=== PATIENT | male | born 1945 | race Caucasian/White ===

== ENCOUNTER 2023-09-01 09:14 | Inpatient (IN) ==
--- NOTE | 2023-09-01 09:37 | Emergency Department Note ---
Impression & Plan Atrial fibrillation with rapid ventricular response, COPD (chronic obstructive pulmonary disease), MEJIA (dyspnea on exertion) ED Provider Note NAME: COURT BARNES AGE: 78 SEX: M : 1945 ARRIVES VIA: Walk-In INFORMANT: Patient, ED PROVIDER(S): Richard Garcia MD CHIEF COMPLAINT: Shortness of breath MEDICAL DECISION MAKING: Patient presented due to concern for worsening shortness of breath. IV was established and blood work was obtained. Blood work shows a an elevated white count of 24,000. Hemoglobin of 10 with normal platelet count. The patient's kidney function with creatinine 1.4. Procalcitonin was added given the patient's white count the patient was ordered empiric antibiotics including Zosyn and a MRSA swab. Patient's bio fire is negative. BNP is elevated 813. Patient was hydrated cautiously and the patient's rate did improve along with some Lopressor. After discussing with the patient patient believes that he did have a shot to potentially increase his white blood cell count last week. Patient did have a chest x-ray completed prior to arrival which showed potential signs of viral pneumonia. Critical Care: I have personally spent 35 minutes of critical care time in direct management of this patient. This includes bedside care, interpretation of diagnostic studies, and testing, discussion with consultants, patient, and family members, and other require inpatient management activities. This 35 minutes is in excess of all separately billable procedures. Discussion w/ other healthcare providers: None Prior /Outside records reviewed: Reviewed a pulmonology visit from August 20, [address] Briscoe. No history of COPD diffuse large B-cell lymphoma pulmonary hypertension and bronchitis. Patient quit smoking in 20 [id number] history. Currently on high-dose Advair along with Spiriva and as needed albuterol patient is anticoagulated on apixaban. Patient did have a left cephalic access port placed by Dr. Palomino on August 20. Patient also with a known history of A-fib on apixaban. Patient is on metoprolol. Differential diagnosis: Reactive airway disease, pneumonia, pneumothorax, COPD, CHF, ACS, pulmonary embolism, musculoskeletal, GERD as well as other pathologies were considered.. The patient states that his shortness of breath has been worse with exertion but currently at rest laying back in the bed he feels comfortable. He does wear 3 L of chronic oxygen at all times. Diagnostics, as interpreted by me: ECG: A-fib with RVR rate 150, normal QRS, right bundle branch block pattern. Repeat EKG interpreted by myself A-fib with RVR rate of 124 bundle-branch block pattern. No significant change from comparison. Rate has improved. Cardiac monitoring: An order was placed for continuous cardiac monitoring. The monitor shows a rate of 121 with tachycardic and irregular irregular rhythm. Patient was placed on pulse oximetry Medical decision rules: None Imaging studies: I informally interpreted the patient's Chest x-ray does not show any evidence of pneumothorax with formal report to follow. HPI: Patient presents due to concern for A-fib and shortness of breath. The patient states that he does have chronic shortness of breath but seem to notice it worse this morning. The patient did notice some palpitations last evening. Patient denies any cough or fever. Patient states that he has been increasing his water or juice intake ever since he began chemotherapy is only had 1 beer in the last week. The patient states that he was like to drink water with his steak that he had. Patient denies any chest pains. 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 Patient states that last night is when he first noticed the fluttering and palpitations patient [place] any fevers or abdominal pain no nausea vomiting or diarrhea. PAST MEDICAL HISTORY: See Below PAST SURGICAL HISTORY: See Below SOCIAL HISTORY: See Below HOME MEDICATIONS: See Below ALLERGIES: See Below VITALS: See Below PHYSICAL EXAMINATION: GENERAL: NAD, non-toxic. EYE EXAM: Normal conjunctiva. PERRL, no anisocoria and EOM's grossly intact w/o pain. OROPHARYNX: Moist mucus membranes, grossly normal dentition. NECK: Trachea midline, no stridor. LUNGS: Clear to auscultation. Normal chest wall mechanics. HEART: Tachycardic and irregularly irregular, no MRG. ABDOMEN: Abdomen soft, non-tender, no masses, no rebound or guarding. BACK: No CVA TTP. SKIN: No rashes and no bruising. UPPER EXTREMITIES: Upper extremities are grossly normal. LOWER EXTREMITIES: Grossly normal, no edema. NEURO EXAM: A&O x3, cranial nerves II-XII grossly intact, normal speech, moves all 4 extremities. 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 Traore Anemia GERD (gastroesophageal reflux disease) Medical History Paroxysmal atrial fibrillation CKD (chronic kidney disease) stage 3, GFR 30-59 ml/min Claudication dx after AAA repair>causing back pain Arthritis GERD (gastroesophageal reflux disease) History of follicular lymphoma chemo/radiation tx 2017? Diffuse large B cell lymphoma current dx Hx of renal failure hospitalized 2021 ([place] in [place]) developed sepsis>had dialysis for 1 week while admitted>resolved issue Hx of sepsis Hypertension Hyperlipidemia History of atrial fibrillation 2021 On home oxygen therapy 3l cont. Chronic obstructive pulmonary disease Edema of both lower extremities Hx of chronic bronchitis Mitral valve regurgitation follow with Dr. Traore History of skin cancer nose area Restless leg syndrome Chronic back pain Stenosis of right carotid artery TIA (transient ischemic attack) x 2 (2021), on Eliquis, follows with [facility] Surgical History Port-A-Cath in place (08/21/23) p Insertion of Left Cephalic Access Port with Fluoroscopy(Left) - Chirag Palomino MD, FACS MRI port placed in the left cephalic vein throughout the procedure fluoroscopy was used to position the catheter and I personally reviewed all the images Hx of vasectomy History of tooth extraction History of cataract surgery right/left History of bronchoscopy History of Mohs micrographic surgery for skin cancer Hx of biopsy multiple lymph nodes/neck Hx of knee surgery multiple, both knees Hx of discectomy c5 History of endovascular stent graft for abdominal aortic aneurysm (AAA) 2019 Family History Father ALS (amyotrophic lateral sclerosis) Other No family history of adverse response to anesthesia Social History Smoking Status: Former smoker Tobacco Type: Cigarettes packs per day: ; Cigarettes Per Day: 2020; Second Hand Exposure: Yes (in the past); Do You Dip or Chew Tobacco: No; Hx Alcohol Use: No Hx Substance Use: No Preferred Language: Finnish Communication Ability: Effective Visual Impairment: Partially Limited Hearing Ability: Normal Master Technician Required: No Beliefs That Will Affect Care: None marital status: Current Living Situation: Alone current occupational status: 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 @ [employer] Feels Safe at Home: Yes Diet: regular during the past year weight has: remained stable Assistive Devices: Cane, Oxygen - Continuous and Walker Allergies Allergies Allergy/AdvReac Type Severity Reaction Status Date / Time rituximab Allergy Severe Swelling Verified 09/01/23 12:45 of Lip/Tongue/Throat Home Meds Home Medications Medication Instructions Recorded Confirmed acyclovir 200 mg capsule 400 mg PO BID 07/09/22 09/01/23 apixaban 5 mg tablet (Eliquis) 5 mg PO BID 07/09/22 09/01/23 atorvastatin 80 mg tablet 80 mg PO QPM 07/09/22 09/01/23 cholecalciferol (vitamin D3) 50 50 mcg PO QAM 07/09/22 09/01/23 mcg (2,000 unit) capsule folic acid 1 mg tablet 1 mg PO QAM 07/09/22 09/01/23 mecobalamin (vitamin B12) 1,000 1,000 mcg PO QAM 07/09/22 09/01/23 mcg chewable tablet metoprolol succinate 50 mg 50 mg PO QAM 07/09/22 09/01/23 tablet,extended release 24 hr acetaminophen 325 mg capsule 325 mg PO QID PRN Pain 08/29/22 09/01/23 (Tylenol) aspirin 81 mg capsule 81 mg PO QAM 08/29/22 09/01/23 omeprazole 20 mg tablet,delayed 20 mg PO QAM 08/29/22 09/01/23 release ketoconazole 2 % topical cream 1 applic topical BID PRN Skin 07/17/23 09/01/23 Irritation pramipexole 0.25 mg tablet 0.25 mg PO HS 08/12/23 09/01/23 sulfamethoxazole 800 1 tab PO 3XWK 08/12/23 09/01/23 mg-trimethoprim 160 mg tablet Previous Rx's Medication Instructions Recorded Flutter Valve #1 ea 03/20/23 dextromethorphan-guaifenesin 10 10 ml PO Q6H PRN cough #237 mL 03/20/23 mg-100 mg/5 mL oral liquid albuterol sulfate 90 mcg/actuation 2 puff inhalation QID PRN 08/20/23 aerosol inhaler shortness of breath or wheezing #8.5 grams fluticasone 500 mcg-salmeterol 50 1 inh inhalation BID #60 ea 08/20/23 mcg/dose blistr powdr for inhalation (Advair Diskus) tiotropium bromide 2.5 2 inh inhalation QAM #4 grams 08/20/23 mcg/actuation mist for inhalation (Spiriva Respimat) amoxicillin 875 mg-potassium 1 tab PO BID 6 days #12 tabs 09/02/23 clavulanate 125 mg tablet azithromycin 250 mg tablet 250 mg PO DAILY 4 days #4 tabs 09/02/23 Results & Data (ED) Vital Signs Vital Signs - 24 hr 09/01/23 09:16 09/01/23 09:58 09/01/23 10:03 Temperature 36.8 C Temperature Source Temporal Artery Scan Pulse Rate 103 H 125 H Pulse Rhythm Regular Pulse Strength Normal Respiratory Rate 18 Respiratory Effort / Characteristics Non-Labored Spontaneous Respiratory Depth Normal Respiratory Pattern Regular Blood Pressure 86/50 L 121/89 Blood Pressure Mean 62 Blood Pressure Position Sitting Pulse Oximetry 93 98 Oxygen Delivery Method Nasal Cannula Nasal Cannula Oxygen Flow Rate 3 3 Sepsis Recent Fever Within 48 Hours No Sepsis New/Unexplained Change in Mental Status No Sepsis Action Taken by Nursing No Action Required Home Medications Current Medication List: was personally reviewed by me Laboratory Data Attestation: I reviewed the patient's lab results. 09/02/23 05:25 09/02/23 05:25 Lab Results 09/01/23 09/01/23 09/01/23 Range/Units 09:30 09:50 09:58 WBC 24.76 H (4.8-10.8) K/ul RBC 2.79 L (4.70-6.10) M/uL Hgb 10.1 L (14.0-18.0) g/dl Hct 30.2 L (42.0-52.0) % MCV 108.2 H (80.0-100.0) fL MCH 36.2 H (25.0-34.0) pg MCHC 33.4 (32.0-36.0) g/dL RDW Std Deviation 55.5 H (36.4-46.3) fL RDW Coeff of Leeanne 13.9 (11.5-14.5) % Plt Count 133 (130-400) K/uL MPV 11.0 (9.4-12.4) fL Immature Gran % (Auto) 4.3 % Neut % (Auto) 87.0 % Lymph % (Auto) 0.9 % Knox % (Auto) 7.1 % Eos % (Auto) 0.6 % Baso % (Auto) 0.1 % Neut # (Auto) 21.52 H (1.40-6.50) K/uL Lymph # (Auto) 0.23 L (1.20-3.40) K/uL Knox # (Auto) 1.76 H (0.11-0.59) K/uL Eos # (Auto) 0.16 (0.00-0.50) K/uL Baso # (Auto) 0.02 (0.00-0.20) K/uL Immature Gran # (Auto) 1.07 H (0.01-0.20) K/uL Hyposegmented Neuts 2+ Sodium 140 (136-145) mmol/L Potassium 4.2 (3.5-5.1) mmol/L Chloride 107 (98-107) mmol/L Carbon Dioxide 28 (21-32) mmol/L Anion Gap 5 (3-11) BUN 28 H (6-23) mg/dl Creatinine 1.44 H (0.6-1.4) mg/dl Est Cr Clr Drug Dosing Not Reportable Est GFR ( Amer) 54.3 ml/min Est GFR (Non-Af Amer) 46.8 ml/min BUN/Creatinine Ratio 19.4 (10-20) Glucose 112 H (70-99(Fasting)) mg/dl Calcium 8.9 (8.6-10.3) mg/dl Magnesium 2.0 (1.7-2.4) mg/dl Total Bilirubin 0.6 (0.2-1.0) mg/dl AST 25 (13-39) U/L ALT 30 (7-52) U/L Alkaline Phosphatase 90 (34-104) U/L B-Natriuretic Peptide (0-100) pg/ml Total Protein 6.0 (6.0-8.3) gm/dl Albumin 3.5 (3.4-5.0) gm/dl Globulin 2.5 (2.5-4.0) gm/dl Albumin/Globulin Ratio 1.4 (0.9-2) Procalcitonin 0.14 (0-0.5) ng/ml Nasal Screen MRSA (PCR) (Negative) Adenovirus (PCR) Not Detected (NotDetected) B. pertussis DNA (PCR) Not Detected (NotDetected) B.parapertussis DNA PCR Not Detected (NotDetected) C. pneumoniae DNA (PCR) Not Detected (NotDetected) Coronavirus OC43 (PCR) Not Detected (NotDetected) Coronavirus HKU1 (PCR) Not Detected (NotDetected) Coronavirus 229E (PCR) Not Detected (NotDetected) SARS-CoV-2 (PCR) Not Detected (NotDetected) Coronavirus NL63 (PCR) Not Detected (NotDetected) Human Metapneumovir PCR Not Detected (NotDetected) Influenza Type A (PCR) Not Detected (NotDetected) Influenza Type B (PCR) Not Detected (NotDetected) M. pneumoniae (PCR) Not Detected (NotDetected) Parainfluenza 1 (PCR) Not Detected (NotDetected) Parainfluenza 2 (PCR) Not Detected (NotDetected) Parainfluenza 3 (PCR) Not Detected (NotDetected) Parainfluenza 4 (PCR) Not Detected (NotDetected) RSV (PCR) Not Detected (NotDetected) Entero/Rhino (PCR) Not Detected (NotDetected) 09/01/23 09/01/23 Range/Units 10:00 11:15 WBC (4.8-10.8) K/ul RBC (4.70-6.10) M/uL Hgb (14.0-18.0) g/dl Hct (42.0-52.0) % MCV (80.0-100.0) fL MCH (25.0-34.0) pg MCHC (32.0-36.0) g/dL RDW Std Deviation (36.4-46.3) fL RDW Coeff of Leeanne (11.5-14.5) % Plt Count (130-400) K/uL MPV (9.4-12.4) fL Immature Gran % (Auto) % Neut % (Auto) % Lymph % (Auto) % Knox % (Auto) % Eos % (Auto) % Baso % (Auto) % Neut # (Auto) (1.40-6.50) K/uL Lymph # (Auto) (1.20-3.40) K/uL Knox # (Auto) (0.11-0.59) K/uL Eos # (Auto) (0.00-0.50) K/uL Baso # (Auto) (0.00-0.20) K/uL Immature Gran # (Auto) (0.01-0.20) K/uL Hyposegmented Neuts Sodium (136-145) mmol/L Potassium (3.5-5.1) mmol/L Chloride (98-107) mmol/L Carbon Dioxide (21-32) mmol/L Anion Gap (3-11) BUN (6-23) mg/dl Creatinine (0.6-1.4) mg/dl Est Cr Clr Drug Dosing Est GFR ( Amer) ml/min Est GFR (Non-Af Amer) ml/min BUN/Creatinine Ratio (10-20) Glucose (70-99(Fasting)) mg/dl Calcium (8.6-10.3) mg/dl Magnesium (1.7-2.4) mg/dl Total Bilirubin (0.2-1.0) mg/dl AST (13-39) U/L ALT (7-52) U/L Alkaline Phosphatase (34-104) U/L B-Natriuretic Peptide 813 H (0-100) pg/ml Total Protein (6.0-8.3) gm/dl Albumin (3.4-5.0) gm/dl Globulin (2.5-4.0) gm/dl Albumin/Globulin Ratio (0.9-2) Procalcitonin (0-0.5) ng/ml Nasal Screen MRSA (PCR) Negative (Negative) Adenovirus (PCR) (NotDetected) B. pertussis DNA (PCR) (NotDetected) B.parapertussis DNA PCR (NotDetected) C. pneumoniae DNA (PCR) (NotDetected) Coronavirus OC43 (PCR) (NotDetected) Coronavirus HKU1 (PCR) (NotDetected) Coronavirus 229E (PCR) (NotDetected) SARS-CoV-2 (PCR) (NotDetected) Coronavirus NL63 (PCR) (NotDetected) Human Metapneumovir PCR (NotDetected) Influenza Type A (PCR) (NotDetected) Influenza Type B (PCR) (NotDetected) M. pneumoniae (PCR) (NotDetected) Parainfluenza 1 (PCR) (NotDetected) Parainfluenza 2 (PCR) (NotDetected) Parainfluenza 3 (PCR) (NotDetected) Parainfluenza 4 (PCR) (NotDetected) RSV (PCR) (NotDetected) Entero/Rhino (PCR) (NotDetected) Administered Medications Discontinued Medications Acyclovir (Acyclovir 400 Mg Tab) 400 mg PO BID [facility] Stop: 10/02/23 10:44 Last Admin: 09/02/23 11:18 Dose: 400 mg Documented By: OVIDIO Amoxicillin/Clavulanate Potassium (Amoxicillin/Clavulanate 875 Mg Tab) 1 tab PO NOW ONE; Protocol Stop: 09/02/23 11:00 Last Admin: 09/02/23 11:24 Dose: 1 tab Documented By: OVIDIO Apixaban (Apixaban 5 Mg Tablet) 5 mg PO BID [facility] Stop: 10/01/23 20:59 Last Admin: 09/02/23 08:19 Dose: 5 mg Documented By: Admin: 09/01/23 19:59 Dose: 5 mg Documented By: KAREN Aspirin (Aspirin 81 Mg Chew) 324 mg PO NOW STA Stop: 09/01/23 13:39 Last Admin: 09/01/23 13:48 Dose: 324 mg Documented By: ARIELA Azithromycin (Azithromycin 250 Mg Tab) 500 mg PO NOW STA Stop: 09/02/23 11:11 Last Admin: 09/02/23 11:24 Dose: 500 mg Documented By: OVIDIO Diltiazem HCl (Diltiazem Hcl 5 Mg/Ml 5 Ml Vial) 10 mg IV NOW STA Stop: 09/01/23 13:37 Last Admin: 09/01/23 13:48 Dose: 10 mg Documented By: ARIELA Co-signed By: URIAH Sodium Chloride (Nss) 250 mls @ 999 mls/hr IV .Q16M ONE Stop: 09/01/23 11:07 Last Infusion: 09/01/23 11:22 Dose: Infused Documented By: Admin: 09/01/23 11:04 Dose: 999 mls/hr Documented By: ARIELA Piperacillin Sod/Tazobactam Sod (Zosyn) 4.5 gm in 100 mls @ 200 mls/hr IV NOW ONE Stop: 09/01/23 11:34 Last Infusion: 09/01/23 13:44 Dose: Infused Documented By: Admin: 09/01/23 12:49 Dose: 200 mls/hr Documented By: ARIELA Sodium Chloride (Nss) 250 mls @ 999 mls/hr IV .Q16M ONE Stop: 09/01/23 11:38 Last Infusion: 09/01/23 15:13 Dose: Infused Documented By: Admin: 09/01/23 13:41 Dose: 999 mls/hr Documented By: ARIELA Sodium Chloride (Nss) 500 mls @ 500 mls/hr IV .Q1H [facility] Stop: 09/01/23 13:14 Last Infusion: 09/01/23 13:44 Dose: Infused Documented By: Admin: 09/01/23 12:32 Dose: 500 mls/hr Documented By: ARIELA Diltiazem HCl 125 mg/ Dextrose 125 mls @ 5 mls/hr IV .Q24H [facility]; Protocol Stop: 10/01/23 13:44 Last Admin: 09/01/23 18:02 Dose: Not Given Documented By: OVIDIO Metoprolol Succinate (Metoprolol Succ 50mg Ext Rel Tab) 50 mg PO QAM [facility] Stop: 10/02/23 10:44 Last Admin: 09/02/23 11:24 Dose: 50 mg Documented By: OVIDIO Metoprolol Tartrate (Metoprolol Tartrate 1 Mg/Ml Vial) 5 mg IV Q5M PRN PRN Reason: Tachycardia Stop: 10/01/23 09:50 Last Admin: 09/01/23 09:58 Dose: 5 mg Documented By: HS Metoprolol Tartrate (Metoprolol Tartrate 1 Mg/Ml Vial) 5 mg IV NOW STA Stop: 09/01/23 12:15 Last Admin: 09/01/23 12:50 Dose: 5 mg Documented By: DS Pantoprazole Sodium (Pantoprazole 40 Mg Tab) [facility]; Protocol Stop: 10/02/23 10:44 Last Admin: 09/02/23 11:18 Dose: 40 mg Documented By: CM Discharge Plan Visit Data Chief Complaint: Cardiac Assessment Stated Complaint: AFIB ED Provider: Richard Garcia Discharge Problem: Atrial fibrillation with rapid ventricular response, COPD (chronic obstructive pulmonary disease), MEJIA (dyspnea on exertion) Patient Disposition: Admitted As Inpatient Discharge Instructions Interventions: ED Discharge Assessment Last Done: 09/01/23 16:05 Discharge Problem: COPD (chronic obstructive pulmonary disease) Qualifiers: COPD type: unspecified COPD Qualified Code(s): J44.9 - Chronic obstructive pulmonary disease, unspecified
[2023-09-01] MEDS: METOPROLOL TARTRATE 1 MG/ML VIAL IV PRN (09:58)
[2023-09-01 10:08] LABS: Hematocrit (blood only) 30.2 % (42.0-52.0); Hemoglobin 10.1 g/dl (14.0-18.0); Mean Corpuscular Hemoglobin 36.2 pg (25.0-34.0); Mean Corpuscular Hgb Conc 33.4 g/dL (32.0-36.0); Mean Corpuscular Volume 108.2 fL (80.0-100.0); Platelet Count 133 K/uL (130-400); RDW Coefficient of Variation 13.9 % (11.5-14.5); RDW Standard Deviation 55.5 fL (36.4-46.3); Red Blood Count 2.79 M/uL (4.70-6.10)
[2023-09-01 10:22] LABS: Alanine Aminotransferase 30 U/L (7-52); Albumin Globulin Ratio 1.4 (0.9-2); Albumin Level 3.5 gm/dl (3.4-5.0); Alkaline Phosphatase 90 U/L (34-104); Anion Gap 5 (3-11); Aspartate Aminotransferase 25 U/L (13-39); BUN Creatinine Ratio 19.4 (10-20); Bilirubin,Total 0.6 mg/dl (0.2-1.0); Blood Urea Nitrogen 28 mg/dl (6-23); Calcium 8.9 mg/dl (8.6-10.3); Carbon Dioxide 28 mmol/L (21-32); Chloride 107 mmol/L (98-107); Est GFR (African American) 54.3 ml/min; Est GFR (Non-African American) 46.8 ml/min; Globulin 2.5 gm/dl (2.5-4.0); Glucose 112 mg/dl (70-99(Fasting)); Potassium 4.2 mmol/L (3.5-5.1); Sodium 140 mmol/L (136-145)
[2023-09-01 10:35] LABS: White Blood Count 24.76 K/ul (4.8-10.8)
[2023-09-01 10:56] LABS: Basophils # (auto) 0.02 K/uL (0.00-0.20); Basophils % (auto) 0.1 %; Eosinophils # (auto) 0.16 K/uL (0.00-0.50); Eosinophils % (auto) 0.6 %; Immature Granulocytes # (auto) 1.07 K/uL (0.01-0.20); Immature Granulocytes % (auto) 4.3 %; Lymphocytes # (auto) 0.23 K/uL (1.20-3.40); Lymphocytes % (auto) 0.9 %; Monocytes # (auto) 1.76 K/uL (0.11-0.59); Monocytes % (auto) 7.1 %; Neutrophils # (auto) 21.52 K/uL (1.40-6.50)
[2023-09-01] MEDS: SODIUM CHLORIDE 0.9% 250 ML IV ONE ×2 (11:04→13:41)
--- NOTE | 2023-09-01 11:38 | History & Physical Report ---
Date of Service September 01, 2023 Assessment & Plan (1) History of atrial fibrillation: Plan: Assessment: 1. Atrial fibrillation with rapid ventricular response. In the ER he had a total of 500 cc of normal saline. 5 mg of IV Lopressor. Had minimal response from the 130s to the 120s. Will give an additional 500 cc normal saline fluid bolus. If his heart rate does not respond we will give an additional 5 mg of IV Lopressor. If he does not respond to this we will entertain a Cardizem drip. 2. Rule out myocardial infarction stat troponins have been ordered. Acute ID is low my clinical suspicion placed. Echocardiograms been ordered. 3. History of COPD question acute exacerbation chest x-rays consistent with inflammatory versus infectious pneumonia possibly viral. Bio fire panel results. Patient had empiric Zosyn in the ER x 1. Procalcitonin levels pending. If positive will entertain ongoing antibiotic therapy. 4. History of pulmonary hypertension. 5. History of chronic/Paroxysmal atrial fibrillation on chronic Eliquis therapy. 6. B-cell lymphoma on chronic chemotherapy. Patient had chemo and injections at the end of last week. There is notes are not available for our review. We suspect the patient either had steroids and/or Neulasta/Neupogen. Blood cultures ordered. Sputum cultures ordered. Patient had empiric Zosyn. 7. Dyslipidemia. 8. GERD. 9. CKD stage III relatively stable creatinine 1.44 today. Monitor carefully. Plan: As scribed above. Please refer to orders for further planning. Will follow-up on this response of heart rate from the above treatment. Will follow- up on the BioFire panel and procalcitonin level are negative/normal. Therefore I would not give the patient any further antimicrobials at this point. History of Present Illness Chief Complaint: Shortness of breath, palpitations. Primary Care Provider: Kash Thomas MD This is a 78-year-old male who has a history of paroxysmal atrial fibrillation, COPD, pulmonary hypertension, B-cell lymphoma under active chemotherapy treatment. At the end of last week he had chemotherapy treatment with injections uncertain if he had Neulasta or steroids with that. Patient over the last several days had increasing shortness of breath and palpitations no suman chest pain. Came to the ER for further evaluation and treatment, after being seen at his oncologist office this morning found to have an elevated heart rate. In the ER patient was found to be in A-fib with RVR. He was given a total of 500 cc of saline fluid and given 5 mg of IV Lopressor. His heart rate improved mildly from the 130s to the 120s. Chest x-ray shows possible viral pneumonia. Bio fire panel was ordered and pending at the time of this dictation. We will order stat troponins and a lactic acid. Patient received IV Zosyn as well empirically because of the white count. Procalcitonin levels pending. Will admit the patient. Will give him some an additional 500 cc fluid challenge. If he does not respond to IV fluids, we will give an additional dose of IV Lopressor and if he does not respond to this we will consider Cardizem drip. Last ejection fraction was 55% in March 2023, due to the fact he is on active chemotherapy will check another echocardiogram. Allergies Allergy/AdvReac Type Severity Reaction Status Date / Time rituximab Allergy Severe Swelling Verified 08/21/23 07:11 of Lip/Tongue/Throat Home Medications Medication Instructions Recorded Confirmed Type acyclovir 200 mg capsule 400 mg PO BID 07/09/22 08/21/23 History apixaban 5 mg tablet (Eliquis) 5 mg PO BID 07/09/22 08/21/23 History atorvastatin 80 mg tablet 80 mg PO QPM 07/09/22 08/21/23 History cholecalciferol (vitamin D3) 50 50 mcg PO QAM 07/09/22 08/21/23 History mcg (2,000 unit) capsule folic acid 1 mg tablet 1 mg PO QAM 07/09/22 08/21/23 History mecobalamin (vitamin B12) 1,000 1,000 mcg PO QAM 07/09/22 08/21/23 History mcg chewable tablet metoprolol succinate 50 mg 50 mg PO QAM 07/09/22 08/21/23 History tablet,extended release 24 hr acetaminophen 325 mg capsule 325 mg PO QID PRN Pain 08/29/22 08/21/23 History (Tylenol) aspirin 81 mg capsule 81 mg PO QAM 08/29/22 08/21/23 History omeprazole 20 mg tablet,delayed 20 mg PO QAM 08/29/22 08/21/23 History release Flutter Valve #1 ea 03/20/23 08/13/23 Rx dextromethorphan-guaifenesin 10 10 ml PO Q6H PRN cough #237 mL 03/20/23 08/21/23 Rx mg-100 mg/5 mL oral liquid ketoconazole 2 % topical cream 1 applic topical BID PRN Skin 07/17/23 08/21/23 History Irritation pramipexole 0.25 mg tablet 0.25 mg PO HS 08/12/23 08/21/23 History sulfamethoxazole 800 1 tab PO 3XWK 08/12/23 08/21/23 History mg-trimethoprim 160 mg tablet albuterol sulfate 90 mcg/actuation 2 puff inhalation QID PRN 08/20/23 08/21/23 Rx aerosol inhaler shortness of breath or wheezing #8.5 grams fluticasone 500 mcg-salmeterol 50 1 inh inhalation BID #60 ea 08/20/23 08/21/23 Rx mcg/dose blistr powdr for inhalation (Advair Diskus) tiotropium bromide 2.5 2 inh inhalation QAM #4 grams 08/20/23 08/21/23 Rx mcg/actuation mist for inhalation (Spiriva Respimat) Past Med/Surg History Problem List Pulmonary hypertension Mitral regurgitation Dizziness entered into chart and last edited 05/14/23 Abnormal EKG Chronic respiratory failure with hypoxia Ex-smoker Chronic bronchitis 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 Traore Anemia GERD (gastroesophageal reflux disease) Medical History CKD (chronic kidney disease) stage 3, GFR 30-59 ml/min Claudication dx after AAA repair>causing back pain Arthritis GERD (gastroesophageal reflux disease) History of follicular lymphoma chemo/radiation tx 2017? Diffuse large B cell lymphoma current dx Hx of renal failure hospitalized 2021 ([place]) developed sepsis>had dialysis for 1 week while admitted>resolved issue Hx of sepsis Hypertension Hyperlipidemia History of atrial fibrillation 2021 On home oxygen therapy 3l cont. Chronic obstructive pulmonary disease Edema of both lower extremities Hx of chronic bronchitis Mitral valve regurgitation follow with Dr. Traore History of skin cancer nose area Restless leg syndrome Chronic back pain Stenosis of right carotid artery TIA (transient ischemic attack) x 2 (2021), on Eliquis, follows with [facility] Surgical History Port-A-Cath in place (08/21/23) p Insertion of Left Cephalic Access Port with Fluoroscopy(Left) - Chirag Palomino MD, FACS MRI port placed in the left cephalic vein throughout the procedure fluoroscopy was used to position the catheter and I personally reviewed all the images Hx of vasectomy History of tooth extraction History of cataract surgery right/left History of bronchoscopy History of Mohs micrographic surgery for skin cancer Hx of biopsy multiple lymph nodes/neck Hx of knee surgery multiple, both knees Hx of discectomy c5 History of endovascular stent graft for abdominal aortic aneurysm (AAA) 2019 Family History Father ALS (amyotrophic lateral sclerosis) Other No family history of adverse response to anesthesia Social History Smoking Status: Former smoker Tobacco Type: Cigarettes packs per day: ; Cigarettes Per Day: 2020; Second Hand Exposure: Yes (in the past); Do You Dip or Chew Tobacco: No; Hx Alcohol Use: Yes Alcohol type: beer Alcohol Intake Frequency Comment: 2-3 beers daily Hx Substance Use: Yes Last Used Substance Other:: occasional gummy (advised) "has not been able to get them" Preferred Language: Tanzanian Communication Ability: Effective Visual Impairment: Partially Limited Hearing Ability: Normal Government Auditor Required: No Beliefs That Will Affect Care: None marital status: Current Living Situation: Alone current occupational status: retired 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 Physical Exam Physical Exam: In General: In general pleasant 78-year-old male who is alert, x 3 at the time of my exam. He interacts appropriately pleasantly. He is in no acute distress. He is on his normal 3 L of oxygen which he wears continuously. HEENT: Normocephalic atraumatic pupils are equal round and reactive to light bilaterally. No scleral icterus no conjunctival injection external auditory canals are patent septum is in the midline nose is without discharge oral mucosa is pink and dry without lesion. NECK: Supple no rigidity no lymphadenopathy no thyromegaly no carotid bruits no JVD no masses. HEART: Irregular rate and rhythm. I do not appreciate any rub.. No murmur. LUNGS: Clear to auscultation, but diminished bilaterally. But no suman adventitious sounds. [id number] noted in the left upper chest wall. ABDOMEN: Soft nontender, no rebound, no peritoneal signs, positive bowel sounds, no appreciable organomegaly. EXTREMITIES: Intact, no peripheral cyanosis, clubbing or edema. Strength is 5 out of 5 in extremities x4, no pathological reflexes. NEUROLOGICAL: Cranial nerves II through XII are grossly intact with no focal deficit elicited upon examination. No tremor. Results & Data Results & Data Vital Signs (Past 12 Hours) Vital Signs Temp Pulse Resp BP Pulse Ox O2 Del Method O2 Flow Rate 09/01/23 11:08 123 H 09/01/23 10:57 130 H 16 98 3 09/01/23 10:36 120 H 17 98/65 L 94 09/01/23 10:18 128 H 13 100 09/01/23 10:03 98 Nasal Cannula 3 09/01/23 10:00 112 H 12 99 09/01/23 09:58 125 H 121/89 09/01/23 09:42 129 H 16 99 09/01/23 09:30 128 H 15 09/01/23 09:27 147 H 17 99 09/01/23 09:16 36.8 C 103 H 18 86/50 L 93 Nasal Cannula 3 Code Status & VTE Plan Code Status Full code. I personally discussed with patient today. PG Care Time/CCT Total # of Minutes Spent Total Time Spent with Patient: Total time spent is greater than 50% in coordination of care (as documented) at patient's floor/unit and/or counseling patient: Coding Level of Care Code 77690 INT INP/OBS CARE 3/75MIN Diagnoses History of atrial fibrillation Z86.79
[2023-09-01 12:13] LABS: Adenovirus PCR Not Detected (NotDetected); Bordetella parapertussis PCR Not Detected (NotDetected); Bordetella pertussis PCR Not Detected (NotDetected); Chlamydia pneumoniae PCR Not Detected (NotDetected); Coronavirus 229E PCR Not Detected (NotDetected); Coronavirus CoV-2 (COVID19)PCR Not Detected (NotDetected); Coronavirus HKU1 PCR Not Detected (NotDetected); Coronavirus NL63 PCR Not Detected (NotDetected); Coronavirus OC43PCR Not Detected (NotDetected); Human Metapneumovirus PCR Not Detected (NotDetected); Influenza A PCR Not Detected (NotDetected); Influenza B PCR Not Detected (NotDetected); Mycoplasma pneumoniae PCR Not Detected (NotDetected); Parainfluenza Virus 1 PCR Not Detected (NotDetected); Parainfluenza Virus 2 PCR Not Detected (NotDetected); Parainfluenza Virus 3 PCR Not Detected (NotDetected); Parainfluenza Virus 4 PCR Not Detected (NotDetected); Respiratory Syncytial VirusPCR Not Detected (NotDetected); Rhinovirus/Enterovirus PCR Not Detected (NotDetected)
[2023-09-01] MEDS ORDERED: Patient's HEIGHT &/or WEIGHT Needed SCH (12:30)
[2023-09-01] MEDS: SODIUM CHLORIDE 0.9% 500 ML IV SCH (12:32)
[2023-09-01] MEDS: PIPERACILLIN/TAZOBACTAM 4.5 GM/100 ML BAG IV ONE (12:49)
[2023-09-01] MEDS: METOPROLOL TARTRATE 1 MG/ML VIAL IV STA (12:50)
[2023-09-01] MEDS ORDERED: STAT IV Infusion **Titration per Protocol STA (13:36)
[2023-09-01] MEDS: ASPIRIN 81 MG CHEW PO STA (13:48)
[2023-09-01] MEDS: dilTIAZem HCl 5 MG/ML 5 ML VIAL IV STA (13:48)
--- NOTE | 2023-09-01 17:15 | Electrocardiogram Report ---
Test Reason : Blood Pressure : / mmHG Vent. Rate : 124 BPM Atrial Rate : 000 BPM P-R Int : 000 ms QRS Dur : 116 ms QT Int : 318 ms P-R-T Axes : 000 020 025 degrees QTc Int : 456 ms Atrial fibrillation with rapid ventricular response with premature ventricular or aberrantly conducte d complexes Right bundle branch block Abnormal ECG When compared with ECG of 01-SEP-2023 09:08, (unconfirmed) No significant change was found Confirmed by Aristeo Stearns ([id number]) on 09/01/2023 5:15:34 PM Referred By: REFERRED SELF Confirmed By:Aristeo Stearns
--- NOTE | 2023-09-01 17:21 | Electrocardiogram Report ---
Test Reason : Blood Pressure : / mmHG Vent. Rate : 069 BPM Atrial Rate : 054 BPM P-R Int : 176 ms QRS Dur : 082 ms QT Int : 386 ms P-R-T Axes : 036 010 017 degrees QTc Int : 413 ms Sinus bradycardia with frequent Premature ventricular complexes Otherwise normal ECG When compared with ECG of 01-SEP-2023 09:23, (unconfirmed) Sinus rhythm has replaced Atrial fibrillation Vent. rate has decreased BY 55 BPM Right bundle branch block is no longer Present Confirmed by Aristeo Stearns ([id number]) on 09/01/2023 5:21:51 PM Referred By: REFERRED SELF Confirmed By:Aristeo Stearns
[2023-09-01] MEDS: dilTIAZem HCL 125 MG in DEXTROSE 5% 100 ML IV SCH (18:02)
[2023-09-01] MEDS: APIXABAN 5 MG TABLET PO SCH (19:59)
[2023-09-01 20:18] LABS: Appearance Urine Clear (Clear); Bilirubin Urine Negative (Negative); Blood Urine Negative (Negative); Color Urine Yellow; Glucose Urine UA Negative (Negative); Ketones Urine Negative (Negative); Leukocyte Esterase Urine Negative (Negative); Nitrite Urine Negative (Negative); Protein Urine Negative (Negative); Specific Gravity Urine 1.014 (1.000-1.030); Urobilinogen Urine Negative (Negative); pH Urine 5.5 (4.5-7.5)
[2023-09-02] MEDS ORDERED: HEPARIN 100 UNIT/ML 5ML FLUSH FLUSH PRN (05:47)
[2023-09-02 06:01] LABS: Hematocrit (blood only) 25.3 % (42.0-52.0); Hemoglobin 8.6 g/dl (14.0-18.0); Mean Corpuscular Hemoglobin 36.6 pg (25.0-34.0); Mean Corpuscular Volume 107.7 fL (80.0-100.0); Mean Platelet Volume 10.9 fL (9.4-12.4); Platelet Count 117 K/uL (130-400); RDW Coefficient of Variation 13.8 % (11.5-14.5); RDW Standard Deviation 54.4 fL (36.4-46.3); Red Blood Count 2.35 M/uL (4.70-6.10); White Blood Count 16.38 K/ul (4.8-10.8)
[2023-09-02 06:17] LABS: Albumin Globulin Ratio 1.5 (0.9-2); Albumin Level 3.1 gm/dl (3.4-5.0); BUN Creatinine Ratio 19.3 (10-20); Bilirubin,Total 0.6 mg/dl (0.2-1.0); Calcium 8.1 mg/dl (8.6-10.3); Chol HDL Ratio 2.1 (0-5); Creatinine Clr Calc Pharmacy 53.6 ml/min; Est GFR (African American) 58.7 ml/min; Est GFR (Non-African American) 50.6 ml/min; Globulin 2.1 gm/dl (2.5-4.0); Magnesium 1.7 mg/dl (1.7-2.4); Potassium 4.1 mmol/L (3.5-5.1); Total Protein 5.2 gm/dl (6.0-8.3)
[2023-09-02 06:32] LABS: Thyroid Stimulating Hormone 1.455 uIu/ml (0.300-4.500)
[2023-09-02 06:56] LABS: Basophils # (auto) 0.08 K/uL (0.00-0.20); Basophils % (auto) 0.5 %; Dohle Bodies 1+; Eosinophils # (auto) 0.14 K/uL (0.00-0.50); Eosinophils % (auto) 0.9 %; Immature Granulocytes % (auto) 1.8 %; Lymphocytes % (auto) 1.2 %; Monocytes # (auto) 1.18 K/uL (0.11-0.59); Monocytes % (auto) 7.2 %; Neutrophils # (auto) 14.48 K/uL (1.40-6.50); Neutrophils % (auto) 88.4 %; Polychromasia 1+; Toxic Granulation 1+
[2023-09-02] MEDS: PANTOprazole 40 MG TAB PO SCH (11:18)
[2023-09-02] MEDS: ACYCLOVIR 400 MG TAB PO SCH (11:18)
[2023-09-02] MEDS: AZITHROMYCIN 250 MG TAB PO STA (11:24)
[2023-09-02] MEDS: AMOXICILLIN/CLAVULANATE 875 MG TAB PO ONE (11:24)
[2023-09-02] MEDS: METOPROLOL SUCC 50MG EXT REL TAB PO SCH (11:24)
--- NOTE | 2023-09-02 11:24 | Discharge Summary ---
Discharge Summary Date of Service September 02, 2023 Principal Dx & Hospital Course #1 = Principal Diagnosis (1) Atrial fibrillation with rapid ventricular response: Converted after IV hydration and very shortly after diltiazem 10mg IV bolus given on admission Suspect secondary to chemotherapy - discussed with Dr Traore and will follow up in clinic to discuss anti-arrhythmics Already on Eliquis for anticoagulation (2) Acute bronchitis: Elevated to treat with Augmentin + azithromycin given high risk, RLL crackles on lung auscultation and bronchitis on CXR This is not suspected to be driving his WBC elevation however - suspect this is due to Neulasta (as discussed with Dr Bangura) (3) History of atrial fibrillation: (4) Paroxysmal atrial fibrillation: Notes For Next Care Provider Follow up with Dr Traore to discuss anti-arrhythmics No specific PCP follow up required Medication Changes From Visit Augmentin and Azithromycin added for acute bronchitis Admission HPI Per Admitting Provider This is a 78-year-old male who has a history of paroxysmal atrial fibrillation, COPD, pulmonary hypertension, B-cell lymphoma under active chemotherapy treatment. At the end of last week he had chemotherapy treatment with injections uncertain if he had Neulasta or steroids with that. Patient over the last several days had increasing shortness of breath and palpitations no suman chest pain. Came to the ER for further evaluation and treatment, after being seen at his oncologist office this morning found to have an elevated heart rate. In the ER patient was found to be in A-fib with RVR. He was given a total of 500 cc of saline fluid and given 5 mg of IV Lopressor. His heart rate improved mildly from the 130s to the 120s. Chest x-ray shows possible viral pneumonia. Bio fire panel was ordered and pending at the time of this dictation. We will order stat troponins and a lactic acid. Patient received IV Zosyn as well empirically because of the white count. Procalcitonin levels pending. Will admit the patient. Will give him some an additional 500 cc fluid challenge. If he does not respond to IV fluids, we will give an additional dose of IV Lopressor and if he does not respond to this we will consider Cardizem drip. Last ejection fraction was 55% in March 2023, due to the fact he is on active chemotherapy will check another echocardiogram. Discharge Exam Constitutional well developed; + not well nourished and no acute distress ENMT Mouth: + poor dentition Respiratory normal respiratory effort; no respiratory distress Auscultation: + crackles (RLL); breath sounds present, no diminished lung sounds, no rales, no rhonchi and no wheezes Cardiovascular RRR, no murmur, no edema Gastrointestinal (Abdomen) normal bowel sounds, soft, nontender, no hepatosplenomegaly Updated Medication List Medication Instructions Recorded Confirmed Type acyclovir 200 mg capsule 400 mg PO BID 07/09/22 09/01/23 History apixaban 5 mg tablet (Eliquis) 5 mg PO BID 07/09/22 09/01/23 History atorvastatin 80 mg tablet 80 mg PO QPM 07/09/22 09/01/23 History cholecalciferol (vitamin D3) 50 50 mcg PO QAM 07/09/22 09/01/23 History mcg (2,000 unit) capsule folic acid 1 mg tablet 1 mg PO QAM 07/09/22 09/01/23 History mecobalamin (vitamin B12) 1,000 1,000 mcg PO QAM 07/09/22 09/01/23 History mcg chewable tablet metoprolol succinate 50 mg 50 mg PO QAM 07/09/22 09/01/23 History tablet,extended release 24 hr acetaminophen 325 mg capsule 325 mg PO QID PRN Pain 08/29/22 09/01/23 History (Tylenol) aspirin 81 mg capsule 81 mg PO QAM 08/29/22 09/01/23 History omeprazole 20 mg tablet,delayed 20 mg PO QAM 08/29/22 09/01/23 History release Flutter Valve #1 ea 03/20/23 08/13/23 Rx dextromethorphan-guaifenesin 10 10 ml PO Q6H PRN cough #237 mL 03/20/23 09/01/23 Rx mg-100 mg/5 mL oral liquid ketoconazole 2 % topical cream 1 applic topical BID PRN Skin 07/17/23 09/01/23 History Irritation pramipexole 0.25 mg tablet 0.25 mg PO HS 08/12/23 09/01/23 History sulfamethoxazole 800 1 tab PO 3XWK 08/12/23 09/01/23 History mg-trimethoprim 160 mg tablet albuterol sulfate 90 mcg/actuation 2 puff inhalation QID PRN 08/20/23 09/01/23 Rx aerosol inhaler shortness of breath or wheezing #8.5 grams fluticasone 500 mcg-salmeterol 50 1 inh inhalation BID #60 ea 08/20/23 09/01/23 Rx mcg/dose blistr powdr for inhalation (Advair Diskus) tiotropium bromide 2.5 2 inh inhalation QAM #4 grams 08/20/23 09/01/23 Rx mcg/actuation mist for inhalation (Spiriva Respimat) amoxicillin 875 mg-potassium 1 tab PO BID 6 days #12 tabs 09/02/23 Rx clavulanate 125 mg tablet azithromycin 250 mg tablet 250 mg PO DAILY 4 days #4 tabs 09/02/23 Rx Hospital Stay Data Consultations 09/01/23 11:24 ED Decision to Admit Stat Pending Results Patient Have Any Pending Studies at Discharge: Yes (blood cultures) Discharge Instructions Given to Patient (Per Discharging Provider) You were admitted overnight at [facility] from August 31 - 2023 due to atrial fibrillation with rapid ventricular rate following chemotherapy. You converted to normal sinus rhythm with intravenous hydration and diltiazem 10mg IV. Suspect you went into atrial fibrillation because of the chemotherapy and no change in your medications are recommended at this time. On discussion with your yacht master recommend just following up in clinic to discuss anti-arrhythmic therapy if not previously tried. Suspect your elevated white blood count is mostly from Neulasta but given rojelio rn for bronchitis on CXR and with right lower lobe lung auscultation crackles we will give you a course of antibiotics to cover for a lung infection. Blood cultures are pending at time of discharge and your will be called if these are subsequently positive. Coding Diagnoses Atrial fibrillation with rapid ventricular response I48.91 Acute bronchitis J20.9 History of atrial fibrillation Z86.79 Paroxysmal atrial fibrillation I48.0
[2023-09-02] MEDS ORDERED: PRAMIPEXOLE DIHYDROCHLO 0.25 MG TAB PO SCH (21:00)
[2023-09-02] MEDS ORDERED: ATORVASTATIN 40 MG TAB PO SCH (21:00)
[2023-09-03] MEDS ORDERED: CHOLECALCIFEROL 25 MCG (1000 UNITS) TAB PO SCH (09:00)
[2023-09-03] MEDS ORDERED: FLUTICASONE/VILANTEROL 100/25MCG 14 PUFFS/INHALER INH SCH (09:00)
[2023-09-03] MEDS ORDERED: ASPIRIN 81 MG ECTAB PO SCH (09:00)
[2023-09-03] MEDS ORDERED: SULFAMETHOXAZOLE/TRIMETHOPRIM DS 800/160MG TAB PO SCH (09:00)
[2023-09-03] MEDS ORDERED: UMECLIDINIUM BROMIDE 62.5MCG/BLISTER 7 PUFFS/INHALER INH SCH (09:00)
== END 2023-09-02 13:36 | disposition home or self-care (01) | DRG 309 ==
LOC: ED 09:14 → 2S 12:13 → SUATTDRO 12:13 → 2S 16:05

== ENCOUNTER 2023-10-01 15:09 | Inpatient (IN) ==
--- NOTE | 2023-10-01 15:15 | Emergency Department Note ---
Impression & Plan Weakness, Diffuse large B cell lymphoma, Anemia, Hypomagnesemia, Hypocalcemia, Acute constipation, Dyspnea ED Provider Note NAME: COURT BARNES AGE: 78 SEX: M : 1945 ARRIVES VIA: Walk-In INFORMANT: Patient, ED PROVIDER(S): Richard Garcia MD CHIEF COMPLAINT: Weakness, possible pleural effusion, history of B-cell lymphoma outpatient referral MEDICAL DECISION MAKING: Patient presents due to concern for increasing weakness fatigue shortness of breath as well as constipation issues. IV was established and blood work was obtained. Patient was ordered 500 cc fluid bolus. Blood work shows normal white count. Chronic and stable anemia with a hemoglobin of 8.7. Patient's platelet count is low at 114. The patient has had thrombocytopenia in the past. The patient does receive chemotherapy treatments. Sodium of 133. This is lower than normal. Also with associated hypocalcemia and hypomagnesemia. The patient was ordered 2 g of magnesium for replete meant as well as 1 g of IV calcium. Bio fire negative. Chest and abdominal x-rays do not show evidence of obvious impaction or significant pleural effusion. Given the referral and issues I did speak with the on-call hospital service Dr. Turner. Patient was admitted to the medicine service. Discussion w/ other healthcare providers: Dr. Turner inpatient medicine service Dr. Bangura oncology Prior /Outside records reviewed: None Differential diagnosis: Infection, dehydration, metabolic abnormality, hypo/hyperglycemia, electrolyte imbalance, anemia, UTI, pneumonia, thyroid dysfunction among others were considered. Diagnostics, as interpreted by me: ECG: Normal sinus rhythm, rate of 85, wide QRS with right bundle branch block, normal axis. No ST elevations. Cardiac monitoring: An order was placed for continuous cardiac monitoring. The monitor shows a rate of 86 with sinus rhythm. Patient was placed on pulse oximetry Medical decision rules: None Imaging studies: I informally interpreted the patient's chest x-ray does not show evidence of significant pleural effusion with formal report to follow. HPI: Patient presents as a referral from Dr. Bangura as the patient does have an unfortunate relapse of large B-cell lymphoma undergoing current chemotherapy treatment last cycle about [address] Clark was concerned that he had a left-sided pleural effusion has had increasing weakness. The patient has had progressively worsening weakness and feels as though he has had some associated nausea and developing some abdominal discomfort secondary to lack of bowel movement. The patient did take oxycodone 2 nights ago to help with sleep. The patient otherwise does not take recurrent narcotics or antihistamines. Patient states that he has felt obstipated and has not passing a lot of stool last since Friday. Patient denies any chest pains but has felt more fatigable and short of breath. He was thought to have associated pleural effusion based on examination prior to being referred here for evaluation and admission. The patient has had poor appetite. Patient denies any falls or trauma. PAST MEDICAL HISTORY: See Below PAST SURGICAL HISTORY: See Below SOCIAL HISTORY: See Below HOME MEDICATIONS: See Below ALLERGIES: See Below VITALS: See Below PHYSICAL EXAMINATION: GENERAL: NAD, non-toxic. Wearing a mask. EYE EXAM: Normal conjunctiva. PERRL, no anisocoria and EOM's grossly intact w/o pain. OROPHARYNX: Dry mucus membranes, grossly normal dentition. NECK: Trachea midline, no stridor. Chest: Port noted to the left chest. LUNGS: Decreased breath sound left base. Normal chest wall mechanics. HEART: NSR, no MRG. ABDOMEN: Abdomen soft, non-tender, no masses, no rebound or guarding. BACK: No CVA TTP. SKIN: No rashes and no bruising. UPPER EXTREMITIES: Upper extremities are grossly normal. LOWER EXTREMITIES: Grossly normal, no edema. NEURO EXAM: A&O x3, cranial nerves II-XII grossly intact, normal speech, moves all 4 extremities. 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 Chronic obstructive pulmonary disease Edema of both lower extremities Hx of chronic bronchitis Mitral valve regurgitation follow with Dr. Traore History of skin cancer nose area Restless leg syndrome Chronic back pain Stenosis of right carotid artery TIA (transient ischemic attack) x 2 (2021), on Eliquis, follows with [facility] Surgical History Port-A-Cath in place (08/21/23) p Insertion of Left Cephalic Access Port with Fluoroscopy(Left) - Chirag Palomino MD, FACS MRI port placed in the left cephalic vein throughout the procedure fluoroscopy was used to position the catheter and I personally reviewed all the images Hx of vasectomy History of tooth extraction History of cataract surgery right/left History of bronchoscopy History of Mohs micrographic surgery for skin cancer Hx of biopsy multiple lymph nodes/neck Hx of knee surgery multiple, both knees Hx of discectomy c5 History of endovascular stent graft for abdominal aortic aneurysm (AAA) 2019 Family History Father ALS (amyotrophic lateral sclerosis) Other No family history of adverse response to anesthesia Social History Smoking Status: Former smoker Tobacco Type: Cigarettes packs per day: ; Cigarettes Per Day: 2020; Second Hand Exposure: Yes (in the past); Do You Dip or Chew Tobacco: No; Hx Alcohol Use: No Hx Substance Use: No Preferred Language: Haitian Communication Ability: Effective Visual Impairment: Partially Limited Hearing Ability: Normal Carroting 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 Operator Required: No Beliefs That Will Affect Care: None marital status: Current Living Situation: Alone current occupational status: retired 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 @ [employer] Feels Safe at Home: Yes Diet: regular during the past year weight has: remained stable Assistive Devices: Cane, Oxygen - Continuous and Walker Allergies Allergies Allergy/AdvReac Type Severity Reaction Status Date / Time rituximab Allergy Severe Swelling Verified 10/01/23 17:40 of Lip/Tongue/Throat Home Meds Home Medications Medication Instructions Recorded Confirmed acyclovir 200 mg capsule 400 mg PO BID 07/09/22 10/01/23 apixaban 5 mg tablet (Eliquis) 5 mg PO BID 07/09/22 10/01/23 atorvastatin 80 mg tablet 80 mg PO QPM 07/09/22 10/01/23 cholecalciferol (vitamin D3) 50 50 mcg PO QAM 07/09/22 10/01/23 mcg (2,000 unit) capsule folic acid 1 mg tablet 1 mg PO QAM 07/09/22 10/01/23 mecobalamin (vitamin B12) 1,000 1,000 mcg PO QAM 07/09/22 10/01/23 mcg chewable tablet metoprolol succinate 50 mg 50 mg PO QAM 07/09/22 10/01/23 tablet,extended release 24 hr aspirin 81 mg capsule 81 mg PO QAM 08/29/22 10/01/23 omeprazole 20 mg tablet,delayed 20 mg PO QAM 08/29/22 10/01/23 release ketoconazole 2 % topical cream 1 applic topical BID PRN Skin 07/17/23 10/01/23 Irritation pramipexole 0.25 mg tablet 0.25 mg PO HS 08/12/23 10/01/23 sulfamethoxazole 800 1 tab PO 3XWK 08/12/23 10/01/23 mg-trimethoprim 160 mg tablet acetaminophen 500 mg tablet 1,000 mg PO QID PRN Pain 09/10/23 10/01/23 (Tylenol Extra Strength) Previous Rx's Medication Instructions Recorded Flutter Valve #1 ea 03/20/23 dextromethorphan-guaifenesin 10 10 ml PO Q6H PRN cough #237 mL 03/20/23 mg-100 mg/5 mL oral liquid albuterol sulfate 90 mcg/actuation 2 puff inhalation QID PRN 08/20/23 aerosol inhaler shortness of breath or wheezing #8.5 grams fluticasone 500 mcg-salmeterol 50 1 inh inhalation BID #60 ea 08/20/23 mcg/dose blistr powdr for inhalation (Advair Diskus) tiotropium bromide 2.5 2 inh inhalation QAM #4 grams 08/20/23 mcg/actuation mist for inhalation (Spiriva Respimat) Results & Data (ED) Vital Signs Vital Signs - 24 hr 10/01/23 15:16 10/01/23 15:43 10/01/23 17:27 Temperature 36.4 C L Temperature Source Temporal Artery Scan Pulse Rate 96 H 86 Pulse Rate [Finger] 89 Respiratory Rate 20 20 Respiratory Effort / Characteristics Spontaneous Respiratory Depth Normal Respiratory Pattern Regular Blood Pressure 116/76 Blood Pressure [Right Arm] 141/91 H Blood Pressure Mean 89 Blood Pressure Mean [Right Arm] 107 Blood Pressure Position Sitting Pulse Oximetry 99 98 Oxygen Delivery Method Room Air Nasal Cannula Oxygen Flow Rate 3 Sepsis Recent Fever Within 48 Hours No Sepsis New/Unexplained Change in Mental Status No Sepsis Action Taken by Nursing No Action Required Home Medications Current Medication List: was personally reviewed by me Laboratory Data Attestation: I reviewed the patient's lab results. 10/01/23 16:10 10/01/23 16:10 Lab Results 10/01/23 10/01/23 Range/Units 16:10 16:11 WBC 7.29 (4.8-10.8) K/ul RBC 2.50 L (4.70-6.10) M/uL Hgb 8.7 L (14.0-18.0) g/dl Hct 26.0 L (42.0-52.0) % MCV 104.0 H (80.0-100.0) fL MCH 34.8 H (25.0-34.0) pg MCHC 33.5 (32.0-36.0) g/dL RDW Std Deviation 58.0 H (36.4-46.3) fL RDW Coeff of Leeanne 15.4 H (11.5-14.5) % Plt Count 114 L (130-400) K/uL MPV 11.3 (9.4-12.4) fL Immature Gran % (Auto) 1.2 % Neut % (Auto) 81.6 % Lymph % (Auto) 3.4 % Towner % (Auto) 13.3 % Eos % (Auto) 0.4 % Baso % (Auto) 0.1 % Neut # (Auto) 5.94 (1.40-6.50) K/uL Lymph # (Auto) 0.25 L (1.20-3.40) K/uL Towner # (Auto) 0.97 H (0.11-0.59) K/uL Eos # (Auto) 0.03 (0.00-0.50) K/uL Baso # (Auto) 0.01 (0.00-0.20) K/uL Immature Gran # (Auto) 0.09 (0.01-0.20) K/uL Sodium 133 L (136-145) mmol/L Potassium 3.9 (3.5-5.1) mmol/L Chloride 100 (98-107) mmol/L Carbon Dioxide 26 (21-32) mmol/L Anion Gap 7 (3-11) BUN 21 (6-23) mg/dl Creatinine 1.04 (0.6-1.4) mg/dl Est Cr Clr Drug Dosing Not Reportable Est GFR ( Amer) 80.5 ml/min Est GFR (Non-Af Amer) 69.4 ml/min BUN/Creatinine Ratio 20.2 H (10-20) Glucose 110 H (70-99(Fasting)) mg/dl Calcium 8.4 L (8.6-10.3) mg/dl Magnesium 1.4 L (1.7-2.4) mg/dl Total Bilirubin 0.6 (0.2-1.0) mg/dl AST 28 (13-39) U/L ALT 25 (7-52) U/L Alkaline Phosphatase 72 (34-104) U/L Total Protein 5.8 L (6.0-8.3) gm/dl Albumin 3.4 (3.4-5.0) gm/dl Globulin 2.4 L (2.5-4.0) gm/dl Albumin/Globulin Ratio 1.4 (0.9-2) TSH 1.554 (0.300-4.500) uIu/ml Adenovirus (PCR) Not Detected (NotDetected) B. pertussis DNA (PCR) Not Detected (NotDetected) B.parapertussis DNA PCR Not Detected (NotDetected) C. pneumoniae DNA (PCR) Not Detected (NotDetected) Coronavirus OC43 (PCR) Not Detected (NotDetected) Coronavirus HKU1 (PCR) Not Detected (NotDetected) Coronavirus 229E (PCR) Not Detected (NotDetected) SARS-CoV-2 (PCR) Not Detected (NotDetected) Coronavirus NL63 (PCR) Not Detected (NotDetected) Human Metapneumovir PCR Not Detected (NotDetected) Influenza Type A (PCR) Not Detected (NotDetected) Influenza Type B (PCR) Not Detected (NotDetected) M. pneumoniae (PCR) Not Detected (NotDetected) Parainfluenza 1 (PCR) Not Detected (NotDetected) Parainfluenza 2 (PCR) Not Detected (NotDetected) Parainfluenza 3 (PCR) Not Detected (NotDetected) Parainfluenza 4 (PCR) Not Detected (NotDetected) RSV (PCR) Not Detected (NotDetected) Entero/Rhino (PCR) Not Detected (NotDetected) Administered Medications Magnesium Sulfate/Dextrose (Magnesium Sulfate / D5w) 1 gm in 100 mls @ 100 mls/hr IV Q1H LAILA Stop: 10/01/23 19:25 Last Admin: 10/01/23 17:39 Dose: 100 mls/hr Documented By: URIAH Discontinued Medications Calcium Gluconate () 1,000 mg in 60 mls @ 240 mls/hr IV NOW STA Stop: 10/01/23 17:38 Last Admin: 10/01/23 17:39 Dose: 240 mls/hr Documented By: URIAH Imaging Data Radiologist's Impression: Chest/Abdomen X-ray 10/01/23 15:46 XR abdomen 2V w PA chest CLINICAL HISTORY: decreased BM, obstipated, ?pleural effusion L base TECHNIQUE: 2 views of the abdomen were obtained. A single view of the chest was obtained. Comparison: Comparison is made to chest radiograph 09/01/2023 FINDINGS: A port catheter is seen. Calcified aortic knob is seen. The lungs are clear. No evidence of pleural effusion or pneumothorax. Aortobiiliac stent is seen. The osseous structures are grossly unremarkable. The bowel gas pattern is nonobstructive. Small stool burden is seen. IMPRESSION: No pleural effusion is seen. No evidence of fecal impaction. ACT 112: Negative or not required by law. Electronically signed by: Lorenzo Lee M.D. 10/01/2023 5:45 PM Discharge Plan Visit Data Chief Complaint: Illness Stated Complaint: SEVERE PAIN, FLUID IN LUNGS, FAILURE TO THRIVE ED Provider: Richard Garcia Discharge Problem: Weakness, Diffuse large B cell lymphoma, Anemia, Hypomagnesemia, Hypocalcemia, Acute constipation, Dyspnea Forms Stand Alone Forms: [facility] Prescriptions Prescriptions: No Action omeprazole 20 mg tablet,delayed release (DR/EC) 20 mg PO QAM aspirin 81 mg capsule 81 mg PO QAM ketoconazole 2 % cream 1 applic topical BID PRN (Reason: Skin Irritation) acyclovir 200 mg capsule 400 mg PO BID Eliquis 5 mg tablet 5 mg PO BID Hold Instructions: Resume on 08/23/23. resume taking Friday atorvastatin 80 mg tablet 80 mg PO QPM cholecalciferol (vitamin D3) 50 mcg (2,000 unit) capsule 50 mcg PO QAM mecobalamin (vitamin B12) 1,000 mcg tablet,chewable 1,000 mcg PO QAM folic acid 1 mg tablet 1 mg PO QAM metoprolol succinate 50 mg tablet extended release 24 hr 50 mg PO QAM dextromethorphan-guaifenesin 10-100 mg/5 mL liquid 10 ml PO Q6H PRN (Reason: cough) Qty: 237 0RF (DME) Flutter Valve Device See Rx Instructions .MEDSUPPLY Qty: 1 0RF Rx Instructions: Use it every 6 hours when awake. albuterol sulfate 90 mcg/actuation HFA aerosol inhaler 2 puff inhalation QID PRN (Reason: shortness of breath or wheezing) Qty: 8.5 4RF fluticasone propion-salmeterol [Advair Diskus] 500-50 mcg/dose blister with device 1 inh inhalation BID Qty: 60 7RF Spiriva Respimat 2.5 mcg/actuation mist 2 inh inhalation QAM Qty: 4 7RF acetaminophen [Tylenol Extra Strength] 500 mg tablet 1,000 mg PO QID PRN (Reason: Pain) sulfamethoxazole-trimethoprim 800-160 mg Tablet 1 tab PO 3XWK Rx Instructions: Mon/Wed/Fri pramipexole 0.25 mg Tablet 0.25 mg PO HS Referrals Referrals: Kash Thomas MD [Primary Care Provider] - Discharge Problem: Diffuse large B cell lymphoma Qualifiers: Lymphoma site: unspecified region Qualified Code(s): C83.30 - Diffuse large B- cell lymphoma, unspecified site Anemia Qualifiers: Anemia type: unspecified type Qualified Code(s): D64.9 - Anemia, unspecified Dyspnea Qualifiers: Dyspnea type: unspecified Qualified Code(s): R06.00 - Dyspnea, unspecified
[2023-10-01 16:29] LABS: Basophils # (auto) 0.01 K/uL (0.00-0.20); Basophils % (auto) 0.1 %; Eosinophils # (auto) 0.03 K/uL (0.00-0.50); Eosinophils % (auto) 0.4 %; Hemoglobin 8.7 g/dl (14.0-18.0); Immature Granulocytes # (auto) 0.09 K/uL (0.01-0.20); Immature Granulocytes % (auto) 1.2 %; Lymphocytes # (auto) 0.25 K/uL (1.20-3.40); Lymphocytes % (auto) 3.4 %; Mean Corpuscular Hemoglobin 34.8 pg (25.0-34.0); Mean Corpuscular Hgb Conc 33.5 g/dL (32.0-36.0); Mean Platelet Volume 11.3 fL (9.4-12.4); Monocytes # (auto) 0.97 K/uL (0.11-0.59); Monocytes % (auto) 13.3 %; Neutrophils # (auto) 5.94 K/uL (1.40-6.50); Neutrophils % (auto) 81.6 %; Platelet Count 114 K/uL (130-400); RDW Coefficient of Variation 15.4 % (11.5-14.5); White Blood Count 7.29 K/ul (4.8-10.8)
[2023-10-01 17:04] LABS: Alanine Aminotransferase 25 U/L (7-52); Albumin Globulin Ratio 1.4 (0.9-2); Albumin Level 3.4 gm/dl (3.4-5.0); Alkaline Phosphatase 72 U/L (34-104); Anion Gap 7 (3-11); Aspartate Aminotransferase 28 U/L (13-39); BUN Creatinine Ratio 20.2 (10-20); Bilirubin,Total 0.6 mg/dl (0.2-1.0); Blood Urea Nitrogen 21 mg/dl (6-23); Calcium 8.4 mg/dl (8.6-10.3); Carbon Dioxide 26 mmol/L (21-32); Chloride 100 mmol/L (98-107); Est GFR (African American) 80.5 ml/min; Est GFR (Non-African American) 69.4 ml/min; Globulin 2.4 gm/dl (2.5-4.0); Glucose 110 mg/dl (70-99(Fasting)); Magnesium 1.4 mg/dl (1.7-2.4); Potassium 3.9 mmol/L (3.5-5.1); Sodium 133 mmol/L (136-145); Total Protein 5.8 gm/dl (6.0-8.3)
[2023-10-01 17:13] LABS: Adenovirus PCR Not Detected (NotDetected); Bordetella parapertussis PCR Not Detected (NotDetected); Bordetella pertussis PCR Not Detected (NotDetected); Chlamydia pneumoniae PCR Not Detected (NotDetected); Coronavirus 229E PCR Not Detected (NotDetected); Coronavirus CoV-2 (COVID19)PCR Not Detected (NotDetected); Coronavirus HKU1 PCR Not Detected (NotDetected); Coronavirus NL63 PCR Not Detected (NotDetected); Coronavirus OC43PCR Not Detected (NotDetected); Human Metapneumovirus PCR Not Detected (NotDetected); Influenza A PCR Not Detected (NotDetected); Influenza B PCR Not Detected (NotDetected); Mycoplasma pneumoniae PCR Not Detected (NotDetected); Parainfluenza Virus 1 PCR Not Detected (NotDetected); Parainfluenza Virus 2 PCR Not Detected (NotDetected); Parainfluenza Virus 3 PCR Not Detected (NotDetected); Parainfluenza Virus 4 PCR Not Detected (NotDetected); Respiratory Syncytial VirusPCR Not Detected (NotDetected); Rhinovirus/Enterovirus PCR Not Detected (NotDetected)
[2023-10-01 17:19] LABS: Thyroid Stimulating Hormone 1.554 uIu/ml (0.300-4.500)
[2023-10-01] MEDS: MAGNESIUM SULFATE / D5W 1 GM/100 ML BAG IV SCH (17:39)
[2023-10-01] MEDS: CALCIUM GLUCONATE 1,000 MG/60 ML BAG IV STA (17:39)
--- NOTE | 2023-10-01 17:41 | History & Physical Report ---
Date of Service October 01, 2023 Assessment & Plan (1) Body aches: Plan: Patient sent in with his oncologist on 09/30 over concern for pleural effusion No pleural effusion seen on CXR Severe, worsening body aches (mainly in the extremities) x 3 weeks Likely secondary to chemotherapy Scheduled acetaminophen 500 mg p.o. q4h Toradol 15 mg IV q6h as needed for breakthrough pain Will defer opioids at this time given constipation Creatinine kinase ordered to assess for rhabdomyolysis A.m. CBC, BMP, mag (2) Diffuse large B cell lymphoma: Plan: Patient is currently receiving chemotherapy at [facility] Last round of chemo was 2 weeks ago Likely contributing to severe pain/body aches Continue acyclovir and Bactrim as scheduled (3) Hypomagnesemia: Plan: Magnesium 1.4 on arrival Magnesium sulfate 1 g IV x 2 Recheck a.m. mag (4) Chronic respiratory failure with hypoxia: Plan: Supplemental oxygen at baseline (2L NC) Continuous pulse oximetry (5) Constipation: Plan: Last BM was on Monday 09/25 KUB without signs of constipation or fecal impaction MiraLAX daily (6) COPD (chronic obstructive pulmonary disease): Plan: Incentive spirometry, flutter valve (7) Paroxysmal atrial fibrillation: Plan: Rate controlled on arrival Continue Eliquis, metoprolol (8) Ex-smoker: Plan Disposition: Admit to [facility] telemetry Full code Regular diet VTE PPx: On Eliquis History of Present Illness Chief Complaint: Illness Primary Care Provider: Kash Thomas MD Hiram is a pleasant 78-year-old male with PMH of diffuse large B-cell lymphoma (on chemotherapy), GERD, cardiomyopathy, COPD, HTN, mitral vegetation, and atrial fibrillation. He presented on 09/30 at the behest of his oncologist for intense body aches, pleural effusion, constipation, and increased fatigue which may be secondary to chemotherapy. Patient's last chemotherapy session was 2 weeks ago. He reports that he has been developing a worsening pain/intense body aches throughout his entire body over the past 3 weeks. It initially started in his legs behind his calves, but now has extended to his shoulders and hands. The pain is so bad that he can barely walk at times. He characterizes it as an "intense aching", which he rates 10/10 at worst, and 9.5/10 at present. He has been taking Tylenol home, which initially helped, but is no longer helping. He has been taking Tylenol 1000 mg every 6 hours. Patient took all his regular morning medications today; no recent change in medications. He is on supplemental oxygen at baseline (2L NC). No CPAP at night. Additionally, patient notes he has not been passing gas or had a BM since Monday 09/25. He does note that he took 1 tablet of oxycodone a couple nights ago, but notes that the constipation started well before this. Patient is a former tobacco cigarette smoker but quit 2.5 years ago. He also endorses occasional alcohol use, but nothing within the past week since his pain got worse. Patient is hypertensive at 141/91 at time of admission; SpO2 98% on 3L NC. ED course: Magnesium sulfate 1 g IV Calcium gluconate 1000 mg IV ROS: Patient endorses cold intolerance, dizziness/lightheadedness with walking, VITAL (which patient attributes to constant pain), intense body aches mainly in extremities, dry cough, abdominal pain (which patient attributes to constipation), and intermittent numbness/tingling in the fingers. Patient denies fever, chills, night-sweats, falls, chest pain, SOB, pleuritic CP, nausea/vomiting/diarrhea, burning with urination, dysuria, or blood in the urine/stool. Allergies Allergy/AdvReac Type Severity Reaction Status Date / Time rituximab Allergy Severe Swelling Verified 10/01/23 17:40 of Lip/Tongue/Throat Home Medications Medication Instructions Recorded Confirmed Type acyclovir 200 mg capsule 400 mg PO BID 07/09/22 10/01/23 History apixaban 5 mg tablet (Eliquis) 5 mg PO BID 07/09/22 10/01/23 History atorvastatin 80 mg tablet 80 mg PO QPM 07/09/22 10/01/23 History cholecalciferol (vitamin D3) 50 50 mcg PO QAM 07/09/22 10/01/23 History mcg (2,000 unit) capsule folic acid 1 mg tablet 1 mg PO QAM 07/09/22 10/01/23 History mecobalamin (vitamin B12) 1,000 1,000 mcg PO QAM 07/09/22 10/01/23 History mcg chewable tablet metoprolol succinate 50 mg 50 mg PO QAM 07/09/22 10/01/23 History tablet,extended release 24 hr aspirin 81 mg capsule 81 mg PO QAM 08/29/22 10/01/23 History omeprazole 20 mg tablet,delayed 20 mg PO QAM 08/29/22 10/01/23 History release Flutter Valve #1 ea 03/20/23 09/10/23 Rx dextromethorphan-guaifenesin 10 10 ml PO Q6H PRN cough #237 mL 03/20/23 10/01/23 Rx mg-100 mg/5 mL oral liquid ketoconazole 2 % topical cream 1 applic topical BID PRN Skin 07/17/23 10/01/23 History Irritation pramipexole 0.25 mg tablet 0.25 mg PO HS 08/12/23 10/01/23 History sulfamethoxazole 800 1 tab PO 3XWK 08/12/23 10/01/23 History mg-trimethoprim 160 mg tablet albuterol sulfate 90 mcg/actuation 2 puff inhalation QID PRN 08/20/23 10/01/23 Rx aerosol inhaler shortness of breath or wheezing #8.5 grams fluticasone 500 mcg-salmeterol 50 1 inh inhalation BID #60 ea 08/20/23 10/01/23 Rx mcg/dose blistr powdr for inhalation (Advair Diskus) tiotropium bromide 2.5 2 inh inhalation QAM #4 grams 08/20/23 10/01/23 Rx mcg/actuation mist for inhalation (Spiriva Respimat) acetaminophen 500 mg tablet 1,000 mg PO QID PRN Pain 09/10/23 10/01/23 History (Tylenol Extra Strength) Past Med/Surg History Problem List (Updated 10/01/23 @ 18:15 by Les Lemus PA-C) Paroxysmal atrial fibrillation Constipation Body aches Dyspnea (Acute) Weakness (Acute) Acute constipation (Acute) Hypocalcemia (Acute) Hypomagnesemia (Acute) Anemia (Acute) MEIJA (dyspnea on exertion) (Acute) Acute bronchitis Atrial fibrillation with rapid ventricular response (Acute) Pulmonary hypertension Mitral regurgitation Dizziness entered into chart and last edited 05/14/23 Abnormal EKG Chronic respiratory failure with hypoxia Ex-smoker Chronic bronchitis 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 Chronic obstructive pulmonary disease Edema of both lower extremities Hx of chronic bronchitis Mitral valve regurgitation follow with Dr. Traore History of skin cancer nose area Restless leg syndrome Chronic back pain Stenosis of right carotid artery TIA (transient ischemic attack) x 2 (2021), on Eliquis, follows with [facility] Surgical History Port-A-Cath in place (08/21/23) p Insertion of Left Cephalic Access Port with Fluoroscopy(Left) - Chirag Palomino MD, FACS MRI port placed in the left cephalic vein throughout the procedure f luoroscopy was used to position the catheter and I personally reviewed all the images Hx of vasectomy History of tooth extraction History of cataract surgery right/left History of bronchoscopy History of Mohs micrographic surgery for skin cancer Hx of biopsy multiple lymph nodes/neck Hx of knee surgery multiple, both knees Hx of discectomy c5 History of endovascular stent graft for abdominal aortic aneurysm (AAA) 2019 Family History Father ALS (amyotrophic lateral sclerosis) Other No family history of adverse response to anesthesia Social History Smoking Status: Former smoker Tobacco Type: Cigarettes packs per day: ; Cigarettes Per Day: 2020; Second Hand Exposure: Yes (in the past); Do You Dip or Chew Tobacco: No; Hx Alcohol Use: No Hx Substance Use: No Preferred Language: Tongan Communication Ability: Effective Visual Impairment: Partially Limited Hearing Ability: Normal Adventure Challenge Instructor Required: No Beliefs That Will Affect Care: None marital status: Current Living Situation: Alone current occupational status: retired 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 @ [employer] Feels Safe at Home: Yes Diet: regular during the past year weight has: remained stable Assistive Devices: Cane, Oxygen - Continuous and Walker Review of Systems Review of Systems: See HPI above Physical Exam Physical Exam: General: no acute distress; pleasant affect; non-toxic appearing; well-nourished; cooperative; SpO2 100% on 2 LNC HEENT: normocephalic, atraumatic; no scleral icterus; PERRLA w/ EOMs intact; moist mucus membrane; vision and hearing grossly intact Neck: supple; no lymphadenopathy; trachea midline Skin: warm, dry without signs of tenting; no cyanosis; no rashes, lesions, or erythema noted; mild bruising on the hands CV: chest wall NTP; port site on left upper chest wall without signs of infection, erythema, or drainage; RRR; S1/S2 normal; no murmurs/rubs/gallops; pulses intact and symmetric at radial, DP, and PT Lungs: no acute respiratory distress; symmetrical chest wall expansion; clear breath sounds across all lung krishnan w/o adventitious sounds; no wheezing ABD: Soft, NTP; BS present; no rebound/guarding; no distention MSK: no tics or fasciculations; no edema noted in the LEs b/l, nonerythematous Neuro: A&Ox3; normal mood and affect; fluent speech; no focal deficits; sensation grossly intact in the LEs b/l Results & Data Results & Data Vital Signs (Past 12 Hours) Vital Signs Temp Pulse Pulse Resp BP BP Pulse Ox 10/01/23 17:27 89 20 141/91 H 98 10/01/23 15:43 86 10/01/23 15:16 36.4 C L 96 H 20 116/76 99 O2 Del Method O2 Flow Rate 10/01/23 17:27 Nasal Cannula 3 10/01/23 15:43 10/01/23 15:16 Room Air Laboratory Results Abnormal lab results 10/01/23 Range/Units 16:10 RBC 2.50 L (4.70-6.10) M/uL Hgb 8.7 L (14.0-18.0) g/dl Hct 26.0 L (42.0-52.0) % MCV 104.0 H (80.0-100.0) fL MCH 34.8 H (25.0-34.0) pg RDW Std Deviation 58.0 H (36.4-46.3) fL RDW Coeff of Leeanne 15.4 H (11.5-14.5) % Plt Count 114 L (130-400) K/uL Lymph # (Auto) 0.25 L (1.20-3.40) K/uL Starr # (Auto) 0.97 H (0.11-0.59) K/uL Sodium 133 L (136-145) mmol/L BUN/Creatinine Ratio 20.2 H (10-20) Glucose 110 H (70-99(Fasting)) mg/dl Calcium 8.4 L (8.6-10.3) mg/dl Magnesium 1.4 L (1.7-2.4) mg/dl Total Protein 5.8 L (6.0-8.3) gm/dl Globulin 2.4 L (2.5-4.0) gm/dl Diagnostic Findings Chest/Abdomen X-ray 10/01/23 15:46 XR abdomen 2V w PA chest CLINICAL HISTORY: decreased BM, obstipated, ?pleural effusion L base TECHNIQUE: 2 views of the abdomen were obtained. A single view of the chest was obtained. Comparison: Comparison is made to chest radiograph 09/01/2023 FINDINGS: A port catheter is seen. Calcified aortic knob is seen. The lungs are clear. No evidence of pleural effusion or pneumothorax. Aortobiiliac stent is seen. The osseous structures are grossly unremarkable. The bowel gas pattern is nonobstructive. Small stool burden is seen. IMPRESSION: No pleural effusion is seen. No evidence of fecal impaction. ACT 112: Negative or not required by law. Electronically signed by: Lorenzo Lee M.D. 10/01/2023 5:45 PM ECG Additional Comments: ECG revealed NSR 85 bpm; QTc 473; RBBB Code Status & VTE Plan Code Status Full code (discussed with patient at bedside, and while he does not have paperwork in place he would want his son to be medical proxy in the event of an emergency) VTE Prophylaxis Plan VTE Prophylaxis will be ordered: Yes Supervising Physician Co-Signing Physician Notes Patient seen and examined, chart reviewed, case discussed with Les Lemus PA-C and I agree with the assessment and plan as above except as otherwise noted Labs and images reviewed 78-year-old male with history of diffuse large B-cell lymphoma on his second cycle of third round of chemotherapy. Has had increasing global discomfort, body aches, muscle discomfort, global weakness without focal weakness, and general malaise. Was recommended for admission and was referred by oncology, unfortunately direct admission was not available due to code flow. Hemoglobin 8.7 from 9.5 without acute bleeding. MCV 104. Creatinine is at baseline, 1.04. Mildly hyponatremic at 133. Hypomagnesemic at 1.4. Bio fire is negative. Chest x-ray is without acute findings. Diffuse body aches and malaise due to chemotherapy. CK is not elevated. No evidence of MARKO or critical electrolyte derangement, although magnesium is low. Continue Tylenol, Toradol Multimodal pain control. On clinical reassessment patient does feel that his muscle cramps are improving with IV fluids and he feels a little bit better. Denies chest pain, chest pressure, fever, chills, cough. Lungs are clear, abdomen is nontender. Moves extremities equally. Denies hematochezia/melena. Continue IV FM, aggressive magnesium repletion to goal of 2.0. 1 dose of potassium repletion given to optimize to goal of 4.0. Trend hemoglobin, continue B12 and folic acid daily. Agree with above. PG Care Time/CCT Total # of Minutes Spent Total Time Spent with Patient: Total time spent is greater than 50% in coordination of care (as documented) at patient's floor/unit and/or counseling patient: Coding [place] [address] INT INP/OBS CARE 3/75MIN Patient Type Established Medical Decision Making High Complexity Diagnoses Body aches R52 Diffuse large B cell lymphoma C83.30 Lymphoma site: unspecified region Hypomagnesemia E83.42 Chronic respiratory failure with hypoxia J96.11 Constipation K59.00 COPD (chronic obstructive pulmonary disease) J44.9 COPD type: unspecified COPD Paroxysmal atrial fibrillation I48.0 Ex-smoker Z87.891 (2) Diffuse large B cell lymphoma Lymphoma site: unspecified region Qualified Code(s): C83.30 - Diffuse large B-cell lymphoma, unspecified site (6) COPD (chronic obstructive pulmonary disease) COPD type: unspecified COPD Qualified Code(s): J44.9 - Chronic obstructive pulmonary disease, unspecified
--- NOTE | 2023-10-01 17:46 | XRay Report ---
XR abdomen 2V w PA chest CLINICAL HISTORY: decreased BM, obstipated, ?pleural effusion L base TECHNIQUE: 2 views of the abdomen were obtained. A single view of the chest was obtained. Comparison: Comparison is made to chest radiograph 09/01/2023 FINDINGS: A port catheter is seen. Calcified aortic knob is seen. The lungs are clear. No evidence of pleural e ffusion or pneumothorax. Aortobiiliac stent is seen. The osseous structures are grossly unremarkable. The bowel gas pattern is nonobstructive. Small stool burden is seen. IMPRESSION: No pleural effusion is seen. No evidence of fecal impaction. ACT 112: Negative or not required by law. Electronically signed by: Lorenzo Lee M.D. 10/01/2023 5:45 PM
[2023-10-01] MEDS: POLYETHYLENE (MIRALAX) 17 GM PACK PO STA (18:36)
[2023-10-01] MEDS: SODIUM CHLORIDE 0.9% 500 ML IV ONE (18:37)
[2023-10-01 19:37] LABS: Creatine Kinase 21 U/L (30-223)
[2023-10-01] MEDS ORDERED: guaiFENesin 600 MG TABCR PO PRN (20:16)
[2023-10-01] MEDS ORDERED: ALBUTEROL HFA 8 GM INHALER INH PRN (20:16)
[2023-10-01] MEDS: ATORVASTATIN 40 MG TAB PO SCH (20:55)
[2023-10-01] MEDS: ACYCLOVIR 200 MG CAP PO SCH (20:55)
[2023-10-01] MEDS: ACETAMINOPHEN 500 MG TAB PO SCH (20:55)
[2023-10-01] MEDS: APIXABAN 5 MG TABLET PO SCH (20:55)
[2023-10-01] MEDS: PRAMIPEXOLE DIHYDROCHLO 0.25 MG TAB PO SCH (21:01)
[2023-10-01] MEDS: KETOROLAC TROMETHAMINE 15 MG/ML VIAL IV PRN (21:58)
[2023-10-01] MEDS: HYDROmorphone INJ 0.5 MG/0.5 ML SYR IV STA (23:47)
[2023-10-01] MEDS: POLYETHYLENE (MIRALAX) 17 GM PACK PO PRN (23:49)
[2023-10-02 03:27] LABS: Appearance Urine Clear (Clear); Bacteria Urine Automated None Seen (None Seen); Bilirubin Urine Negative (Negative); Blood Urine Negative (Negative); Cast Urine Automated 0-2 /lpf (0-2); Color Urine Yellow; Epithelial Cell Urine Auto 0-2 /hpf (0-2); Glucose Urine UA Negative (Negative); Ketones Urine Negative (Negative); Leukocyte Esterase Urine Trace (Negative); Nitrite Urine Negative (Negative); Protein Urine Negative (Negative); RBC Urine Automated 0-2 /hpf (0-2); Specific Gravity Urine 1.014 (1.000-1.030); Urobilinogen Urine Negative (Negative)
--- NOTE | 2023-10-02 07:24 | Oncology Consultation ---
Date of Consultation October 02, 2023 Assessment & Plan (1) Diffuse large B cell lymphoma: at this time I will hold the treatment for diffuse large B-cell lymphoma. I will plan to do a restaging scan to see whether he is responding well to treatment. This Should be done once the patient is discharged from the hospital and we will try to get a PET CT scan. Given that the patient's clinical condition is overall not great I will hold curative chemotherapy. (2) COPD (chronic obstructive pulmonary disease): the patient does have chronic obstructive pulmonary disease and is on home oxygen. Will leave management to his regular doctors and doctors in the hospital (3) Weakness: weakness and fatigue are multifactorial secondary to advanced cancer, chemotherapy, multiple medical comorbidities (4) Body aches: body aches are multifactorial, he is requiring pain medications. Will leave the pain medications to our colleagues from hospital internal medicine Plan thank you for this interesting oncological consult. Medical oncology will continue to follow the patient make appropriate recommendations. History of Present Illness Reason for Consultation: relapse/refractory diffuse large B-cell lymphoma diffuse joint pain Attending Physician: eLobardo Manzo MD History of Present Illness 2019: Diagnosed with follicular lymphoma, treated with Bendamustine 2019: Bendamustine 2020: Diffuse large B-cell lymphoma, treated with our SODA WORKER chemotherapy in [place] 11/04/2019 03/18/2021: R COPD, intermittent treatment due to side effects, we in [facility] 01/21/2022, lymph node biopsy, right submandibular gland. 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 Favoring follicular lymphoma 08/08/2022: PET CT scan There are dominantly stable to slightly improved findings of lymphoma within the right neck. Persistent but improved hypermetabolic thoracic lymphadenopathy. Interval resolution of previously described breast uptake. Persistent but improved abdominopelvic hypermetabolic lymphadenopathy. 08/26/2022: Medical oncology follow-up with Dr. Estrada. Recommendation was for radiation therapy. 07/09/[address] scan: IMPRESSION: 1. Overall, findings consistent with progressive lymphoma. Thoracic lymphadenopathy has progressed since PET/CT of August 08, 2022 and abdominal and pelvic lymphadenopathy with small, moderately FDG avid lymph nodes has developed. Right level 1 and 2 cervical lymphadenopathy on PET/CT of August 08, 2022 has resolved however bilateral supraclavicular FDG avid lymphadenopathy has progressed. 2. Right lung ground glass opacities. Atelectasis is favored although an infectious process could appear similar. 3. Emphysema. No suspicious pulmonary nodules. 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 Received 2 cycles of RCE OP instead of R-CHOP because of heart failure. Developed pneumonia after cycle 2 of R COPD, leading to severe sepsis, renal failure requiring hemodialysis. Treatment resumed in April 2021, completed 6 cycles of R SODA WORKER. Follow-up PET CT scan done in our monitor per in August 2021, revealed persistent disease. Since then the patient moved to [facility]. Evaluated by our colleagues in [place], PET/CT from 01/16/2022 revealed multiple enlarged FDG avid lymph nodes, 1B and level 5 lymph node. Intensely FDG avid right submandibular lois mass. Multiple FDG avid paratracheal and hilar lymph nodes. FDG avid lymph nodes in the close cardiophrenic angle. Biopsy of the right level 2 cervical lois mass revealed CD20 positive B-cell lymphoma. Since finishing radiation the patient has been on a surveillance protocol. He is being followed in radiation oncology and here. Since then the patient has not noticed any B symptoms. Reports no growing lumps anywhere. Ports no fever chills or night sweats. Ports no nausea vomiting. Appetite is good, the patient is not losing the patient is a very pleasant 78-year-old man who is well-known to me who has been recently diagnosed with relapsed refractory DLBCL. He he was added to my schedule yesterday in the clinic with concerns of failure to thrive, diffuse skeletal pain. He has COPD and is on oxygen. He does not have history of heart failure as well as well as A-fib with RVR. He was brought to the ER from the oncology clinic because of failure to thrive, diffuse joint aches Allergies Allergy/AdvReac Type Severity Reaction Status Date / Time rituximab Allergy Severe Swelling Verified 10/01/23 17:40 of Lip/Tongue/Throat Home Medications Medication Instructions Recorded Confirmed Type acyclovir 200 mg capsule 400 mg PO BID 07/09/22 10/01/23 History apixaban 5 mg tablet (Eliquis) 5 mg PO BID 07/09/22 10/01/23 History atorvastatin 80 mg tablet 80 mg PO QPM 07/09/22 10/01/23 History cholecalciferol (vitamin D3) 50 50 mcg PO QAM 07/09/22 10/01/23 History mcg (2,000 unit) capsule folic acid 1 mg tablet 1 mg PO QAM 07/09/22 10/01/23 History mecobalamin (vitamin B12) 1,000 1,000 mcg PO QAM 07/09/22 10/01/23 History mcg chewable tablet metoprolol succinate 50 mg 50 mg PO QAM 07/09/22 10/01/23 History tablet,extended release 24 hr aspirin 81 mg capsule 81 mg PO QAM 08/29/22 10/01/23 History omeprazole 20 mg tablet,delayed 20 mg PO QAM 08/29/22 10/01/23 History release Flutter Valve #1 ea 03/20/23 09/10/23 Rx dextromethorphan-guaifenesin 10 10 ml PO Q6H PRN cough #237 mL 03/20/23 10/01/23 Rx mg-100 mg/5 mL oral liquid ketoconazole 2 % topical cream 1 applic topical BID PRN Skin 07/17/23 10/01/23 History Irritation pramipexole 0.25 mg tablet 0.25 mg PO HS 08/12/23 10/01/23 History sulfamethoxazole 800 1 tab PO 3XWK 08/12/23 10/01/23 History mg-trimethoprim 160 mg tablet albuterol sulfate 90 mcg/actuation 2 puff inhalation QID PRN 08/20/23 10/01/23 Rx aerosol inhaler shortness of breath or wheezing #8.5 grams fluticasone 500 mcg-salmeterol 50 1 inh inhalation BID #60 ea 08/20/23 10/01/23 Rx mcg/dose blistr powdr for inhalation (Advair Diskus) tiotropium bromide 2.5 2 inh inhalation QAM #4 grams 08/20/23 10/01/23 Rx mcg/actuation mist for inhalation (Spiriva Respimat) acetaminophen 500 mg tablet 1,000 mg PO QID PRN Pain 09/10/23 10/01/23 History (Tylenol Extra Strength) Patient History Medical History Paroxysmal atrial fibrillation CKD (chronic kidney disease) stage 3, GFR 30-59 ml/min Claudication dx after AAA repair>causing back pain Arthritis GERD (gastroesophageal reflux disease) History of follicular lymphoma chemo/radiation tx 2017? Diffuse large B cell lymphoma current dx Hx of renal failure hospitalized [place] ([place]) developed sepsis>had dialysis for 1 week while admitted>resolved issue Hx of sepsis Hypertension Hyperlipidemia History of atrial fibrillation 2021 On home oxygen therapy 3l cont. Chronic obstructive pulmonary disease Edema of both lower extremities Hx of chronic bronchitis Mitral valve regurgitation follow with Dr. Traore History of skin cancer nose area Restless leg syndrome Chronic back pain Stenosis of right carotid artery TIA (transient ischemic attack) x 2 (2021), on Eliquis, follows with [facility] Surgical History Port-A-Cath in place (08/21/23) p Insertion of Left Cephalic Access Port with Fluoroscopy(Left) - Chirag Palomino MD, FACS MRI port placed in the left cephalic vein throughout the procedure fluoroscopy was used to position the catheter and I personally reviewed all the images Hx of vasectomy History of tooth extraction History of cataract surgery right/left History of bronchoscopy History of Mohs micrographic surgery for skin cancer Hx of biopsy multiple lymph nodes/neck Hx of knee surgery multiple, both knees Hx of discectomy c5 History of endovascular stent graft for abdominal aortic aneurysm (AAA) 2019 Family History Father ALS (amyotrophic lateral sclerosis) Other No family history of adverse response to anesthesia Social History Smoking Status: Former smoker Tobacco Type: Cigarettes packs per day: ; Cigarettes Per Day: 2020; Second Hand Exposure: Yes (in the past); Do You Dip or Chew Tobacco: No; Hx Alcohol Use: Yes Alcohol type: beer Alcohol Intake Frequency Comment: 2-3 beers daily Hx Substance Use: No Preferred Language: Serbian Communication Ability: Effective Visual Impairment: Partially Limited Hearing Ability: Normal Curriculum And Instruction Specialist Required: No Beliefs That Will Affect Care: None marital status: Current Living Situation: Alone current occupational status: retired current occupation: [employer] @ [employer] Feels Safe at Home: Yes Diet: regular during the past year weight has: remained stable Assistive Devices: Cane, Oxygen - Continuous and Walker Review of Systems Review of Systems: Complete review of system was done was positive for skeletal pain Constitutional: + body aches Eyes: as per Subjective / HPI Ear, Nose, Mouth, Throat: as per Subjective / HPI Respiratory: + cough and + dyspnea Cardiovascular: as per Subjective / HPI Gastrointestinal: as per Subjective / HPI Genitourinary: + as per Subjective / HPI Musculoskeletal: as per Subjective / HPI Integumentary: as per Subjective / HPI Neurologic: as per Subjective / HPI Psychiatric: as per Subjective / HPI Endocrine: as per Subjective / HPI Hematologic / Lymphatic: as per Subjective / HPI Allergy / Immunological: as per Subjective / HPI Physical Exam Constitutional: WD/WN, vitals as above Eyes: PERRL, conjunctivae normal, anicteric sclerae ENMT: external ear and nose normal, oropharynx normal Neck: trachea midline, no thyromegaly Respiratory: normal respiratory effort, lungs clear to auscultation Cardiovascular: RRR, no murmur, no edema Gastrointestinal (Abdomen): normal bowel sounds, soft, nontender, no hepatosplenomegaly Musculoskeletal: no cyanosis or clubbing, extremities motor strength 5/5 Skin: no rashes, warm and dry Neurologic: patellar DTR's 2+ bilat, sensation intact Psychiatric: A+Ox3, euthymic affect Lymphatic: no cervical or axillary lymphadenopathy Results & Data Vital Signs (Past 12 Hours) Vital Signs Temp Pulse Pulse Resp BP BP Pulse Ox 10/02/23 03:22 36.5 C 77 18 121/69 99 10/02/23 00:00 89 10/01/23 21:14 85 16 143/72 H 96 10/01/23 20:16 36.8 C 83 18 161/75 H 10/01/23 20:16 10/01/23 19:30 83 18 166/80 H 100 10/01/23 19:28 87 Pulse Ox O2 Del Method O2 Del Method O2 Flow Rate O2 Flow Rate 10/02/23 03:22 Nasal Cannula 3 10/02/23 00:00 10/01/23 21:14 Nasal Cannula 3 10/01/23 20:16 10/01/23 20:16 99 Nasal Cannula 3 10/01/23 19:30 Nasal Cannula 3 10/01/23 19:28 (1) Diffuse large B cell lymphoma Lymphoma site: unspecified region Qualified Code(s): C83.30 - Diffuse large B-cell lymphoma, unspecified site (2) COPD (chronic obstructive pulmonary disease) COPD type: unspecified COPD Qualified Code(s): J44.9 - Chronic obstructive pulmonary disease, unspecified
[2023-10-02 07:52] LABS: Basophils # (auto) 0.01 K/uL (0.00-0.20); Basophils % (auto) 0.2 %; Eosinophils # (auto) 0.08 K/uL (0.00-0.50); Eosinophils % (auto) 1.6 %; Hematocrit (blood only) 24.9 % (42.0-52.0); Hemoglobin 8.3 g/dl (14.0-18.0); Immature Granulocytes # (auto) 0.03 K/uL (0.01-0.20); Immature Granulocytes % (auto) 0.6 %; Lymphocytes # (auto) 0.28 K/uL (1.20-3.40); Lymphocytes % (auto) 5.7 %; Mean Corpuscular Hemoglobin 34.6 pg (25.0-34.0); Mean Corpuscular Hgb Conc 33.3 g/dL (32.0-36.0); Mean Corpuscular Volume 103.8 fL (80.0-100.0); Mean Platelet Volume 11.1 fL (9.4-12.4); Monocytes # (auto) 0.89 K/uL (0.11-0.59); Monocytes % (auto) 18.3 %; Neutrophils # (auto) 3.58 K/uL (1.40-6.50); Neutrophils % (auto) 73.6 %; Platelet Count 106 K/uL (130-400); RDW Coefficient of Variation 15.4 % (11.5-14.5); RDW Standard Deviation 57.2 fL (36.4-46.3); White Blood Count 4.87 K/ul (4.8-10.8)
[2023-10-02 08:06] LABS: Potassium 3.8 mmol/L (3.5-5.1)
[2023-10-02 08:07] LABS: BUN Creatinine Ratio 18.6 (10-20); Calcium 8.2 mg/dl (8.6-10.3); Creatinine Clr Calc Pharmacy 62.6 ml/min; Est GFR (African American) 82.4 ml/min; Est GFR (Non-African American) 71.1 ml/min; Magnesium 1.9 mg/dl (1.7-2.4)
[2023-10-02] MEDS: ASPIRIN 81 MG ECTAB PO SCH (08:20)
[2023-10-02] MEDS: FLUTICASONE/VILANTEROL 100/25MCG 14 PUFFS/INHALER INH SCH (08:21)
[2023-10-02] MEDS: UMECLIDINIUM BROMIDE 62.5MCG/BLISTER 7 PUFFS/INHALER INH SCH (08:21)
[2023-10-02] MEDS: PANTOprazole 40 MG TAB PO SCH (08:22)
[2023-10-02] MEDS: FOLIC ACID 1 MG TAB PO SCH (08:22)
[2023-10-02] MEDS: METOPROLOL SUCC 50MG EXT REL TAB PO SCH (08:22)
[2023-10-02] MEDS: MAGNESIUM SULFATE / D5W 1 GM/100 ML BAG IV ONE (08:59)
[2023-10-02] MEDS ORDERED: POLYETHYLENE (MIRALAX) 17 GM PACK PO SCH (09:00)
--- NOTE | 2023-10-02 09:14 | Electrocardiogram Report ---
Test Reason : Blood Pressure : / mmHG Vent. Rate : 085 BPM Atrial Rate : 085 BPM P-R Int : 152 ms QRS Dur : 120 ms QT Int : 398 ms P-R-T Axes : 024 -09 004 degrees QTc Int : 473 ms Normal sinus rhythm Right bundle branch block Abnormal ECG When compared with ECG of 01-SEP-2023 14:29, Premature ventricular complexes are no longer Present Right bundle branch block is now Present Confirmed by Aristeo Stearns ([id number]) on 10/02/2023 9:13:56 AM Referred By: Enzo Bangura Confirmed By:Aristeo Stearns
[2023-10-02] MEDS: HEPARIN 100 UNIT/ML 5ML FLUSH FLUSH PRN (11:07)
--- NOTE | 2023-10-02 12:39 | Hospitalist Progress Note ---
Date of Service October 02, 2023 Assessment & Plan (1) Body aches: Plan: Patient sent in with his oncologist on 09/30 over concern for pleural effusion No pleural effusion seen on CXR Severe, worsening body aches (mainly in the extremities) x 3 weeks Likely secondary to chemotherapy - respiratory biofire negative - CK WNL Scheduled acetaminophen 500 mg p.o. q4h Toradol 15 mg IV q6h as needed for breakthrough pain Will defer opioids at this time given constipation Mag replaced A.m. CBC, BMP (2) Diffuse large B cell lymphoma: Plan: Patient is currently receiving chemotherapy at the cancer [facility]. Last round of chemo was 2 weeks ago Likely contributing to severe pain/body aches Continue acyclovir and Bactrim as scheduled Oncology consulted - hold lymphoma treatment and plan to scan and restage outpatient (3) Constipation: Plan: Last BM was on Monday 09/25 KUB without signs of constipation or fecal impaction MiraLAX daily Added dulculax suppository prn enema (4) Hypomagnesemia: Plan: Magnesium 1.4 on arrival Magnesium sulfate 1 g IV x 2 mag repelete (5) Chronic respiratory failure with hypoxia: Plan: Also with COPD - no acute exacerbation Supplemental oxygen at baseline (3L [place]) Continue home inhaler s Continuous pulse oximetry Plan Chronic stable medical conditions: * Paroxysmal atrial fib - continue Eliquis, Metoprolol * HLD - continue statin * GERD - continue PPI Disposition: continued inpatient stay for pain control and BM VTE PPx: On Eliquis Admission and Anticipated Discharge Date Admission Date: October 01, 2023 Supervising Physician Co-Signing Physician Notes Attending Attestation - Chart reviewed, care plan d/w SIERRA Preston. I agree w/ the grace components of her documentation. In light of severe myalgias would hold statin (even despite the normal CPK). Check Fe studies. Check B12 and vit D levels. Consider tick-borne labs. Leobardo Manzo MD Subjective Patient seen resting in bed. Does report pain is improving but still there, tramadol takes the edge off. Reports aching pain everywhere. Able to get out of bed, but fatigues quickly No BM - agreeable to suppository always cold but no new fevers or chills SR PAC/PVCs 80s Review of Systems Review of Systems: All systems reviewed & are unremarkable except as noted in Subjective Physical Exam Physical Exam: General: NAD, VS as above, thin, frail appearing Resp: normal respiratory effort, lungs clear to auscultation CV: RRR, no murmur, Abd: normal bowel sounds, non tender, no hepatosplenomegaly Extremities: Moves all extremities, no edema Neuro: A&O x3, Skin: intact, no lesions noted Results & Data Results & Data Vital Signs (Past 12 Hours) Vital Signs Temp Pulse Pulse Resp BP Pulse Ox O2 Del Method 10/02/23 11:32 36.6 C 71 18 136/77 99 Nasal Cannula 10/02/23 11:07 36.7 C 77 18 142/80 H 99 Room Air 10/02/23 10:59 36.4 C L 54 L 18 137/66 96 Room Air 10/02/23 10:43 174 H 10/02/23 09:11 Nasal Cannula 10/02/23 07:43 36.6 C 75 18 151/74 H 98 Nasal Cannula 10/02/23 07:18 82 10/02/23 03:22 36.5 C 77 18 121/69 99 Nasal Cannula O2 Flow Rate 10/02/23 11:32 3 10/02/23 11:07 10/02/23 10:59 10/02/23 10:43 10/02/23 09:11 3 10/02/23 07:43 3 10/02/23 07:18 10/02/23 03:22 3 Laboratory Results CBC,chemistry and UA reviewed Diagnostic Findings CXR reviewed PG Care Time/CCT Total # of Minutes Spent Total Time Spent with Patient: Total time spent is greater than 50% in coordination of care (as documented) at patient's floor/unit and/or counseling patient: Coding Level of Care Code 00801 SUB INP/OBS CARE 3/50MIN Diagnoses Body aches R52 Diffuse large B cell lymphoma C83.30 Lymphoma site: unspecified region Constipation K59.00 Hypomagnesemia E83.42 Chronic respiratory failure with hypoxia J96.11 (2) Diffuse large B cell lymphoma Lymphoma site: unspecified region Qualified Code(s): C83.30 - Diffuse large B-cell lymphoma, unspecified site
[2023-10-02] MEDS: bisacodyL 10 MG SUPP PR PRN (13:58)
[2023-10-02] MEDS: SOD PHOSPHATE/SOD BIPHOSPHATE ENEMA 132 ML BTL PR PRN (17:01)
[2023-10-02] MEDS: PROMETHAZINE HCL 6.25 MG in SODIUM CHLORIDE 0.9% 50 ML IV STA (17:18)
[2023-10-02] MEDS: ONDANSETRON INJ 2 MG/ML 2 ML VIAL IV PRN (19:51)
[2023-10-03] MEDS: SULFAMETHOXAZOLE/TRIMETHOPRIM DS 800/160MG TAB PO SCH (15:03)
--- NOTE | 2023-10-03 15:31 | CT Scan Report ---
CT abd pelvis wo israel gannonmccann maritza CLINICAL HISTORY: Abdominal pain, concern for obstruction or ileus TECHNIQUE: Helical axial images of the abdomen and pelvis were obtained. Automated dose lowering tech niques and/or adjustment according to patient size were utilized for this exam. This exam was perfor med without intravenous contrast. COMPARISON: Comparison is made to PET/CT 07/09/2023 FINDINGS: Lower chest: Bibasilar atelectasis versus scarring is seen. Liver: Unremarkable. No focal lesions are seen. Gallbladder and biliary tree: No calcified gallstones. Normal caliber wall. No intra- or extrahepatic biliary ductal dilation. Pancreas: Fatty replacement of the pancreas is seen. Spleen: Unremarkable. Adrenals: Unremarkable. Kidneys and ureters: Perinephric stranding is seen. A left renal cyst is seen. Bladder: Diffuse homogeneous wall thickening is seen. Reproductive organs: Unremarkable. Bowel: Diverticulosis is seen without evidence of diverticulitis. A small hiatal hernia is seen. Lymph nodes Retroperitoneal: Unremarkable. Pelvic: Unremarkable. Mesenteric: Unremarkable. Peritoneum: Normal. Vessels: Infrarenal aortic aneurysm is spanned by an aortobiiliac stent. The aneurysm measures up to 48 x 48 mm. Abdominal wall: Unremarkable. Bones: Degenerative changes in the visualized spine. IMPRESSION: 1. No evidence of small bowel obstruction or ileus. No acute abnormalities are seen to explain abdom inal pain. 2. Hiatal hernia 3. Infrarenal aortic aneurysm, unchanged in size from prior PET/CT. ACT 112: Negative or not required by law. Electronically signed by: Lorenzo Lee M.D. 10/03/2023 11:14 AM
--- NOTE | 2023-10-03 16:27 | Hospitalist Progress Note ---
Date of Service October 03, 2023 Assessment & Plan (1) Body aches: Plan: Patient sent in with his oncologist on 09/30 over concern for pleural effusion No pleural effusion seen on CXR Severe, worsening body aches (mainly in the extremities) x 3 weeks Likely secondary to chemotherapy - respiratory biofire negative - CK WNL - but will hold statin Pain control: scheduled tylenol and prn Toradol 15 mg IV q6h as needed for breakthrough pain - Will defer opioids at this time given constipation Mag replaced Check CBC, bmp, B12, folate, iron studies with AM labs (2) Constipation: Plan: Last BM was on Monday 09/25 KUB without signs of constipation or fecal impaction 10/02 CTAP: no evidence of small bowel obstruction or ileus. no acute abnormalities are seen to explain abdominal pain, Hiatal hernia, intrarenal aortic aneurysm, unchanged in size from prior PET/CT Given enema and suppository yesterday, with very small BM overnight. Poor appetite - continue Miralax - add senna - prn enema and suppository (3) Diffuse large B cell lymphoma: Plan: Patient is currently receiving chemotherapy at [facility]. Last round of chemo was 2 weeks ago Likely contributing to severe pain/body aches Continue acyclovir and Bactrim as scheduled Oncology consulted - hold lymphoma treatment and plan to scan and restage outpatient (4) Hypomagnesemia: Plan: Magnesium 1.4 on arrival Magnesium sulfate 1 g IV x 2 mag repelete (5) Chronic respiratory failure with hypoxia: Plan: Also with COPD - no acute exacerbation Supplemental oxygen at baseline (3L [place]) Continue home inhaler s Continuous pulse oximetry Plan Chronic stable medical conditions: * Paroxysmal atrial fib - continue Eliquis, Metoprolol * HLD - continue statin * GERD - continue PPI Disposition: continued inpatient stay for pain control and BM VTE PPx: On Eliquis Admission and Anticipated Discharge Date Admission Date: October 01, 2023 Supervising Physician Co-Signing Physician Notes Attending Attestation - Chart reviewed, care plan d/w SIERRA Preston. I agree w/ the grace components of her documentation. Etiology of fatigue/diffuse myalgias remains uncertain. Leobardo Manzo MD Subjective Patient seen this morning - still reporting overall and pain and poor appetite. States that he would put a small bite in his mouth but then takes awhile to chew one small BM overnight but nothing substantial pain is still all over - achey. cannot pinpoint one location that is worse than others Review of Systems Review of Systems: All systems reviewed & are unremarkable except as noted in Subjective Physical Exam Physical Exam: General: NAD, VS as above, thin, frail appearing Resp: normal respiratory effort, lungs clear to auscultation CV: RRR, no murmur, Abd: normal bowel sounds, non tender, no hepatosplenomegaly Extremities: Moves all extremities, no edema Neuro: A&O x3, Skin: intact, no lesions noted Results & Data Results & Data Vital Signs (Past 12 Hours) Vital Signs O2 Del Method O2 Flow Rate 10/03/23 15:06 Nasal Cannula [address] A/p reviewed PG Care Time/CCT Total # of Minutes Spent Total Time Spent with Patient: Total time spent is greater than 50% in coordination of care (as documented) at patient's floor/unit and/or counseling patient: Coding Level of Care Code 79405 SUB INP/OBS CARE 2/35MIN Diagnoses Body aches R52 Constipation K59.00 Diffuse large B cell lymphoma C83.30 Lymphoma site: unspecified region Hypomagnesemia E83.42 Chronic respiratory failure with hypoxia J96.11 (3) Diffuse large B cell lymphoma Lymphoma site: unspecified region Qualified Code(s): C83.30 - Diffuse large B-cell lymphoma, unspecified site
[2023-10-03] MEDS: CALCIUM CARBONATE 500 MG CHEWABLE TAB PO PRN (17:00)
[2023-10-03] MEDS: SODIUM CHLORIDE 0.9% 500 ML IV SCH (17:43)
[2023-10-03] MEDS: SENNA 8.6 MG TAB PO SCH (18:11)
[2023-10-03] MEDS: MELATONIN 3 MG TAB PO PRN (21:07)
[2023-10-04 06:10] LABS: BUN Creatinine Ratio 14.7 (10-20); Calcium 8.6 mg/dl (8.6-10.3); Creatinine Clr Calc Pharmacy 62.6 ml/min; Est GFR (African American) 82.4 ml/min; Est GFR (Non-African American) 71.1 ml/min; Potassium 4.2 mmol/L (3.5-5.1)
[2023-10-04 06:14] LABS: Basophils # (auto) 0.01 K/uL (0.00-0.20); Basophils % (auto) 0.2 %; Eosinophils # (auto) 0.04 K/uL (0.00-0.50); Eosinophils % (auto) 0.9 %; Hematocrit (blood only) 25.1 % (42.0-52.0); Hemoglobin 8.3 g/dl (14.0-18.0); Immature Granulocytes # (auto) 0.03 K/uL (0.01-0.20); Immature Granulocytes % (auto) 0.6 %; Lymphocytes # (auto) 0.44 K/uL (1.20-3.40); Lymphocytes % (auto) 9.5 %; Mean Corpuscular Hemoglobin 34.7 pg (25.0-34.0); Mean Corpuscular Hgb Conc 33.1 g/dL (32.0-36.0); Mean Platelet Volume 11.1 fL (9.4-12.4); Monocytes # (auto) 0.96 K/uL (0.11-0.59); Monocytes % (auto) 20.8 %; Neutrophils # (auto) 3.14 K/uL (1.40-6.50); Platelet Count 124 K/uL (130-400); RDW Coefficient of Variation 15.2 % (11.5-14.5); RDW Standard Deviation 57.8 fL (36.4-46.3); Red Blood Count 2.39 M/uL (4.70-6.10); White Blood Count 4.62 K/ul (4.8-10.8)
[2023-10-04 06:29] LABS: Ferritin 294.2 ng/ml (8-388)
[2023-10-04] MEDS: MAGNESIUM HYDROXIDE SUSP 30 ML UDC PO ONE (13:22)
--- NOTE | 2023-10-04 19:17 | Hospitalist Progress Note ---
Date of Service October 04, 2023 Assessment & Plan (1) Body aches: Plan: Patient sent in with his oncologist on 09/30 over concern for pleural effusion No pleural effusion seen on CXR Severe, worsening body aches (mainly in the extremities) x 3 weeks Likely secondary to chemotherapy - respiratory biofire negative - CK WNL - but will hold statin Pain control: scheduled tylenol and prn Toradol 15 mg IV q6h as needed for breakthrough pain - Will defer opioids at this time given constipation Mag replaced, will recheck with a.m. labs Vitamin D and vitamin B12 WNL on 10/03 Iron, ferritin, transferrin % sat - WNL on 10/03 TIBC and unsaturated IBC low on 10/03 (2) Constipation: Plan: Last BM was on Monday 09/25 KUB without signs of constipation or fecal impaction 10/02 CTAP: no evidence of small bowel obstruction or ileus. no acute abnormalities are seen to explain abdominal pain, Hiatal hernia, intrarenal aortic aneurysm, unchanged in size from prior PET/CT Given enema and suppository 10/01, with very small BM overnight. Poor appetite - continue Miralax - add senna - prn enema and suppository Passing gas but still no bowel movement 10/03. Given senna, suppository, milk of magnesia, prune juice. > Given his lack of stool burden on imaging, limited oral intake, and complaints of gas - simethicone added. Reassess abdominal pain in a.m. as this may be due to gas rather than true constipation. (3) Diffuse large B cell lymphoma: Plan: [facility]. Last round of chemo was 2 weeks ago Likely contributing to severe pain/body aches Continue acyclovir and Bactrim as scheduled Oncology consulted - hold lymphoma treatment and plan to scan and restage outpatient (4) Hypomagnesemia: Plan: Magnesium 1.4 on arrival Magnesium sulfate 1 g IV x 2 mag repelete (5) Chronic respiratory failure with hypoxia: Plan: Also with COPD - no acute exacerbation Supplemental oxygen at baseline (3L [place]) Continue home inhaler s Continuous pulse oximetry Plan Ordered milk of magnesia and simethicone Chronic stable medical conditions: * Paroxysmal atrial fib - continue Eliquis, Metoprolol * HLD - continue statin * GERD - continue PPI Disposition: continued inpatient stay for pain control and BM VTE PPx: On Eliquis CODE STATUS: Full code Admission and Anticipated Discharge Date Admission Date: October 01, 2023 Subjective Patient seen and evaluated at bedside. He reports his abdominal pain is worse today, describing it as "sharp and achy." He describes it as a generalized pain and is unable to locate one area that is worse. He is passed some gas but no substantial bowel movement since 09/26/2023. He does note that his body aches have improved, though unsure if this is actually better or if he is distracted by his abdominal pain currently. He continues to report decreased appetite, but notes that his appetite has been better today than the past 3 days. No additional complaints or concerns at this time. Physical Exam Physical Exam: General: No acute distress, nondiaphoretic, well-developed, thin. Skin: The skin was without rashes, erythema, edema, or bruising. Cardiac: Regular rate and rhythm without murmurs gallops or rubs. Pulm: Clear to auscultation bilaterally without wheezes, rales or rhonchi. No respiratory distress. 98% on 3 L. Abdominal: Soft, mildly distended, nontender. Hypoactive bowel sounds. Neuro: A&O x3. No focal neurological deficits. Results & Data Results & Data Vital Signs (Past 12 Hours) Vital Signs Temp Pulse Pulse Resp BP Pulse Ox Pulse Ox 10/04/23 15:26 36.8 C 76 20 154/82 H 98 10/04/23 15:00 98 10/04/23 14:54 85 10/04/23 11:26 36.9 C 84 18 162/82 H 98 10/04/23 10:30 10/04/23 08:25 36.8 C 79 20 125/77 98 10/04/23 07:42 89 O2 Del Method O2 Del Method O2 Flow Rate O2 Flow Rate 10/04/23 15:26 Nasal Cannula 3 10/04/23 15:00 Nasal Cannula 3 10/04/23 14:54 10/04/23 11:26 Nasal Cannula 3 10/04/23 10:30 Nasal Cannula 3 10/04/23 08:25 Nasal Cannula 3 10/04/23 07:42 Laboratory Results Reviewed CBC Reviewed chemistries Reviewed urine culture PG Care Time/CCT Total # of Minutes Spent Total Time Spent with Patient: Total time spent is greater than 50% in coordination of care (as documented) at patient's floor/unit and/or counseling patient: Coding Level of Care Code 70640 SUB INP/OBS CARE 2/35MIN Diagnoses Body aches R52 Constipation K59.00 Diffuse large B cell lymphoma C83.30 Lymphoma site: unspecified region Hypomagnesemia E83.42 Chronic respiratory failure with hypoxia J96.11 (3) Diffuse large B cell lymphoma Lymphoma site: unspecified region Qualified Code(s): C83.30 - Diffuse large B-cell lymphoma, unspecified site
[2023-10-04] MEDS: SIMETHICONE 80 MG CHEW PO ONE (20:15)
[2023-10-05 07:17] LABS: Hematocrit (blood only) 25.6 % (42.0-52.0); Hemoglobin 8.6 g/dl (14.0-18.0); Mean Corpuscular Hgb Conc 33.6 g/dL (32.0-36.0); Mean Corpuscular Volume 104.1 fL (80.0-100.0); Mean Platelet Volume 11.3 fL (9.4-12.4); Platelet Count 147 K/uL (130-400); RDW Standard Deviation 57.1 fL (36.4-46.3); Red Blood Count 2.46 M/uL (4.70-6.10); White Blood Count 4.69 K/ul (4.8-10.8)
[2023-10-05 07:38] LABS: Calcium 8.9 mg/dl (8.6-10.3); Creatinine Clr Calc Pharmacy 69.1 ml/min; Est GFR (African American) 84.4 ml/min; Est GFR (Non-African American) 72.8 ml/min; Potassium 4.3 mmol/L (3.5-5.1)
--- NOTE | 2023-10-05 07:58 | Hospitalist Progress Note ---
Date of Service October 05, 2023 Assessment & Plan (1) Body aches: Plan: Patient sent in with his oncologist on 09/30 over concern for pleural effusion No pleural effusion seen on CXR Severe, worsening body aches (mainly in the extremities) x 3 weeks Likely secondary to chemotherapy - respiratory biofire negative - CK WNL - but will hold statin Pain control: scheduled tylenol and prn Toradol 15 mg IV q6h as needed for breakthrough pain > Will defer opioids at this time given constipation > Trial of gabapentin 100 mg BID 10/04 Vitamin D and vitamin B12 WNL on 10/03 Iron, ferritin, transferrin % sat - WNL on 10/03. TIBC and unsaturated IBC low on 10/03. > Adequate iron and iron stores. No need for iron supplementation at this time. (2) Constipation: Plan: Last BM was on Monday 09/25 KUB without signs of constipation or fecal impaction 10/02 CTAP: no evidence of small bowel obstruction or ileus. no acute abnormalities are seen to explain abdominal pain, Hiatal hernia, intrarenal ao rtic aneurysm, unchanged in size from prior PET/CT Given enema and suppository 10/01, with very small BM overnight. Poor appetite - continue Miralax - add senna - prn enema and suppository Passing gas but still no bowel movement 10/03. Given senna, suppository, milk of magnesia, prune juice. > Given his lack of stool burden on imaging, limited oral intake, and complaints of gas - simethicone added, with some relief. > Appears as though his abdominal pain is related to gas rather than true constipation. > Continue simethicone. (3) Diffuse large B cell lymphoma: Plan: [facility]. Last round of chemo was 2 weeks prior to admission Likely contributing to severe pain/body aches Continue acyclovir and Bactrim as scheduled Oncology consulted - hold lymphoma treatment and plan to scan and restage outpatient (4) Hypomagnesemia: Plan: Magnesium 1.4 on arrival Magnesium sulfate repleted 1 g IV x 2 Mag augmented appropriately - 2.0 on 10/04 (5) Chronic respiratory failure with hypoxia: Plan: Also with COPD - no acute exacerbation Supplemental oxygen at baseline (3L [place]) Continue home inhalers Continuous pulse oximetry Plan Continued simethicone Started gabapentin Chronic stable medical conditions: * Paroxysmal atrial fib - continue Eliquis, Metoprolol * HLD - continue statin * GERD - continue PPI Disposition: continued inpatient stay for pain control and BM VTE PPx: On Eliquis CODE STATUS: Full code Admission and Anticipated Discharge Date Admission Date: October 01, 2023 Subjective Patient seen and evaluated at bedside. He reports that his abdominal pain is better today. He reports passing a lot of gas last night after getting simethicone, which relieved some of the discomfort. He notes that the pain in his legs is worse today; describes it as a "chronic ache." He notes that last night he had a burning sensation in his feet. He states that he also has pain in his shoulders, wrists, and hands bilaterally - though his leg pain is the most bothersome. We discussed a trial of gabapentin, as chemo can cause neuropathy, and patient is agreeable. No additional complaints or concerns at this time. Physical Exam Physical Exam: General: No acute distress, nondiaphoretic, well-developed, thin. Skin: The skin was without rashes, erythema, edema, or bruising. Cardiac: Regular rate and rhythm without murmurs gallops or rubs. Pulm: Clear to auscultation bilaterally without wheezes, rales or rhonchi. No respiratory distress. 100% on 3 L. Abdominal: Soft, mildly distended, nontender. Hypoactive bowel sounds. Neuro: A&O x3. No focal neurological deficits. Results & Data Results & Data Vital Signs (Past 12 Hours) Vital Signs Temp Pulse Pulse Resp BP Pulse Ox O2 Del Method 10/05/23 07:39 36.7 C 74 16 164/84 H 100 Nasal Cannula 10/05/23 03:44 36.2 C L 84 20 164/77 H 99 Nasal Cannula 10/05/23 00:00 93 H 10/04/23 23:50 36.7 C 78 20 152/82 H 99 Nasal Cannula 10/04/23 20:00 Nasal Cannula 10/04/23 19:55 36.8 C 78 20 147/78 H 98 Nasal Cannula O2 Flow Rate 10/05/23 07:39 3 10/05/23 03:44 3 10/05/23 00:00 10/04/23 23:50 3 10/04/23 20:00 3 10/04/23 19:55 3 Laboratory Results Reviewed CBC Reviewed BMP PG Care Time/CCT Total # of Minutes Spent Total Time Spent with Patient: Total time spent is greater than 50% in coordination of care (as documented) at patient's floor/unit and/or counseling patient: Coding Level of Care Code 19257 SUB INP/OBS CARE 2/35MIN Diagnoses Body aches R52 Constipation K59.00 Diffuse large B cell lymphoma C83.30 Lymphoma site: unspecified region Hypomagnesemia E83.42 Chronic respiratory failure with hypoxia J96.11 (3) Diffuse large B cell lymphoma Lymphoma site: unspecified region Qualified Code(s): C83.30 - Diffuse large B-cell lymphoma, unspecified site
[2023-10-05] MEDS: SIMETHICONE 80 MG CHEW PO PRN (13:38)
[2023-10-05] MEDS: GABAPENTIN 100 MG CAP PO ONE (14:25)
[2023-10-06 07:29] LABS: BUN Creatinine Ratio 18.8 (10-20); Calcium 8.4 mg/dl (8.6-10.3); Est GFR (African American) 73.6 ml/min; Est GFR (Non-African American) 63.5 ml/min; Potassium 4.2 mmol/L (3.5-5.1)
[2023-10-06 07:32] LABS: Hematocrit (blood only) 24.7 % (42.0-52.0); Hemoglobin 8.2 g/dl (14.0-18.0); Mean Corpuscular Hgb Conc 33.2 g/dL (32.0-36.0); Mean Corpuscular Volume 105.6 fL (80.0-100.0); Mean Platelet Volume 11.3 fL (9.4-12.4); Platelet Count 144 K/uL (130-400); RDW Coefficient of Variation 15.5 % (11.5-14.5); RDW Standard Deviation 59.3 fL (36.4-46.3); Red Blood Count 2.34 M/uL (4.70-6.10); White Blood Count 3.71 K/ul (4.8-10.8)
--- NOTE | 2023-10-06 08:29 | Hospitalist Progress Note ---
Date of Service October 06, 2023 Assessment & Plan (1) Body aches: Plan: Patient sent in with his oncologist on 09/30 over concern for pleural effusion No pleural effusion seen on CXR Severe, worsening body aches (mainly in the extremities) x 3 weeks Likely secondary to chemotherapy - respiratory biofire negative - CK WNL - but will hold statin Pain control: scheduled tylenol and prn Toradol 15 mg IV q6h as needed for breakthrough pain > Will defer opioids at this time given constipation > Gabapentin 100 mg BID started 10/04. > Increased Gabapentin to 300 mg BID -- continue. Monitor response and titrate up if needed, however would not recommend any further increases for at least one week. Vitamin D and vitamin B12 WNL on 10/03 Iron, ferritin, transferrin % sat - WNL on 10/03. TIBC and unsaturated IBC low on 10/03. > Adequate iron and iron stores. No need for iron supplementation at this time. Poor appetite with decreased oral intake recently. Started Boost supplementation with meals. (2) Constipation: Plan: Last BM was on Monday 09/25 KUB without signs of constipation or fecal impaction 10/02 CTAP: no evidence of small bowel obstruction or ileus. no acute abnormalities are seen to explain abdominal pain, Hiatal hernia, intrarenal aortic aneurysm, unchanged in size from prior PET/CT Given enema and suppository 10/01, with very small BM overnight. Poor appetite - continue Miralax and Senna - prn enema and suppository Passing gas but still no bowel movement 10/03. Given senna, suppository, milk of magnesia, prune juice. > Given his lack of stool burden on imaging, limited oral intake, and complaints of gas - simethicone added, with some relief. > Appears as though his abdominal pain is related to gas rather than true constipation. > Continue simethicone. Two bowel movements 10/05 (3) Diffuse large B cell lymphoma: Plan: Patient is currently receiving chemotherapy at [facility]. Last round of chemo was 2 weeks prior to admission Likely contributing to severe pain/body aches Continue acyclovir and Bactrim as scheduled Oncology consulted - hold lymphoma treatment and plan to scan and restage outpatient Follow-up with oncology after discharge (4) Hypomagnesemia: Plan: Magnesium 1.4 on arrival Magnesium sulfate repleted 1 g IV x 2 Mag augmented appropriately - 2.0 on 10/04 (5) Chronic respiratory failure with hypoxia: Plan: Also with COPD - no acute exacerbation Supplemental oxygen at baseline (3L [place]) Continue home inhalers Continuous pulse oximetry Plan Started Boost with meals Increased gabapentin dose Chronic stable medical conditions: * Paroxysmal atrial fib - continue Eliquis, Metoprolol * HLD - continue statin * GERD - continue PPI Disposition: continued inpatient stay for pain control VTE PPx: On Eliquis CODE STATUS: Full code Admission and Anticipated Discharge Date Admission Date: October 01, 2023 Supervising Physician Co-Signing Physician Notes Attending Attestation - Chart reviewed, care plan d/w SIERRA Turner. I agree w/ the grace components of her documentation. No specific etiology of fatigue/diffuse myalgias found. No infectious causes found to date. Other than mildly low mag level no other nutritional or metabolic factors found. Appreciate heme/onc input. Myalgias 2nd to prior chemotherapy?? Leobardo Manzo MD Subjective Patient seen and evaluated at bedside. He had two bowel movements yesterday/today. He reports that his abdominal discomfort is much improved now. He reports that the gabapentin helped his body aches a bit, but not completely. We discussed increasing his dose and he is agreeable. He continues to report that his appetite is poor secondary to chemotherapy, so Boost chocolate was added with his meals. He has no additional complaints or concerns at this time. Physical Exam Physical Exam: General: No acute distress, nondiaphoretic, well-developed, thin. Skin: The skin was without rashes, erythema, edema, or bruising. Cardiac: Regular rate and rhythm without murmurs gallops or rubs. Pulm: Clear to auscultation bilaterally without wheezes, rales or rhonchi. No respiratory distress. 99% on 3 L. Abdominal: Soft, mildly distended, nontender. Bowel sounds present. Neuro: A&O x3. No focal neurological deficits. Results & Data Results & Data Vital Signs (Past 12 Hours) Vital Signs Temp Pulse Pulse Resp BP Pulse Ox O2 Del Method 10/06/23 07:49 36.6 C 84 16 160/82 H 98 Nasal Cannula 10/06/23 07:20 88 10/06/23 03:05 36.4 C L 84 18 134/73 100 Nasal Cannula 10/05/23 22:24 36.7 C 88 18 163/86 H 100 Nasal Cannula O2 Flow Rate 10/06/23 07:49 3 10/06/23 07:20 10/06/23 03:05 3 10/05/23 22:24 3 Laboratory Results Reviewed CBC Reviewed BMP PG Care Time/CCT Total # of Minutes Spent Total Time Spent with Patient: Total time spent is greater than 50% in coordination of care (as documented) at patient's floor/unit and/or counseling patient: Coding Level of Care Code 49975 SUB INP/OBS CARE 2/35MIN Diagnoses Body aches R52 Constipation K59.00 Diffuse large B cell lymphoma C83.30 Lymphoma site: unspecified region Hypomagnesemia E83.42 Chronic respiratory failure with hypoxia J96.11 (3) Diffuse large B cell lymphoma Lymphoma site: unspecified region Qualified Code(s): C83.30 - Diffuse large B-cell lymphoma, unspecified site
[2023-10-06] MEDS: GABAPENTIN 100 MG CAP PO SCH (10:10)
--- NOTE | 2023-10-06 18:48 | Hematology/Oncology Prog Note ---
Date of Service October 06, 2023 Assessment & Plan (1) Diffuse large B cell lymphoma: Plan: I had a very lengthy discussion with the patient today. I reviewed the latest CT scan, there is no significant lymphadenopathy which is seen in the prior PET/CT. At this time we will continue to hold outpatient lymphoma treatment while the patient is in the hospital. Control of pain and rest of the medical issues per our hospital internal medicine colleagues Plan Medical oncology will continue to follow the patient and make appropriate recommendations. No active oncological intervention is warranted at this point. Admission and Anticipated Discharge Date Admission Date: October 01, 2023 Subjective Patient reviewed in the hospital today. Still having a lot of pain in the joints. No shortness of breath, fever chills, night sweats, nausea or vomiting. No diarrhea. Review of Systems Review of Systems: A complete ROS was done, was positive for body aches Constitutional: as per Subjective / HPI Eyes: as per Subjective / HPI Ear, Nose, Mouth, Throat: as per Subjective / HPI Respiratory: as per Subjective / HPI Cardiovascular: as per Subjective / HPI Gastrointestinal: as per Subjective / HPI Genitourinary: + as per Subjective / HPI Musculoskeletal: as per Subjective / HPI Integumentary: as per Subjective / HPI Neurologic: as per Subjective / HPI Psychiatric: as per Subjective / HPI Endocrine: as per Subjective / HPI Hematologic / Lymphatic: as per Subjective / HPI Allergy / Immunological: as per Subjective / HPI Physical Exam Constitutional: WD/WN, vitals as above Eyes: PERRL, conjunctivae normal, anicteric sclerae ENMT: external ear and nose normal, oropharynx normal Neck: trachea midline, no thyromegaly Respiratory: normal respiratory effort, lungs clear to auscultation Cardiovascular: RRR, no murmur, no edema Gastrointestinal (Abdomen): normal bowel sounds, soft, nontender, no he patosplenomegaly Musculoskeletal: no cyanosis or clubbing, extremities motor strength 5/5 Skin: no rashes, warm and dry Neurologic: patellar DTR's 2+ bilat, sensation intact Psychiatric: A+Ox3, euthymic affect Genitourinary: no testicular masses, no penis abnormality Lymphatic: no cervical or axillary lymphadenopathy Results & Data Vital Signs (Past 12 Hours) Vital Signs Temp Pulse Pulse Resp BP Pulse Ox O2 Del Method 10/06/23 16:18 36.8 C 72 16 136/76 97 Nasal Cannula 10/06/23 13:04 94 H 10/06/23 11:22 36.6 C 79 16 133/70 99 Nasal Cannula 10/06/23 09:00 Nasal Cannula 10/06/23 07:49 36.6 C 84 16 160/82 H 98 Nasal Cannula 10/06/23 07:20 88 O2 Flow Rate 10/06/23 16:18 3 10/06/23 13:04 10/06/23 11:22 3 10/06/23 09:00 3 10/06/23 07:49 3 10/06/23 07:20 (1) Diffuse large B cell lymphoma Lymphoma site: unspecified region Qualified Code(s): C83.30 - Diffuse large B-cell lymphoma, unspecified site
[2023-10-06] MEDS: GABAPENTIN 300 MG CAP PO SCH (21:09)
[2023-10-07 01:40] LABS: Hematocrit (blood only) 23.1 % (42.0-52.0); Hemoglobin 7.7 g/dl (14.0-18.0); Mean Corpuscular Hgb Conc 33.3 g/dL (32.0-36.0); Mean Platelet Volume 10.7 fL (9.4-12.4); Platelet Count 154 K/uL (130-400); RDW Coefficient of Variation 15.5 % (11.5-14.5); White Blood Count 3.96 K/ul (4.8-10.8)
[2023-10-07 01:44] LABS: Albumin Globulin Ratio 1.4 (0.9-2); Albumin Level 3.1 gm/dl (3.4-5.0); BUN Creatinine Ratio 17.1 (10-20); Bilirubin,Total 0.4 mg/dl (0.2-1.0); Calcium 8.3 mg/dl (8.6-10.3); Creatinine Clr Calc Pharmacy 45.6 ml/min; Est GFR (African American) 56.2 ml/min; Est GFR (Non-African American) 48.5 ml/min; Globulin 2.2 gm/dl (2.5-4.0); Magnesium 1.9 mg/dl (1.7-2.4); Potassium 4.2 mmol/L (3.5-5.1); Total Protein 5.3 gm/dl (6.0-8.3)
--- NOTE | 2023-10-07 04:24 | Communication Note ---
Date of Service: October 07, 2023 Was notified that patient had a 13 beat run of Vtach, was asymptomatic and had no chest pain/shortness of breath. Vital signs stable. I ordered new labs in cluding CBC, metabolic panel, magnesium level. Hgb was slightly down from the day prior (7.7, down from 8.2), creatinine was 1.40 (noticeably up from 1.12 the day prior), sodium low at 133 and magnesium was 1.9. Will start a small volume of maintenance fluids overnight and continuing monitoring on telemetry. Resident Activity Tracking Resident Involvement: Resident Care Provided Care Provided: Adult [facility]
[2023-10-07] MEDS: SODIUM CHLORIDE 0.9% 500 ML IV SCH (04:41)
--- NOTE | 2023-10-07 07:45 | Hospitalist Progress Note ---
Date of Service October 07, 2023 Assessment & Plan (1) Body aches: Plan: Patient sent in with his oncologist on 09/30 over concern for pleural effusion No pleural effusion seen on CXR Severe, worsening body aches (mainly in the extremities) x 3 weeks Likely secondary to chemotherapy - respiratory biofire negative - CK WNL () - but will hold statin . TSH 1.5 Vitamin D and vitamin B12 WNL on 10/03 Iron, ferritin, transferrin % sat - WNL on 10/03. TIBC and unsaturated IBC low on 10/03. --> Adequate iron and iron stores. No need for iron supplementation at this time. Poor appetite with decreased oral intake recently. Started Boost supplementation with meals. Pain control: --scheduled tylenol and prn , toradol q6h available but DISCONTINUED -- Gabapentin 100 mg BID started 10/04 --> Increased to 300 mg BID PM 10/05- SIGNIFICANT IMPROVEMENT, continued 10/06 IMPROVING since increased GABAPENTIN 300mg BID PM 10/05, reports slept GREAT last night/improvement of pain. -Continue GABAPENTIN 300mg BID for now/avoid increasing to prevent side effects but would continue/rx at dc, consider further increase in 1 week if needed Statin remains on HOLD, likely dc at al given side effects +BM 10/05, hadn't moved bowels in ~10 days prior to that per patient. Continue senna daily, will add colace BID. Suppository available if needed IMPROVEMENT in PO intake, Continue boost supplements w/ meals Added oxycodone 5mg prn if needed given moving bowels if needing for breakthrough pain. No further toradol given drop in hgb however no bleeding reported. On PPI once daily but also aspirin/eliquis BID and can monitor for need to increase to BID if any issues 13 beat run vtach overnight, reportedly asymptomatic and no CP/SOB. Cr bump 1.4 w/ hg 8.2 -->7.7 (8.1 on AM labs), NSS @ 100cc/hr x 500cc ordered. Mag 1.9, will order 1gm IV ECHO in Mar 2023 w/ normal LV systolic function (EF 50-55%), mild MR. Elevated RVSP (hx COPD) Continue to monitor on telemetry/keep mag replete. Check limited echo to eval EF Monitor continued therapy evals (2) Constipation: Plan: Last BM was on Monday 09/25 KUB without signs of constipation or fecal impaction 10/02 CTAP: no evidence of small bowel obstruction or ileus. no acute abnormalities are seen to explain abdominal pain, Hiatal hernia, intrarenal aortic aneurysm, unchanged in size from prior PET/CT Enema + suppository on 10/01 with VERY small BM, continued poor PO appetite Simethicone added for complaints of gas, prn (hasn't needed since BM on 10/05- reports first real BM in over 10 days) IMPROVEMENT IN PO INTAKE SINCE MOVING HIS BOWELS Continue senna HS, added colace BID to prevent worsened constipation on pain control as above Continue to monitor (3) Diffuse large B cell lymphoma: Plan: Patient is currently receiving chemotherapy at the [facility]. Last round of chemo was 2 weeks prior to admission Likely contributing to severe pain/body aches Continue acyclovir and Bactrim as scheduled Oncology consulted - hold lymphoma treatment and plan to scan and restage outpatient Follow-up with oncology after discharge (4) Hypomagnesemia: Plan: Mg 1.4 on arrival, replacement given. Vtach 13 beat overnight 10/05 @ 23:49, mag 1.9 and 1gm IV ordered Monitor mag level in am/consider starting PO replacement if again low. Is on PPI therapy at baseline, ?contributing vs rather from poor pO intake which is reportedly improved Continue telemetry monitoring (5) Chronic respiratory failure with hypoxia: Plan: Also with COPD - no acute exacerbation Supplemental oxygen at baseline (3L NC) Continue home inhalers Continuous pulse oximetry (6) Paroxysmal atrial fibrillation: Plan: NSR on telemetry. Did have episode vtach overnight as above, asymptomatic without recurrance Mag replacement ordered and will continue to monitor k/mag w/ am labs Remains on eliquis BID, metoprolol Continued telemetry monitoring (7) GERD (gastroesophageal reflux disease): Plan: continue PPI once daily, no increased issues reported but monitor for any need to increase to BID on ASA/eliquis at baseline however no bleeding reported. Can check fecal occult for completeness CBC in AM (8) Hyperlipidemia: Plan: STATIN ON HOLD as possible contributing to myalgias. CK wnl on admission, remains on hold Plan DVT proph: eliquis BID continued continued inpatient stay on increased gabapentin. continue bowel regimen/pain control, repeat therapy evals hopeful dc next 24-48 hours pending response to pain control/repeat PT eval as patient wishing to go home but reporting unable to do daily tasks at this time but his hopeful plan is to go home Admission and Anticipated Discharge Date Admission Date: October 01, 2023 Subjective Evaluated this morning, resting in bed. Reports got best sleep he has had in weeks. Ongoing pain in his legs at times but improved/stable. Bowel movement x 2 reported yesterday in system, patient reports was really more like one bowel movement as both at same time. Is having improvement in PO intake, taking the boost, improvement w/ ambulation however not ready for dc yet and has concerns about such. 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 He is hoping to go home at dc and continue independence as long as able.. Will continue to monitor inpatient , gabapentin added prior, he is cautious to use opiates to avoid constipation as prior to that BM it had been about 10 days since last bowel movement. Questions/concerns addressed at this time. Physical Exam Physical Exam: General: 78yo male, frail appearing, sitting up in bed, NAD Head atraumatic, normocephalic, mmm, trachea midline Resp: even/unlabored, diminished in the bases but no w/c/r, on NC, SpO2 96% CV: RRR, no significant mrg, no pitting edema/calf tenderness GI: +BS throughout, slight distension (reported less) but soft/nontender MSK/Neuro: generalized weakness but nonfocal, answering questions appropriately, following commands Psych: AOx3, cooperative with exam Results & Data Results & Data Vital Signs (Past 12 Hours) Vital Signs Temp Pulse Pulse Resp BP Pulse Ox O2 Del Method 10/07/23 02:45 36.9 C 80 18 151/81 H 98 Nasal Cannula 10/06/23 23:49 37.3 C 90 16 159/82 H 99 Nasal Cannula 10/06/23 22:23 36.8 C 85 18 142/68 H 98 Nasal Cannula 10/06/23 21:51 90 10/06/23 19:45 Room Air O2 Flow Rate 10/07/23 02:45 3 10/06/23 23:49 3 10/06/23 22:23 3 10/06/23 21:51 10/06/23 19:45 Laboratory Results 10/07/23 10/07/23 Range/Units 07:32 01:05 WBC 3.73 L 3.96 L (4.8-10.8) K/ul RBC 2.33 L 2.20 L (4.70-6.10) M/uL Hgb 8.1 L 7.7 L (14.0-18.0) g/dl Hct 24.7 L 23.1 L (42.0-52.0) % MCV 106.0 H 105.0 H (80.0-100.0) fL MCH 34.8 H 35.0 H (25.0-34.0) pg MCHC 32.8 33.3 (32.0-36.0) g/dL RDW Std Deviation 59.8 H 59.0 H (36.4-46.3) fL RDW Coeff of Leeanne 15.6 H 15.5 H (11.5-14.5) % Plt Count 148 154 (130-400) K/uL MPV 10.4 10.7 (9.4-12.4) fL Sodium 135 L 133 L (136-145) mmol/L Potassium 4.4 4.2 (3.5-5.1) mmol/L Chloride 103 100 (98-107) mmol/L Carbon Dioxide 30 30 (21-32) mmol/L Anion Gap 2 L 3 (3-11) BUN 22 24 H (6-23) mg/dl Creatinine 1.22 1.40 (0.6-1.4) mg/dl Est Cr Clr Drug Dosing 52.3 45.6 ml/min Est GFR ( Amer) 66.3 56.2 ml/min Est GFR (Non-Af Amer) 57.2 48.5 ml/min BUN/Creatinine Ratio 18.0 17.1 (10-20) Glucose 105 H 104 H (70-99(Fasting)) mg/dl Calcium 8.3 L 8.3 L (8.6-10.3) mg/dl Magnesium 1.9 (1.7-2.4) mg/dl Total Bilirubin 0.4 (0.2-1.0) mg/dl AST 18 (13-39) U/L ALT 15 (7-52) U/L Alkaline Phosphatase 59 (34-104) U/L Total Protein 5.3 L (6.0-8.3) gm/dl Albumin 3.1 L (3.4-5.0) gm/dl Globulin 2.2 L (2.5-4.0) gm/dl Albumin/Globulin Ratio 1.4 (0.9-2) Diagnostic Findings Chest X-Ray 10/07/23 07:46 XR chest 1V portable HISTORY: 78 years-old Male increased O2 neq acute hypoxia COMPARISON: 10/01/2023 TECHNIQUE: AP view of the chest FINDINGS: Cardiomediastinal and hilar silhouettes are unchanged. Emphysema. Stable positioning of the left subclavian [id number]-b-[id number] catheter. Chronic interstitial coarsening. No pneumothorax or pleural effusion. No airspace consolidation typical for pneumonia. IMPRESSION: 1. No acute process. 2. Emphysema with chronic interstitial coarsening. ACT 112: Negative or not required by law. The above report was generated using voice recognition software. It may contain grammatical, syntax or spelling errors. Electronically signed by: Wilman Piedra M.D. 10/07/2023 8:43 AM PG Care Time/CCT Total # of Minutes Spent Total Time Spent with Patient: Total time spent is greater than 50% in coordination of care (as documented) at patient's floor/unit and/or counseling patient: Coding Level of Care Code 95179 SUB INP/OBS CARE 3/50MIN Diagnoses Body aches R52 Constipation K59.00 Diffuse large B cell lymphoma C83.30 Lymphoma site: unspecified region Hypomagnesemia E83.42 Chronic respiratory failure with hypoxia J96.11 Paroxysmal atrial fibrillation I48.0 GERD (gastroesophageal reflux disease) K21.9 Hyperlipidemia E78.5 (3) Diffuse large B cell lymphoma Lymphoma site: unspecified region Qualified Code(s): C83.30 - Diffuse large B-cell lymphoma, unspecified site
[2023-10-07 07:58] LABS: Hematocrit (blood only) 24.7 % (42.0-52.0); Hemoglobin 8.1 g/dl (14.0-18.0); Mean Corpuscular Hemoglobin 34.8 pg (25.0-34.0); Mean Corpuscular Hgb Conc 32.8 g/dL (32.0-36.0); Mean Platelet Volume 10.4 fL (9.4-12.4); Platelet Count 148 K/uL (130-400); RDW Coefficient of Variation 15.6 % (11.5-14.5); RDW Standard Deviation 59.8 fL (36.4-46.3); Red Blood Count 2.33 M/uL (4.70-6.10); White Blood Count 3.73 K/ul (4.8-10.8)
[2023-10-07] MEDS: MAGNESIUM SULFATE / D5W 1 GM/100 ML BAG IV ONE (08:05)
[2023-10-07 08:17] LABS: Calcium 8.3 mg/dl (8.6-10.3); Creatinine Clr Calc Pharmacy 52.3 ml/min; Est GFR (African American) 66.3 ml/min; Est GFR (Non-African American) 57.2 ml/min; Potassium 4.4 mmol/L (3.5-5.1)
--- NOTE | 2023-10-07 08:45 | XRay Report ---
XR chest 1V portable HISTORY: 78 years-old Male increased O2 neq acute hypoxia COMPARISON: 10/01/2023 TECHNIQUE: AP view of the chest FINDINGS: Cardiomediastinal and hilar silhouettes are unchanged. Emphysema. Stable positioning of the left subc lavian Pjyfun-z-Jixs catheter. Chronic interstitial coarsening. No pneumothorax or pleural effusion. No airspace consolidation typical for pneumonia. IMPRESSION: 1. No acute process. 2. Emphysema with chronic interstitial coarsening. ACT 112: Negative or not required by law. The above report was generated using voice recognition software. It may contain grammatical, syntax o r spelling errors. Electronically signed by: Wilman Piedra M.D. 10/07/2023 8:43 AM
[2023-10-07 18:13] LABS: Appearance Urine Clear (Clear); Bilirubin Urine Negative (Negative); Blood Urine Negative (Negative); Color Urine Yellow; Glucose Urine UA Negative (Negative); Ketones Urine Negative (Negative); Leukocyte Esterase Urine Negative (Negative); Nitrite Urine Negative (Negative); Protein Urine Negative (Negative); Specific Gravity Urine 1.022 (1.000-1.030); Urobilinogen Urine Negative (Negative); pH Urine 5.5 (4.5-7.5)
[2023-10-07] MEDS: KETOROLAC TROMETHAMINE 15 MG/ML VIAL IV ONE (19:47)
[2023-10-07] MEDS: DOCUSATE SODIUM 100 MG CAP PO SCH (20:53)
[2023-10-08] MEDS: oxyCODONE HCL IR 5 MG TAB (IMMEDIATE RELEASE) PO PRN (00:50)
[2023-10-08 07:10] LABS: Hematocrit (blood only) 23.1 % (42.0-52.0); Hemoglobin 7.6 g/dl (14.0-18.0); Mean Corpuscular Hemoglobin 34.5 pg (25.0-34.0); Mean Corpuscular Hgb Conc 32.9 g/dL (32.0-36.0); Mean Platelet Volume 10.9 fL (9.4-12.4); Platelet Count 153 K/uL (130-400); RDW Coefficient of Variation 15.3 % (11.5-14.5); RDW Standard Deviation 58.2 fL (36.4-46.3); White Blood Count 3.24 K/ul (4.8-10.8)
[2023-10-08 07:38] LABS: BUN Creatinine Ratio 20.8 (10-20); Calcium 8.1 mg/dl (8.6-10.3); Creatinine Clr Calc Pharmacy 66.3 ml/min; Est GFR (African American) 78.6 ml/min; Est GFR (Non-African American) 67.8 ml/min; Magnesium 2.1 mg/dl (1.7-2.4); Potassium 4.6 mmol/L (3.5-5.1)
--- NOTE | 2023-10-08 07:48 | Hospitalist Progress Note ---
Date of Service October 08, 2023 Assessment & Plan (1) Body aches: Plan: Patient sent in with his oncologist on 09/30 over concern for pleural effusion. CXR w/o pleural effusion. Patient reporting severe, worsening body aches in extremities x 3 weeks (last chemo 2 weeks prior to admission) Respiratory biofire negative CK wnl 21, statin on hold (consider continuing to hold at dc as well though given risks) Vit D wnl. B12 wnl. Iron studies w/ adequate stores/no replacement Boost supplements w/ meals given poor appetite (improving) Pain control (does appear with SIGNIFICANT neuropathic pain, suspect 2nd to chemo) --> started on gabapentin 100mg BID on 10/04, increased to 300mg BID 10/05 with SIGNIFICANT improvement however having pain in afternoon/had prior req Toradol but given anemia would like to avoid (however denied any bleeding) --> INCREASING GABAPENTIN to 300mg TID for today to have afternoon dose. Low dose oxycodone available prn. Miralax added scheduled daily and continues on senna, docusate BID Discussed with Dr Bangura this morning given hgb 7.6, agreed to give 1u PRBC, rec for irradiated. Obtained blood consent at direction of supervising provider (patient received PRBC at end of August) Type/screen, type/cross, transfuse 1u PRBC and repeat hgb following. Did increase PPI to BID for now to see if assists. Continued therapy evals, cleared to return home Hopeful able to dc home in next 24-48 hours if pain stable/improved w/ increased gabapentin dosing. Did order ECHO 10/06 for 13 beat run vtach overnight but not yet read. Has been NSR since/no further episodes (BNP slight elevation). Continues on telemetry (prior ECHO in Mar normal LV systolic function, EF 50- 55%, mild MR) (2) Constipation: Plan: Prior BM 09/25 CTAP noting no evidence for bowel obstruction/ileus. Hiatal hernia/infrarenal aortic aneursym, unchanged from prior PET/CT Enema w/ supoository on 10/01 w/ small BM, LARGE BM 10/05 Continues to pass lots of gas, added miralax SCHEDULED. Continue senna, colace BID. Monitor (3) Diffuse large B cell lymphoma: Plan: Follows w/ [facility]CP, last round of chemo 2 weeks prior to admission. --> Suspect chemo contributing to pain/aches Continues home proph acyclovir/bactrim Oncology consulted --> HOLDING LYMPHOMA TX and plan to restage outpatient Gabapentin for neuropathic pain as above (4) Hypomagnesemia: Plan: Mg 1.4 on arrival, replacement given. Vtach 13 beat overnight 10/05 @ 23:49, mag 1.9 and 1gm IV ordered Mag remaining stable 2.1/no further episodes but continues on monitor/echo pending PPI has been increased as above and will monitor in AM (5) Chronic respiratory failure with hypoxia: Plan: Hx COPD, on 3L at baseline No increased sputum production/SOB Continues home inhalers (6) Paroxysmal atrial fibrillation: Plan: NSR on telemetry. Did have episode vtach overnight as above, asymptomatic without recurrence Mag replacement ordered and will continue to monitor k/mag w/ am labs Remains on eliquis BID, metoprolol Continued telemetry monitoring (7) GERD (gastroesophageal reflux disease): Plan: PPI increased to BID to see if improvement w/ PO intake as well given ASA/eliquis use at baseline however no bleeding reported Can check fecal occult for completeness, monitor CBC (8) Hyperlipidemia: Plan: STATIN ON HOLD as possible contributing to myalgias. CK wnl on admission, but remains on hold Plan DVT proph: eliquis BID continued continued inpatient stay - monitor pain control with increased gabapentin f/u echo/repeat hgb following PRBC. on increased gabapentin. continue bowel regimen/pain control, repeat therapy evals Hopeful dc next 24-48 hours if pain improved/controlled w/ increased gabapentin Admission and Anticipated Discharge Date Admission Date: October 01, 2023 Subjective EValuated this morning. Doing alright. Got some decent sleep with the oxycodone. Passing lots of gas, got miralax this morning. Gabapentin working but wearing off, discussed will order dose for mid-afternoon. Obtained blood consent for 1unit today after discussion with Dr Bangura. Patient did receive a unit at the end of August, no issues. Per Dr Bangura, to have irradiated product, has been ordered. Encouraged to continue ambulation w/ oxygen in halls throughout the day. Will monitor pain in AM and if improved/stable with increase anticipate dc in next 24-48hours but will monitor progress. Questions/concerns addressed at this time. Physical Exam Physical Exam: General: 78yo male, frail appearing, sitting up in bed, NAD Head atraumatic, normocephalic, mmm, trachea midline Resp: even/unlabored, diminished in the bases but no w/c/r, on NC, SpO2 93% CV: RRR, no significant m/r/g, no pitting edema/calf tenderness GI: +BS throughout, slight distension, but soft/nontender MSK/Neuro: generalized weakness but nonfocal, answering questions appropriately, following commands Psych: AOx3, cooperative with exam Results & Data Results & Data Vital Signs (Past 12 Hours) Vital Signs Temp Pulse Pulse Resp BP Pulse Ox O2 Del Method 10/08/23 07:28 36.7 C 67 18 118/71 99 Nasal Cannula 10/08/23 07:00 83 10/08/23 02:51 36.2 C L 76 18 148/78 H 100 Nasal Cannula 10/07/23 22:43 Nasal Cannula 10/07/23 22:23 36.6 C 81 18 157/85 H 99 Nasal Cannula O2 Flow Rate 10/08/23 07:28 3 10/08/23 07:00 10/08/23 02:51 3 10/07/23 22:43 3 10/07/23 22:23 3 Laboratory Results 10/08/23 10/08/23 10/07/23 Range/Units 08:58 06:16 18:00 WBC 3.24 L (4.8-10.8) K/ul RBC 2.20 L (4.70-6.10) M/uL Hgb 7.6 L (14.0-18.0) g/dl Hct 23.1 L (42.0-52.0) % MCV 105.0 H (80.0-100.0) fL MCH 34.5 H (25.0-34.0) pg MCHC 32.9 (32.0-36.0) g/dL RDW Std Deviation 58.2 H (36.4-46.3) fL RDW Coeff of Leeanne 15.3 H (11.5-14.5) % Plt Count 153 (130-400) K/uL MPV 10.9 (9.4-12.4) fL Sodium 134 L (136-145) mmol/L Potassium 4.6 (3.5-5.1) mmol/L Chloride 102 (98-107) mmol/L Carbon Dioxide 30 (21-32) mmol/L Anion Gap 2 L (3-11) BUN 22 (6-23) mg/dl Creatinine 1.06 (0.6-1.4) mg/dl Est Cr Clr Drug Dosing 66.3 ml/min Est GFR ( Amer) 78.6 ml/min Est GFR (Non-Af Amer) 67.8 ml/min BUN/Creatinine Ratio 20.8 H (10-20) Glucose 95 (70-99(Fasting)) mg/dl Calcium 8.1 L (8.6-10.3) mg/dl Magnesium 2.1 (1.7-2.4) mg/dl B-Natriuretic Peptide 119 H (0-100) pg/ml Urine Color Yellow Urine Appearance Clear (Clear) Urine pH 5.5 (4.5-7.5) Ur Specific [place] 1.022 (1.000-1.030) Urine Protein Negative (Negative) Urine Glucose (UA) Negative (Negative) Urine Ketones Negative (Negative) Urine Blood Negative (Negative) Urine Nitrite Negative (Negative) Urine Bilirubin Negative (Negative) Urine Urobilinogen Negative (Negative) Ur Leukocyte Esterase Negative (Negative) Blood Type A Positive Antibody Screen NEGATIVE Crossmatch See Detail PG Care Time/CCT Total # of Minutes Spent Total Time Spent with Patient: Total time spent is greater than 50% in coordination of care (as documented) at patient's floor/unit and/or counseling patient: Coding Level of Care Code 22684 SUB INP/OBS CARE 3/50MIN Diagnoses Body aches R52 Constipation K59.00 Diffuse large B cell lymphoma C83.30 Lymphoma site: unspecified region Hypomagnesemia E83.42 Chronic respiratory failure with hypoxia J96.11 Paroxysmal atrial fibrillation I48.0 GERD (gastroesophageal reflux disease) K21.9 Hyperlipidemia E78.5 (3) Diffuse large B cell lymphoma Lymphoma site: unspecified region Qualified Code(s): C83.30 - Diffuse large B-cell lymphoma, unspecified site
[2023-10-08] MEDS: POLYETHYLENE (MIRALAX) 17 GM PACK PO SCH (08:53)
[2023-10-08] MEDS: PANTOprazole 40 MG TAB PO SCH (08:53)
[2023-10-08] MEDS ORDERED: SODIUM CHLORIDE 0.9% 250 ML IV PRN (09:45)
[2023-10-08] MEDS: GABAPENTIN 300 MG CAP PO SCH (13:24)
[2023-10-08 15:22] LABS: Hematocrit (blood only) 25.9 % (42.0-52.0); Hemoglobin 8.6 g/dl (14.0-18.0)
--- NOTE | 2023-10-08 20:37 | XCELERA ---
[id number]
[2023-10-09 06:41] LABS: Hematocrit (blood only) 26.5 % (42.0-52.0); Hemoglobin 8.8 g/dl (14.0-18.0); Mean Corpuscular Hemoglobin 34.1 pg (25.0-34.0); Mean Corpuscular Hgb Conc 33.2 g/dL (32.0-36.0); Mean Corpuscular Volume 102.7 fL (80.0-100.0); Mean Platelet Volume 10.5 fL (9.4-12.4); Platelet Count 155 K/uL (130-400); RDW Coefficient of Variation 18.7 % (11.5-14.5); RDW Standard Deviation 70.8 fL (36.4-46.3); Red Blood Count 2.58 M/uL (4.70-6.10); White Blood Count 3.23 K/ul (4.8-10.8)
[2023-10-09 06:57] LABS: BUN Creatinine Ratio 21.8 (10-20); Calcium 8.5 mg/dl (8.6-10.3); Creatinine Clr Calc Pharmacy 63.9 ml/min; Est GFR (African American) 75.2 ml/min; Est GFR (Non-African American) 64.9 ml/min; Magnesium 2.1 mg/dl (1.7-2.4); Potassium 4.7 mmol/L (3.5-5.1)
--- NOTE | 2023-10-09 07:39 | Hospitalist Progress Note ---
Date of Service October 09, 2023 Assessment & Plan (1) Body aches: Plan: Patient sent in with his oncologist on 09/30 over concern for pleural effusion. CXR w/o pleural effusion. Patient reporting severe, worsening body aches in extremities x 3 weeks (last chemo 2 weeks prior to admission) Respiratory biofire negative CK wnl 21, statin on hold (consider continuing to hold at dc as well though given risks) Vit D wnl. B12 wnl. Iron studies w/ adequate stores/no replacement Boost supplements w/ meals given poor appetite (improving) Pain control (does appear with SIGNIFICANT neuropathic pain, suspect 2nd to chemo) --> started on gabapentin 100mg BID on 10/04, increased to 300mg BID 10/05 with SIGNIFICANT improvement however having pain in afternoon/had prior req Toradol but given anemia would like to avoid (however denied any bleeding) --> INCREASING GABAPENTIN to 300mg TID for today to have afternoon dose. Low dose oxycodone available prn. Miralax added scheduled daily and continues on senna, docusate BID Discussed with Dr Bangura this morning given hgb 7.6, agreed to give 1u PRBC, rec for irradiated. Obtained blood consent at direction of supervising provider (patient received PRBC at end of August) Type/screen, type/cross, transfuse 1u PRBC 10/07. Did increase PPI to BID for now to see if assists. 10/08 Feeling slightly worse today with breathing. s/p 1u PRBC, hgb 8.8 Lasix 40mg po x 1 for this morning given slight BNP elevation 119 and PRBC transfusion given ECHO findings w/ reduced EF from prior however discussed with front desk worker cards and minimal change could really be 50% on both. Nonsustained vtach not issue as was asymptomatic and no further issues on telemetry * ECHO w/ normal LV size but mildly reduced LVEF 45-50%. 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 Normal RV size and systolic function. Normal atrial sizes. Trace MR, mild TR. Grade 1 diastolic dysfunction. * To continue metoprolol succinate, eliquis as already getting Continue supplementation Did have BM overnight, small. Suppository as needed Gabapentin 300mg increased to TID -consider further increase as tolerated in another 2-3 days as just increased. ?change to lyrica could also be considered oxycodone available prn Continued PT/OT, HHPT? Will message CM (2) Chronic respiratory failure with hypoxia: Plan: Hx COPD, on 3L at baseline No increased sputum production/SOB 10/07 but +cough/yellow sputum reported 10/08 Remains on baseline 3L, Spo 2 99% Continues home inhalers, sputum cx if able to obtain. Continue incentive spirometer Chest 2 view ordered for eval (3) Constipation: Plan: CTAP noting no evidence for bowel obstruction/ileus. Hiatal hernia/infrarenal aortic aneurysm, unchanged from prior PET/CT. Prior BM to admission 09/25 and good results w/ suppository and enema on 10/01, large BM on 10/05 Passing gas, small BM this morning Continues on senna, colace BID. Miralax added daily. Suppository if needed on pain control (4) Diffuse large B cell lymphoma: Plan: Follows w/ CCP, last round of chemo 2 weeks prior to admission.--> Suspect chemo contributing to pain/aches Continues home proph acyclovir/Bactrim Oncology consulted --> HOLDING LYMPHOMA [place] and plan to restage outpatient Gabapentin for neuropathic pain as above (5) Hypomagnesemia: Plan: Mg 1.4 on arrival, replacement given. Vtach 13 beat overnight 10/05 @ 23:49, mag 1.9 and 1gm IV ordered Mag remaining stable 2.1/no further episodes but continues on monitor/echo pending PPI has been increased as, mag 2.1 and continue to monitor (6) Paroxysmal atrial fibrillation: Plan: NSR on telemetry - did have episode vtach overnight as above several days ago - asymptomatic without recurrence Mag stable on repeat labs, K acceptable Remains on eliquis, metoprolol succinate Tele monitoring (7) GERD (gastroesophageal reflux disease): Plan: PPI increased to BID 10/07 to see if improvement w/ PO intake as well given ASA/eliquis use at baseline however no bleeding reported . Did have increased PO intake today and will continue on BID dosing for now Fecal occult for completeness ordered Cbc improvement w/ PRBC as above but suspected anemia 2nd to chemo prior (8) Hyperlipidemia: Plan: STATIN ON HOLD as possible contributing to myalgias. CK wnl on admission, but remains on hold Plan DVT proph: eliquis BID continued continued inpatient stay on increased gabapentin. Lasix PO x 1 following blood yesterday Chest 2view/sputum cx if able to expectorate. Has been afebrile/WBC not elevated but monitor for any infection Will update this afternoon, dc w/ HHPT?? CM to follow If not meeting goals may need to consider short term SNF/PCH Admission and Anticipated Discharge Date Admission Date: October 01, 2023 Subjective Evaluated this morning, feels a little better today with pain control but once medication wears off increases. Discussed would not want to increase gabapentin for now but can consider in next couple days. Discussed possible SNF/PCH for ongoing care as doesn't feel safe to return home just yet. HE wants to hold off this for now and see if adjustments w/ other meds able to help. Improvement in PO intake, eggs/white/oatmeal this morning, moved bowels small BM. Suppository/enema later today if not moving. Does feel breathing slightly worse today, on usual 3L but + cough. White sputum, sometimes yellowish in color. C2V ordered but also discussed ECHO and lasix given this morning but possible additional dose for this evening/will discuss findings w/ cards front desk worker. He reports he had just seen Dr Traore about 2 weeks ago and was to see him in follow up in a couple months. Questions/concerns addressed at this time. Discussed ECHO Physical Exam Physical Exam: General: 78yo male, frail appearing, sitting up in bed, NAD Head atraumatic, normocephalic, mmm, trachea midline Resp: even/unlabored, diminished in the bases with expiratory wheezing/faint rales on the right, on 3L NC, no tachypnea but + non productive cough CV: RRR, no significant m/r/g, no pitting edema/calf tenderness GI: +BS throughout, slight distension, but soft/nontender MSK/Neuro: generalized weakness/pain to his legs, but nonfocal, answering questions appropriately, following commands Psych: AOx3, cooperative with exam Results & Data Results & Data Vital Signs (Past 12 Hours) Vital Signs Temp Pulse Pulse Resp BP Pulse Ox O2 Del Method 10/09/23 07:27 71 10/09/23 03:41 36.7 C 75 20 133/61 97 Room Air 10/09/23 00:12 79 10/08/23 23:38 36.9 C 77 18 128/73 98 Nasal Cannula 10/08/23 21:50 Nasal Cannula 10/08/23 19:56 36.9 C 82 18 119/73 99 Nasal Cannula O2 Flow Rate 10/09/23 07:27 10/09/23 03:41 10/09/23 00:12 10/08/23 23:38 3 10/08/23 21:50 3 10/08/23 19:56 3 Laboratory Results 10/09/23 10/08/23 10/08/23 Range/Units 05:48 14:53 08:58 WBC 3.23 L (4.8-10.8) K/ul RBC 2.58 L (4.70-6.10) M/uL Hgb 8.8 L 8.6 L (14.0-18.0) g/dl Hct 26.5 L 25.9 L (42.0-52.0) % MCV 102.7 H (80.0-100.0) fL MCH 34.1 H (25.0-34.0) pg MCHC 33.2 (32.0-36.0) g/dL RDW Std Deviation 70.8 H (36.4-46.3) fL RDW Coeff of Leeanne 18.7 H (11.5-14.5) % Plt Count 155 (130-400) K/uL MPV 10.5 (9.4-12.4) fL Sodium 136 (136-145) mmol/L Potassium 4.7 (3.5-5.1) mmol/L Chloride 104 (98-107) mmol/L Carbon Dioxide 30 (21-32) mmol/L Anion Gap 2 L (3-11) BUN 24 H (6-23) mg/dl Creatinine 1.10 (0.6-1.4) mg/dl Est Cr Clr Drug Dosing 63.9 ml/min Est GFR ( Amer) 75.2 ml/min Est GFR (Non-Af Amer) 64.9 ml/min BUN/Creatinine Ratio 21.8 H (10-20) Glucose 93 (70-99(Fasting)) mg/dl Calcium 8.5 L (8.6-10.3) mg/dl Magnesium 2.1 (1.7-2.4) mg/dl Crossmatch See Detail Diagnostic Findings ECHOCARDIOGRAM 10/08/23 Compared to prior study, changes are noted. 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 Normal RV size and systolic function Normal atrial sizes Trace mitral regurgitation Mild tricuspid regurgitation Grade 1 diastolic dysfunction PG Care Time/CCT Total # of Minutes Spent Total Time Spent with Patient: Total time spent is greater than 50% in coordination of care (as documented) at patient's floor/unit and/or counseling patient: Coding Level of Care Code 97119 SUB INP/OBS CARE 3/50MIN Diagnoses Body aches R52 Chronic respiratory failure with hypoxia J96.11 Constipation K59.00 Diffuse large B cell lymphoma C83.30 Lymphoma site: unspecified region Hypomagnesemia E83.42 Paroxysmal atrial fibrillation I48.0 GERD (gastroesophageal reflux disease) K21.9 Hyperlipidemia E78.5 (4) Diffuse large B cell lymphoma Lymphoma site: unspecified region Qualified Code(s): C83.30 - Diffuse large B-cell lymphoma, unspecified site
[2023-10-09] MEDS: SOD PHOSPHATE/SOD BIPHOSPHATE ENEMA 132 ML BTL PR STA (08:57)
[2023-10-09] MEDS: FUROSEMIDE 40 MG TAB PO ONE (09:12)
--- NOTE | 2023-10-09 13:23 | XRay Report ---
XR chest 2V PA/lateral CLINICAL HISTORY: wheezing TECHNIQUE: 2 views of the chest were obtained. Comparison: Comparison is made to chest radiograph 10/07/2023 FINDINGS: A port catheter is seen. Calcified aortic knob is seen. Emphysema is seen. No evidence of pleural eff usion or pneumothorax. IMPRESSION: No acute chest disease. ACT 112: Negative or not required by law. Electronically signed by: Lorenzo Lee M.D. 10/09/2023 1:21 PM
--- NOTE | 2023-10-09 16:11 | XRay Report ---
XR lumbar spine 2-3V CLINICAL HISTORY: LE pain, eval TECHNIQUE: 3 views of the lumbar spine were obtained. Comparison: None available at the time of this dictation. FINDINGS: There is no evidence of an acute fracture. Degenerative changes are seen in the lumbar spine with ost eophyte formation and disc space narrowing. The alignment is normal. Aortobiiliac stent is seen. IMPRESSION: Degenerative changes as above without acute fracture or subluxation. ACT 112: Negative or not required by law. Electronically signed by: Lorenzo Lee M.D. 10/09/2023 4:09 PM
--- NOTE | 2023-10-09 16:54 | Hematology/Oncology Prog Note ---
Date of Service October 09, 2023 Assessment & Plan (1) Diffuse large B cell lymphoma: Plan: None of the chemotherapy drugs which were given to the patient are cardiotoxic. There is no relation ship with cardiotoxicity and polatuzumab, rituximab or Bendamustine. This was informed to our hospital internal medicine colleagues. (2) Anemia: Plan: Transfusion of 1 unit packed red blood cells is appropriate Plan no active treatment for DLBCL at this point. Medical oncology will continue to follow the patient. We will continue to make appropriate recommendations as needed. Admission and Anticipated Discharge Date Admission Date: October 01, 2023 Brianna Continues to have pain, however our hospital internal medicine team is working On pain medications. Review of Systems Review of Systems: All systems reviewed & are unremarkable except as noted in HPI & below Constitutional: as per Subjective / HPI Eyes: as per Subjective / HPI Ear, Nose, Mouth, Throat: as per Subjective / HPI Respiratory: as per Subjective / HPI Cardiovascular: as per Subjective / HPI Gastrointestinal: as per Subjective / HPI Genitourinary: + as per Subjective / HPI Musculoskeletal: as per Subjective / HPI Integumentary: as per Subjective / HPI Neurologic: as per Subjective / HPI Psychiatric: as per Subjective / HPI Endocrine: as per Subjective / HPI Hematologic / Lymphatic: as per Subjective / HPI Physical Exam Constitutional: WD/WN, vitals as above Eyes: PERRL, conjunctivae normal, anicteric sclerae ENMT: external ear and nose normal, oropharynx normal Neck: trachea midline, no thyromegaly Respiratory: normal respiratory effort, lungs clear to auscultation Cardiovascular: RRR, no murmur, no edema Gastrointestinal (Abdomen): normal bowel sounds, soft, nontender, no hepatosplenomegaly Musculoskeletal: no cyanosis or clubbing, extremities motor strength 5/5 Skin: no rashes, warm and dry Neurologic: patellar DTR's 2+ bilat, sensation intact Results & Data Vital Signs (Past 12 Hours) Vital Signs Temp Pulse Pulse Resp BP Pulse Ox O2 Del Method 10/09/23 15:51 36.6 C 76 16 134/79 99 Nasal Cannula 10/09/23 11:41 37.1 C 86 16 111/63 99 Nasal Cannula 10/09/23 10:44 Nasal Cannula 10/09/23 07:56 36.6 C 76 16 114/65 100 Room Air 10/09/23 07:27 71 O2 Flow Rate 07/25/24 15:51 3 10/09/23 11:41 3 10/09/23 10:44 3 10/09/23 07:56 10/09/23 07:27 (1) Diffuse large B cell lymphoma Lymphoma site: unspecified region Qualified Code(s): C83.30 - Diffuse large B-cell lymphoma, unspecified site (2) Anemia Anemia type: unspecified type Qualified Code(s): D64.9 - Anemia, unspecified
[2023-10-09] MEDS: PREGABALIN 75 MG CAP PO SCH (20:30)
[2023-10-10 07:18] LABS: Basophils # (auto) 0.02 K/uL (0.00-0.20); Basophils % (auto) 0.6 %; Eosinophils # (auto) 0.02 K/uL (0.00-0.50); Eosinophils % (auto) 0.6 %; Hematocrit (blood only) 27.6 % (42.0-52.0); Immature Granulocytes # (auto) 0.06 K/uL (0.01-0.20); Immature Granulocytes % (auto) 1.7 %; Lymphocytes # (auto) 0.55 K/uL (1.20-3.40); Lymphocytes % (auto) 15.4 %; Mean Corpuscular Hemoglobin 33.6 pg (25.0-34.0); Mean Corpuscular Hgb Conc 32.6 g/dL (32.0-36.0); Mean Platelet Volume 10.5 fL (9.4-12.4); Monocytes # (auto) 1.12 K/uL (0.11-0.59); Monocytes % (auto) 31.4 %; Neutrophils % (auto) 50.3 %; Platelet Count 163 K/uL (130-400); RDW Coefficient of Variation 18.6 % (11.5-14.5); RDW Standard Deviation 70.3 fL (36.4-46.3); Red Blood Count 2.68 M/uL (4.70-6.10); White Blood Count 3.57 K/ul (4.8-10.8)
[2023-10-10 07:40] LABS: BUN Creatinine Ratio 23.5 (10-20); Calcium 8.6 mg/dl (8.6-10.3); Creatinine Clr Calc Pharmacy 70.6 ml/min; Est GFR (African American) 86.5 ml/min; Est GFR (Non-African American) 74.6 ml/min; Potassium 4.5 mmol/L (3.5-5.1)
--- NOTE | 2023-10-10 07:48 | Hospitalist Progress Note ---
Date of Service October 10, 2023 Assessment & Plan (1) Body aches: Plan: Patient sent in with his oncologist on 09/30 over concern for pleural effusion. CXR w/o pleural effusion. Patient reporting severe, worsening body aches in extremities x 3 weeks (last chemo 2 weeks prior to admission) Respiratory biofire negative CK wnl 21, statin on hold (consider continuing to hold at dc as well though given risks) Vit D wnl. B12 wnl. Iron studies w/ adequate stores/no replacement Boost supplements w/ meals given poor appetite (improving) Pain control (does appear with SIGNIFICANT neuropathic pain, suspect 2nd to chemo)--> started on gabapentin 100mg BID on 10/04, increased to 300mg BID 10/05 with improvement however having pain in afternoon/had prior req Toradol but given anemia would like to avoid (however denied any bleeding) and increased gabapentin to 300mg TID 10/07. Low dose oxy for breakthrough. Continued bowel regimen Discussed with Dr Bangura w/ hgb 7.6 and did transfuse 1u PRBC 10/07, PPI to BID Hgb stable on repeat, no bleeding 10/09 Switched to Lyrica 75mg PO BID last evening as gabapentin should have reached steady state to see if better relief w/ lyrica over gabapentin -- SIGNIFICANT IMPROVEMENT and will continue such C2V no acute consolidation/volume overload, on usual 3L Continue pulmonary toilet, added mucinex/flutter valve for some possible mucus plugging Blood cultures ngt x 5 days FINAL w/ improvement in pain patient believes able to go home presently but wanting to monitor overnight w/ breathing and continued lyrica and plan for dc 10/10 if no issues. Updated son at bedside regarding plan (2) Chronic respiratory failure with hypoxia: Plan: Hx COPD, on 3L at baseline No increased sputum production/SOB 10/07 but +cough/yellow sputum reported 10/08. On baseline 3L w/ SpO2 98% Continue home inhalers, incentive spirometer C2V w/o acute process. Added mucinex/flutter valve to see if able to expectorate/?mucus plugging (3) Constipation: Plan: CTAP noting no evidence for bowel obstruction/ileus. Hiatal hernia/infrarenal aortic aneurysm, unchanged from prior PET/CT. Prior BM to admission 09/25 and good results w/ suppository and enema on 10/01, large BM on 10/05 Continued bowel movement w/ bowel regimen. Now not needing oxycodone w/ switch to lyrica and has been ambulating halls w/ his O2 tank as able Continue bowel regimen, can back off in AM if improved and continue as needed (4) Diffuse large B cell lymphoma: Plan: Follows w/ [facility]CP, last round of chemo 2 weeks prior to admission.--> Suspect chemo contributing to pain/aches Continues home proph acyclovir/Bactrim Oncology consulted --> HOLDING L[place]MPH[place] and plan to restage outpatient Gabapentin for neuropathic pain as above switched to Lyrica w/ significant improvement and will continue lyrica at dc (5) Hypomagnesemia: Plan: Mg 1.4 on arrival, replacement given. Vtach 13 beat overnight 10/05 @ 23:49, mag 1.9 and 1gm IV ordered Mag remaining stable 2.1/no further episodes but continues on monitor/echo pending PPI has been increased as, mag 2.0 and stable on increase (6) Paroxysmal atrial fibrillation: Plan: NSR on telemetry - did have episode vtach overnight as above several days ago - asymptomatic without recurrence Mag stable on repeat labs, K acceptable Remains on eliquis, metoprolol succinate Tele monitoring (7) GERD (gastroesophageal reflux disease): Plan: PPI increased to BID 10/07 to see if improvement w/ PO intake as well given ASA/eliquis use at baseline however no bleeding reported . Did have increased PO intake today and will continue on BID dosing for now Fecal occult for completeness ordered Cbc improvement w/ PRBC as above but suspected anemia 2nd to chemo prior (8) Hyperlipidemia: Plan: STATIN ON HOLD as possible contributing to myalgias. CK wnl on admission, but remains on hold Plan DVT proph: eliquis BID continued Continue lyrica, working on mucus/mucinex as above. planning for dc in AM 10/10 if breathing improved/no issues w/ lyrica overnight Admission and Anticipated Discharge Date Admission Date: October 01, 2023 Subjective Evaluated this morning, sitting up in bed playing board game with his son at bedside. Appears pain MUCH improved since switching to lyrica over gabapentin. He does report some weird dreams last night but was given the oxycodone prn prior to scheduled lyrica and could have contributed. He reports going to bathroom and a ble to clean up to level where he believes he could handle himself at home. He is wanting to avoid further oxycodone. Did have bowel movement overnight and hopefully continued improvement since off the opiates. Wanting to monitor overnight since switch to make sure staying stable but reports if feels pain level like it is at present will plan for discharge in AM. Does have occasional cough/wheeze. CXR negative prior. Lungs w/ faint exp wheeze, ?mucus plugging. Will order some mucinex/flutter valve to see if able to expectorate, however remains on usual 3L. No fever/chills, chest pain, nausea/vomiting. Questions/concerns addressed at this time. Physical Exam Physical Exam: General: 78yo male, frail appearing, sitting up in bed playing game with son, appears improved Head atraumatic, normocephalic, mmm, trachea midline Resp: even/unlabored, diminished in the bases with expiratory wheezing/faint rales on the right, on 3L NC, no tachypnea but + non productive cough, ?mucus plugging CV: RRR, no significant m/r/g, no pitting edema/calf tenderness GI: +BS throughout, soft/nontender MSK/Neuro: generalized weakness/pain to his legs (IMPROVING), but nonfocal, answering questions appropriately, following commands Psych: AOx3, cooperative with exam Results & Data Results & Data Vital Signs (Past 12 Hours) Vital Signs Temp Pulse Pulse Resp BP Pulse Ox O2 Del Method 10/10/23 03:53 36.6 C 80 16 105/60 93 Nasal Cannula 10/09/23 23:51 80 10/09/23 23:18 36.4 C L 75 18 135/63 99 Nasal Cannula O2 Flow Rate 10/10/23 03:53 3 10/09/23 23:51 10/09/23 23:18 3 Laboratory Results 10/10/23 10/10/23 10/09/23 Range/Units 08:58 06:44 Unknown WBC 3.57 L (4.8-10.8) K/ul RBC 2.68 L (4.70-6.10) M/uL Hgb 9.0 L (14.0-18.0) g/dl Hct 27.6 L (42.0-52.0) % MCV 103.0 H (80.0-100.0) fL MCH 33.6 (25.0-34.0) pg MCHC 32.6 (32.0-36.0) g/dL RDW Std Deviation 70.3 H (36.4-46.3) fL RDW Coeff of Leeanne 18.6 H (11.5-14.5) % Plt Count 163 (130-400) K/uL MPV 10.5 (9.4-12.4) fL Immature Gran % (Auto) 1.7 % Neut % (Auto) 50.3 % Lymph % (Auto) 15.4 % Lynn % (Auto) 31.4 % Eos % (Auto) 0.6 % Baso % (Auto) 0.6 % Neut # (Auto) 1.80 (1.40-6.50) K/uL Lymph # (Auto) 0.55 L (1.20-3.40) K/uL Lynn # (Auto) 1.12 H (0.11-0.59) K/uL Eos # (Auto) 0.02 (0.00-0.50) K/uL Baso # (Auto) 0.02 (0.00-0.20) K/uL Immature Gran # (Auto) 0.06 (0.01-0.20) K/uL Sodium 136 (136-145) mmol/L Potassium 4.5 (3.5-5.1) mmol/L Chloride 102 (98-107) mmol/L Carbon Dioxide 31 (21-32) mmol/L Anion Gap 3 (3-11) BUN 23 (6-23) mg/dl Creatinine 0.98 (0.6-1.4) mg/dl Est Cr Clr Drug Dosing 70.6 ml/min Est GFR ( Amer) 86.5 ml/min Est GFR (Non-Af Amer) 74.6 ml/min BUN/Creatinine Ratio 23.5 H (10-20) Glucose 94 (70-99(Fasting)) mg/dl Calcium 8.6 (8.6-10.3) mg/dl Magnesium 2.0 (1.7-2.4) mg/dl Stool Occult Bld Scrn Negative (Negative) Lyme Disease Screen Negative (Negative) Diagnostic Findings Lumbar Spine X-Ray 10/09/23 13:48 XR lumbar spine 2-3V CLINICAL HISTORY: LE pain, eval TECHNIQUE: 3 views of the lumbar spine were obtained. Comparison: None available at the time of this dictation. FINDINGS: There is no evidence of an acute fracture. Degenerative changes are seen in the lumbar spine with osteophyte formation and disc space narrowing. The alignment is normal. Aortobiiliac stent is seen. IMPRESSION: Degenerative changes as above without acute fracture or subluxation. ACT 112: Negative or not required by law. Electronically signed by: Lorenzo Lee M.D. 10/09/2023 4:09 PM PG Care Time/CCT Total # of Minutes Spent Total Time Spent with Patient: Total time spent is greater than 50% in coordination of care (as documented) at patient's floor/unit and/or counseling patient: Coding Level of Care Code 82532 SUB INP/OBS CARE 3/50MIN Diagnoses Body aches R52 Chronic respiratory failure with hypoxia J96.11 Constipation K59.00 Diffuse large B cell lymphoma C83.30 Lymphoma site: unspecified region Hypomagnesemia E83.42 Paroxysmal atrial fibrillation I48.0 GERD (gastroesophageal reflux disease) K21.9 Hyperlipidemia E78.5 (4) Diffuse large B cell lymphoma Lymphoma site: unspecified region Qualified Code(s): C83.30 - Diffuse large B-cell lymphoma, unspecified site
[2023-10-10] MEDS: POLYETHYLENE (MIRALAX) 17 GM PACK PO SCH (08:28)
[2023-10-10] MEDS: SODIUM CHLOR 7% 4 ML NEB NEB SCH (11:37)
[2023-10-10] MEDS: guaiFENesin 600 MG TABCR PO SCH (11:54)
[2023-10-10] MEDS ORDERED: SODIUM CHLOR 7% 4 ML NEB NEB SCH (21:00)
[2023-10-11 07:14] LABS: BUN Creatinine Ratio 23.5 (10-20); Calcium 8.7 mg/dl (8.6-10.3); Creatinine Clr Calc Pharmacy 70.6 ml/min; Est GFR (African American) 86.5 ml/min; Est GFR (Non-African American) 74.6 ml/min; Potassium 4.6 mmol/L (3.5-5.1)
--- NOTE | 2023-10-11 07:44 | Discharge Summary ---
Discharge Summary Date of Service October 11, 2023 Principal Dx & Hospital Course #1 = Principal Diagnosis (1) Neuropathy: On admission, patient reported severe, worsening body aches in his extremities for the past 3 weeks (had chemo 2 weeks prior to admission) and reported he did have a little neuropathy after the first round with burning to his extremities however had been reasonable control without intervention (notable did have some leftover oxycodone which provided minimal relief and used just to get some sleep as it had kept him up for 3 days at a time) Patient sent in with his oncologist on 09/30 over concern for pleural effusion. CXR w/o pleural effusion. On baseline 3L NC/COPD Biofire negative given concerns from heme/onc as sent over from their office. B12 wnl, Vit D not deficient. Iron studies acceptable. CK wnl at 21 however statin placed on hold and instructed to continue to hold for now until discussed w/ PCP to prevent worsened cramping but likely can resumed Pain control was ongoing issue and initially placed on gabapentin 100mg BID on 10/04 which was increased to 300mg BID and having increased discomfort in the afternoon and issues with bowels with prn oxycodone and was increased to TID dosing for more regular coverage and while improved was still not tackling his pain adequately to the point where he thought he would be able to manage at home to do his ADLs as lives alone and cleared by PT/OT to return home without needs. Decision to ultimately switch from gabapentin to Lyrica as reached steady state and was on 300mg TID for total 900mg dose and conversion divided by 9 for total 150mg dose and was started on lyrica 75mg BID with SIGNIFICANT improvement however did want to monitor overnight to ensure no issues and felt well enough to return home with ongoing pain control. Moving bowels no longer issue w/ reduction in opiate use w/ improvement w/ lyrica and did not want any at dc and has some leftover if needed. To note, case was discussed with Dr Bangura while inpatient and hgb to 7.6 however no bleeding reported and likely from chemo and was provided 1u PRBC for support w/ stable repeat hgb to 8.6 and was 9.0 prior to discharge and suspect rebounding from his chemo therapy given no bleeding He did have a little bit of a cough and was started on mucinex/pulm toilet and did sent sputum. CXR again was obtained which was negative for acute process and no fever/chills or leukocytosis and had improvement w/ mucinex (which is on home medication list) and to continue pulm toilet at [facility]. Was able to produce sputum which can be followed up on but was not sent on abx at [facility] and continued on his proph bactrim M/W/F and acyclovir BID and remained on baseline 3L NC w/ SpO2 99%. 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 Outpt f/u Dr Traore as prior scheduled, will message navigator to ensure sooner f/u as Mr Diaz did report was not to have f/u for another 6 months. To return to ER if any worsening breathing/cough/sputum production (2) Body aches: IMPROVED, stable at nv on Lyrica 75mg BID. statin on hold at nv but suspect able to resume in f/u discussion w/ PCP (3) Chronic respiratory failure with hypoxia: Hx COPD, on 3L at baseline No increased sputum production/SOB 10/07 but +cough/yellow sputum reported 10/08. Lasix x 1 given as given PRBC day prior. On baseline 3L, CXR repeated w/o acute change. Continued home inhalers but added incentive spirometer and mucinex/flutter valve w/ improvement on exam. Did sent sputum as able to expectorate but as above no abx at nv as suspect was just some mucus plugging/resolved w/ mucinex and to continue at nv. Sputum cx w/ mod normal darleen on preliminary at time of discharge As above, return to ER w/ any worsening breathing NSR on telemetry prior to dc (4) Constipation: CTAP noting no evidence for bowel obstruction/ileus. Hiatal hernia/infrarenal aortic aneurysm, unchanged from prior PET/CT. Prior BM to admission 09/25 and good results w/ suppository and enema on 10/01, large BM on 10/05 Continued bowel regimen while inpatient Encouraged ambulation. Had reduction in opiates w/ switch to lyrica as above and constipation resolved/moving bowels prior to dc. No abd pain, +BS/soft/NT on exam (5) Diffuse large B cell lymphoma: Follows w/ CCP, last round of chemo 2 weeks prior to admission.--> Suspect chemo contributing to pain/aches/neuropathy as above Continued on home proph acyclovir/Bactrim Oncology consulted --> HOLDING LYMPHOMA TX and plan to restage outpatient Gabapentin for neuropathic pain as above switched to Lyrica w/ significant improvement and continued lyrica at discharge (6) Hypomagnesemia: Mg 1.4 on arrival, replacement given. Vtach 13 beat overnight 10/05 @ 23:49, mag 1.9 and 1gm IV ordered. ECHO w/ EF as above, discussed w/ cards while inpatient/no formal consult needed. No CP Mag stable on repeat draws without need for further replacement/improvement in PO intake w/ adequate pain control (7) Paroxysmal atrial fibrillation: NSR on telemetry - did have episode vtach overnight as above several days ago - asymptomatic without recurrence and mag/k stable on repeat lab draws without recurrance TSH 1.7 on 09/30, acceptable. Not on replacement Remained on metoprolol, eliquis BID No further issues on telemetry for past 72hrs prior to dc (8) GERD (gastroesophageal reflux disease): PPI increased to BID 10/07 to see if improvement w/ PO intake as well given ASA/eliquis use at baseline however no bleeding reported . Did have increased PO intake today and will continue on BID dosing for now Dc on daily PPI as taking at home while on ASA/eliquis for GI proph as well Hgb stable/improved as above, no bleeding. Fecal occult ordered for completeness and was NEGATIVE Consideration to have increased to BID if any ongoing issues in f/u with PCP (9) Hyperlipidemia: STATIN ON HOLD as possible contributing to myalgias. CK wnl on admission, but remained on hold while recovering from above. To discuss w/ PCP but placed on hold at dc but suspect able to resume in f/u discussions w/ outpatient providers DVT proph -eliquis BID continued while inpatient Notes For Next Care Provider Patient to follow up with Dr Bangura/CCP outpatient at discharge for re-staging. Chemo on hold in meantime Continued on Lyrica 75mg BID for neuropathic pain from chemotherapy Patient did produce sputum prior to discharge which was pending but lung exam improved/no infiltrates on CXR and was afebrile and suspect from mucus plugging w/ chronic COPD/O2 use and wasn't getting home guafenasin initially on admission. Sputum cx on preliminary at nv w/ moderate normal darleen. Did send message to Navigator at discharge to see if able to move up his cardiology follow up as he reports Dr Traore didn't need to see him for another 6 months. Did discuss ECHO w/ Dr Lange while inpatient and didn't seem like acute change however would have sooner follow up given new onset afib last month to ensure no need for any ongoing diuretic therapy. BNP minimal elevation 119 w/ PRBC and was given dose of lasix and repeat BNP NOT elevated and did NOT send patient on any diuretics for volume management and was continued on prior dose metoprolol and eliquis BID and other than isolated 13beat vtach x1/asymptomatic, without recurrence, had been RATE CONTROLLED without elevation. Medication Changes From Visit Lyrica 75mg PO BID for neuropathic pain Per Dr Bangura from [facility]/Onc, chemo on hold for now and planning on re-staging outpatient Admission HPI Per Admitting Provider Maritza is a pleasant 78-year-old male with PMH of diffuse large B-cell lymphoma (on chemotherapy), GERD, cardiomyopathy, COPD, HTN, mitral vegetation, and atrial fibrillation. He presented on 09/30 at the behest of his oncologist for intense body aches, pleural effusion, constipation, and increased fatigue which may be secondary to chemotherapy. Patient's last chemotherapy session was 2 weeks ago. He reports that he has been developing a worsening pain/intense body aches throughout his entire body over the past 3 weeks. It initially started in his legs behind his calves, but now has extended to his shoulders and hands. The pain is so bad that he can barely walk at times. He characterizes it as an "intense aching", which he rates 10/10 at worst, and 9.5/10 at present. He has been taking Tylenol home, which initially helped, but is no longer helping. He has been taking Tylenol 1000 mg every 6 hours. Patient took all his regular morning medications today; no recent change in medications. He is on supplemental oxygen at baseline (2L NC). No CPAP at night. Additionally, teo gregory notes he has not been passing gas or had a BM since Monday 09/25. He does note that he took 1 tablet of oxycodone a couple nights ago, but notes that the constipation started well before this. Patient is a former tobacco cigarette smoker but quit 2.5 years ago. He also endorses occasional alcohol use, but nothing within the past week since his pain got worse. Patient is hypertensive at 141/91 at time of admission; SpO2 98% on 3L NC. ED course: Magnesium sulfate 1 g IV Calcium gluconate 1000 mg IV ROS: Patient endorses cold intolerance, dizziness/lightheadedness with walking, VITAL (which patient attributes to constant pain), intense body aches mainly in extremities, dry cough, abdominal pain (which patient attributes to constipation), and intermittent numbness/tingling in the fingers. Patient denies fever, chills, night-sweats, falls, chest pain, SOB, pleuritic CP, nausea/vomiting/diarrhea, burning with urination, dysuria, or blood in the urine/stool. Admission Exam Per Admitting Provider General: no acute distress; pleasant affect; non-toxic appearing; well- nourished; cooperative; SpO2 100% on 2 LNC HEENT: normocephalic, atraumatic; no scleral icterus; PERRLA w/ EOMs intact; moist mucus membrane; vision and hearing grossly intact Neck: supple; no lymphadenopathy; trachea midline Skin: warm, dry without signs of tenting; no cyanosis; no rashes, lesions, or erythema noted; mild bruising on the hands CV: chest wall NTP; port site on left upper chest wall without signs of infection, erythema, or drainage; RRR; S1/S2 normal; no murmurs/rubs/gallops; pulses intact and symmetric at radial, DP, and PT Lungs: no acute respiratory distress; symmetrical chest wall expansion; clear breath sounds across all lung krishnan w/o adventitious sounds; no wheezing ABD: Soft, NTP; BS present; no rebound/guarding; no distention MSK: no tics or fasciculations; no edema noted in the LEs b/l, nonerythematous Neuro: A&Ox3; normal mood and affect; fluent speech; no focal deficits; sensation grossly intact in the LEs b/l Discharge Exam General: 78yo male, frail appearing, sitting up in bed playing game with son, appears improved Head atraumatic, normocephalic, mmm, trachea midline Resp: even/unlabored, diminished in the bases with expiratory wheezing/faint rales on the right, on 3L NC, no tachypnea but + non productive cough, ?mucus plugging CV: RRR, no significant m/r/g, no pitting edema/calf tenderness GI: +BS throughout, soft/nontender MSK/Neuro: generalized weakness/pain to his legs (IMPROVING), but nonfocal, answering questions appropriately, following commands Psych: AOx3, cooperative with exam Updated Medication List Medication Instructions Recorded Confirmed Type acyclovir 200 mg capsule 400 mg PO BID 07/09/22 10/01/23 History apixaban 5 mg tablet (Eliquis) 5 mg PO BID 07/09/22 10/01/23 History atorvastatin 80 mg tablet 80 mg PO QPM 07/09/22 10/01/23 History cholecalciferol (vitamin D3) 50 50 mcg PO QAM 07/09/22 10/01/23 History mcg (2,000 unit) capsule folic acid 1 mg tablet 1 mg PO QAM 07/09/22 10/01/23 History mecobalamin (vitamin B12) 1,000 1,000 mcg PO QAM 07/09/22 10/01/23 History mcg chewable tablet metoprolol succinate 50 mg 50 mg PO QAM 07/09/22 10/01/23 History tablet,extended release 24 hr aspirin 81 mg capsule 81 mg PO QAM 08/29/22 10/01/23 History omeprazole 20 mg tablet,delayed 20 mg PO QAM 08/29/22 10/01/23 History release Flutter Valve #1 ea 03/20/23 09/10/23 Rx dextromethorphan-guaifenesin 10 10 ml PO Q6H PRN cough #237 mL 03/20/23 10/01/23 Rx mg-100 mg/5 mL oral liquid ketoconazole 2 % topical cream 1 applic topical BID PRN Skin 07/17/23 10/01/23 History Irritation pramipexole 0.25 mg tablet 0.25 mg PO HS 08/12/23 10/01/23 History sulfamethoxazole 800 1 tab PO 3XWK 08/12/23 10/01/23 History mg-trimethoprim 160 mg tablet albuterol sulfate 90 mcg/actuation 2 puff inhalation QID PRN 08/20/23 10/01/23 Rx aerosol inhaler shortness of breath or wheezing #8.5 grams fluticasone 500 mcg-salmeterol 50 1 inh inhalation BID #60 ea 08/20/23 10/01/23 Rx mcg/dose blistr powdr for inhalation (Advair Diskus) tiotropium bromide 2.5 2 inh inhalation QAM #4 grams 08/20/23 10/01/23 Rx mcg/actuation mist for inhalation (Spiriva Respimat) acetaminophen 500 mg tablet 1,000 mg PO QID PRN Pain 09/10/23 10/01/23 History (Tylenol Extra Strength) pregabalin 75 mg capsule (Lyrica) 75 mg PO BID #60 caps 10/10/23 Rx guaifenesin 600 mg tablet, 600 mg PO BID #30 tabs 10/11/23 Rx extended release 12 hr (Mucinex) pregabalin 75 mg capsule (Lyrica) 75 mg PO BID #14 caps 10/11/23 Rx Hospital Stay Data Diagnostic Imagining Performed Chest/Abdomen X-ray 10/01/23 15:46 XR abdomen 2V w PA chest CLINICAL HISTORY: decreased BM, obstipated, ?pleural effusion L base TECHNIQUE: 2 views of the abdomen were obtained. A single view of the chest was obtained. Comparison: Comparison is made to chest radiograph 09/01/2023 FINDINGS: A port catheter is seen. Calcified aortic knob is seen. The lungs are clear. No evidence of pleural effusion or pneumothorax. Aortobiiliac stent is seen. The osseous structures are grossly unremarkable. The bowel gas pattern is nonobstructive. Small stool burden is seen. IMPRESSION: No pleural effusion is seen. No evidence of fecal impaction. ACT 112: Negative or not required by law. Electronically signed by: Lorenzo Lee M.D. 10/01/2023 5:45 PM Abdomen/Pelvis CT 10/03/23 00:00 CT abd pelvis maritza sweeney CLINICAL HISTORY: Abdominal pain, concern for obstruction or ileus TECHNIQUE: Helical axial images of the abdomen and pelvis were obtained. Automated dose lowering techniques and/or adjustment according to patient size were utilized for this exam. This exam was performed without intravenous contrast. COMPARISON: Comparison is made to PET/CT 07/09/2023 FINDINGS: Lower chest: Bibasilar atelectasis versus scarring is seen. Liver: Unremarkable. No focal lesions are seen. Gallbladder and biliary tree: No calcified gallstones. Normal caliber wall. No intra- or extrahepatic biliary ductal dilation. Pancreas: Fatty replacement of the pancreas is seen. Spleen: Unremarkable. Adrenals: Unremarkable. Kidneys and ureters: Perinephric stranding is seen. A left renal cyst is seen. Bladder: Diffuse homogeneous wall thickening is seen. Reproductive organs: Unremarkable. Bowel: Diverticulosis is seen without evidence of diverticulitis. A small hiatal hernia is seen. Lymph nodes Retroperitoneal: Unremarkable. Pelvic: Unremarkable. Mesenteric: Unremarkable. Peritoneum: Normal. Vessels: Infrarenal aortic aneurysm is spanned by an aortobiiliac stent. The aneurysm measures up to 48 x 48 mm. Abdominal wall: Unremarkable. Bones: Degenerative changes in the visualized spine. IMPRESSION: 1. No evidence of small bowel obstruction or ileus. No acute abnormalities are seen to explain abdominal pain. 2. Hiatal hernia 3. Infrarenal aortic aneurysm, unchanged in size from prior PET/CT. ACT 112: Negative or not required by law. Electronically signed by: Lorenzo Lee M.D. 10/03/2023 11:14 AM Chest X-Ray 10/07/23 07:46 XR chest 1V portable HISTORY: 78 years-old Male increased O2 neq acute hypoxia COMPARISON: 10/01/2023 TECHNIQUE: AP view of the chest FINDINGS: Cardiomediastinal and hilar silhouettes are unchanged. Emphysema. Stable positi oning of the left subclavian [id number]-Yaud catheter. Chronic interstitial coarsening. No pneumothorax or pleural effusion. No airspace consolidation typical for pneumonia. IMPRESSION: 1. No acute process. 2. Emphysema with chronic interstitial coarsening. ACT 112: Negative or not required by law. The above report was generated using voice recognition software. It may contain grammatical, syntax or spelling errors. Electronically signed by: Wilman Piedra M.D. 10/07/2023 8:43 AM ECHOCARDIOGRAM 10/08/23 Compared to prior study, changes are noted. 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 Comparison: Comparison is made to chest radiograph 10/07/2023 FINDINGS: A port catheter is seen. Calcified aortic knob is seen. Emphysema is seen. No evidence of pleural effusion or pneumothorax. IMPRESSION: No acute chest disease. ACT 112: Negative or not required by law. Electronically signed by: Lorenzo Lee M.D. 10/09/2023 1:21 PM Lumbar Spine X-Ray 10/09/23 13:48 XR lumbar spine 2-3V CLINICAL HISTORY: LE pain, eval TECHNIQUE: 3 views of the lumbar spine were obtained. Comparison: None available at the time of this dictation. FINDINGS: There is no evidence of an acute fracture. Degenerative changes are seen in the lumbar spine with osteophyte formation and disc space narrowing. The alignment is normal. Aortobiiliac stent is seen. IMPRESSION: Degenerative changes as above without acute fracture or subluxation. ACT 112: Negative or not required by law. Electronically signed by: Lorenzo Lee M.D. 10/09/2023 4:09 PM Discharge Instructions Given to Patient (Per Discharging Provider) You have been hospitalized for pain/weakness in your legs and this is suspected due to neuropathy from the chemo medications you have been on. We initially trialed gabapentin but ultimately switched to LYRICA (pregabalin) and have had significant improvement in your neuropathic pain since this switch and are sending you on this medication 75mg by mouth twice daily. We obtained ultrasound of the heart and I discussed with cardiology and they feel there aren't significant changes and you have remained stable on the heart monitor for the last several days without issue. You should continue to hold your atorvastatin at discharge until discussed with primary care as this can make cramping worse however may consider resuming in follow up discussions for risk prevention/cholesterol control. You should follow up with primary care and hematology/oncology (Dr Bangura) at discharge. Your treatment is on hold at the present time and the plan is to restage as an outpatient. Please return to the ER with any increased/uncontrolled pain, shortness of breath, fever/chills, chest pain or for any other symptoms concerning for you. It has been a pleasure being a part of the medical team providing for you while you have been in the hospital. Take care! Total Time Total Time Spent Total Time Spent (In Minutes): 50 Coding Level of Care Code 65086 INP/OBS DISCH >30 MIN Diagnoses Neuropathy G62.9 Body aches R52 Chronic respiratory failure with hypoxia J96.11 Constipation K59.00 Diffuse large B cell lymphoma C83.30 Lymphoma site: unspecified region Hypomagnesemia E83.42 Paroxysmal atrial fibrillation I48.0 GERD (gastroesophageal reflux disease) K21.9 Hyperlipidemia E78.5
== END 2023-10-11 12:20 | disposition home or self-care (01) | DRG 74 ==
LOC: ED 15:09 → EDINP 18:25 → SUATTDRO 18:25 → 2N 20:17

== ENCOUNTER 2024-02-04 14:22 | Inpatient (IN) ==
--- NOTE | 2024-02-04 14:38 | ED Triage Note ---
Date of Service February 04, 2024 Provider in Triage Author: Ella Kramer History of Present Illness This patient was briefly evaluated while in triage. An abbreviated physical exam was performed. This patient is a 79-year-old Male who presents to the ED for evaluation Hx of COPD, HTN, Lymphoma, cardiomyopathy, afib on Eliquis, valvular heart disease "having more trouble breathing than normal" x 4-5 days productive cough with MS chest pain, lightheaded on chronic inhalers and nebulizers with no change Physical Exam GENERAL: NAD, afebrile, oxygen sat 95% on 3L nc CARDIOVASCULAR: RRR RESPIRATORY: Breath sounds diminished throughtout ABDOMEN: BS x 4. Nontender to palpation. Initial orders for labs and / or imaging were placed and patient was placed in the waiting area until a bed is available. Please see further documentation for the full ED course.
[2024-02-04 15:08] LABS: Hematocrit (blood only) 31.4 % (42.0-52.0); Hemoglobin 10.4 g/dl (14.0-18.0); Mean Corpuscular Hemoglobin 34.9 pg (25.0-34.0); Mean Corpuscular Hgb Conc 33.1 g/dL (32.0-36.0); Mean Corpuscular Volume 105.4 fL (80.0-100.0); Mean Platelet Volume 10.9 fL (9.4-12.4); Platelet Count 130 K/uL (130-400); RDW Coefficient of Variation 12.8 % (11.5-14.5); RDW Standard Deviation 49.7 fL (36.4-46.3); Red Blood Count 2.98 M/uL (4.70-6.10)
--- NOTE | 2024-02-04 15:12 | Emergency Department Note ---
Impression & Plan Acute and chronic respiratory failure, Diffuse large B cell lymphoma, COVID-19, Neutropenia with fever, Pneumonia ED Provider Note NAME: COURT BARNES AGE: 79 SEX: M : 1945 ARRIVES VIA: Walk-In INFORMANT: Patient ED PROVIDER(S): Rip Stout MD CHIEF COMPLAINT: Shortness of breath, feverish PLAN: Disposition: Admit MEDICAL DECISION MAKING: The patient is a 79-year-old gentleman with a past medical history of diffuse large B-cell lymphoma following with the [facility],, COPD on home oxygen, atrial fibrillation on Eliquis, pulmonary hypertension, GERD, neuropathy who presents to Emergency Department via walk-in accompanied by his son for evaluation of worsening cough, congestion with productive discolored sputum for the past several days where he is felt feverish but reports no objective measured fevers. He reports generalized fatigue. He denies nausea, vomiting or diarrhea. He denies chest pain. He reports mild shortness of breath from baseline. Patient reports he recently was treated with injection form of Rituximab for his DLBCL last week, which he felt "wore him out". On evaluation the patient is uncomfortable but no distress, with temperature of 37.7 and vital signs otherwise stable. He appears euvolemic to dry. He has wheezes of bilateral lung krishnan with mild increased work of breathing. Given patient's immunocompromise status with neutropenia and fever blood cultures obtained empiric antibiotics initiated with IV Zosyn and doxycycline. MRSA swab is pending. 500cc NSS administered and 30cc/kg deferred as patient was hemodynamically stable and with history of pulmonary hypertension/CHF. Solumedrol and Duoneb for component of COPD. EKG without overt acute ischemia. CXR demonstrates patchy airspace opacity suspicious for pneumonia. WBC 1.2K with severe neutropenia of 0.16. There is mild lymphopenia of 0.79. Chemistry without metabolic acidosis. Electrolytes and LFTs unremarkable. High-sensitivity troponin 11.4, within normal limits. BNP is 229, nonspecific. Patient has been as high as 800 in the past. Procalcitonin is not elevated. Respiratory bio fire is positive for COVID-19. Given patient's immunocompromise status with neutropenia and fever blood cultures obtained empiric antibiotics initiated with IV Zosyn and doxycycline. MRSA swab is pending. Patient and son agree with plan for admission for further management. Case was discussed with Dr. Turner, [facility] [place] hospitalist, who will evaluate the patient for admission. Further management per admitting team. Triage Nursing notes reviewed and agree them. Prior/external medical records reviewed Vital Signs: reviewed Differential diagnosis: Reactive airway disease, pneumonia, pneumothorax, COPD, CHF, infections, cardiac ischemia, pulmonary embolism, musculoskeletal, gastrointestinal, as well as other pathologies. ER treatment provided: See below. Diagnostics interpreted by me: ECG: Normal sinus rhythm, 89bpm, no ectopy, right bundle branch block, no overt ST elevation or depression, QTC 447, QRS 114. Cardiac Monitoring: An order for continuous cardiac monitoring was placed and demonstrated Normal sinus rhythm, 89bpm, no ectopy Laboratory studies: See below Imaging studies: See below Consultation(s): Case was discussed with Dr. Turner, [facility] [place] hospitalist, who will evaluate the patient for admission. HPI: The patient is a 79-year-old gentleman with a past medical history of diffuse large B-cell lymphoma following with the [facility],, COPD on home oxygen, atrial fibrillation on Eliquis, pulmonary hypertension, GERD, neuropathy who presents to Emergency Department via walk-in accompanied by his son for evaluation of worsening cough, congestion with productive discolored sputum for the past several days where he is felt feverish but reports no objective measured fevers. He reports generalized fatigue. He denies nausea, vomiting or diarrhea. He denies chest pain. He reports mild shortness of breath from baseline. Patient reports he recently was treated with injection form of Rituximab for his DLBCL last week, which he felt "wore him out". ROS: See above HPI for pertinent positives & negatives. A total of 10 systems reviewed and were otherwise negative. VITALS:See Below PHYSICAL EXAMINATION: GENERAL: Awake, alert, ill-appearing, in no distress HENT: Normocephalic, atraumatic. Oropharynx with mild infection without edema. Dry mucous membranes and otherwise unremarkable. EYES: Normal conjunctiva. Sclera non-icteric. NECK: Supple. No nuchal rigidity. FROM. No JVD. RESPIRATORY: Wheezes of bilateral lung krishnan with mild increased work of breathing. CARDIAC: Regular rate, normal rhythm. Extremities warm and well perfused. Pulses equal. ABDOMEN: Soft, non-distended. No tenderness to palpation. No rebound or guarding. No masses. MUSCULOSKELETAL: Chest examination reveals no tenderness. The back is symmetrical on inspection without obvious abnormality. There is no CVA tenderness to palpation. No joint edema. LOWER EXTREMITIES: Calves are equal size bilaterally and non-tender. No edema. No discoloration. NEURO: Normal sensorium. No sensory or motor deficits noted. SKIN: No rash or jaundice noted. Rip Stout MD Past Med/Surg History Problem List (Updated 02/04/24 @ 20:32 by Rip Stout MD) Paroxysmal atrial fibrillation Pneumonia (Acute) Neutropenia with fever (Acute) COVID-19 (Acute) Acute and chronic respiratory failure (Acute) Neuropathy Constipation Body aches Dyspnea (Acute) Weakness (Acute) Acute constipation (Acute) Hypocalcemia (Acute) Hypomagnesemia (Acute) Anemia (Acute) MEJIA (dyspnea on exertion) (Acute) Atrial fibrillation with rapid ventricular response (Acute) Pulmonary hypertension Mitral regurgitation Dizziness entered into chart and last edited 05/14/23 Abnormal EKG Chronic respiratory failure with hypoxia Ex-smoker Chronic bronchitis 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 Traore Anemia GERD (gastroesophageal reflux disease) Medical History CKD (chronic kidney disease) stage 3, GFR 30-59 ml/min Claudication dx after AAA repair>causing back pain Arthritis GERD (gastroesophageal reflux disease) History of follicular lymphoma chemo/radiation tx 2017? Diffuse large B cell lymphoma current dx Hx of renal failure hospitalized 2021 ([place] in [place]) developed sepsis>had dialysis for 1 week while admitted>resolved issue Hx of sepsis Hypertension Hyperlipidemia History of atrial fibrillation 2021 On home oxygen therapy 3l cont. Chronic obstructive pulmonary disease Edema of both lower extremities Hx of chronic bronchitis Mitral valve regurgitation follow with Dr. Traore History of skin cancer nose area Restless leg syndrome Chronic back pain Stenosis of right carotid artery TIA (transient ischemic attack) x 2 (2021), on Eliquis, follows with [facility] Surgical History Port-A-Cath in place (08/21/23) p Insertion of Left Cephalic Access Port with Fluoroscopy(Left) - Chirag Palomino MD, FACS MRI port placed in the left cephalic vein throughout the procedure fluoroscopy was used to position the catheter and I personally reviewed all the images Hx of vasectomy History of tooth extraction History of cataract surgery right/left History of bronchoscopy History of Mohs micrographic surgery for skin cancer Hx of biopsy multiple lymph nodes/neck Hx of knee surgery multiple, both knees Hx of discectomy c5 History of endovascular stent graft for abdominal aortic aneurysm (AAA) 2019 Family History Father ALS (amyotrophic lateral sclerosis) Other No family history of adverse response to anesthesia Social History Smoking Status: Never smoker Tobacco Type: Cigarettes packs per day: ; Cigarettes Per Day: 2020; Second Hand Exposure: Yes (in the past); Do You Dip or Chew Tobacco: No; Hx Alcohol Use: Yes Alcohol type: beer Alcohol Intake Frequency Comment: 2-3 beers daily Hx Substance Use: No Preferred Language: Turkish Communication Ability: Effective Visual Impairment: Partially Limited Hearing Ability: Normal Tower Erector Required: No Beliefs That Will Affect Care: None marital status: Current Living Situation: Alone Current Living Situation Comment: home alone current occupational status: retired 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 @ [employer] Other Information That Helps Us Care for You: No Feels Safe at Home: Yes Safety Concerns: Feels Safe At This Time Diet: regular during the past year weight has: remained stable Assistive Devices: Cane Allergies Allergies Allergy/AdvReac Type Severity Reaction Status Date / Time rituximab Allergy Severe Swelling Verified 11/03/23 15:44 of Lip/Tongue/Throat Home Meds Home Medications Medication Instructions Recorded Confirmed acyclovir 200 mg capsule 400 mg PO BID 07/09/22 02/04/24 apixaban 5 mg tablet (Eliquis) 5 mg PO BID 07/09/22 02/04/24 atorvastatin 80 mg tablet 80 mg PO QPM 07/09/22 02/04/24 cholecalciferol (vitamin D3) 50 50 mcg PO QAM 07/09/22 02/04/24 mcg (2,000 unit) capsule folic acid 1 mg tablet 1 mg PO QAM 07/09/22 02/04/24 mecobalamin (vitamin B12) 1,000 1,000 mcg PO QAM 07/09/22 02/04/24 mcg chewable tablet metoprolol succinate 50 mg 50 mg PO QAM 07/09/22 02/04/24 tablet,extended release 24 hr aspirin 81 mg capsule 81 mg PO QAM 08/29/22 02/04/24 omeprazole 20 mg tablet,delayed 20 mg PO QAM 08/29/22 02/04/24 release ketoconazole 2 % topical cream 1 applic topical BID PRN Skin 07/17/23 02/04/24 Irritation pramipexole 0.25 mg tablet 0.25 mg PO HS 08/12/23 02/04/24 acetaminophen 500 mg tablet 1,000 mg PO QID PRN Pain 09/10/23 02/04/24 (Tylenol Extra Strength) empagliflozin 10 mg tablet 10 mg PO QAM 02/04/24 02/04/24 (Jardiance) Previous Rx's Medication Instructions Recorded Flutter Valve #1 ea 03/20/23 dextromethorphan-guaifenesin 10 10 ml PO Q6H PRN cough #237 mL 03/20/23 mg-100 mg/5 mL oral liquid albuterol sulfate 90 mcg/actuation 2 puff inhalation QID PRN 08/20/23 aerosol inhaler shortness of breath or wheezing #8.5 grams fluticasone 500 mcg-salmeterol 50 1 inh inhalation BID #60 ea 08/20/23 mcg/dose blistr powdr for inhalation (Advair Diskus) tiotropium bromide 2.5 2 inh inhalation QAM #4 grams 08/20/23 mcg/actuation mist for inhalation (Spiriva Respimat) pregabalin 75 mg capsule (Lyrica) 75 mg PO BID #60 caps 10/10/23 Results & Data (ED) Vital Signs Vital Signs - 24 hr 02/04/24 14:35 02/04/24 14:41 02/04/24 16:00 Temperature 37.7 C H Temperature Source Oral Pulse Rate 90 70 Pulse Rate [Apical] Pulse Rate from SpO2 Sensor 70 Respiratory Rate 20 23 Respiratory Effort / Characteristics Non-Labored Spontaneous Non-Labored Spontaneous Respiratory Depth Normal Respiratory Pattern Regular Blood Pressure 105/68 120/72 Blood Pressure [Left Arm] Blood Pressure Mean 80 88 Blood Pressure Mean [Left Arm] Blood Pressure Position [Left Arm] Pulse Oximetry 95 100 Oxygen Delivery Method Nasal Cannula Nasal Cannula Oxygen Flow Rate 3 3 Sepsis Recent Fever Within 48 Hours No Sepsis New/Unexplained Change in Mental Status N/A Sepsis Action Taken by Nursing No Action Required 02/04/24 16:01 02/04/24 16:18 02/04/24 16:19 Temperature Temperature Source Pulse Rate 72 75 Pulse Rate [Apical] Pulse Rate from SpO2 Sensor Respiratory Rate 24 Respiratory Effort / Characteristics Respiratory Depth Respiratory Pattern Blood Pressure Blood Pressure [Left Arm] Blood Pressure Mean Blood Pressure Mean [Left Arm] Blood Pressure Position [Left Arm] Pulse Oximetry 96 Oxygen Delivery Method Nasal Cannula Oxygen Flow Rate 3 Sepsis Recent Fever Within 48 Hours Sepsis New/Unexplained Change in Mental Status Sepsis Action Taken by Nursing 02/04/24 16:24 02/04/24 16:30 02/04/24 16:42 Temperature Temperature Source Pulse Rate 69 75 71 Pulse Rate [Apical] Pulse Rate from SpO2 Sensor 104 H 64 Respiratory Rate 17 23 18 Respiratory Effort / Characteristics Respiratory Depth Respiratory Pattern Blood Pressure Blood Pressure [Left Arm] Blood Pressure Mean Blood Pressure Mean [Left Arm] Blood Pressure Position [Left Arm] Pulse Oximetry 99 99 Oxygen Delivery Method Oxygen Flow Rate Sepsis Recent Fever Within 48 Hours Sepsis New/Unexplained Change in Mental Status Sepsis Action Taken by Nursing 02/04/24 16:43 02/04/24 16:43 02/04/24 16:44 Temperature 36.9 C Temperature Source Oral Pulse Rate 69 Pulse Rate [Apical] 70 Pulse Rate from SpO2 Sensor Respiratory Rate 17 13 Respiratory Effort / Characteristics Non-Labored Spontaneous Respiratory Depth Normal Respiratory Pattern Regular Blood Pressure 98/59 L Blood Pressure [Left Arm] 98/59 L Blood Pressure Mean 67 Blood Pressure Mean [Left Arm] 72 Blood Pressure Position [Left Arm] Semi-fowlers Pulse Oximetry 100 99 Oxygen Delivery Method Room Air Nasal Cannula Oxygen Flow Rate 3 Sepsis Recent Fever Within 48 Hours Sepsis New/Unexplained Change in Mental Status Sepsis Action Taken by Nursing 02/04/24 16:49 02/04/24 17:03 02/04/24 17:24 Temperature Temperature Source Pulse Rate 73 67 Pulse Rate [Apical] Pulse Rate from SpO2 Sensor 73 68 Respiratory Rate 15 20 Respiratory Effort / Characteristics Respiratory Depth Respiratory Pattern Blood Pressure 111/63 115/60 Blood Pressure [Left Arm] Blood Pressure Mean 75 78 Blood Pressure Mean [Left Arm] Blood Pressure Position [Left Arm] Pulse Oximetry 99 97 Oxygen Delivery Method Oxygen Flow Rate Sepsis Recent Fever Within 48 Hours Sepsis New/Unexplained Change in Mental Status Sepsis Action Taken by Nursing Laboratory Data Attestation: I reviewed the patient's lab results. 02/04/24 14:51 02/04/24 14:51 Lab Results 02/04/24 02/04/24 Range/Units 14:51 16:35 WBC 1.20 L (4.8-10.8) K/ul RBC 2.98 L (4.70-6.10) M/uL Hgb 10.4 L (14.0-18.0) g/dl Hct 31.4 L (42.0-52.0) % MCV 105.4 H (80.0-100.0) fL MCH 34.9 H (25.0-34.0) pg MCHC 33.1 (32.0-36.0) g/dL RDW Std Deviation 49.7 H (36.4-46.3) fL RDW Coeff of Leeanne 12.8 (11.5-14.5) % Plt Count 130 (130-400) K/uL MPV 10.9 (9.4-12.4) fL Neutrophils % (Manual) 13 % Lymphocytes % (Manual) 66 % Monocytes % (Manual) 21 % Neutrophils # (Manual) 0.16 L (1.40-6.50) K/uL Total Absolute Neuts 0.16 L* (1.4-6.5) K/uL Lymphocytes # (Manual) 0.79 L (1.2-3.4) K/uL Total Abs Lymphocytes 0.79 L (1.2-3.4) K/uL Monocytes # (Manual) 0.25 (0.11-0.59) K/uL Polychromasia 2+ PT 11.9 (9.0-12.0) Seconds INR 1.1 (0.9-1.1) APTT 36 H (21-31) Seconds PTT Ratio 1.3 Sodium 137 (136-145) mmol/L Potassium 4.0 (3.5-5.1) mmol/L Chloride 104 (98-107) mmol/L Carbon Dioxide 26 (21-32) mmol/L Anion Gap 7 (3-11) BUN 20 (6-23) mg/dl Creatinine 1.33 (0.6-1.4) mg/dl Est Cr Clr Drug Dosing Not Reportable eGFR 55.05 BUN/Creatinine Ratio 15.0 (10-20) Glucose 107 H (70-99(Fasting)) mg/dl Lactate 0.7 (0.4-2.0) mmol/L Calcium 8.7 (8.6-10.3) mg/dl Total Bilirubin 0.7 (0.2-1.0) mg/dl AST 26 (13-39) U/L ALT 15 (7-52) U/L Alkaline Phosphatase 69 (34-104) U/L Troponin I High Sens 11.4 (0-20) pg/ml B-Natriuretic Peptide 229 H (0-100) pg/ml Total Protein 6.5 (6.0-8.3) gm/dl Albumin 3.7 (3.4-5.0) gm/dl Globulin 2.8 (2.5-4.0) gm/dl Albumin/Globulin Ratio 1.3 (0.9-2) Procalcitonin 0.05 (0-0.5) ng/ml Adenovirus (PCR) Not Detected (NotDetected) B. pertussis DNA (PCR) Not Detected (NotDetected) B.parapertussis DNA PCR Not Detected (NotDetected) C. pneumoniae DNA (PCR) Not Detected (NotDetected) Coronavirus OC43 (PCR) Not Detected (NotDetected) Coronavirus HKU1 (PCR) Not Detected (NotDetected) Coronavirus 229E (PCR) Not Detected (NotDetected) SARS-CoV-2 (PCR) DETECTED A (NotDetected) Coronavirus NL63 (PCR) Not Detected (NotDetected) Human Metapneumovir PCR Not Detected (NotDetected) Influenza Type A (PCR) Not Detected (NotDetected) Influenza Type B (PCR) Not Detected (NotDetected) M. pneumoniae (PCR) Not Detected (NotDetected) Parainfluenza 1 (PCR) Not Detected (NotDetected) Parainfluenza 2 (PCR) Not Detected (NotDetected) Parainfluenza 3 (PCR) Not Detected (NotDetected) Parainfluenza 4 (PCR) Not Detected (NotDetected) RSV (PCR) Not Detected (NotDetected) Entero/Rhino (PCR) Not Detected (NotDetected) Administered Medications Acyclovir (Acyclovir 200 Mg Cap) 400 mg PO BID LAILA Stop: 03/05/24 20:59 Last Admin: 02/04/24 20:13 Dose: 400 mg Documented By: ROSI Apixaban (Apixaban 5 Mg Tablet) 5 mg PO BID LAILA Stop: 03/05/24 20:59 Last Admin: 02/04/24 20:13 Dose: 5 mg Documented By: ROSI Atorvastatin Calcium (Atorvastatin 40 Mg Tab) 80 mg PO QPM LAILA Stop: 03/05/24 20:59 Last Admin: 02/04/24 20:14 Dose: 80 mg Documented By: ROSI Guaifenesin (Guaifenesin 600 Mg Tabcr) 600 mg PO Q12 LAILA Stop: 03/05/24 20:59 Last Admin: 02/04/24 20:14 Dose: 600 mg Documented By: ROSI Pramipexole Dihydrochloride (Pramipexole Dihydrochlo 0.25 Mg Tab) 0.25 mg PO HS LAILA Stop: 03/05/24 20:59 Last Admin: 02/04/24 20:14 Dose: 0.25 mg Documented By: ROSI Pregabalin (Pregabalin 75 Mg Cap) 75 mg PO BID LAILA Stop: 03/05/24 20:59 Last Admin: 02/04/24 20:14 Dose: 75 mg Documented By: ROSI Discontinued Medications Albuterol (Albut/Ipratrop 3mg/0.5mg Neb 3 Ml Vial) 3 ml NEB NOW STA; Protocol Stop: 02/04/24 15:11 Last Admin: 02/04/24 15:56 Dose: 3 ml Documented By: LUIS Acetaminophen (Ofirmev) 1,000 mg in 100 mls @ 400 mls/hr IV NOW STA Stop: 02/04/24 15:23 Last Infusion: 02/04/24 16:51 Dose: Infused Documented By: Admin: 02/04/24 15:53 Dose: 400 mls/hr Documented By: LUIS Sodium Chloride (Nss) 500 mls @ 999 mls/hr IV .Q31M ONE Stop: 02/04/24 15:39 Last Infusion: 02/04/24 16:23 Dose: Infused Documented By: Admin: 02/04/24 15:48 Dose: 999 mls/hr Documented By: LUIS Piperacillin Sod/Tazobactam Sod (Zosyn) 4.5 gm in 100 mls @ 200 mls/hr IV NOW ONE; Protocol Stop: 02/04/24 16:19 Last Infusion: 02/04/24 17:38 Dose: Infused Documented By: Admin: 02/04/24 16:48 Dose: 200 mls/hr Documented By: LUIS Doxycycline Hyclate 100 mg/ (Dextrose) 100 mls @ 50 mls/hr IV NOW STA Stop: 02/04/24 17:49 Last Infusion: 02/04/24 18:51 Dose: Infused Documented By: Admin: 02/04/24 16:51 Dose: 50 mls/hr Documented By: LUIS Methylprednisolone (Methylprednisolone 125 Mg/2 Ml Vial) 125 mg IV NOW STA Stop: 02/04/24 15:10 Last Admin: 02/04/24 15:50 Dose: 125 mg Documented By: LUIS Imaging Data Radiologist's Impression: Chest X-Ray 02/04/24 14:38 XR chest 2V PA/lateral HISTORY: 79 years-old Male Dyspnea acute shortness of breath COMPARISON: 10/09/2023 TECHNIQUE: AP and lateral views of the chest FINDINGS: Cardiomediastinal and hilar silhouettes are unchanged. Mildly progressive mixed interstitial and alveolar opacities. Emphysema. No pneumothorax or large pleural effusion. Unchanged left subclavian [id number] catheter. Bones appear grossly intact. IMPRESSION: Emphysema with mildly progressed mixed interstitial and alveolar opacities, likely infectious or inflammatory. ACT 112: Negative or not required by law. The above report was generated using voice recognition software. It may contain grammatical, syntax or spelling errors. Electronically signed by: Wilman Piedra M.D. 02/04/2024 3:36 PM Discharge Plan Visit Data Chief Complaint: Shortness of Breath/Dyspnea Stated Complaint: COUGH, CHEST PAIN/MOSTLY COUGH, SOB, LIGHTHEADED ED Provider: Rip Stout Discharge Problem: Acute and chronic respiratory failure, Diffuse large B cell lymphoma, COVID-19, Neutropenia with fever, Pneumonia Patient Disposition: Admitted As Inpatient Discharge Instructions Interventions: ED Discharge Assessment Last Done: 02/04/24 18:26 Discharge Problem: Acute and chronic respiratory failure Qualifiers: Respiratory failure complication: hypoxia Qualified Code(s): J96.21 - Acute and chronic respiratory failure with hypoxia Diffuse large B cell lymphoma Qualifiers: Lymphoma site: unspecified region Qualified Code(s): C83.30 - Diffuse large B- cell lymphoma, unspecified site Pneumonia Qualifiers: Pneumonia type: due to unspecified organism Laterality: bilateral Lung location: unspecified part of lung Qualified Code(s): J18.9 - Pneumonia, unspecified organism
[2024-02-04 15:38] LABS: Alanine Aminotransferase 15 U/L (7-52); Albumin Globulin Ratio 1.3 (0.9-2); Albumin Level 3.7 gm/dl (3.4-5.0); Alkaline Phosphatase 69 U/L (34-104); Anion Gap 7 (3-11); Aspartate Aminotransferase 26 U/L (13-39); Bilirubin,Total 0.7 mg/dl (0.2-1.0); Blood Urea Nitrogen 20 mg/dl (6-23); Calcium 8.7 mg/dl (8.6-10.3); Carbon Dioxide 26 mmol/L (21-32); Chloride 104 mmol/L (98-107); Globulin 2.8 gm/dl (2.5-4.0); Glucose 107 mg/dl (70-99(Fasting)); Sodium 137 mmol/L (136-145); Total Protein 6.5 gm/dl (6.0-8.3)
--- NOTE | 2024-02-04 15:38 | XRay Report ---
XR chest 2V PA/lateral HISTORY: 79 years-old Male Dyspnea acute shortness of breath COMPARISON: 10/09/2023 TECHNIQUE: AP and lateral views of the chest FINDINGS: Cardiomediastinal and hilar silhouettes are unchanged. Mildly progressive mixed interstitial and alve olar opacities. Emphysema. No pneumothorax or large pleural effusion. Unchanged left subclavian Infus e-a-Port catheter. Bones appear grossly intact. IMPRESSION: Emphysema with mildly progressed mixed interstitial and alveolar opacities, likely infect ious or inflammatory. ACT 112: Negative or not required by law. The above report was generated using voice recognition software. It may contain grammatical, syntax o r spelling errors. Electronically signed by: Wilman Piedra M.D. 02/04/2024 3:36 PM
[2024-02-04 15:43] LABS: Troponin I High Sensitivity 11.4 pg/ml (0-20)
[2024-02-04 15:47] LABS: INR 1.1 (0.9-1.1); Partial Thromboplastin Ratio 1.3; Partial Thromboplastin Time 36 Seconds (21-31); Prothrombin Time 11.9 Seconds (9.0-12.0)
[2024-02-04] MEDS: SODIUM CHLORIDE 0.9% 500 ML IV ONE (15:48)
[2024-02-04] MEDS: methylPREDNISolone 125 MG/2 ML VIAL IV STA (15:50)
[2024-02-04] MEDS: ACETAMINOPHEN 1,000 MG/100 ML VIAL IV STA (15:53)
[2024-02-04] MEDS: ALBUT/IPRATROP 3MG/0.5MG NEB 3 ML VIAL NEB STA (15:56)
[2024-02-04 16:03] LABS: Adenovirus PCR Not Detected (NotDetected); Bordetella parapertussis PCR Not Detected (NotDetected); Bordetella pertussis PCR Not Detected (NotDetected); Chlamydia pneumoniae PCR Not Detected (NotDetected); Coronavirus 229E PCR Not Detected (NotDetected); Coronavirus CoV-2 (COVID19)PCR DETECTED (NotDetected); Coronavirus HKU1 PCR Not Detected (NotDetected); Coronavirus NL63 PCR Not Detected (NotDetected); Coronavirus OC43PCR Not Detected (NotDetected); Human Metapneumovirus PCR Not Detected (NotDetected); Influenza A PCR Not Detected (NotDetected); Influenza B PCR Not Detected (NotDetected); Mycoplasma pneumoniae PCR Not Detected (NotDetected); Parainfluenza Virus 1 PCR Not Detected (NotDetected); Parainfluenza Virus 2 PCR Not Detected (NotDetected); Parainfluenza Virus 3 PCR Not Detected (NotDetected); Parainfluenza Virus 4 PCR Not Detected (NotDetected); Respiratory Syncytial VirusPCR Not Detected (NotDetected); Rhinovirus/Enterovirus PCR Not Detected (NotDetected)
[2024-02-04 16:16] LABS: ALC (manual) 0.79 K/uL (1.2-3.4); ANC (manual) 0.16 K/uL (1.4-6.5); Lymphocytes # (manual) 0.79 K/uL (1.2-3.4); Lymphocytes % (manual) 66 %; Monocytes # (manual) 0.25 K/uL (0.11-0.59); Monocytes % (manual) 21 %; Neutrophils # (manual) 0.16 K/uL (1.40-6.50); Neutrophils % (manual) 13 %; Polychromasia 2+
[2024-02-04] MEDS: PIPERACILLIN/TAZOBACTAM 4.5 GM/100 ML BAG IV ONE (16:48)
--- NOTE | 2024-02-04 16:50 | History & Physical Report ---
Date of Service February 04, 2024 Assessment & Plan (1) COVID-19: Plan: Worsening SOB/dyspnea and productive cough x 2 days Patient is an immunosuppressed state secondary to undergoing chemotherapy Febrile on arrival at 37.7 C COVID (+) on arrival Patient reports he is UTD on vaccinations, and received a COVID booster 2 months ago Blood cultures drawn in the ED Given his immunosuppressed status and neutropenic fever, will continue to cover antibiotics for 24 hours Zosyn 4.5 g IV q8h x 1 day Doxycycline 100 mg p.o. q12h x 1 day Supportive care Guaifenesin 600 mg p.o. BID for cough Acetaminophen as needed for pain/fever Dexamethasone 6 mg IV QAM (2) Chronic respiratory failure with hypoxia: Plan: Patient is on continuous supplemental oxygen therapy at home (3L NC) He reports SpO2 98% on 3L via home pulse ox x 2 days of symptoms Titrate oxygen as needed to maintain SpO2 >94% Continuous pulse oximetry (3) Diffuse large B cell lymphoma: Plan: Follows with [facility]; currently undergoing chemotherapy Receives rituximab infusions Continue acyclovir and Bactrim as scheduled (4) Neutropenia with fever: Plan: Febrile at 37.7 C ANC severe on arrival: 160.8 Neutropenic fever isolation precautions (5) COPD (chronic obstructive pulmonary disease): Plan: CXR revealed emphysema with mildly progressed mixed interstitial and alveolar opacities Continue home inhalers Steroids (as above) (6) Paroxysmal atrial fibrillation: Plan: Rate controlled on arrival Continue Eliquis, metoprolol Plan Disposition: Admit to PCU telemetry Full code Regular diet VTE PPx: On Eliquis History of Present Illness Chief Complaint: SOB/dyspnea Primary Care Provider: Kash Thomas MD Hiram is a pleasant 79-year-old male with PMH of diffuse large B-cell lymphoma (on chemotherapy), GERD, cardiomyopathy, COPD, HTN, mitral vegetation, and atrial fibrillation (on Eliquis). He presented on 02/03 for worsening SOB/dyspnea, labored breathing, productive cough, and fatigue x 2 days. Patient is on continuous supplemental oxygen at baseline (3L NC). He reports that his productive cough has been dark quintero/black, and he is unsure if there is been blood in his cough. No SOB at rest. No orthopnea. No prior history of DVT/PE. He has chronic swelling in his legs, but reports it has been good recently with his compression stockings; no recent injuries to legs. He has been using his home breathing treatments at home without relief. Patient reports that he took his regular morning medicine today; no recent change in medications. He has not been taking any additional medications for his symptoms. He does take Tylenol (2 tablets) every morning for his knee/back pain. Patient's last chemotherapy session for large B cell lymphoma was back in September 2023. However he recently had a follow-up shot with oncology last week. He denies having any fevers at home; he has been taking his temperature regularly. Patient has never had COVID in the past. He is up-to-date with his vaccinations and had his most recent COVID booster 2 months ago. Patient lives by himself. No sick contacts to his knowledge. No CPAP at night. Patient has not been requiring increased amounts of oxygen at home, and he reports that his pulse oximeter at home has stayed around 98% consistently on 3L NC. Patient is a former tobacco cigarette smoker (quit 3 years ago). He does endorse daily alcohol use; 23 beers per day; he denies history of alcohol withdrawal when he stops drinking. Patient is febrile at 37.7 C at time of admission; SpO2 95% on 3L NC. ED course: Doxycycline 100 mg IV Zosyn 4.5 g IV Solu-Medrol 125 mg IV Acetaminophen 1000 mg IV DuoNeb 3 mL NSS 500 mL IV ROS: Patient endorses chills, dizziness/lightheadedness, chest pain (which happens whenever he coughs; "rib pain), MEJIA, productive cough (dark hernandez / black; potential hemoptysis), inability to take deep breaths in, Patient denies fevers at home, night-sweats, VITAL, syncope, rashes, SOB at rest, pleuritic chest pain, abdominal pain, N/V/D, or changes in urinary/bowel habits. Allergies Allergy/AdvReac Type Severity Reaction Status Date / Time rituximab Allergy Severe Swelling Verified 11/03/23 15:44 of Lip/Tongue/Throat Home Medications Medication Instructions Recorded Confirmed Type acyclovir 200 mg capsule 400 mg PO BID 07/09/22 11/03/23 History apixaban 5 mg tablet (Eliquis) 5 mg PO BID 07/09/22 11/03/23 History atorvastatin 80 mg tablet 80 mg PO QPM 07/09/22 11/03/23 History cholecalciferol (vitamin D3) 50 50 mcg PO QAM 07/09/22 11/03/23 History mcg (2,000 unit) capsule folic acid 1 mg tablet 1 mg PO QAM 07/09/22 11/03/23 History mecobalamin (vitamin B12) 1,000 1,000 mcg PO QAM 07/09/22 11/03/23 History mcg chewable tablet metoprolol succinate 50 mg 50 mg PO QAM 07/09/22 11/03/23 History tablet,extended release 24 hr aspirin 81 mg capsule 81 mg PO QAM 08/29/22 11/03/23 History omeprazole 20 mg tablet,delayed 20 mg PO QAM 08/29/22 11/03/23 History release Flutter Valve #1 ea 03/20/23 11/03/23 Rx dextromethorphan-guaifenesin 10 10 ml PO Q6H PRN cough #237 mL 03/20/23 11/03/23 Rx mg-100 mg/5 mL oral liquid ketoconazole 2 % topical cream 1 applic topical BID PRN Skin 07/17/23 11/03/23 History Irritation pramipexole 0.25 mg tablet 0.25 mg PO HS 08/12/23 11/03/23 History sulfamethoxazole 800 1 tab PO 3XWK 08/12/23 11/03/23 History mg-trimethoprim 160 mg tablet albuterol sulfate 90 mcg/actuation 2 puff inhalation QID PRN 08/20/23 11/03/23 Rx aerosol inhaler shortness of breath or wheezing #8.5 grams fluticasone 500 mcg-salmeterol 50 1 inh inhalation BID #60 ea 08/20/23 11/03/23 Rx mcg/dose blistr powdr for inhalation (Advair Diskus) tiotropium bromide 2.5 2 inh inhalation QAM #4 grams 08/20/23 11/03/23 Rx mcg/actuation mist for inhalation (Spiriva Respimat) acetaminophen 500 mg tablet 1,000 mg PO QID PRN Pain 09/10/23 11/03/23 History (Tylenol Extra Strength) pregabalin 75 mg capsule (Lyrica) 75 mg PO BID #60 caps 10/10/23 11/03/23 Rx guaifenesin 600 mg tablet, 600 mg PO BID #30 tabs 10/11/23 11/03/23 Rx extended release 12 hr (Mucinex) empagliflozin 10 mg tablet 10 mg PO DAILY #30 tabs 01/13/24 Rx (Jardiance) Past Med/Surg History Problem List (Updated 02/04/24 @ 16:51 by Les Lemus PA-C) Paroxysmal atrial fibrillation Pneumonia (Acute) Neutropenia with fever (Acute) COVID-19 (Acute) Acute and chronic respiratory failure (Acute) Neuropathy Constipation Body aches Dyspnea (Acute) Weakness (Acute) Acute constipation (Acute) Hypocalcemia (Acute) Hypomagnesemia (Acute) Anemia (Acute) MEJIA (dyspnea on exertion) (Acute) Atrial fibrillation with rapid ventricular response (Acute) Pulmonary hypertension Mitral regurgitation Dizziness entered into chart and last edited 05/14/23 Abnormal EKG Chronic respiratory failure with hypoxia Ex-smoker Chronic bronchitis 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 Chronic obstructive pulmonary disease Edema of both lower extremities Hx of chronic bronchitis Mitral valve regurgitation follow with Dr. Traore History of skin cancer nose area Restless leg syndrome Chronic back pain Stenosis of right carotid artery TIA (transient ischemic attack) x 2 (2021), on Eliquis, follows with [facility] Surgical History Port-A-Cath in place (08/21/23) p Insertion of Left Cephalic Access Port with Fluoroscopy(Left) - Chirag Palomino MD, FACS MRI port placed in the left cephalic vein throughout the procedure fluoroscopy was used to position the catheter and I personally reviewed all the images Hx of vasectomy History of tooth extraction History of cataract surgery right/left History of bronchoscopy History of Mohs micrographic surgery for skin cancer Hx of biopsy multiple lymph nodes/neck Hx of knee surgery multiple, both knees Hx of discectomy c5 History of endovascular stent graft for abdominal aortic aneurysm (AAA) 2019 Family History Father ALS (amyotrophic lateral sclerosis) Other No family history of adverse response to anesthesia Social History Smoking Status: Former smoker Tobacco Type: Cigarettes packs per day: ; Cigarettes Per Day: 2020; Second Hand Exposure: Yes (in the past); Do You Dip or Chew Tobacco: No; Hx Alcohol Use: Yes Alcohol type: beer Alcohol Intake Frequency Comment: 2-3 beers daily Hx Substance Use: No Preferred Language: Romanian Communication Ability: Effective Visual Impairment: Partially Limited Hearing Ability: Normal Dough Cutter Required: No Beliefs That Will Affect Care: None marital status: Current Living Situation: Alone current occupational status: retired 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 @ [employer] Feels Safe at Home: Yes Diet: regular during the past year weight has: remained stable Assistive Devices: Cane and Oxygen - Continuous Review of Systems Review of Systems: See HPI above Physical Exam Physical Exam: General: no acute distress; pleasant affect; non-toxic appearing; frail appearing; cooperative; SpO2 99% on 3L NC HEENT: normocephalic, atraumatic; no scleral icterus; PERRLA; vision and hearing grossly intact Neck: supple; trachea midline Skin: warm, dry without signs of tenting; no cyanosis; no rashes, bruising, lesions, or erythema noted CV: chest wall NTP; RRR; S1/S2 normal; no murmurs/rubs/gallops; pulses intact and symmetric at radial, DP, and PT Lungs: no acute respiratory distress; symmetrical chest wall expansion; intermittent cough; clear breath sounds across all lung krishnan w/o adventitious sounds; no wheezing ABD: Soft, NTP; BS present; no rebound/guarding; no distention MSK: no tics or fasciculations; nonpitting edema noted in the LEs b/l, nonerythematous Neuro: A&Ox3; normal mood and affect; fluent speech; no focal deficits; sensation grossly intact in the LEs b/l Results & Data Results & Data Vital Signs (Past 12 Hours) Vital Signs Temp Pulse Pulse Resp BP BP Pulse Ox 02/04/24 16:44 98/59 L 02/04/24 16:43 69 13 99 02/04/24 16:43 36.9 C 70 17 98/59 L 100 02/04/24 16:42 71 18 99 02/04/24 16:30 75 23 99 02/04/24 16:24 69 17 02/04/24 16:19 96 02/04/24 16:18 75 24 02/04/24 16:01 72 02/04/24 16:00 70 23 120/72 100 02/04/24 14:41 02/04/24 14:35 37.7 C H 90 20 105/68 95 O2 Del Method O2 Flow Rate 02/04/24 16:44 02/04/24 16:43 Nasal Cannula 3 02/04/24 16:43 Room Air 02/04/24 16:42 02/04/24 16:30 02/04/24 16:24 02/04/24 16:19 Nasal Cannula 3 02/04/24 16:18 02/04/24 16:01 02/04/24 16:00 02/04/24 14:41 Nasal Cannula 3 02/04/24 14:35 Nasal Cannula 3 Laboratory Results Abnormal lab results 02/04/24 Range/Units 14:51 WBC 1.20 L (4.8-10.8) K/ul RBC 2.98 L (4.70-6.10) M/uL Hgb 10.4 L (14.0-18.0) g/dl Hct 31.4 L (42.0-52.0) % MCV 105.4 H (80.0-100.0) fL MCH 34.9 H (25.0-34.0) pg RDW Std Deviation 49.7 H (36.4-46.3) fL Neutrophils # (Manual) 0.16 L (1.40-6.50) K/uL Total Absolute Neuts 0.16 L* (1.4-6.5) K/uL Lymphocytes # (Manual) 0.79 L (1.2-3.4) K/uL Total Abs Lymphocytes 0.79 L (1.2-3.4) K/uL APTT 36 H (21-31) Seconds Glucose 107 H (70-99(Fasting)) mg/dl B-Natriuretic Peptide 229 H (0-100) pg/ml SARS-CoV-2 (PCR) DETECTED A (NotDetected) Diagnostic Findings Chest X-Ray 02/04/24 14:38 XR chest 2V PA/lateral HISTORY: 79 years-old Male Dyspnea acute shortness of breath COMPARISON: 10/09/2023 TECHNIQUE: AP and lateral views of the chest FINDINGS: Cardiomediastinal and hilar silhouettes are unchanged. Mildly progressive mixed interstitial and alveolar opacities. Emphysema. No pneumothorax or large pleural effusion. Unchanged left subclavian Jjsiws-n-Eetr catheter. Bones appear grossly intact. IMPRESSION: Emphysema with mildly progressed mixed interstitial and alveolar opacities, likely infectious or inflammatory. ACT 112: Negative or not required by law. The above report was generated using voice recognition software. It may contain grammatical, syntax or spelling errors. Electronically signed by: Wilman Piedra M.D. 02/04/2024 3:36 PM ECG Additional Comments: ECG revealed NSR at 89 bpm; QTc 447 Code Status & VTE Plan VTE Prophylaxis Plan VTE Prophylaxis will be ordered: Yes Supervising Physician Co-Signing Physician Notes Patient seen and examined, chart reviewed, case discussed with Les Lemus PA-C and I agree with the assessment and plan as above except as otherwise noted Labs and images reviewed 79-year-old male with a history of diffuse large B-cell lymphoma on rituximab who presents with 2 days of fever, chills, cough, sputum production. He was given 500 cc of fluid for borderline volume contraction clinically on ER assessment. Was empirically given Zosyn/doxycycline for neutropenic fever with an ANC count less than 1 on admission. Subsequently COVID positive. X-ray is suspicious for pneumonia. Chronically on 3L NC, he is >94% on his baseline 3L. Patient is hypotensive and ill-appearing on initial assessment. Given immunocompromise, neutropenic fever we will continue broad antibiotic for 24 hours then if blood cultures remain negative, and no other evidence of secondary infection are present then can discontinue these and treat as viral. Rituximab held in the setting of acute infection. +underlying COPD and +COVID --> will transition to dexamethasone daily. Agree with above. PG Care Time/CCT Total # of Minutes Spent Total Time Spent with Patient: Total time spent is greater than 50% in coordination of care (as documented) at patient's floor/unit and/or counseling patient: [place] [address] INT INP/OBS CARE 375MIN Patient Type Established History Comprehensive Exam Comprehensive Medical Decision Making High Complexity Diagnoses COVID-19 U07.1 Chronic respiratory failure with hypoxia J96.11 Diffuse large B cell lymphoma C83.30 Neutropenia with fever D70.9; R50.81 COPD (chronic obstructive pulmonary disease) J44.9 COPD type: unspecified COPD Paroxysmal atrial fibrillation I48.0 (5) COPD (chronic obstructive pulmonary disease) COPD type: unspecified COPD Qualified Code(s): J44.9 - Chronic obstructive pulmonary disease, unspecified
[2024-02-04] MEDS: DOXYCYCLINE HYCLATE 100 MG in DEXTROSE 5% MINI-B 100 ML IV STA (16:51)
[2024-02-04 18:37] LABS: Appearance Urine Clear (Clear); Bacteria Urine Automated None Seen (None Seen); Bilirubin Urine Negative (Negative); Blood Urine Negative (Negative); Cast Urine Automated 0-2 /lpf (0-2); Color Urine Yellow; Epithelial Cell Urine Auto 0-2 /hpf (0-2); Glucose Urine UA 2+ (Negative); Ketones Urine Negative (Negative); Leukocyte Esterase Urine Negative (Negative); Nitrite Urine Negative (Negative); Protein Urine Trace (Negative); RBC Urine Automated 0-2 /hpf (0-2); Specific Gravity Urine 1.012 (1.000-1.030); Urobilinogen Urine Negative (Negative); WBC Urine Automated 0-5 /hpf (0-5); pH Urine 5.5 (4.5-7.5)
[2024-02-04] MEDS ORDERED: ACETAMINOPHEN 325 MG TAB PO PRN (19:03)
[2024-02-04] MEDS: APIXABAN 5 MG TABLET PO SCH (20:13)
[2024-02-04] MEDS: ACYCLOVIR 200 MG CAP PO SCH (20:13)
[2024-02-04] MEDS: PRAMIPEXOLE DIHYDROCHLO 0.25 MG TAB PO SCH (20:14)
[2024-02-04] MEDS: PREGABALIN 75 MG CAP PO SCH (20:14)
[2024-02-04] MEDS: ATORVASTATIN 40 MG TAB PO SCH (20:14)
[2024-02-04] MEDS: guaiFENesin 600 MG TABCR PO SCH (20:14)
[2024-02-04] MEDS: PIPERACILLIN/TAZOBACTAM 4.5 GM/100 ML BAG IV SCH (23:39)
[2024-02-05] MEDS ORDERED: HEPARIN 100 UNIT/ML 5ML FLUSH FLUSH PRN (05:22)
--- NOTE | 2024-02-05 06:01 | Electrocardiogram Report ---
Test Reason : Blood Pressure : */* mmHG Vent. Rate : 89 BPM Atrial Rate : 89 BPM P-R Int : 166 ms QRS Dur : 122 ms QT Int : 368 ms P-R-T Axes : 3 15 -7 degrees QTcB Int : 447 ms Normal sinus rhythm Right bundle branch block Abnormal ECG When compared with ECG of 01-Oct-2023 16:09, T wave inversion less evident in Anterior leads Confirmed by Howard Torres ([id number]) on 02/05/2024 6:01:07 AM Referred By: Confirmed By: Howard Torres
[2024-02-05] MEDS: DOXYCYCLINE HYCLATE 100 MG CAP PO SCH (06:13)
[2024-02-05 07:30] LABS: Hematocrit (blood only) 27.6 % (42.0-52.0); Lymphocytes # (auto) 0.33 K/uL (1.20-3.40); Mean Corpuscular Hemoglobin 34.5 pg (25.0-34.0); Mean Corpuscular Hgb Conc 32.6 g/dL (32.0-36.0); Mean Corpuscular Volume 105.7 fL (80.0-100.0); Mean Platelet Volume 11.1 fL (9.4-12.4); Monocytes # (auto) 0.12 K/uL (0.11-0.59); Monocytes % (auto) 18.2 %; Neutrophils # (auto) 0.21 K/uL (1.40-6.50); Neutrophils % (auto) 31.8 %; Platelet Count 109 K/uL (130-400); RDW Coefficient of Variation 12.7 % (11.5-14.5); RDW Standard Deviation 49.3 fL (36.4-46.3); Red Blood Count 2.61 M/uL (4.70-6.10); White Blood Count 0.66 K/ul (4.8-10.8)
[2024-02-05 07:36] LABS: Calcium 8.1 mg/dl (8.6-10.3); Creatinine Clr Calc Pharmacy 55.6 ml/min; Potassium 3.7 mmol/L (3.5-5.1)
[2024-02-05] MEDS ORDERED: DEXAMETHASONE SOD INJ 4 MG/ML VIAL IV SCH (09:00)
[2024-02-05] MEDS: dexAMETHasone 6 MG in SYRINGE 0 ML IV SCH (09:07)
[2024-02-05] MEDS: FOLIC ACID 1 MG TAB PO SCH (09:08)
[2024-02-05] MEDS: UMECLIDINIUM BROMIDE 62.5MCG/BLISTER 7 PUFFS/INHALER INH SCH (09:08)
[2024-02-05] MEDS: ASPIRIN 81 MG ECTAB PO SCH (09:08)
[2024-02-05] MEDS: FLUTICASONE/VILANTEROL 100/25MCG 14 PUFFS/INHALER INH SCH (09:08)
[2024-02-05] MEDS: METOPROLOL SUCC 50MG EXT REL TAB PO SCH (09:08)
[2024-02-05] MEDS: PANTOprazole 40 MG TAB PO SCH (09:08)
[2024-02-05] MEDS: REMDESIVIR 200 MG in SODIUM CHLORIDE 0.9% 210 ML IV STA (11:49)
--- NOTE | 2024-02-05 19:00 | Hospitalist Progress Note ---
Date of Service February 05, 2024 Assessment & Plan (1) COVID-19: Plan: Presented with worsening SOB/dyspnea and productive cough x 2 days, low-grade fevers Patient is an immunosuppressed state secondary to undergoing chemotherapy Febrile on arrival at 37.7 C and was COVID (+) on arrival Patient reports he is UTD on vaccinations, and received a COVID booster 2 months ago Chest x-ray with multifocal infiltrates likely pneumonia Procalcitonin negative but given immunosuppressed state, will treat for secondary bacterial pneumonia-continue Zosyn and doxycycline Given he is at risk for severe disease, start remdesivir x 5-day course Continue dexamethasone 6 mg IV once daily Continue supplemental O2 to keep pulse ox greater than 90% Follow chest x-ray to resolution of pneumonia in 4 weeks Follow blood cultures until negative greater than 48 hours (2) Chronic respiratory failure with hypoxia: Plan: Patient is on continuous supplemental oxygen therapy at home (3L NC) Not requiring more than usual amount Monitor for worsening Continue home maintenance inhalers (3) Diffuse large B cell lymphoma: Plan: [facility]; currently undergoing chemotherapy with rituximab Continue acyclovir for prophylaxis With neutropenic fever-ANC improved today to 210 Continue antibiotics Will touch base with his primary oncologist tomorrow for further recommendations-doubt Neupogen is indicated given treatment for lymphoma Cont neutropenic precautions (4) COPD (chronic obstructive pulmonary disease): Plan: CXR revealed emphysema with mildly progressed mixed interstitial and alveolar opacities Continue home inhalers and Steroids (5) Paroxysmal atrial fibrillation: Plan: Continues in normal sinus rhythm with PVCs, rates in the 50s to 60s Continue Eliquis, metoprolol Monitor on telemetry Plan 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 He is coughing up some sputum that at sometimes is quintero and sometimes black with a scant amount of red blood. No chest pains, no nausea or vomiting, no headache, no abdominal pains or diarrhea. Telemetry with normal sinus rhythm, rates in the 50s to 60s, PVCs Physical Exam Constitutional: WD/WN, vitals as above Respiratory: normal respiratory effort; no cough Auscultation: + crackles (Right lower lung field); no rhonchi and no wheezes Cardiovascular: RRR, no murmur, no edema Gastrointestinal (Abdomen): normal bowel sounds, soft, nontender, no hepatosplenomegaly Psychiatric: A+Ox3, euthymic affect Results & Data Results & Data Vital Signs (Past 12 Hours) Vital Signs Temp Pulse Pulse Resp BP Pulse Ox O2 Del Method 02/05/24 17:00 63 02/05/24 17:00 Nasal Cannula 02/05/24 15:56 36.4 C L 58 L 18 155/73 H 96 Nasal Cannula 02/05/24 11:45 57 L 18 152/84 H 96 Nasal Cannula 02/05/24 09:00 Nasal Cannula 02/05/24 07:41 36.3 C L 60 19 153/76 H 95 Nasal Cannula O2 Flow Rate 02/05/24 17:00 02/05/24 17:00 3 02/05/24 15:56 3.0 02/05/24 11:45 2 02/05/24 09:00 3 02/05/24 07:41 2 Laboratory Results CBC, BMP, MRSA nasal swab, LFTs reviewed PG Care Time/CCT Total # of Minutes Spent Total Time Spent with Patient: Total time spent is greater than 50% in coordination of care (as documented) at patient's floor/unit and/or counseling patient: Coding Level of Care Code 81762 SUB INP/OBS CARE 2/35MIN Diagnoses COVID-19 U07.1 Chronic respiratory failure with hypoxia J96.11 Diffuse large B cell lymphoma C83.30 Lymphoma site: unspecified region COPD (chronic obstructive pulmonary disease) J44.9 COPD type: unspecified COPD Paroxysmal atrial fibrillation I48.0 (3) Diffuse large B cell lymphoma Lymphoma site: unspecified region Qualified Code(s): C83.30 - Diffuse large B-cell lymphoma, unspecified site (4) COPD (chronic obstructive pulmonary disease) COPD type: unspecified COPD Qualified Code(s): J44.9 - Chronic obstructive pulmonary disease, unspecified
[2024-02-06 07:38] LABS: Hematocrit (blood only) 29.5 % (42.0-52.0); Hemoglobin 9.9 g/dl (14.0-18.0); Mean Corpuscular Hemoglobin 35.2 pg (25.0-34.0); Mean Corpuscular Hgb Conc 33.6 g/dL (32.0-36.0); Mean Platelet Volume 11.3 fL (9.4-12.4); Platelet Count 128 K/uL (130-400); RDW Standard Deviation 49.8 fL (36.4-46.3); Red Blood Count 2.81 M/uL (4.70-6.10); White Blood Count 1.78 K/ul (4.8-10.8)
[2024-02-06 07:41] LABS: Albumin Globulin Ratio 1.3 (0.9-2); Albumin Level 3.4 gm/dl (3.4-5.0); BUN Creatinine Ratio 17.9 (10-20); Bilirubin,Total 0.6 mg/dl (0.2-1.0); Calcium 8.5 mg/dl (8.6-10.3); Creatinine Clr Calc Pharmacy 57.5 ml/min; Globulin 2.7 gm/dl (2.5-4.0); Potassium 3.5 mmol/L (3.5-5.1); Total Protein 6.1 gm/dl (6.0-8.3)
[2024-02-06 07:44] LABS: Echinocytes 1+; Polychromasia 1+
[2024-02-06 07:46] LABS: Basophils # (auto) 0.01 K/uL (0.00-0.20); Basophils % (auto) 0.6 %; Immature Granulocytes # (auto) 0.09 K/uL (0.01-0.20); Immature Granulocytes % (auto) 5.1 %; Lymphocytes # (auto) 0.58 K/uL (1.20-3.40); Lymphocytes % (auto) 32.6 %; Monocytes % (auto) 28.1 %; Neutrophils % (auto) 33.6 %
[2024-02-06] MEDS: FILGRASTIM 480 MCG/1.6 ML VIAL SC SCH (10:52)
[2024-02-06 11:40] LABS: Folate (Folic Acid),Ser orPlas > 22.30 ng/ml (>5.38)
[2024-02-06 11:41] LABS: Vitamin B12 483 pg/ml (180-914)
[2024-02-06] MEDS: DOXYCYCLINE HYCLATE 100 MG CAP PO SCH (13:33)
[2024-02-06] MEDS: REMDESIVIR 100 MG in SODIUM CHLORIDE 0.9% 230 ML IV SCH (13:33)
--- NOTE | 2024-02-06 13:57 | Hospitalist Progress Note ---
Date of Service February 06, 2024 Assessment & Plan (1) COVID-19: Plan: Presented with worsening SOB/dyspnea and productive cough x 2 days, low-grade fevers Patient is immunosuppressed 2/2 tx with Rituximab for lymphoma Febrile on arrival at 37.7 C and was COVID (+) on arrival-no further fevers Patient reports he is UTD on vaccinations, and received a COVID booster 2 months ago Chest x-ray with multifocal infiltrates likely pneumonia Procalcitonin negative but given immunosuppressed state, will treat for secondary bacterial pneumonia-continue Zosyn and doxycycline Given he is at risk for severe disease, started remdesivir Continue dexamethasone 6 mg IV once daily for COPD and hypoxemia Continue supplemental O2 to keep pulse ox greater than 90% Follow chest x-ray to resolution of pneumonia in 4 weeks Follow blood cultures until negative greater than 48 hours; has port in place (2) Chronic respiratory failure with hypoxia: Plan: Patient is on continuous supplemental oxygen therapy at home (3L NC) Not requiring more than usual amount Monitor for worsening Continue home maintenance inhalers (3) Diffuse large B cell lymphoma: Plan: [facility]; currently undergoing chemotherapy with rituximab Continue acyclovir for prophylaxis With neutropenic fever-ANC improved further to 600 Continue antibiotics I spoke with his primary oncologist for further recommendations-will give Neupogen x 2 doses Cont neutropenic precautions (4) Pancytopenia: Plan: chronic. Spoke with his Oncologist leukopenia/neutropenia could be from rituximab but anemia nd thrombocytopenia typically not Giving neupogen for neutropenia Anemia-hgb 9, macrocytic--> checked B12, folate-both normal. 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 He then fell back asleep for 3 more hours and reports after getting more sleep, lightheadedness went away. Feeling much better. No nausea or diarrhea. Tele with NSR, some bigeminy, rates 60s Physical Exam Constitutional: WD/WN, vitals as above Respiratory: normal respiratory effort; no cough Auscultation: + crackles (Right lower lung field); no rhonchi and no wheezes Cardiovascular: RRR, no murmur, no edema Gastrointestinal (Abdomen): normal bowel sounds, soft, nontender, no hepatosplenomegaly Psychiatric: A+Ox3, euthymic affect Results & Data Results & Data Vital Signs (Past 12 Hours) Vital Signs Temp Pulse Pulse Resp BP Pulse Ox O2 Del Method 02/06/24 11:40 36.4 C L 69 20 146/73 H 96 Nasal Cannula 02/06/24 09:56 65 02/06/24 08:37 Nasal Cannula 02/06/24 08:07 36.4 C L 86 19 116/71 96 Nasal Cannula 02/06/24 02:50 36.8 C 58 L 17 120/71 99 Nasal Cannula O2 Flow Rate 02/06/24 11:40 3 02/06/24 09:56 02/06/24 08:37 3 02/06/24 08:07 02/06/24 02:50 3 Laboratory Results CBC, BMP , B12, folate, blood cxs reviewed PG Care Time/CCT Total # of Minutes Spent Total Time Spent with Patient: Total time spent is greater than 50% in coordination of care (as documented) at patient's floor/unit and/or counseling patient: Coding Level of Care Code 22269 SUB INP/OBS CARE 2/35MIN Diagnoses COVID-19 U07.1 Chronic respiratory failure with hypoxia J96.11 Diffuse large B cell lymphoma C83.30 Lymphoma site: unspecified region Pancytopenia D61.818 COPD (chronic obstructive pulmonary disease) J44.9 COPD type: unspecified COPD Paroxysmal atrial fibrillation I48.0 (3) Diffuse large B cell lymphoma Lymphoma site: unspecified region Qualified Code(s): C83.30 - Diffuse large B-cell lymphoma, unspecified site (5) COPD (chronic obstructive pulmonary disease) COPD type: unspecified COPD Qualified Code(s): J44.9 - Chronic obstructive pulmonary disease, unspecified
[2024-02-07 06:48] LABS: Hematocrit (blood only) 26.5 % (42.0-52.0); Hemoglobin 8.9 g/dl (14.0-18.0); Mean Corpuscular Hemoglobin 34.9 pg (25.0-34.0); Mean Corpuscular Hgb Conc 33.6 g/dL (32.0-36.0); Mean Corpuscular Volume 103.9 fL (80.0-100.0); Mean Platelet Volume 11.6 fL (9.4-12.4); Platelet Count 110 K/uL (130-400); RDW Coefficient of Variation 12.7 % (11.5-14.5); RDW Standard Deviation 48.5 fL (36.4-46.3); Red Blood Count 2.55 M/uL (4.70-6.10); White Blood Count 1.83 K/ul (4.8-10.8)
[2024-02-07 07:14] LABS: BUN Creatinine Ratio 18.9 (10-20); Calcium 8.2 mg/dl (8.6-10.3); Creatinine Clr Calc Pharmacy 52.9 ml/min; Magnesium 1.8 mg/dl (1.7-2.4); Potassium 3.4 mmol/L (3.5-5.1)
[2024-02-07 07:25] LABS: Basophils # (auto) 0.01 K/uL (0.00-0.20); Basophils % (auto) 0.5 %; Immature Granulocytes # (auto) 0.13 K/uL (0.01-0.20); Immature Granulocytes % (auto) 7.1 %; Lymphocytes # (auto) 0.54 K/uL (1.20-3.40); Lymphocytes % (auto) 29.5 %; Monocytes # (auto) 0.58 K/uL (0.11-0.59); Monocytes % (auto) 31.7 %; Neutrophils # (auto) 0.57 K/uL (1.40-6.50); Neutrophils % (auto) 31.2 %
[2024-02-07 07:48] VITALS: TEMP 98.1; O2SAT 93
[2024-02-07 10:04] VITALS: BP 110/46; PULSE 61; RESP 16
--- NOTE | 2024-02-07 13:45 | Discharge Summary ---
Discharge Summary Date of Service February 07, 2024 Principal Dx & Hospital Course #1 = Principal Diagnosis (1) COVID-19: Presented with worsening SOB/dyspnea and productive cough x 2 days, low-grade fevers Patient is immunosuppressed 2/2 tx with Rituximab for lymphoma Febrile on arrival at 37.7 C and was COVID (+) on arrival-no further fevers after admission Patient reports he is UTD on vaccinations, and received a COVID booster 2 months ago Chest x-ray with multifocal infiltrates likely pneumonia Procalcitonin negative but given immunosuppressed state, treated for secondary bacterial pneumonia with Zosyn and doxycycline-discharged home on Augmentin and doxycycline to finish out a 7-day course Given he is at risk for severe disease, started remdesivir and he received 3 doses Received dexamethasone 6 mg IV once daily for COPD and hypoxemia-finish out a 10-day course at home with p.o. dexamethasone Continue supplemental O2 to keep pulse ox greater than 90%-he is on his home 3 LNC Follow chest x-ray to resolution of pneumonia in 4 weeks Blood cultures remained no growth at the 72-hour bar prior to discharge; has port in place (2) Chronic respiratory failure with hypoxia: Patient is on continuous supplemental oxygen therapy at home (3L NC) Not requiring more than usual amount Monitor for worsening Continue home maintenance inhalers (3) Diffuse large B cell lymphoma: [facility]; currently undergoing chemotherapy with rituximab Continue acyclovir for prophylaxis With neutropenic fever on admission with ANC 160-ANC improved but remained low at the time of discharge at 570 Continue antibiotics as noted above I spoke with his primary oncologist for further recommendations-he was given Neupogen x 2 doses Follow-up with oncology after discharge within 2 weeks (4) Pancytopenia: chronic. Spoke with his Oncologist leukopenia/neutropenia could be from rituximab but anemia and thrombocytopenia typically not He was given neupogen for neutropenia Anemia-hgb 9, macrocytic--> checked B12, folate-both normal. 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 Stable for discharge to home Notes For Next Care Provider May need bone marrow biopsy in the near future as per oncology for pancytopenia not likely related to current treatment for lymphoma Needs repeat chest x-ray in 4 to 6 weeks Medication Changes From Visit Added Augmentin and doxycycline for 4 more days Added dexamethasone to finish out a 10-day course Admission HPI Per Admitting Provider Hiram is a pleasant 79-year-old male with PMH of diffuse large B-cell lymphoma (on chemotherapy), GERD, cardiomyopathy, COPD, HTN, mitral vegetation, and atrial fibrillation (on Eliquis). He presented on 02/03 for worsening SOB/dys pnea, labored breathing, productive cough, and fatigue x 2 days. Patient is on continuous supplemental oxygen at baseline (3L NC). He reports that his productive cough has been dark quintero/black, and he is unsure if there is been blood in his cough. No SOB at rest. No orthopnea. No prior history of DVT/PE. He has chronic swelling in his legs, but reports it has been good recently with his compression stockings; no recent injuries to legs. He has been using his home breathing treatments at home without relief. Patient reports that he took his regular morning medicine today; no recent change in medications. He has not been taking any additional medications for his symptoms. He does take Tylenol (2 tablets) every morning for his knee/back pain. Patient's last chemotherapy session for large B cell lymphoma was back in September 2023. However he recently had a follow-up shot with oncology last week. He denies having any fevers at home; he has been taking his temperature regularly. Patient has never had COVID in the past. He is up-to-date with his vaccinations and had his most recent COVID booster 2 months ago. Patient lives by himself. No sick contacts to his knowledge. No CPAP at night. Patient has not been requiring increased amounts of oxygen at home, and he reports that his pulse oximeter at home has stayed around 98% consistently on 3L NC. Patient is a former tobacco cigarette smoker (quit 3 years ago). He does endorse daily alcohol use; 23 beers per day; he denies history of alcohol withdrawal when he stops drinking. Patient is febrile at 37.7 C at time of admission; SpO2 95% on 3L NC. ED course: Doxycycline 100 mg IV Zosyn 4.5 g IV Solu-Medrol 125 mg IV Acetaminophen 1000 mg IV DuoNeb 3 mL NSS 500 mL IV ROS: Patient endorses chills, dizziness/lightheadedness, chest pain (which happens whenever he coughs; "rib pain), MEJIA, productive cough (dark hernandez / black; potential hemoptysis), inability to take deep breaths in, Patient denies fevers at home, night-sweats, VITAL, syncope, rashes, SOB at rest, pleuritic chest pain, abdominal pain, N/V/D, or changes in urinary/bowel habits. Discharge Exam Constitutional WD/WN, vitals as above Respiratory normal respiratory effort; no cough Auscultation: + crackles (Right lower lung field); no rhonchi and no wheezes Cardiovascular RRR, no murmur, no edema Gastrointestinal (Abdomen) normal bowel sounds, soft, nontender, no hepatosplenomegaly Psychiatric A+Ox3, euthymic affect Discharge Plan Discharge Items Patient Disposition: Home - Self-Care Reason For Visit: COVID, NEUTROPENIC FEVER Discharge Diagnosis: COVID-19 Secondary bacterial pneumonia Neutropenic fever Pancytopenia Condition on Discharge: Good Activity: Resume your previous activity Non-emergency contact: Primary Care Provider and Oncologist Call non-emergency contact if: you have any medication questions, your symptoms worsen, you have a fever and your temperature is above 101 Follow-up/Referrals: Enzo Bangura MD [Physician] - (Please follow-up within 1 to 2 weeks) Kash Thomas MD [Primary Care Provider] - (Follow-up within 1 to 2 weeks.) Diet: Regular Ambulatory Orders: Complete Blood Count with Diff (Routine) Timeframe: 2 Days Location: Determined by Patient Ordered By: Christi Estevez Comprehensive Metabolic Panel (Routine) Timeframe: 2 Days Location: Determined by Patient Ordered By: Christi Estevez Addtl Attending Provider Instructions: Please finish out the oral steroids and antibiotics as prescribed for your pneumonia and COVID-19. You will need to have a repeat chest x-ray in 4 to 6 weeks to ensure your pneumonia has cleared up. Your blood counts are all low some of which is related to treatment for your lymphoma, however your oncologist does want to consider doing a bone marrow biopsy in the near future after you recover from your illness. Please follow-up with Dr. Bangura in the oncology clinic in 2 weeks. Please have blood work done at the cancer center to check your blood counts on Friday or Friday of next week. You can continue on your usual amount of oxygen. Pending Studies at Discharge: Yes (Final blood culture results-no growth to date) Stand-Alone Forms: My Real Intent, Smoking Cessation Medications and DC Order Prescriptions: New doxycycline hyclate 100 mg Capsule 100 mg PO BID Qty: 7 0RF amoxicillin-pot clavulanate 875-125 mg tablet 1 tab PO BID Qty: 7 0RF dexamethasone 6 mg tablet 6 mg PO DAILY Qty: 6 0RF Continued omeprazole 20 mg tablet,delayed release (DR/EC) 20 mg PO QAM aspirin 81 mg capsule 81 mg PO QAM ketoconazole 2 % cream 1 applic topical BID PRN (Reason: Skin Irritation) acyclovir 200 mg capsule 400 mg PO BID Eliquis 5 mg tablet 5 mg PO BID Hold Instructions: Resume on 08/23/23. resume taking Friday atorvastatin 80 mg tablet 80 mg PO QPM Hold Instructions: Resume on 10/22/23. hold until discussed with primary care about resuming cholecalciferol (vitamin D3) 50 mcg (2,000 unit) capsule 50 mcg PO QAM mecobalamin (vitamin B12) 1,000 mcg tablet,chewable 1,000 mcg PO QAM folic acid 1 mg tablet 1 mg PO QAM metoprolol succinate 50 mg tablet extended release 24 hr 50 mg PO QAM dextromethorphan-guaifenesin 10-100 mg/5 mL liquid 10 ml PO Q6H PRN (Reason: cough) Qty: 237 0RF (DME) Flutter Valve Device See Rx Instructions .MEDSUPPLY Qty: 1 0RF Rx Instructions: Use it every 6 hours when awake. albuterol sulfate 90 mcg/actuation HFA aerosol inhaler 2 puff inhalation QID PRN (Reason: shortness of breath or wheezing) Qty: 8.5 4RF fluticasone propion-salmeterol [Advair Diskus] 500-50 mcg/dose blister with device 1 inh inhalation BID Qty: 60 7RF Spiriva Respimat 2.5 mcg/actuation mist 2 inh inhalation QAM Qty: 4 7RF acetaminophen [Tylenol Extra Strength] 500 mg tablet 1,000 mg PO QID PRN (Reason: Pain) pregabalin [Lyrica] 75 mg Capsule 75 mg PO BID Qty: 60 0RF Jardiance 10 mg tablet 10 mg PO QAM pramipexole 0.25 mg Tablet 0.25 mg PO HS Discharge Orders: Discharge Order (Routine); Ordered 02/07/24 Ordered By: Christi Estevez Admission Data Admit Date/Time: 02/04/24 17:26 Attending Provider: Christi Estevez Admit Provider: Hakan Turner Primary Care Provider: Kash Thomas Other Providers: [facility]ospital; Hakan Turner Hospital Stay Data Consultations 02/04/24 16:17 ED Decision to Admit Stat Pending Results Patient Have Any Pending Studies at Discharge: Yes (Final blood culture results- no growth to date) Discharge Instructions Given to Patient (Per Discharging Provider) Please finish out the oral steroids and antibiotics as prescribed for your pneumonia and COVID-19. You will need to have a repeat chest x-ray in 4 to 6 weeks to ensure your pneumonia has cleared up. Your blood counts are all low some of which is related to treatment for your lymphoma, however your oncologist does want to consider doing a bone marrow biopsy in the near future after you recover from your illness. Please follow-up with Dr. Bangura in the oncology clinic in 2 weeks. Please have blood work done at the cancer center to check your blood counts on Friday or Friday of next week. You can continue on your usual amount of oxygen. Total Time Total Time Spent Total Time Spent (In Minutes): 35 minutes Total Time Includes: Examination of the Patient, Discharge Planning and Medication Reconciliation Coding Level of Care Code 54806 INP/OBS DISCH >30 MIN Diagnoses COVID-19 U07.1 Chronic respiratory failure with hypoxia J96.11 Diffuse large B cell lymphoma C83.30 Lymphoma site: unspecified region Pancytopenia D61.818 COPD (chronic obstructive pulmonary disease) J44.9 COPD type: unspecified COPD Paroxysmal atrial fibrillation I48.0
== END 2024-02-07 16:00 | disposition home or self-care (01) | DRG 177 ==
LOC: ED 14:22 → SUATTDRO 17:26 → 2S 17:26 → 3E 02-06 17:21

== ENCOUNTER 2024-02-15 23:18 | Inpatient (IN) ==
--- NOTE | 2024-02-16 00:04 | Emergency Department Note ---
Impression & Plan Hypoxia, COVID, Respiratory failure Admit to the [facility] ED Provider Note NAME: COURT BARNES AGE: 79 SEX: Male INFORMANT: Patient ED PROVIDER(S): Sara San DO CHIEF COMPLAINT: chills PLAN: Disposition: admit to the [facility] MEDICAL DECISION MAKING: this is a 79-year-old male patient presents to the emergency department with chills and low oxygen saturations since yesterday. Patient has a history of B- cell lymphoma and recent episode of COVID and pneumonia for which he was hospitalized. patient was discharged home and finished antibiotics in the past couple of days. Patient became more concerned because he has become increasingly lightheaded over the past 24 hours. On presentation today, the patient was hypoxic. Laboratory studies revealed no leukocytosis. Procalcitonin was normal but lactate was 1.1. Hemoglobin was 9. Platelet count was 123. BUN was 31 and creatinine was 1.46. Troponin was negative. COVID testing was positive. Chest x-ray shows evidence of acute bilateral lower lung infiltrates. Care/management discussed with: rail manager and [facility] Triage Nursing notes: reviewed and agree With them. Vital Signs: reviewed and remarkable for hypertension Chronic Medical/Social Conditions affecting care: B-cell lymphoma on chemotherapy Prior/ Outside/ External records reviewed: recent admission to the hospital with pneumonia Differential Diagnosis: sepsis, recurrent pneumonia, Respiratory failure, COVID Diagnostics, independently interpreted by me: ECG: normal sinus rhythm at a rate of 80 with PACs and right bundle branch block. There is no ST segment elevation or signs of ischemia. Cardiac Monitoring: Normal sinus rhythm at a rate of 77 Imaging studies: portable chest x-ray: as per my independent interpretation, bilateral lower lobe infiltrates with chronic changes HPI: 79 year old Male arrives for evaluation of Lightheadedness. Patient has a history of B-cell lymphoma and recent episode of COVID and pneumonia for which he was hospitalized. Patient became more concerned because he has become increasingly lightheaded over the past 24 hours and has developed chills. He describes increasing shortness of breath. PAST MEDICAL HISTORY: See Below, PAST SURGICAL HISTORY: See Below, SOCIAL HISTORY: See Below, HOME MEDICATIONS: See list ALLERGIES: see list VITALS: See Below PHYSICAL EXAMINATION: HEENT: Head - normocephalic and atraumatic. Pupils are equal, round, and reactive to light. Extraocular eye muscles are intact, and sclera are anicteric. Nose - moist nasal mucosa without discharge. Mouth - moist buccal mucosa. Patient has moderate thrush throughout the mouth. Neck: Supple; no JVD or cervical lymphadenopathy appreciated. There is no nuchal rigidity noted. Heart: regular rate and rhythm. There is a normal S1 and S2 with no murmurs, clicks, or gallops appreciated. Lungs: Diminished breath sounds in all lung krishnan. Abdomen: Soft, completely nontender, nondistended, with good bowel sounds. There are no palpable pulsatile masses or hepatosplenomegaly. There is no guarding, rigidity, or rebound noted. Extremities: Trace pedal edema appreciated.. There are easily palpable peripheral pulses. Skin: Hot and dry with good turgor and no rashes. emergency department course: The patient was evaluated in room A-10. Patient was hypoxic and was placed on supplemental oxygen. A septic protocol was performed. Upper respiratory bio fire testing was performed. A twelve-lead EKG was obtained as described above. An order was placed for continuous cardiac monitoring. Patient was in a normal sinus rhythm at a rate of 77. Portable chest x-ray was performed. Laboratory studies were drawn as above. I have personally spent greater than 40 minutes of critical care time in the direct management of this patient. This includes bedside care, interpretation of diagnostic studies, and testing, discussion with consultants, patient, and family members, and other required patient management activities. This 40 minutes is in excess of all separately billable procedures. Past Med/Surg History Problem List (Updated 02/17/24 @ 11:15 by Sara San DO) Respiratory failure (Acute) COVID (Acute) Hypoxia (Acute) COPD exacerbation Acute kidney injury superimposed on CKD Acute on chronic respiratory failure with hypoxia Secondary bacterial pneumonia Pancytopenia Paroxysmal atrial fibrillation Pneumonia (Acute) Neutropenia with fever (Acute) COVID-19 (Acute) Acute and chronic respiratory failure (Acute) Neuropathy Constipation Body aches Dyspnea (Acute) Weakness (Acute) Acute constipation (Acute) Hypocalcemia (Acute) Hypomagnesemia (Acute) Anemia (Acute) MEJIA (dyspnea on exertion) (Acute) Atrial fibrillation with rapid ventricular response (Acute) Pulmonary hypertension Mitral regurgitation Dizziness entered into chart and last edited 05/14/23 Abnormal EKG Chronic respiratory failure with hypoxia Ex-smoker Chronic bronchitis 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 Traore Anemia GERD (gastroesophageal reflux disease) Medical History CKD (chronic kidney disease) stage 3, GFR 30-59 ml/min Claudication dx after AAA repair>causing back pain Arthritis GERD (gastroesophageal reflux disease) History of follicular lymphoma chemo/radiation tx 2017? Diffuse large B cell lymphoma current dx Hx of renal failure hospitalized 2021 ([place] in [place]) developed sepsis>had dialysis for 1 week while admitted>resolved issue Hx of sepsis Hypertension Hyperlipidemia History of atrial fibrillation 2021 On home oxygen therapy 3l cont. Chronic obstructive pulmonary disease Edema of both lower extremities Hx of chronic bronchitis Mitral valve regurgitation follow with Dr. Traore History of skin cancer nose area Restless leg syndrome Chronic back pain Stenosis of right carotid artery TIA (transient ischemic attack) x 2 (2021), on Eliquis, follows with [facility] Surgical History Port-A-Cath in place (08/21/23) p Insertion of Left Cephalic Access Port with Fluoroscopy(Left) - Chirag Palomino MD, FACS MRI port placed in the left cephalic vein throughout the procedure fluoroscopy was used to position the catheter and I personally reviewed all the images Hx of vasectomy History of tooth extraction History of cataract surgery right/left History of bronchoscopy History of Mohs micrographic surgery for skin cancer Hx of biopsy multiple lymph nodes/neck Hx of knee surgery multiple, both knees Hx of discectomy c5 History of endovascular stent graft for abdominal aortic aneurysm (AAA) 2019 Family History Father ALS (amyotrophic lateral sclerosis) Other No family history of adverse response to anesthesia Social History Smoking Status: Former smoker Tobacco Type: Cigarettes packs per day: ; Cigarettes Per Day: 2020; Second Hand Exposure: No; Do You Dip or Chew Tobacco: No; Tobacco Cessation Education Requested by Patient: No Hx Alcohol Use: Yes Alcohol type: beer Alcohol Intake Frequency Comment: 2-3 beers daily Hx Substance Use: No Preferred Language: Urugu[place] Communication Ability: Effective Visual Impairment: Partially Limited Hearing Ability: Normal Tin Recovery Worker Required: No Beliefs That Will Affect Care: None marital status: Current Living Situation: Alone Current Living Situation Comment: home alone current occupational status: 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 @ [employer] Other Information That Helps Us Care for You: No Feels Safe at Home: Yes Safety Concerns: Feels Safe At This Time Diet: regular during the past year weight has: remained stable Assistive Devices: Cane and Oxygen - Continuous Allergies Allergies Allergy/AdvReac Type Severity Reaction Status Date / Time rituximab Allergy Severe Swelling Verified 11/03/23 15:44 of Lip/Tongue/Throat Home Meds Home Medications Medication Instructions Recorded Confirmed acyclovir 200 mg capsule 400 mg PO BID 07/09/22 02/16/24 apixaban 5 mg tablet (Eliquis) 5 mg PO BID 07/09/22 02/16/24 atorvastatin 80 mg tablet 80 mg PO QPM 07/09/22 02/16/24 cholecalciferol (vitamin D3) 50 50 mcg PO QAM 07/09/22 02/16/24 mcg (2,000 unit) capsule folic acid 1 mg tablet 1 mg PO QAM 07/09/22 02/16/24 mecobalamin (vitamin B12) 1,000 1,000 mcg PO QAM 07/09/22 02/16/24 mcg chewable tablet metoprolol succinate 50 mg 50 mg PO QAM 07/09/22 02/16/24 tablet,extended release 24 hr aspirin 81 mg capsule 81 mg PO QAM 08/29/22 02/16/24 omeprazole 20 mg tablet,delayed 20 mg PO QAM 08/29/22 02/16/24 release ketoconazole 2 % topical cream 1 applic topical BID PRN Skin 07/17/23 02/16/24 Irritation pramipexole 0.25 mg tablet 0.25 mg PO HS 08/12/23 02/16/24 acetaminophen 500 mg tablet 1,000 mg PO QID PRN Pain 09/10/23 02/16/24 (Tylenol Extra Strength) empagliflozin 10 mg tablet 10 mg PO QAM 02/04/24 02/16/24 (Jardiance) Previous Rx's Medication Instructions Recorded Flutter Valve #1 ea 03/20/23 dextromethorphan-guaifenesin 10 10 ml PO Q6H PRN cough #237 mL 03/20/23 mg-100 mg/5 mL oral liquid albuterol sulfate 90 mcg/actuation 2 puff inhalation QID PRN 08/20/23 aerosol inhaler shortness of breath or wheezing #8.5 grams fluticasone 500 mcg-salmeterol 50 1 inh inhalation BID #60 ea 08/20/23 mcg/dose blistr powdr for inhalation (Advair Diskus) tiotropium bromide 2.5 2 inh inhalation QAM #4 grams 08/20/23 mcg/actuation mist for inhalation (Spiriva Respimat) pregabalin 75 mg capsule (Lyrica) 75 mg PO BID #60 caps 10/10/23 dexamethasone 6 mg tablet 6 mg PO DAILY #6 tabs 02/07/24 Results & Data (ED) Vital Signs Vital Signs - 24 hr 02/15/24 23:23 02/15/24 23:23 02/15/24 23:23 Temperature 36.8 C Temperature Source Oral Pulse Rate 86 Pulse Rate [Apical] Respiratory Rate 22 Respiratory Effort / Characteristics Non-Labored Spontaneous SOB on Exertion Respiratory Depth Deep Normal Blood Pressure 142/73 H Blood Pressure Mean 96 Blood Pressure Position Lying Pulse Oximetry 94 94 Oxygen Delivery Method Nasal Cannula Nasal Cannula Nasal Cannula Oxygen Flow Rate 3 3 Sepsis Recent Fever Within 48 Hours No Sepsis New/Unexplained Change in Mental Status N/A Sepsis Action Taken by Nursing No Action Required Oxygen Flow Rate - Titration 3 02/15/24 23:33 Temperature Temperature Source Pulse Rate Pulse Rate [Apical] 77 Respiratory Rate Respiratory Effort / Characteristics Respiratory Depth Blood Pressure Blood Pressure Mean Blood Pressure Position Pulse Oximetry 93 Oxygen Delivery Method Nasal Cannula Oxygen Flow Rate 3 Sepsis Recent Fever Within 48 Hours Sepsis New/Unexplained Change in Mental Status Sepsis Action Taken by Nursing Oxygen Flow Rate - Titration Laboratory Data 02/17/24 07:50 02/17/24 07:50 Lab Results 02/15/24 02/16/24 02/16/24 Range/Units 23:35 00:05 00:19 WBC 6.15 (4.8-10.8) K/ul RBC 2.61 L (4.70-6.10) M/uL Hgb 9.0 L (14.0-18.0) g/dl Hct 27.2 L (42.0-52.0) % MCV 104.2 H (80.0-100.0) fL MCH 34.5 H (25.0-34.0) pg MCHC 33.1 (32.0-36.0) g/dL RDW Std Deviation 50.7 H (36.4-46.3) fL RDW Coeff of Leeanne 13.8 (11.5-14.5) % Plt Count 123 L (130-400) K/uL MPV 11.7 (9.4-12.4) fL Immature Gran % (Auto) 1.3 % Neut % (Auto) 91.3 % Lymph % (Auto) 4.7 % [place] % (Auto) 2.3 % Eos % (Auto) 0.2 % Baso % (Auto) 0.2 % Neut # (Auto) 5.62 (1.40-6.50) K/uL Lymph # (Auto) 0.29 L (1.20-3.40) K/uL [place] # (Auto) 0.14 (0.11-0.59) K/uL Eos # (Auto) 0.01 (0.00-0.50) K/uL Baso # (Auto) 0.01 (0.00-0.20) K/uL Immature Gran # (Auto) 0.08 (0.01-0.20) K/uL Sodium 139 (136-145) mmol/L Potassium 4.5 (3.5-5.1) mmol/L Chloride 107 (98-107) mmol/L Carbon Dioxide 26 (21-32) mmol/L Anion Gap 6 (3-11) BUN 31 H (6-23) mg/dl Creatinine 1.41 H (0.6-1.4) mg/dl Est Cr Clr Drug Dosing 48.9 ml/min eGFR 51.33 BUN/Creatinine Ratio 22.0 H (10-20) Glucose 86 (70-99(Fasting)) mg/dl Lactate 1.1 (0.4-2.0) mmol/L Calcium 8.4 L (8.6-10.3) mg/dl Magnesium 2.0 (1.7-2.4) mg/dl Total Bilirubin 0.8 (0.2-1.0) mg/dl Direct Bilirubin 0.1 (0-0.2) mg/dl AST 29 (13-39) U/L ALT 18 (7-52) U/L Alkaline Phosphatase 64 (34-104) U/L Troponin I High Sens 16.6 (0-20) pg/ml Total Protein 5.4 L (6.0-8.3) gm/dl Albumin 3.2 L (3.4-5.0) gm/dl Procalcitonin 0.06 (0-0.5) ng/ml Urine Color Urine Appearance (Clear) Urine pH (4.5-7.5) Ur Specific Rush (1.000-1.030) Urine Protein (Negative) Urine Glucose (UA) (Negative) Urine Ketones (Negative) Urine Blood (Negative) Urine Nitrite (Negative) Urine Bilirubin (Negative) Urine Urobilinogen (Negative) Ur Leukocyte Esterase (Negative) Urine WBC (Auto) (0-5) /hpf Urine RBC (Auto) (0-2) /hpf U Hyaline Cast (Auto) (0-2) /lpf U Epithel Cells (Auto) (0-2) /hpf Urine Bacteria (Auto) (None Seen) Adenovirus (PCR) Not Detected (NotDetected) B. pertussis DNA (PCR) Not Detected (NotDetected) B.parapertussis DNA PCR Not Detected (NotDetected) C. pneumoniae DNA (PCR) Not Detected (NotDetected) Coronavirus OC43 (PCR) Not Detected (NotDetected) Coronavirus HKU1 (PCR) Not Detected (NotDetected) Coronavirus 229E (PCR) Not Detected (NotDetected) SARS-CoV-2 (PCR) DETECTED A (NotDetected) Coronavirus NL63 (PCR) Not Detected (NotDetected) Human Metapneumovir PCR Not Detected (NotDetected) Influenza Type A (PCR) Not Detected (NotDetected) Influenza Type B (PCR) Not Detected (NotDetected) M. pneumoniae (PCR) Not Detected (NotDetected) Parainfluenza 1 (PCR) Not Detected (NotDetected) Parainfluenza 2 (PCR) Not Detected (NotDetected) Parainfluenza 3 (PCR) Not Detected (NotDetected) Parainfluenza 4 (PCR) Not Detected (NotDetected) RSV (PCR) Not Detected (NotDetected) Entero/Rhino (PCR) Not Detected (NotDetected) 02/16/24 Range/Units 00:58 WBC (4.8-10.8) K/ul RBC (4.70-6.10) M/uL Hgb (14.0-18.0) g/dl Hct (42.0-52.0) % MCV (80.0-100.0) fL MCH (25.0-34.0) pg MCHC (32.0-36.0) g/dL RDW Std Deviation (36.4-46.3) fL RDW Coeff of Leeanne (11.5-14.5) % Plt Count (130-400) K/uL MPV (9.4-12.4) fL Immature Gran % (Auto) % Neut % (Auto) % Lymph % (Auto) % [place] % (Auto) % Eos % (Auto) % Baso % (Auto) % Neut # (Auto) (1.40-6.50) K/uL Lymph # (Auto) (1.20-3.40) K/uL [place] # (Auto) (0.11-0.59) K/uL Eos # (Auto) (0.00-0.50) K/uL Baso # (Auto) (0.00-0.20) K/uL Immature Gran # (Auto) (0.01-0.20) K/uL Sodium (136-145) mmol/L Potassium (3.5-5.1) mmol/L Chloride (98-107) mmol/L Carbon Dioxide (21-32) mmol/L Anion Gap (3-11) BUN (6-23) mg/dl Creatinine (0.6-1.4) mg/dl Est Cr Clr Drug Dosing ml/min eGFR BUN/Creatinine Ratio (10-20) Glucose (70-99(Fasting)) mg/dl Lactate (0.4-2.0) mmol/L Calcium (8.6-10.3) mg/dl Magnesium (1.7-2.4) mg/dl Total Bilirubin (0.2-1.0) mg/dl Direct Bilirubin (0-0.2) mg/dl AST (13-39) U/L ALT (7-52) U/L Alkaline Phosphatase (34-104) U/L Troponin I High Sens (0-20) pg/ml Total Protein (6.0-8.3) gm/dl Albumin (3.4-5.0) gm/dl Procalcitonin (0-0.5) ng/ml Urine Color Yellow Urine Appearance Clear (Clear) Urine pH 5.5 (4.5-7.5) Ur Specific Rush 1.016 (1.000-1.030) Urine Protein 1+ H (Negative) Urine Glucose (UA) 2+ H (Negative) Urine Ketones Negative (Negative) Urine Blood Negative (Negative) Urine Nitrite Negative (Negative) Urine Bilirubin Negative (Negative) Urine Urobilinogen Negative (Negative) Ur Leukocyte Esterase Negative (Negative) Urine WBC (Auto) 0-5 (0-5) /hpf Urine RBC (Auto) 0-2 (0-2) /hpf U Hyaline Cast (Auto) 0-2 (0-2) /lpf U Epithel Cells (Auto) 0-2 (0-2) /hpf Urine Bacteria (Auto) None Seen (None Seen) Adenovirus (PCR) (NotDetected) B. pertussis DNA (PCR) (NotDetected) B.parapertussis DNA PCR (NotDetected) C. pneumoniae DNA (PCR) (NotDetected) Coronavirus OC43 (PCR) (NotDetected) Coronavirus HKU1 (PCR) (NotDetected) Coronavirus 229E (PCR) (NotDetected) SARS-CoV-2 (PCR) (NotDetected) Coronavirus NL63 (PCR) (NotDetected) Human Metapneumovir PCR (NotDetected) Influenza Type A (PCR) (NotDetected) Influenza Type B (PCR) (NotDetected) M. pneumoniae (PCR) (NotDetected) Parainfluenza 1 (PCR) (NotDetected) Parainfluenza 2 (PCR) (NotDetected) Parainfluenza 3 (PCR) (NotDetected) Parainfluenza 4 (PCR) (NotDetected) RSV (PCR) (NotDetected) Entero/Rhino (PCR) (NotDetected) Administered Medications Acyclovir (Acyclovir 200 Mg Cap) 400 mg PO BID [facility] Stop: 03/17/24 08:59 Last Admin: 02/17/24 08:00 Dose: 400 mg Documented By: Admin: 02/16/24 20:54 Dose: 400 mg Documented By: Admin: 02/16/24 08:17 Dose: 400 mg Documented By: OVIDIO Apixaban (Apixaban 5 Mg Tablet) 5 mg PO BID [facility] Stop: 03/17/24 08:59 Last Admin: 02/17/24 08:00 Dose: 5 mg Documented By: Admin: 02/16/24 20:55 Dose: 5 mg Documented By: Admin: 02/16/24 08:20 Dose: 5 mg Documented By: OVIDIO Aspirin (Aspirin 81 Mg Ectab) [facility] [place]: 03/17/24 08:59 Last Admin: 02/17/24 08:00 Dose: 81 mg Documented By: Admin: 02/16/24 08:19 Dose: 81 mg Documented By: OVIDIO Atorvastatin Calcium (Atorvastatin 40 Mg Tab) 80 mg PO QPM [facility] Stop: 03/17/24 20:59 Last Admin: 02/16/24 20:54 Dose: 80 mg Documented By: DEVIKA Azithromycin (Azithromycin 250 Mg Tab) [facility] [place] Stop: 02/24/24 08:59 Last Admin: 02/17/24 07:58 Dose: 500 mg Documented By: OZita Cyanocobalamin (Cyanocobalamin (B-12) 500 Mcg Tablet) 1,000 [facility]cg [facility] [place] Stop: 03/17/24 08:59 Last Admin: 02/17/24 07:59 Dose: 1,000 mcg Documented By: Admin: 02/16/24 08:18 Dose: 1,000 mcg Documented By: OVIDIO Fluticasone/Vilanterol (Fluticasone/Vilanterol 100/25mcg 14 Puffs/Inhaler) 1 puffs INH DAILY [facility] Stop: 03/17/24 08:59 Last Admin: 02/17/24 08:01 Dose: 1 puffs Documented By: Admin: 02/16/24 08:19 Dose: 1 puffs Documented By: OVIDIO Folic Acid (Folic Acid 1 Mg Tab) [facility] [place] Stop: 03/17/24 08:59 Last Admin: 02/17/24 07:58 Dose: 1 mg Documented By: Admin: 02/16/24 09:29 Dose: 1 mg Documented By: OVIDIO Guaifenesin/Dextromethorphan (Guaifenesin/Dextrom Syrup 200mg/20mg 10ml Udc) 10 ml PO Q6H PRN PRN Reason: cough Stop: 03/17/24 06:26 Last Admin: 02/17/24 08:02 Dose: 10 ml Documented By: VICKIE Dexamethasone 6 mg/ Syringe 1.5 mls @ 1 mls/min IV Q24H [facility] Stop: 03/18/24 05:59 Last Admin: 02/17/24 05:51 Dose: 1 mls/min Documented By: DEVIKA Metoprolol Succinate (Metoprolol Succ 50mg Ext Rel Tab) [facility] [place] Stop: 03/17/24 08:59 Last Admin: 02/17/24 08:00 Dose: 50 mg Documented By: Admin: 02/16/24 08:17 Dose: 50 mg Documented By: OVIDIO Pantoprazole Sodium (Pantoprazole 40 Mg Tab) 40 mg PO [facility] Stop: 03/17/24 08:59 Last Admin: 02/17/24 08:00 Dose: 40 mg Documented By: Admin: 02/16/24 08:17 Dose: 40 mg Documented By: OVIDIO Pramipexole Dihydrochloride (Pramipexole Dihydrochlo 0.25 Mg Tab) 0.25 mg PO HS [facility] Stop: 03/17/24 20:59 Last Admin: 02/16/24 20:55 Dose: 0.25 mg Documented By: DEVIKA Pregabalin (Pregabalin 75 Mg Cap) 75 mg PO BID [facility] Stop: 03/17/24 08:59 Last Admin: 02/17/24 08:27 Dose: 75 mg Documented By: Admin: 02/16/24 20:58 Dose: 75 mg Documented By: Admin: 02/16/24 09:31 Dose: 75 mg Documented By: OVIDIO Umeclidinium [place] (Umeclidinium [place] 62.5mcg/Blister 7 Puffs/Inhaler) 1 p[facility] [place] Stop: 03/17/24 08:59 Last Admin: 02/17/24 08:02 Dose: 1 puffs Documented By: Admin: 02/16/24 08:19 Dose: 1 puffs Documented By: OVIDIO Vitamin D (Cholecalciferol 25 Mcg (1000 Units) Tab) 50 mcg PO QAM [facility] Stop: 03/17/24 08:59 Last Admin: 02/17/24 07:59 Dose: 50 mcg Documented By: Admin: 02/16/24 08:18 Dose: 50 mcg Documented By: OVIDIO Discontinued Medications Azithromycin (Azithromycin 250 Mg Tab) 500 mg PO NOW ONE Stop: 02/16/24 04:01 Last Admin: 02/16/24 04:30 Dose: 500 mg Documented By: Dexamethasone (Dexamethasone Sod Inj 4 Mg/Ml Vial) 10 mg IV NOW STA Stop: 02/16/24 03:58 Last Admin: 02/16/24 04:30 Dose: 10 mg Documented By: Piperacillin Sod/Tazobactam Sod (Zosyn) 4.5 gm in 100 mls @ 25 mls/hr IV Q8H [facility]; Protocol Stop: 02/23/24 09:59 Last Infusion: 02/16/24 22:50 Dose: Infused Documented By: Admin: 02/16/24 17:41 Dose: 25 mls/hr Documented By: Infusion: 02/16/24 13:49 Dose: Infused Documented By: Admin: 02/16/24 09:32 Dose: 25 mls/hr Documented By: OVIDIO Piperacillin Sod/Tazobactam Sod (Zosyn) 4.5 gm in 100 mls @ 200 mls/hr IV NOW STA; Protocol Stop: 02/16/24 04:28 Last Infusion: 02/16/24 05:21 Dose: Infused Documented By: Admin: 02/16/24 04:31 Dose: 200 mls/hr Documented By: Sodium Chloride (Nss) 1,000 mls @ 80 mls/hr IV .[id number] [facility] Stop: 02/16/24 16:29 Last Infusion: 02/16/24 17:42 Dose: Infused Documented By: Admin: 02/16/24 04:23 Dose: 80 mls/hr Documented By: Ioversol (Optiray 320 125ml) 119 ml IV ONCE ONE Stop: 02/16/24 01:39 Last Admin: 02/16/24 06:20 Dose: Not Given Documented By: LMP Discharge Plan Visit Data Chief Complaint: Shortness of Breath/Dyspnea Stated Complaint: SOB ED Provider: Sara San Discharge Problem: Hypoxia, COVID, Respiratory failure Patient Disposition: Admitted As Inpatient Discharge Instructions Interventions: ED Discharge Assessment Last Done: 02/16/24 05:36
[2024-02-16 00:07] LABS: Albumin Level 3.2 gm/dl (3.4-5.0); Bilirubin Direct 0.1 mg/dl (0-0.2); Bilirubin,Total 0.8 mg/dl (0.2-1.0); Calcium 8.4 mg/dl (8.6-10.3); Creatinine Clr Calc Pharmacy 48.9 ml/min; Potassium 4.5 mmol/L (3.5-5.1); Total Protein 5.4 gm/dl (6.0-8.3)
[2024-02-16 00:13] LABS: Troponin I High Sensitivity 16.6 pg/ml (0-20)
[2024-02-16 00:28] LABS: Hematocrit (blood only) 27.2 % (42.0-52.0); Mean Corpuscular Hemoglobin 34.5 pg (25.0-34.0); Mean Corpuscular Hgb Conc 33.1 g/dL (32.0-36.0); Mean Corpuscular Volume 104.2 fL (80.0-100.0); Mean Platelet Volume 11.7 fL (9.4-12.4); Platelet Count 123 K/uL (130-400); RDW Coefficient of Variation 13.8 % (11.5-14.5); RDW Standard Deviation 50.7 fL (36.4-46.3); Red Blood Count 2.61 M/uL (4.70-6.10); White Blood Count 6.15 K/ul (4.8-10.8)
[2024-02-16 00:45] LABS: Basophils # (auto) 0.01 K/uL (0.00-0.20); Basophils % (auto) 0.2 %; Eosinophils # (auto) 0.01 K/uL (0.00-0.50); Eosinophils % (auto) 0.2 %; Immature Granulocytes # (auto) 0.08 K/uL (0.01-0.20); Immature Granulocytes % (auto) 1.3 %; Lymphocytes # (auto) 0.29 K/uL (1.20-3.40); Lymphocytes % (auto) 4.7 %; Monocytes # (auto) 0.14 K/uL (0.11-0.59); Monocytes % (auto) 2.3 %; Neutrophils # (auto) 5.62 K/uL (1.40-6.50); Neutrophils % (auto) 91.3 %
[2024-02-16 01:02] LABS: Adenovirus PCR Not Detected (NotDetected); Bordetella parapertussis PCR Not Detected (NotDetected); Bordetella pertussis PCR Not Detected (NotDetected); Chlamydia pneumoniae PCR Not Detected (NotDetected); Coronavirus 229E PCR Not Detected (NotDetected); Coronavirus CoV-2 (COVID19)PCR DETECTED (NotDetected); Coronavirus HKU1 PCR Not Detected (NotDetected); Coronavirus NL63 PCR Not Detected (NotDetected); Coronavirus OC43PCR Not Detected (NotDetected); Human Metapneumovirus PCR Not Detected (NotDetected); Influenza A PCR Not Detected (NotDetected); Influenza B PCR Not Detected (NotDetected); Mycoplasma pneumoniae PCR Not Detected (NotDetected); Parainfluenza Virus 1 PCR Not Detected (NotDetected); Parainfluenza Virus 2 PCR Not Detected (NotDetected); Parainfluenza Virus 3 PCR Not Detected (NotDetected); Parainfluenza Virus 4 PCR Not Detected (NotDetected); Respiratory Syncytial VirusPCR Not Detected (NotDetected); Rhinovirus/Enterovirus PCR Not Detected (NotDetected)
[2024-02-16 01:20] LABS: Appearance Urine Clear (Clear); Bacteria Urine Automated None Seen (None Seen); Bilirubin Urine Negative (Negative); Blood Urine Negative (Negative); Cast Urine Automated 0-2 /lpf (0-2); Color Urine Yellow; Epithelial Cell Urine Auto 0-2 /hpf (0-2); Glucose Urine UA 2+ (Negative); Ketones Urine Negative (Negative); Leukocyte Esterase Urine Negative (Negative); Nitrite Urine Negative (Negative); Protein Urine 1+ (Negative); RBC Urine Automated 0-2 /hpf (0-2); Specific Gravity Urine 1.016 (1.000-1.030); Urobilinogen Urine Negative (Negative); WBC Urine Automated 0-5 /hpf (0-5); pH Urine 5.5 (4.5-7.5)
--- NOTE | 2024-02-16 01:50 | XRay Report ---
EXAM: XR chest 1V portable CLINICAL HISTORY: SOB JMF TECHNIQUE: X-ray image of the chest is obtained in AP projection. COMPARISON: 02/04/2024. FINDINGS: Pulmonary Parenchyma: Reticular opacities and haziness in the bilateral lower zones and the right middle zone. No evidence of pleural effusion or pleural thickening. Left CVL is noted with the tip at the cavoatrial junction. Heart and Mediastinum: Heart size and shape are normal. No mediastinal widening or masses. No hilar or mediastinal lymphadenopathy. Bony Thorax: The bony thorax appears intact without fractures or deformities. Soft Tissues: Soft tissues overlying the chest wall are unremarkable. IMPRESSION: 1. Reticular opacities and haziness in the bilateral lower zones and the right middle zone. There is a progression in haziness in comparison with the X-RAY on 02/04/2024. suggesting acute infiltration on background chronic lung disease, need for interval follow-up imaging. 2. Left CVL is noted with the tip at the cavoatrial junction. (Stable). Electronically signed by Michelle Self 02-16-2024 01:50 AM
--- NOTE | 2024-02-16 02:50 | CT Scan Report ---
EXAM: CT angio chest PE protocol CLINICAL HISTORY: PE 119 cc opti 320 TECHNIQUE: Contiguous 3.[address] angiographic images of the chest were acquired with the administration of 119ml of Opitray-320mg/ml intravenous contrast. Coronal and sagittal reconstructions were obtained. One of these 3D techniques was utilized: Maximum Intensity Pixel (MIP), 3D Reconstructed Images, Volume Rendered Images, Surface Shaded Rendering. One of the following dose reduction techniques were utilized for this exam: Automated exposure control, adjustment of the mA and/or kV according to patient size, and use of iterative reconstruction. COMPARISON: None. FINDINGS: Aorta: The thoracic aorta is normal in caliber. No evidence of aneurysm, dissection, or significant atherosclerotic changes. Aortic arch and descending thoracic aorta are unremarkable. Pulmonary Arteries: Pulmonary arteries are normal in size and opacification. No evidence of pulmonary embolism. No stenosis or filling defects. Superior Vena Cava (SVC) and Inferior Vena Cava (IVC): Normal opacification and caliber. No evidence of thrombus or obstruction. Mediastinum: A well-defined homogenous lesion measured 2.8cm in the upper mediastinum, other than that, no mediastinal lymphadenopathy. A left CVL is noted with the tip at the cavoatrial junction. Heart: Normal size and morphology of the heart. No pericardial effusion. Lungs: Multifocal peripherally and subpleural ground glass opacities with fine fibrotic opacities and associated traction bronchiectasis were noted on both lung lobes. Bilateral apical bullae were noted , the largest in the left side measures 3.7cm. A thick fibrotic band is noted in the left lung apex. Right base bullae measure up to 5.4cm No pleural effusion or thickening. Bones: No fractures or lytic/sclerotic lesions of the visualized bony structures. Normal alignment and bone density. Soft Tissues: Normal appearance of the visualized soft tissues. No abnormal masses or fluid collections. IMPRESSION: 1. No evidence of significant vascular abnormalities and no evidence of pulmonary embolism. 2. Severe emphysematous and peripheral fibrotic changes were noted with multifocal peripherally and subpleural ground glass opacities noted on both lung lobes could be due to COVID-19 or other acute infection. 3. A well-defined homogenous lesion measured 2.8cm in the upper mediastinum suggesting a thymus benign lesion 4. A left CVL is noted with the tip at the cavoatrial junction. Electronically signed by Michelle Self 02-16-2024 02:49 AM
--- NOTE | 2024-02-16 04:00 | History & Physical Report ---
Date of Service February 16, 2024 Assessment & Plan (1) Acute on chronic respiratory failure with hypoxia: (2) COVID-19: (3) Pancytopenia: (4) Paroxysmal atrial fibrillation: (5) Secondary bacterial pneumonia: (6) Acute kidney injury superimposed on CKD: Plan Acute on chronic respiratory failure with hypoxia- Multifactorial: Persistent COVID-19 infection in a immunocompromised patient, secondary bacterial pneumonia Most recent hospitalization date was from 02/03-02/07/2024 Nasal cannula 3 L oxygen dependency Presently on 4 L to get a pulse ox 92% COVID infection- Patient was initially positive for COVID on 02/04/2024, and is positive again this evening He completed a course of dexamethasone IV plus oral for 10 days Received remdesivir IV 3 days while in the hospital Give dexamethasone 10 mg IV now, and 6 mg IV every morning Secondary bacterial pneumonia associated with immunocompromise state- He received Zosyn and doxycycline while in hospital,, and was discharged on Augmentin and doxycycline the patient completed 7-day course Zosyn 4.5 g IV every 8 hours Azithromycin 500 mg p.o. 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 Bangura Atrial fibrillation- Continue apixaban, metoprolol succinate Acute kidney injury superimposed on CKD- Creatinine 1.41, with base 1.16 Placed on NSS at 80 mL/h x 1 L Recheck laboratories in the a.m. History of Present Illness Chief Complaint: The patient presents to the emergency department with an acute worsening of symptoms of chills, productive cough, and low oxygen saturations since yesterday. Primary Care Provider: Kash Thomas MD The patient is a 79-year-old male with a past medical history including pancytopenia s/p chemotherapy for B-cell lymphoma, PAF, peripheral neuropathy, pulmonary hypertension, A-fib with RVR, chronic respiratory failure with hypoxia, COPD, cardiomyopathy, anemia, and GERD. He was most recently admitted from 02/03-02/07/2024 for acute on chronic respiratory failure associated with COVID infection. He was treated with IV dexamethasone and remdesivir, was discharged on 10 days ago oral dexamethasone, which he reports he has been taking as directed. He reports over the past 24 hours he had a more acute worsening of his breathing, with increased chest congestion, cough productive of discolored mucus, and worsening oxygen saturation. Allergies Allergy/AdvReac Type Severity Reaction Status Date / Time rituximab Allergy Severe Swelling Verified 11/03/23 15:44 of Lip/Tongue/Throat Home Medications Medication Instructions Recorded Confirmed Type acyclovir 200 mg capsule 400 mg PO BID 07/09/22 02/16/24 History apixaban 5 mg tablet (Eliquis) 5 mg PO BID 07/09/22 02/16/24 History atorvastatin 80 mg tablet 80 mg PO QPM 07/09/22 02/16/24 History cholecalciferol (vitamin D3) 50 50 mcg PO QAM 07/09/22 02/16/24 History mcg (2,000 unit) capsule folic acid 1 mg tablet 1 mg PO QAM 07/09/22 02/16/24 History mecobalamin (vitamin B12) 1,000 1,000 mcg PO QAM 07/09/22 02/16/24 History mcg chewable tablet metoprolol succinate 50 mg 50 mg PO QAM 07/09/22 02/16/24 History tablet,extended release 24 hr aspirin 81 mg capsule 81 mg PO QAM 08/29/22 02/16/24 History omeprazole 20 mg tablet,delayed 20 mg PO QAM 08/29/22 02/16/24 History release Flutter Valve #1 ea 03/20/23 02/16/24 Rx dextromethorphan-guaifenesin 10 10 ml PO Q6H PRN cough #237 mL 03/20/23 02/16/24 Rx mg-100 mg/5 mL oral liquid ketoconazole 2 % topical cream 1 applic topical BID PRN Skin 07/17/23 02/16/24 History Irritation pramipexole 0.25 mg tablet 0.25 mg PO HS 08/12/23 02/16/24 History albuterol sulfate 90 mcg/actuation 2 puff inhalation QID PRN 08/20/23 02/16/24 Rx aerosol inhaler shortness of breath or wheezing #8.5 grams fluticasone 500 mcg-salmeterol 50 1 inh inhalation BID #60 ea 08/20/23 02/16/24 Rx mcg/dose blistr powdr for inhalation (Advair Diskus) tiotropium bromide 2.5 2 inh inhalation QAM #4 grams 08/20/23 02/16/24 Rx mcg/actuation mist for inhalation (Spiriva Respimat) acetaminophen 500 mg tablet 1,000 mg PO QID PRN Pain 09/10/23 02/16/24 History (Tylenol Extra Strength) pregabalin 75 mg capsule (Lyrica) 75 mg PO BID #60 caps 10/10/23 02/16/24 Rx empagliflozin 10 mg tablet 10 mg PO QAM 02/04/24 02/16/24 History (Jardiance) dexamethasone 6 mg tablet 6 mg PO DAILY #6 tabs 02/07/24 02/16/24 Rx Past Med/Surg History Problem List (Updated 02/16/24 @ 05:44 by Rashaun Alfaro MD) Acute kidney injury superimposed on CKD Acute on chronic respiratory failure with hypoxia Secondary bacterial pneumonia Pancytopenia Paroxysmal atrial fibrillation Pneumonia (Acute) Neutropenia with fever (Acute) COVID-19 (Acute) Acute and chronic respiratory failure (Acute) Neuropathy Constipation Body aches Dyspnea (Acute) Weakness (Acute) Acute constipation (Acute) Hypocalcemia (Acute) Hypomagnesemia (Acute) Anemia (Acute) MEJIA (dyspnea on exertion) (Acute) Atrial fibrillation with rapid ventricular response (Acute) Pulmonary hypertension Mitral regurgitation Dizziness entered into chart and last edited 05/14/23 Abnormal EKG Chronic respiratory failure with hypoxia Ex-smoker Chronic bronchitis 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 Traore Anemia GERD (gastroesophageal reflux disease) Medical History CKD (chronic kidney disease) stage 3, GFR 30-59 ml/min Claudication dx after AAA repair>causing back pain Arthritis GERD (gastroesophageal reflux disease) History of follicular lymphoma chemo/radiation tx 2017? Diffuse large B cell lymphoma current dx Hx of renal failure hospitalized 2021 ([place] in [place]) developed sepsis>had dialysis for 1 week while admitted>resolved issue Hx of sepsis Hypertension Hyperlipidemia History of atrial fibrillation 2021 On home oxygen therapy 3l cont. Chronic obstructive pulmonary disease Edema of both lower extremities Hx of chronic bronchitis Mitral valve regurgitation follow with Dr. Traore History of skin cancer nose area Restless leg syndrome Chronic back pain Stenosis of right carotid artery TIA (transient ischemic attack) x 2 (2021), on Eliquis, follows with [facility] Surgical History Port-A-Cath in place (08/21/23) p Insertion of Left Cephalic Access Port with Fluoroscopy(Left) - Chirag Palomino MD, FACS MRI port placed in the left cephalic vein throughout the procedure fluoroscopy was used to position the catheter and I personally reviewed all the images Hx of vasectomy History of tooth extraction History of cataract surgery right/left History of bronchoscopy History of Mohs micrographic surgery for skin cancer Hx of biopsy multiple lymph nodes/neck Hx of knee surgery multiple, both knees Hx of discectomy c5 History of endovascular stent graft for abdominal aortic aneurysm (AAA) 2019 Family History Father ALS (amyotrophic lateral sclerosis) Other No family history of adverse response to anesthesia Social History Smoking Status: Former smoker Tobacco Type: Cigarettes packs per day: ; Cigarettes Per Day: 2020; Second Hand Exposure: Yes (in the past); Do You Dip or Chew Tobacco: No; Hx Alcohol Use: Yes Alcohol type: beer Alcohol Intake Frequency Comment: 2-3 beers daily Hx Substance Use: No Preferred Language: [place] Communication Ability: Effective Visual Impairment: Partially Limited Hearing Ability: Normal Ripsawyer Required: No Beliefs That Will Affect Care: None marital status: Current Living Situation: Alone Current Living Situation Comment: home alone current occupational status: 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 The review of systems is otherwise negative other than for that already noted above, and at least 10 systems have been reviewed. Physical Exam Physical Exam: The patient is awake, somewhat somnolent but responsive, well developed and well nourished, normocephalic and atraumatic, lying in bed and in no acute distress. HEENT--PERRL, EOMI, mucous membranes and oropharynx mildly dry. Neck--supple. No JVD. No bruits. Thyroid normal, trachea midline, no adenopathy. Heart--normal S1 and S2. No murmurs, rubs or gallops. Lungs--coarse breath sounds bilaterally. No respiratory distress, no accessory muscle use. Abdomen--normal bowel sounds and soft. Nontender. Nondistended Extremities-- No edema. Dermatologic--skin is mildly dry Neurologic--cranial nerves II through XII grossly intact. Rheumatologic--normal range of motion. Psychiatric--somewhat somnolent but does respond to questions slowly Results & Data Results & Data Vital Signs (Past 12 Hours) Vital Signs Temp Pulse Pulse Resp BP BP Pulse Ox 02/16/24 03:00 75 20 124/62 92 02/16/24 01:45 83 22 139/70 98 02/16/24 00:25 93 H 92 02/15/24 23:33 77 93 02/15/24 23:23 94 02/15/24 23:23 36.8 C 86 22 142/73 H 94 02/15/24 23:23 O2 Del Method O2 Flow Rate 02/16/24 03:00 Nasal Cannula 4 02/16/24 01:45 Nasal Cannula 4 02/16/24 00:25 Nasal Cannula 3 02/15/24 23:33 Nasal Cannula 3 02/15/24 23:23 Nasal Cannula 02/15/24 23:23 Nasal Cannula 3 02/15/24 23:23 Nasal Cannula 3 Laboratory Results Laboratory Results WBC 6.15 K/ul (4.8-10.8) 02/15/24 23:35 RBC 2.61 M/uL (4.70-6.10) L 02/15/24 23:35 Hgb 9.0 g/dl (14.0-18.0) L 02/15/24 23:35 Hct 27.2 % (42.0-52.0) L 02/15/24 23:35 MCV 104.2 fL (80.0-100.0) H 02/15/24 23:35 MCH 34.5 pg (25.0-34.0) H 02/15/24 23:35 MCHC 33.1 g/dL (32.0-36.0) 02/15/24 23:35 RDW Std Deviation 50.7 fL (36.4-46.3) H 02/15/24 23:35 RDW Coeff of Leeanne 13.8 % (11.5-14.5) 02/15/24 23:35 Plt Count 123 K/uL (130-400) L 02/15/24 23:35 MPV 11.7 fL (9.4-12.4) 02/15/24 23:35 Immature Gran % (Auto) 1.3 % 02/15/24 23:35 Neut % (Auto) 91.3 % 02/15/24 23:35 Lymph % (Auto) 4.7 % 02/15/24 23:35 Wharton % (Auto) 2.3 % 02/15/24 23:35 Eos % (Auto) 0.2 % 02/15/24 23:35 Baso % (Auto) 0.2 % 02/15/24 23:35 Neut # (Auto) 5.62 K/uL (1.40-6.50) 02/15/24 23:35 Lymph # (Auto) 0.29 K/uL (1.20-3.40) L 02/15/24 23:35 [place]arton # (Auto) 0.14 K/uL (0.11-0.59) 02/15/24 23:35 Eos # (Auto) 0.01 K/uL (0.00-0.50) 02/15/24 23:35 Baso # (Auto) 0.01 K/uL (0.00-0.20) 02/15/24 23:35 Immature Gran # (Auto) 0.08 K/uL (0.01-0.20) 02/15/24 23:35 Sodium 139 mmol/L (136-145) 02/15/24 23:35 Potassium 4.5 mmol/L (3.5-5.1) 02/15/24 23:35 Chloride 107 mmol/L (98-107) 02/15/24 23:35 Carbon Dioxide 26 mmol/L (21-32) 02/15/24 23:35 Anion Gap 6 (3-11) 02/15/24 23:35 BUN 31 mg/dl (6-23) H 02/15/24 23:35 Creatinine 1.41 mg/dl (0.6-1.4) H 02/15/24 23:35 Est Cr Clr Drug Dosing 48.9 ml/min 02/15/24 23:35 eGFR 51.33 02/15/24 23:35 BUN/Creatinine Ratio 22.0 (10-20) H 02/15/24 23:35 Glucose 86 mg/dl (70-99(Fasting)) 02/15/24 23:35 Lactate 1.1 mmol/L (0.4-2.0) 02/16/24 00:19 Calcium 8.4 mg/dl (8.6-10.3) L 02/15/24 23:35 Magnesium 2.0 mg/dl (1.7-2.4) 02/15/24 23:35 Total Bilirubin 0.8 mg/dl (0.2-1.0) 02/15/24 23:35 Direct Bilirubin 0.1 mg/dl (0-0.2) 02/15/24 23:35 AST 29 U/L (13-39) 02/15/24 23:35 ALT 18 U/L (7-52) 02/15/24 23:35 Alkaline Phosphatase 64 U/L (34-104) 02/15/24 23:35 Troponin I High Sens 16.6 pg/ml (0-20) 02/15/24 23:35 Total Protein 5.4 gm/dl (6.0-8.3) L 02/15/24 23:35 Albumin 3.2 gm/dl (3.4-5.0) L 02/15/24 23:35 Procalcitonin 0.06 ng/ml (0-0.5) 02/15/24 23:35 Urine Color Yellow 02/16/24 00:58 Urine Appearance Clear (Clear) 02/16/24 00:58 Urine pH 5.5 (4.5-7.5) 02/16/24 00:58 Ur Specific [place] 1.016 (1.000-1.030) 12/02/24 00:58 Urine Protein 1+ (Negative) H 02/16/24 00:58 Urine Glucose (UA) 2+ (Negative) H 02/16/24 00:58 Urine Ketones Negative (Negative) 02/16/24 00:58 Urine Blood Negative (Negative) 02/16/24 00:58 Urine Nitrite Negative (Negative) 02/16/24 00:58 Urine Bilirubin Negative (Negative) 02/16/24 00:58 Urine Urobilinogen Negative (Negative) 02/16/24 00:58 Ur Leukocyte Esterase Negative (Negative) 02/16/24 00:58 Urine WBC (Auto) 0-5 /hpf (0-5) 02/16/24 00:58 Urine RBC (Auto) 0-2 /hpf (0-2) 02/16/24 00:58 U Hyaline Cast (Auto) 0-2 /lpf (0-2) 02/16/24 00:58 U Epithel Cells (Auto) 0-2 /hpf (0-2) 02/16/24 00:58 Urine Bacteria (Auto) None Seen (None Seen) 02/16/24 00:58 Adenovirus (PCR) Not Detected (NotDetected) 02/16/24 00:05 B. pertussis DNA (PCR) Not Detected (NotDetected) 02/16/24 00:05 B.parapertussis DNA PCR Not Detected (NotDetected) 02/16/24 00:05 C. pneumoniae DNA (PCR) Not Detected (NotDetected) 02/16/24 00:05 Coronavirus OC43 (PCR) Not Detected (NotDetected) 02/16/24 00:05 Coronavirus HKU1 (PCR) Not Detected (NotDetected) 02/16/24 00:05 Coronavirus 229E (PCR) Not Detected (NotDetected) 02/16/24 00:05 SARS-CoV-2 (PCR) DETECTED (NotDetected) A 02/16/24 00:05 Coronavirus NL63 (PCR) Not Detected (NotDetected) 02/16/24 00:05 Human Metapneumovir PCR Not Detected (NotDetected) 02/16/24 00:05 Influenza Type A (PCR) Not Detected (NotDetected) 02/16/24 00:05 Influenza Type B (PCR) Not Detected (NotDetected) 02/16/24 00:05 M. pneumoniae (PCR) Not Detected (NotDetected) 02/16/24 00:05 Parainfluenza 1 (PCR) Not Detected (NotDetected) 02/16/24 00:05 Parainfluenza 2 (PCR) Not Detected (NotDetected) 02/16/24 00:05 Parainfluenza 3 (PCR) Not Detected (NotDetected) 02/16/24 00:05 Parainfluenza 4 (PCR) Not Detected (NotDetected) 02/16/24 00:05 RSV (PCR) Not Detected (NotDetected) 02/16/24 00:05 Entero/Rhino (PCR) Not Detected (NotDetected) 02/16/24 00:05 Impressions Chest X-Ray 02/15/24 23:47 EXAM: XR chest 1V portable CLINICAL HISTORY: SOB JMF TECHNIQUE: X-ray image of the chest is obtained in AP projection. COMPARISON: 02/04/2024. FINDINGS: Pulmonary Parenchyma: Reticular opacities and haziness in the bilateral lower zones and the right middle zone. No evidence of pleural effusion or pleural thickening. Left CVL is noted with the tip at the cavoatrial junction. Heart and Mediastinum: Heart size and shape are normal. No mediastinal widening or masses. No hilar or mediastinal lymphadenopathy. Bony Thorax: The bony thorax appears intact without fractures or deformities. Soft Tissues: Soft tissues overlying the chest wall are unremarkable. IMPRESSION: 1. Reticular opacities and haziness in the bilateral lower zones and the right middle zone. There is a progression in haziness in comparison with the X-RAY on 02/04/2024. suggesting acute infiltration on background chronic lung disease, need for interval follow-up imaging. 2. Left CVL is noted with the tip at the cavoatrial junction. (Stable). Electronically signed by Michelle Self 02-16-2024 01:50 AM Chest CTA 02/16/24 01:10 EXAM: CT angio chest PE protocol CLINICAL HISTORY: PE 119 cc opti 320 TECHNIQUE: Contiguous 3.[address] angiographic images of the chest were acquired with the administration of 119ml of Opitray-320mg/ml intravenous contrast. Coronal and sagittal reconstructions were obtained. One of these 3D techniques was utilized: Maximum Intensity Pixel (MIP), 3D Reconstructed Images, Volume Rendered Images, Surface Shaded Rendering. One of the following dose reduction techniques were utilized for this exam: Automated exposure control, adjustment of the mA and/or kV according to patient size, and use of iterative reconstruction. COMPARISON: None. FINDINGS: Aorta: The thoracic aorta is normal in caliber. No evidence of aneurysm, dissection, or significant atherosclerotic changes. Aortic arch and descending thoracic aorta are unremarkable. Pulmonary Arteries: Pulmonary arteries are normal in size and opacification. No evidence of pulmonary embolism. No stenosis or filling defects. Superior Vena Cava (SVC) and Inferior Vena Cava (IVC): Normal opacification and caliber. No evidence of thrombus or obstruction. Mediastinum: A well-defined homogenous lesion measured 2.8cm in the upper mediastinum, other than that, no mediastinal lymphadenopathy. A left CVL is noted with the tip at the cavoatrial junction. Heart: Normal size and morphology of the heart. No pericardial effusion. Lungs: Multifocal peripherally and subpleural ground glass opacities with fine fibrotic opacities and associated traction bronchiectasis were noted on both lung lobes. Bilateral apical bullae were noted , the largest in the left side measures 3.7cm. A thick fibrotic band is noted in the left lung apex. Right base bullae measure up to 5.4cm No pleural effusion or thickening. Bones: No fractures or lytic/sclerotic lesions of the visualized bony structures. Normal alignment and bone density. Soft Tissues: Normal appearance of the visualized soft tissues. No abnormal masses or fluid collections. IMPRESSION: 1. No evidence of significant vascular abnormalities and no evidence of pulmonary embolism. 2. Severe emphysematous and peripheral fibrotic changes were noted with multifocal peripherally and subpleural ground glass opacities noted on both lung lobes could be due to COVID-19 or other acute infection. 3. A well-defined homogenous lesion measured 2.8cm in the upper mediastinum suggesting a thymus benign lesion 4. A left CVL is noted with the tip at the cavoatrial junction. Electronically signed by Michelle Self 02-16-2024 02:49 AM Code Status & VTE Plan Code Status Full code PG Care Time/CCT Total # of Minutes Spent Total Time Spent with Patient: Total time spent is greater than 50% in coordination of care (as documented) at patient's floor/unit and/or counseling patient: Coding Level of Care Code 79014 INT INP/OBS CARE MIN Diagnoses Acute on chronic respiratory failure with hypoxia J96.21 COVID-19 U07.1 Pancytopenia D61.818 Paroxysmal atrial fibrillation I48.0 Secondary bacterial pneumonia J15.9 Acute kidney injury superimposed on CKD N17.9; N18.9
[2024-02-16] MEDS: SODIUM CHLORIDE 0.9% 1,000 ML IV SCH (04:23)
[2024-02-16] MEDS: AZITHROMYCIN 250 MG TAB PO ONE (04:30)
[2024-02-16] MEDS: DEXAMETHASONE SOD INJ 4 MG/ML VIAL IV STA (04:30)
[2024-02-16] MEDS: PIPERACILLIN/TAZOBACTAM 4.5 GM/100 ML BAG IV STA (04:31)
[2024-02-16] MEDS ORDERED: ALBUTEROL HFA 8 GM INHALER INH PRN (06:18)
[2024-02-16] MEDS ORDERED: ALBUT/IPRATROP 3MG/0.5MG NEB 3 ML VIAL NEB PRN (06:18)
[2024-02-16] MEDS ORDERED: KETOCONAZOLE 2% CR 15 GM TUBE EXT PRN (06:18)
[2024-02-16] MEDS ORDERED: ACETAMINOPHEN 500 MG TAB PO PRN (06:18)
[2024-02-16] MEDS: OPTIRAY 320 125ml IV ONE (06:20)
--- NOTE | 2024-02-16 07:15 | Hospitalist Progress Note ---
Date of Service February 16, 2024 Assessment & Plan (1) Acute kidney injury superimposed on CKD: (2) Acute on chronic respiratory failure with hypoxia: (3) COVID-19: (4) Pancytopenia: (5) COPD exacerbation: Plan (1) Acute on chronic respiratory failure with hypoxia-COPD exacerbation Multifactorial: Persistent COVID-19 infection in a immunocompromised patient, secondary bacterial pneumonia Most recent hospitalization date was from 02/03-02/07/2024 Nasal cannula 3 L oxygen dependency, Presently on 4 L to get a pulse ox 92% Azithromycin, 500 mg, PO and dexamethasone (2) COVID-19 Patient was initially positive for COVID on 02/04/2024, and is positive again this evening Completed course of dexamethasone IV plus oral for 10 days, Received remdesivir IV 3 days during last hospital stay Gave dexamethasone 10 mg IV in ED --> dexamethasone, 6 mg, IV, AM daily thereafter (3) Pancytopenia WBC, normal; Hgb, 9.0; Plts, 123 upon admission Plts, 97 <-- 123; WBC, 5.4 <-- 6.2 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 Bangura Continue acyclovir prophylaxis (4) Anemia - Hgb, 8.1 <-- 7.0 <-- 9.0, overnight change - Type and Cross ordered, 2 Units - repeat H&H ordered, 14:00 today, Hgb 8.1 (5) Secondary bacterial pneumonia Secondary bacterial pneumonia associated with immunocompromised state He received Zosyn and doxycycline during last hospital stay, was discharged on Augmentin/doxycycline, completed 7-day course Zosyn 4.5 g IV, q8hrs discontinued, Azithromycin 500 mg, PO, daily MRSA swab, negative; procalcitonin, 0.06 Continue usual inhalers, DuoNebs every 2 hours as needed Sputum Gram stain and culture pending Procalcitonin and CRP ordered on AM labs (6) Acute kidney injury superimposed on CKD Creatinine, 0.99 <-- 1.41, (baseline 1.16) Placed on NSS at 80 mL/h x 1 L (7) Paroxysmal atrial fibrillation Continue apixaban (VTE prophylaxis too), metoprolol succinate Sinus in 80s last night, sinus w/ PVC's today Plan Code status: Full code Disposition: PCU-Tele VTE Prophylaxis: Eliquis, 5 mg, PO, BID FENGI: Heart healthy Admission and Anticipated Discharge Date Admission Date: February 16, 2024 Supervising Physician Co-Signing Physician Notes I personally examined the patient and verified all grace points of history and exam, discussed case, and agree with decision making with Dr Beck Feeling much better than yesterday. Notes that over the weekend he maybe felt a mild progressive shortness of breath, but really predominantly over the day yesterday. Then he had a fairly significant nosebleed after that his breathing was much much worse. Again feels much better today. No fevers did have chills. His cough has been fairly chronic although the last 24-36 hours since dischargeover the short time right before admission the cough got worse againbut not really much worse with sputum outside of blood when you had the significant nosebleed. Generally was not feeling a lot better but also was not feeling worse from discharge through yesterday or Friday. Vitals noted, in general he is awake and alert pleasant no distress. HEENT normocephalic atraumatic mucous membranes moist. Lungs show faint scattered rales markedly diminished air entry and 1 faint squeak in his left mid lung field. Dyspneaa little but hard to discern if he truly has a recurrent pneumonia versus simply a COPD exacerbationI favor COPD exacerbationI suspect the CT scan is more consistent with a resolving pneumonia, and his symptoms/fast resolution seem more consistent with a COPD exacerbation any recurrent true bacterial pneumonia. He does have chronic respiratory failure and is a little bit tenuouswould like to follow him to ensure ongoing improvement before homecontinue azithromycin, continue corticosteroids. Continue inhalers. anticoagulated Subjective The patient is a 79-year-old male with a past medical history including pancytopenia s/p chemotherapy for B-cell lymphoma, PAF, peripheral neuropathy, pulmonary hypertension, A-fib with RVR, chronic respiratory failure with hypoxia, COPD, cardiomyopathy, anemia, and GERD. He was most recently admitted from 02/03-02/07/2024 for acute on chronic respiratory failure associated with COVID infection. He was treated with IV dexamethasone and remdesivir, was discharged on 10 days ago oral dexamethasone, which he reports he has been taking as directed. He reports over the past 24 hours he had a more acute worsening of his breathing, with increased chest congestion, chills, cough productive of discolored mucus, and worsening oxygen saturation. This morning the patient Review of Systems Constitutional: + fatigue and + weakness; no fever and n o chills Respiratory: + cough, + chest congestion, + dyspnea a nd + hemoptysis; no pain with cough Cardiovascular: no chest pain and no palpitations Gastrointestinal: no abdominal pain, no nausea and no vomiting Genitourinary: no dysuria or no urinary frequency Physical Exam Constitutional: WD/WN, vitals as above Respiratory: + labored breathing, + cough and able to speak in complete sentences; does not use accessory muscles Auscultation: no crackles and no wheezes Cardiovascular: RRR, no murmur, no edema Extremities: normal capillary refill; no calf tenderness and no pedal edema Gastrointestinal (Abdomen): normal bowel sounds, soft, nontender, no hepatosplenomegaly Psychiatric: A+Ox3, euthymic affect Speech: normal rate/rhythm/volume of speech Insight: good insight Results & Data Results & Data Vital Signs (Past 12 Hours) Vital Signs Temp Pulse Pulse Resp BP BP Pulse Ox 02/16/24 06:22 02/16/24 06:02 37.6 C H 76 24 111/63 92 02/16/24 05:36 75 18 104/54 L 92 02/16/24 05:27 88 93 02/16/24 05:00 109/58 L 02/16/24 04:57 91 02/16/24 04:14 74 02/16/24 04:00 77 22 119/65 94 02/16/24 03:00 75 20 124/62 92 02/16/24 01:45 83 22 139/70 98 02/16/24 00:25 93 H 92 02/15/24 23:33 77 93 02/15/24 23:23 94 02/15/24 23:23 36.8 C 86 22 142/73 H 94 02/15/24 23:23 O2 Del Method O2 Flow Rate 02/16/24 06:22 Nasal Cannula 4 02/16/24 06:02 Nasal Cannula 4 02/16/24 05:36 Nasal Cannula 4 02/16/24 05:27 Nasal Cannula 4 02/16/24 05:00 02/16/24 04:57 Nasal Cannula 4 02/16/24 04:14 02/16/24 04:00 Nasal Cannula 4 02/16/24 03:00 Nasal Cannula 4 02/16/24 01:45 Nasal Cannula 4 02/16/24 00:25 Nasal Cannula 3 02/15/24 23:33 Nasal Cannula 3 02/15/24 23:23 Nasal Cannula 02/15/24 23:23 Nasal Cannula 3 02/15/24 23:23 Nasal Cannula 3
[2024-02-16] MEDS: PANTOprazole 40 MG TAB PO SCH (08:17)
[2024-02-16] MEDS: ACYCLOVIR 200 MG CAP PO SCH (08:17)
[2024-02-16] MEDS: METOPROLOL SUCC 50MG EXT REL TAB PO SCH (08:17)
[2024-02-16] MEDS: CYANOCOBALAMIN (B-12) 500 MCG TABLET PO SCH (08:18)
[2024-02-16] MEDS: CHOLECALCIFEROL 25 MCG (1000 UNITS) TAB PO SCH (08:18)
[2024-02-16] MEDS: UMECLIDINIUM BROMIDE 62.5MCG/BLISTER 7 PUFFS/INHALER INH SCH (08:19)
[2024-02-16] MEDS: ASPIRIN 81 MG ECTAB PO SCH (08:19)
[2024-02-16] MEDS: FLUTICASONE/VILANTEROL 100/25MCG 14 PUFFS/INHALER INH SCH (08:19)
[2024-02-16] MEDS: APIXABAN 5 MG TABLET PO SCH (08:20)
[2024-02-16] MEDS: FOLIC ACID 1 MG TAB PO SCH (09:29)
[2024-02-16] MEDS: PREGABALIN 75 MG CAP PO SCH (09:31)
[2024-02-16] MEDS: PIPERACILLIN/TAZOBACTAM 4.5 GM/100 ML BAG IV SCH (09:32)
[2024-02-16 09:42] LABS: Hematocrit (blood only) 21.2 % (42.0-52.0); Mean Corpuscular Hemoglobin 34.8 pg (25.0-34.0); Mean Corpuscular Volume 105.5 fL (80.0-100.0); Mean Platelet Volume 11.6 fL (9.4-12.4); Platelet Count 97 K/uL (130-400); RDW Coefficient of Variation 13.8 % (11.5-14.5); Red Blood Count 2.01 M/uL (4.70-6.10); White Blood Count 5.39 K/ul (4.8-10.8)
[2024-02-16 10:02] LABS: BUN Creatinine Ratio 24.2 (10-20); Calcium 6.1 mg/dl (8.6-10.3); Creatinine Clr Calc Pharmacy 62.5 ml/min; Potassium 3.4 mmol/L (3.5-5.1)
[2024-02-16] MEDS ORDERED: SODIUM CHLORIDE 0.9% 100 ML IV PRN (10:02)
[2024-02-16] MEDS ORDERED: SODIUM CHLORIDE 0.9% 50 ML IV PRN (10:02)
--- NOTE | 2024-02-16 14:00 | Electrocardiogram Report ---
Test Reason : Blood Pressure : */* mmHG Vent. Rate : 80 BPM Atrial Rate : 80 BPM P-R Int : 140 ms QRS Dur : 112 ms QT Int : 360 ms P-R-T Axes : 12 -12 11 degrees QTcB Int : 415 ms Sinus rhythm with Premature atrial complexes Right bundle branch block Abnormal ECG When compared with ECG of 04-Feb-2024 14:45, Premature atrial complexes are now Present T wave inversion more evident in Anterior leads Confirmed by Aristeo Stearns ([id number]) on 02/16/2024 1:59:49 PM Referred By: REFERRED SELF Confirmed By: Aristeo Stearns
[2024-02-16 14:43] LABS: Hematocrit (blood only) 23.5 % (42.0-52.0); Hemoglobin 8.1 g/dl (14.0-18.0)
--- NOTE | 2024-02-16 18:26 | Billing Data ---
Date of Service February 16, 2024 Coding Level of Care Code 98774 SUB INP/OBS CARE
[2024-02-16] MEDS: ATORVASTATIN 40 MG TAB PO SCH (20:54)
[2024-02-16] MEDS: PRAMIPEXOLE DIHYDROCHLO 0.25 MG TAB PO SCH (20:55)
[2024-02-17] MEDS: dexAMETHasone 6 MG in SYRINGE 0 ML IV SCH (05:51)
--- NOTE | 2024-02-17 06:38 | Hospitalist Progress Note ---
Date of Service February 17, 2024 Assessment & Plan (1) Acute kidney injury superimposed on CKD: (2) Acute on chronic respiratory failure with hypoxia: (3) COVID-19: (4) Pancytopenia: (5) COPD exacerbation: Plan (1) Acute on chronic respiratory failure with hypoxia-COPD exacerbation Multifactorial: Persistent COVID-19 infection in a immunocompromised patient, secondary bacterial pneumonia Most recent hospitalization date was from 02/03-02/07/2024 Nasal cannula 3 L oxygen dependency, Presently on 4 L to get a pulse ox 92% Azithromycin, 500 mg, PO and dexamethasone (2) COVID-19 Patient was initially positive for COVID on 02/04/2024, and is positive again this evening Completed course of dexamethasone IV plus oral for 10 days, Received remdesivir IV 3 days during last hospital stay Gave dexamethasone 10 mg IV in ED --> dexamethasone, 6 mg, IV, AM daily thereafter (3) Pancytopenia WBC, normal; Hgb, 9.0; Plts, 123 upon admission Plts, 108 <-- 123; WBC, 4.2 <-- 6.2 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 Bangura Continue acyclovir prophylaxis (4) Anemia - Hgb, 8.5 <-- 7.0 <-- 9.0, - Type and Cross ordered, 2 Units - repeat H&H ordered after 7.0 result, then Hgb 8.1 (5) Secondary bacterial pneumonia Secondary bacterial pneumonia associated with immunocompromised state He received Zosyn and doxycycline during last hospital stay, was discharged on Augmentin/doxycycline, completed 7-day course Zosyn 4.5 g IV, q8hrs discontinued, Azithromycin 500 mg, PO, daily MRSA swab, negative; procalcitonin, 0.06 Continue usual inhalers, DuoNebs every 2 hours as needed Sputum Gram stain and culture pending CRP, 8.92 <-- 9.65; Procalcitonin, 0.14 (6) Acute kidney injury superimposed on CKD Creatinine, 1.15 <-- 1.41, (baseline 1.16) Placed on NSS at 80 mL/h x 1 L (7) Paroxysmal atrial fibrillation Continue apixaban (VTE prophylaxis too), metoprolol succinate Sinus in 80s last night, sinus w/ PVC's today Plan Code status: Full code Disposition: PCU-Tele VTE Prophylaxis: Eliquis, 5 mg, PO, BID FENGI: Heart healthy Admission and Anticipated Discharge Date Admission Date: February 16, 2024 Supervising Physician Co-Signing Physician Notes I personally examined the patient and verified all grace points of history and exam, discussed case, and agree with decision making with Dr Beck Definitely feeling better. Still has a significant degree of dyspnea on exertionbut seems to relate that it was even better today than prior to admission before he was getting sick again. Overall improving.. Vitals noted, in general he is awake and alert pleasant no distress. HEENT normocephalic atraumatic mucous membranes moist. Lungs show barely audible rales right lung field and otherwise fairly clear but just with diminished air entry throughout. No conversational dyspnea no accessory muscle use no rhonchi no wheezing. Dyspneaa little but hard to discern if he truly has a recurrent pneumonia versus simply a COPD exacerbationI favor COPD exacerbationI suspect the CT scan is more consistent with a resolving pneumonia, In this respect yesterday we streamline antibiotics to simply azithromycin for pulmonary anti-inflammatory effect and continued corticosteroids, but discontinued typical bacterial coveragehe is continuing to show progressstrongly suggesting that this was a COPD exacerbation rather than yet another recurrent pneumonia. Given his frail state and fairly severe acute on chronic immunocompromise (acutely due to COVID and a recent bacterial pneumonia, chronically due to his lymphoma, marrow suppression) definitely need to follow him longer to ensure that he is safe for discharge. anticoagulated Subjective The patient is a 79-year-old male with a past medical history including pancytopenia s/p chemotherapy for B-cell lymphoma, PAF, peripheral neuropathy, pulmonary hypertension, A-fib with RVR, chronic respiratory failure with hypoxia, COPD, cardiomyopathy, anemia, and GERD. He was most recently admitted from 02/03-02/07/2024 for acute on chronic respiratory failure associated with COVID infection. He was treated with IV dexamethasone and remdesivir, was discharged on 10 days ago oral dexamethasone, which he reports he has been taking as directed. He reports over the past 24 hours he had a more acute worsening of his breathing, with increased chest congestion, chills, cough productive of discolored mucus, and worsening oxygen saturation. This morning the patient continues to do well but with dyspnea on exertion (but improved compared to before admission). Patient w/ O2 sats of 98% on 3 L O2 NC, so transitioned to 1.5 L O2 NC to get O2 sat range between 89-93. No fevers or chills but still more fatigued than at his baseline. Review of Systems Constitutional: + fatigue and + weakness; no fever and n o chills Respiratory: + cough, + chest congestion, + dyspnea a nd + hemoptysis; no pain with cough Cardiovascular: no chest pain and no palpitations Gastrointestinal: no abdominal pain, no nausea and no vomiting Genitourinary: no dysuria or no urinary frequency Physical Exam Constitutional: WD/WN, vitals as above Respiratory: + labored breathing, + cough and able to speak in complete sentences; does not use accessory muscles Auscultation: no crackles and no wheezes Cardiovascular: RRR, no murmur, no edema Extremities: normal capillary refill; no calf tenderness and no pedal edema Gastrointestinal (Abdomen): normal bowel sounds, soft, nontender, no hepatosplenomegaly Psychiatric: A+Ox3, euthymic affect Speech: normal rate/rhythm/volume of speech Insight: good insight Results & Data Results & Data Vital Signs (Past 12 Hours) Vital Signs Temp Pulse Pulse Resp BP Pulse Ox O2 Del Method 02/17/24 02:52 36.8 C 54 L 18 111/63 98 Nasal Cannula 02/17/24 00:00 53 L 02/16/24 23:05 36.8 C 73 19 104/66 90 Nasal Cannula 02/16/24 19:31 Nasal Cannula 02/16/24 19:05 36.4 C L 58 L 19 125/73 96 Nasal Cannula O2 Flow Rate 02/17/24 02:52 02/17/24 00:00 02/16/24 23:05 02/16/24 19:31 4 02/16/24 19:05 Resident Activity Tracking Resident Involvement: Resident Care Provided Care Provided: Adult Hospital Medicine
[2024-02-17] MEDS: AZITHROMYCIN 250 MG TAB PO SCH (07:58)
[2024-02-17] MEDS: guaiFENesin/DEXTROM SYRUP 200MG/20MG 10ML UDC PO PRN (08:02)
[2024-02-17 09:07] LABS: Albumin Level 2.8 gm/dl (3.4-5.0); BUN Creatinine Ratio 21.7 (10-20); C Reactive Protein 8.92 mg/dl (0-0.5); Creatinine Clr Calc Pharmacy 53.8 ml/min; Magnesium 2.1 mg/dl (1.7-2.4); Phosphorus 3.4 mg/dl (2.5-4.9); Potassium 3.7 mmol/L (3.5-5.1)
[2024-02-17 09:29] LABS: Hematocrit (blood only) 24.9 % (42.0-52.0); Hemoglobin 8.5 g/dl (14.0-18.0); Immature Granulocytes # (auto) 0.03 K/uL (0.01-0.20); Immature Granulocytes % (auto) 0.7 %; Lymphocytes # (auto) 0.28 K/uL (1.20-3.40); Lymphocytes % (auto) 6.7 %; Mean Corpuscular Hemoglobin 35.4 pg (25.0-34.0); Mean Corpuscular Hgb Conc 34.1 g/dL (32.0-36.0); Mean Corpuscular Volume 103.8 fL (80.0-100.0); Mean Platelet Volume 12.1 fL (9.4-12.4); Monocytes # (auto) 0.12 K/uL (0.11-0.59); Monocytes % (auto) 2.9 %; Neutrophils # (auto) 3.72 K/uL (1.40-6.50); Neutrophils % (auto) 89.7 %; Platelet Count 108 K/uL (130-400); RDW Coefficient of Variation 13.5 % (11.5-14.5); RDW Standard Deviation 50.4 fL (36.4-46.3); White Blood Count 4.15 K/ul (4.8-10.8)
--- NOTE | 2024-02-17 12:51 | Billing Data ---
Date of Service February 17, 2024 Coding Level of Care Code 02147 SUB INP/OBS CARE
--- NOTE | 2024-02-18 06:42 | Hospitalist Progress Note ---
Date of Service February 18, 2024 Assessment & Plan (1) Acute kidney injury superimposed on CKD: (2) Acute on chronic respiratory failure with hypoxia: (3) COVID-19: (4) Pancytopenia: (5) COPD exacerbation: Plan (1) Acute on chronic respiratory failure with hypoxia-COPD exacerbation Multifactorial: Persistent COVID-19 infection in a immunocompromised patient, secondary bacterial pneumonia Most recent hospitalization date was from 02/03-02/07/2024 Nasal cannula 3 L oxygen dependency, Presently on 4 L to get a pulse ox 92% Azithromycin, 500 mg, PO and dexamethasone Ordered DuoNebs, q6hrs, LAILA (patient hasn't received any DuoNebs during stay so far) (2) COVID-19 Patient was initially positive for COVID on 02/04/2024, and is positive again this evening Completed course of dexamethasone IV plus oral for 10 days, Received remdesivir IV 3 days during last hospital stay Gave dexamethasone 10 mg IV in ED --> dexamethasone, 6 mg, IV, AM daily thereafter (3) Pancytopenia WBC, normal; Hgb, 9.0; Plts, 123 upon admission Plts, 116 <-- 123; WBC, 6.2 <-- 6.2 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 Bangura Continue acyclovir prophylaxis (4) Anemia - Hgb, 9.2 <-- 7.0 <-- 9.0, - Type and Cross ordered, 2 Units - repeat H&H ordered after 7.0 result, then Hgb 8.1 (5) Secondary bacterial pneumonia Secondary bacterial pneumonia associated with immunocompromised state He received Zosyn and doxycycline during last hospital stay, was discharged on Augmentin/doxycycline, completed 7-day course Zosyn 4.5 g IV, q8hrs discontinued, Azithromycin 500 mg, PO, daily MRSA swab, negative; procalcitonin, 0.06 Continue usual inhalers, DuoNebs every 2 hours as needed Sputum Gram stain and culture pending CRP, 3.71 <-- 8.92 <-- 9.65; Procalcitonin, 0.08 <-- 0.14 (6) Acute kidney injury superimposed on CKD Creatinine, 1.07 <-- 1.41, (baseline 1.16) Placed on NSS at 80 mL/h x 1 L (7) Paroxysmal atrial fibrillation Continue apixaban (VTE prophylaxis too), metoprolol succinate Sinus in 80s last night, sinus w/ PVC's today Plan Code status: Full code Disposition: PCU-Tele VTE Prophylaxis: Eliquis, 5 mg, PO, BID MOISESI: Heart healthy Admission and Anticipated Discharge Date Admission Date: February 16, 2024 Supervising Physician Co-Signing Physician Notes I personally examined the patient and verified all grace points of history and exam, discussed case, and agree with decision making with Dr Beck was feeling worse, more short of breath this morning. By this afternoon he is feeling better againnotes that nebulizers really helped. Vitals noted, in general he is awake and alert pleasant no distress. Actually in spite of being more short of breath and wheezing for resident physician this morning, I was quite happy to hear him singing along with pink Jigar brain damage before I even entered the roomand he smiled and noted that his breathing was starting to feel better again. Lungs are very quiet but clearno wheezing no rales no rhonchi g ood effort. Skin without rashes pallor or icterus. COPD exacerbationnow off of "typical" coverage for several days and while he is having some degree of up and down fluctuation, he is overall improvingmaking it clear that with hindsight this was not a pneumonia, and was a COPD exacerbation along. Continue steroids and azithromycin. Nebulizers. Supportive care. Otherwise as above. anticoagulated Subjective The patient is a 79-year-old male with a past medical history including pancytopenia s/p chemotherapy for B-cell lymphoma, PAF, peripheral neuropathy, pulmonary hypertension, A-fib with RVR, chronic respiratory failure with hypoxia, COPD, cardiomyopathy, anemia, and GERD. He was most recently admitted from 02/03-02/07/2024 for acute on chronic respiratory failure associated with COVID infection. He was treated with IV dexamethasone and remdesivir, was discharged on 10 days ago oral dexamethasone, which he reports he has been taking as directed. He reports over the past 24 hours he had a more acute worsening of his breathing, with increased chest congestion, chills, cough productive of discolored mucus, and worsening oxygen saturation. This morning the patient continues to do well but with dyspnea on exertion (but improved compared to before admission). Patient w/ O2 sats of 98% on 3 L O2 NC, so transitioned to 1.5 L O2 NC to get O2 sat range between 89-93. No fevers or chills but still more fatigued than at his baseline. Review of Systems Constitutional: + fatigue and + weakness; no fever and n o chills Respiratory: + cough, + chest congestion, + dyspnea, + dyspnea on exertion and + sputum production (light yellow phlegm); no hemoptysis and no pain with cough Cardiovascular: + chest pain (chest tightness at rest); no palpitations Gastrointestinal: no abdominal pain, no nausea and no vomiting Genitourinary: no dysuria or no urinary frequency Physical Exam Constitutional: WD/WN, vitals as above Respiratory: + labored breathing, + cough and able to speak in complete sentences; does not use accessory muscles Auscultation: no crackles and no wheezes Cardiovascular: RRR, no murmur, no edema Extremities: normal capillary refill; no calf tenderness and no pedal edema Gastrointestinal (Abdomen): normal bowel sounds, soft, nontender, no hepatosplenomegaly Psychiatric: A+Ox3, euthymic affect Speech: normal rate/rhythm/volume of speech Insight: good insight Results & Data Results & Data Vital Signs (Past 12 Hours) Vital Signs Temp Pulse Pulse Resp BP Pulse Ox O2 Del Method 02/18/24 04:04 36.8 C 70 16 120/68 94 Nasal Cannula 02/17/24 23:00 36.9 C 58 L 18 122/68 Nasal Cannula 02/17/24 21:56 63 02/17/24 20:38 Nasal Cannula 02/17/24 19:51 36.6 C 58 L 16 92 Nasal Cannula O2 Flow Rate 02/18/24 04:04 2.0 02/17/24 23:00 2 02/17/24 21:56 02/17/24 20:38 2 02/17/24 19:51 2.0
[2024-02-18 09:15] LABS: BUN Creatinine Ratio 23.4 (10-20); C Reactive Protein 3.71 mg/dl (0-0.5); Calcium 8.3 mg/dl (8.6-10.3); Creatinine Clr Calc Pharmacy 57.8 ml/min; Phosphorus 2.3 mg/dl (2.5-4.9); Potassium 3.6 mmol/L (3.5-5.1)
[2024-02-18 09:42] LABS: Hematocrit (blood only) 27.8 % (42.0-52.0); Hemoglobin 9.2 g/dl (14.0-18.0); Mean Corpuscular Hemoglobin 34.5 pg (25.0-34.0); Mean Corpuscular Hgb Conc 33.1 g/dL (32.0-36.0); Mean Corpuscular Volume 104.1 fL (80.0-100.0); Mean Platelet Volume 11.5 fL (9.4-12.4); Platelet Count 116 K/uL (130-400); RDW Coefficient of Variation 13.8 % (11.5-14.5); RDW Standard Deviation 50.7 fL (36.4-46.3); Red Blood Count 2.67 M/uL (4.70-6.10); White Blood Count 6.23 K/ul (4.8-10.8)
[2024-02-18 09:43] LABS: ALC (manual) 0.06 K/uL (1.2-3.4); ANC (manual) 6.04 K/uL (1.4-6.5); Lymphocytes # (manual) 0.06 K/uL (1.2-3.4); Lymphocytes % (manual) 1 %; Monocytes # (manual) 0.12 K/uL (0.11-0.59); Monocytes % (manual) 2 %; Neutrophils # (manual) 6.04 K/uL (1.40-6.50); Neutrophils % (manual) 97 %
[2024-02-18] MEDS ORDERED: HYDROCORTISONE 1% CRM 30 GM TUBE EXT PRN (10:31)
[2024-02-18] MEDS: ALBUT/IPRATROP 3MG/0.5MG NEB 3 ML VIAL NEB SCH (13:38)
--- NOTE | 2024-02-18 16:38 | Billing Data ---
Date of Service February 18, 2024 Coding Level of Care Code 05363 SUB INP/OBS CARE
[2024-02-19] MEDS: ACETAMINOPHEN 325 MG TAB PO PRN (04:14)
[2024-02-19 06:57] LABS: Hematocrit (blood only) 23.9 % (42.0-52.0); Hemoglobin 7.9 g/dl (14.0-18.0); Mean Corpuscular Hemoglobin 34.2 pg (25.0-34.0); Mean Corpuscular Hgb Conc 33.1 g/dL (32.0-36.0); Mean Corpuscular Volume 103.5 fL (80.0-100.0); Mean Platelet Volume 11.3 fL (9.4-12.4); Platelet Count 94 K/uL (130-400); RDW Coefficient of Variation 13.7 % (11.5-14.5); RDW Standard Deviation 50.5 fL (36.4-46.3); Red Blood Count 2.31 M/uL (4.70-6.10); White Blood Count 3.73 K/ul (4.8-10.8)
[2024-02-19 07:20] LABS: Immature Granulocytes # (auto) 0.04 K/uL (0.01-0.20); Immature Granulocytes % (auto) 1.1 %; Lymphocytes # (auto) 0.19 K/uL (1.20-3.40); Lymphocytes % (auto) 5.1 %; Monocytes # (auto) 0.22 K/uL (0.11-0.59); Monocytes % (auto) 5.9 %; Neutrophils # (auto) 3.28 K/uL (1.40-6.50); Neutrophils % (auto) 87.9 %; RBC Morphology Unremarkable
[2024-02-19] MEDS: guaiFENesin/DEXTROM SYRUP 200MG/20MG 10ML UDC PO SCH (11:03)
[2024-02-19] MEDS: ALBUT/IPRATROP 3MG/0.5MG NEB 3 ML VIAL NEB SCH (11:31)
--- NOTE | 2024-02-19 12:00 | Hospitalist Progress Note ---
Date of Service February 19, 2024 Assessment & Plan (1) Acute kidney injury superimposed on CKD: (2) Acute on chronic respiratory failure with hypoxia: (3) COVID-19: (4) Pancytopenia: (5) COPD exacerbation: Plan (1) Acute on chronic respiratory failure with hypoxia-COPD exacerbation Multifactorial: Persistent COVID-19 infection in a immunocompromised patient, secondary bacterial pneumonia Most recent hospitalization date was from 02/03-02/07/2024 Nasal cannula 3 L oxygen dependency, Presently on 4 L to get a pulse ox 92% Azithromycin, 500 mg, PO and dexamethasone Ordered DuoNebs, q4HMO, [facility] (2) COVID-19 Patient was initially positive for COVID on 02/04/2024, and is positive again this evening Completed course of dexamethasone IV plus oral for 10 days, Received remdesivir IV 3 days during last hospital stay Gave dexamethasone 10 mg IV in ED --> dexamethasone, 6 mg, IV, AM daily thereafter (3) Pancytopenia WBC, normal; Hgb, 9.0; Plts, 123 upon admission Plts, 94 <-- 123; WBC, 3.7 <-- 6.2 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 Bangura Continue acyclovir prophylaxis (4) Anemia - Hgb, 7.9 <-- 7.0 <-- 9.0, - Type and Cross ordered, 2 Units - repeat H&H ordered after 7.0 result, then Hgb 8.1 (5) Secondary bacterial pneumonia Secondary bacterial pneumonia associated with immunocompromised state He received Zosyn and doxycycline during last hospital stay, was discharged on Augmentin/doxycycline, completed 7-day course Zosyn 4.5 g IV, q8hrs discontinued, Azithromycin 500 mg, PO, daily MRSA swab, negative; procalcitonin, 0.06 Continue usual inhalers, DuoNebs every 2 hours as needed (scheduled as above) Sputum Gram stain and culture pending; Blood Cx, negative after 48 hrs CRP, 3.20 <-- 8.92 <-- 9.65; Procalcitonin, 0.05 <-- 0.14 (6) Acute kidney injury superimposed on CKD Creatinine, 1.07 <-- 1.41, (baseline 1.16), no BMP's after resolution Placed on NSS at 80 mL/h x 1 L (7) Paroxysmal atrial fibrillation Continue apixaban (VTE prophylaxis too), metoprolol succinate 1 burst, 8 beats, of SVT but NSR 70s-80s most of the time Plan Code status: Full code Disposition: PCU-Tele VTE Prophylaxis: Eliquis, 5 mg, PO, BID MOISESI: Heart healthy Admission and Anticipated Discharge Date Admission Date: February 16, 2024 Supervising Physician Co-Signing Physician Notes I personally examined the patient and verified all grace points of history and exam, discussed case, and agree with decision making with Dr Beck feel a little bit better in the morning but better as the day went on yet again. Notes dyspnea on exertion and completing IADLs is exhausting he does not think he would do well at home yet. Vitals noted, in general he is awake and alert pleasant no distress. lungs quiet but better air entry than before, now with a faint wheeze no rhonchi no accessory muscle use. No focal neurodeficits. COPD exacerbationnow off of "typical" coverage for several days and while he is having some degree of up and down fluctuation, he is overall improvingmaking it clear that with hindsight this was not a pneumonia, and was a COPD exacerbation along. Continue steroids and azithromycin. Nebulizers. Supportive care. Otherwise as above. PT/OT eval and treat, increase activity[facility] soonbut his easy fatigability and inability to care for himself are now the limiting factor far more than his COPD exacerbation anticoagulated Subjective The patient is a 79-year-old male with a past medical history including pancytopenia s/p chemotherapy for B-cell lymphoma, PAF, peripheral neuropathy, pulmonary hypertension, A-fib with RVR, chronic respiratory failure with hypoxia, COPD, cardiomyopathy, anemia, and GERD. He was most recently admitted from 02/03-02/07/2024 for acute on chronic respiratory failure associated with COVID infection. He was treated with IV dexamethasone and remdesivir, was discharged on 10 days ago oral dexamethasone, which he reports he has been taking as directed. He reports over the past 24 hours he had a more acute worsening of his breathing, with increased chest congestion, chills, cough productive of discolored mucus, and worsening oxygen saturation. This morning the patient continues to do well but with dyspnea on exertion (but improved compared to before admission). Patient w/ O2 sats of 93% on 3 L O2 NC. No fevers or chills but still more fatigued than at his baseline. Pt not confident w/ going home today, as he was re-admitted only a week after his last discharge and is concerned that he'd be desatting if at home. When asked, patient did say he has an oxygen concentrator at home with long enough tubing that he can be on continuous oxygen as needed at home. Review of Systems Constitutional: + fatigue and + weakness; no fever and n o chills Respiratory: + cough, + chest congestion, + dyspnea, + dyspnea on exertion and + sputum production (light yellow phlegm); no hemoptysis and no pain with cough Cardiovascular: + chest pain (chest tightness at rest); no palpitations Gastrointestinal: no abdominal pain, no nausea and no vomiting Genitourinary: no dysuria or no urinary frequency Neurologic: + paresthesia (neuropathic pain in lower legs b/l pt ascribes to past chemo Tx) Physical Exam Constitutional: WD/WN, vitals as above Respiratory: + labored breathing, + cough and able to speak in complete sentences; does not use accessory muscles Auscultation: + wheezes (some wheezing on exam today b/l); no crackles Cardiovascular: RRR, no murmur, no edema Extremities: normal capillary refill; no calf tenderness and no pedal edema Gastrointestinal (Abdomen): normal bowel sounds, soft, nontender, no hepatosplenomegaly Psychiatric: A+Ox3, euthymic affect Speech: normal rate/rhythm/volume of speech Insight: good insight Results & Data Results & Data Vital Signs (Past 12 Hours) Vital Signs Temp Pulse Pulse Resp BP Pulse Ox O2 Del Method 02/19/24 11:32 71 15 94 Nasal Cannula 02/19/24 08:19 64 02/19/24 08:19 Nasal Cannula 02/19/24 08:01 36.9 C 75 19 120/64 91 Nasal Cannula 02/19/24 07:18 64 18 93 Nasal Cannula 02/19/24 04:13 36.5 C 71 18 113/64 93 Nasal Cannula 02/19/24 02:04 60 18 92 Nasal Cannula O2 Flow Rate FiO2 02/19/24 11:32 3 02/19/24 08:19 02/19/24 08:19 3 02/19/24 08:01 4.0 02/19/24 07:18 3 02/19/24 04:13 3 02/19/24 02:04 3
--- NOTE | 2024-02-19 17:05 | Billing Data ---
Date of Service February 19, 2024 Coding Level of Care Code 73679 SUB INP/OBS CARE
[2024-02-20 07:07] LABS: Hemoglobin 8.1 g/dl (14.0-18.0); Immature Granulocytes # (auto) 0.04 K/uL (0.01-0.20); Lymphocytes % (auto) 4.8 %; Mean Corpuscular Hemoglobin 33.9 pg (25.0-34.0); Mean Corpuscular Hgb Conc 32.4 g/dL (32.0-36.0); Mean Corpuscular Volume 104.6 fL (80.0-100.0); Mean Platelet Volume 11.7 fL (9.4-12.4); Monocytes # (auto) 0.22 K/uL (0.11-0.59); Monocytes % (auto) 5.3 %; Neutrophils % (auto) 88.9 %; Platelet Count 97 K/uL (130-400); RDW Coefficient of Variation 13.8 % (11.5-14.5); Red Blood Count 2.39 M/uL (4.70-6.10); White Blood Count 4.16 K/ul (4.8-10.8)
[2024-02-20 09:50] LABS: Creatinine Clr Calc Pharmacy 65.1 ml/min
[2024-02-20 09:52] LABS: C Reactive Protein 2.62 mg/dl (0-0.5); Calcium 8.1 mg/dl (8.6-10.3)
--- NOTE | 2024-02-20 13:34 | Hospitalist Progress Note ---
Date of Service February 20, 2024 Assessment & Plan (1) Acute kidney injury superimposed on CKD: (2) Acute on chronic respiratory failure with hypoxia: (3) COVID-19: (4) Pancytopenia: (5) COPD exacerbation: Plan (1) Acute on chronic respiratory failure with hypoxia-COPD exacerbation Multifactorial: Persistent COVID-19 infection in a immunocompromised patient, secondary bacterial pneumonia Most recent hospitalization date was from 02/03-02/07/2024 Nasal cannula 3 L oxygen dependency, Presently on 4 L to get a pulse ox 92% Azithromycin, 500 mg, PO and dexamethasone Ordered DuoNebs, q4HWA, [facility] (2) Secondary bacterial pneumonia Secondary bacterial pneumonia associated with immunocompromised state He received Zosyn and doxycycline during last hospital stay, was discharged on Augmentin/doxycycline, completed 7-day course Zosyn 4.5 g IV, q8hrs discontinued, Azithromycin 500 mg, PO, daily MRSA swab, negative; procalcitonin, 0.14 upon admission Continue usual inhalers, DuoNebs every 2 hours as needed (scheduled as above) Sputum Gram stain, many gram pos bacilli; sputum culture, 02/19, pending; Blood Cx, negative after 48 hrs azithromycin would cover diphtheria, listeria, B. 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 Bangura Continue acyclovir prophylaxis (5) Anemia - Hgb, 8.1 <-- 7.0 <-- 9.0, - Type and Cross ordered, 2 Units - repeat H&H ordered after 7.0 result, then Hgb 8.1, no pRBCs have been transfused (6) Acute kidney injury superimposed on CKD Creatinine, 0.93 <-- 1.41, (baseline 1.16) Placed on NSS at 80 mL/h x 1 L (7) Paroxysmal atrial fibrillation Continue apixaban (VTE prophylaxis too), metoprolol succinate Patient downgraded to Med-Surg on 02/18 Plan Code status: Full code Disposition: PCU-Tele --> Med-Surg VTE Prophylaxis: Eliquis, 5 mg, PO, BID FENGI: Heart healthy Admission and Anticipated Discharge Date Admission Date: February 16, 2024 Supervising Physician Co-Signing Physician Notes I personally examined the patient and verified all grace points of history and exam, discussed case, and agree with decision making with Dr Beck feeling okay at rest. Still a significant degree of dyspnea on exertion. Desaturated good bit working with therapyalso notes that he still feeling fair ly dyspneic trying to do anything as far as basic self-care. Otherwise he is feeling a bit better. Vitals noted, in general he is awake and alert pleasant no distress. HEENT normocephalic atraumatic mucous membranes moist. Breathing unlabored no accessory muscle use good effort. Skin without rashes pallor or icterus. Neuro without focal deficits. COPD exacerbationnow off of "typical" coverage for several days and while he is having some degree of up and down fluctuation, he is overall improvingmaking it clear that with hindsight this was not a pneumonia, and was a COPD exacerbation along. Continue steroids and azithromycin. Nebulizers. Supportive care. Otherwise as above. PT/OT eval and treat, encouraged gradual increase activity[facility] soonbut his easy fatigability and inability to care for himself are now the limiting factor far more than his COPD exacerbation. pancytopenia either related to antineoplastic chemotherapy or diffuse large B cell lymphoma itself - follow. anticoagulated Subjective The patient is a 79-year-old male with a past medical history including pancytopenia s/p chemotherapy for B-cell lymphoma, PAF, peripheral neuropathy, pulmonary hypertension, A-fib with RVR, chronic respiratory failure with hypoxia, COPD, cardiomyopathy, anemia, and GERD. He was most recently admitted from 02/03-02/07/2024 for acute on chronic respiratory failure associated with COVID infection. He was treated with IV dexamethasone and remdesivir, was discharged on 10 days ago oral dexamethasone, which he reports he has been taking as directed. He reports over the past 24 hours he had a more acute worsening of his breathing, with increased chest congestion, chills, cough productive of discolored mucus, and worsening oxygen saturation. This morning the patient is still better than admission but not making the progress that he expected to make. With dyspnea on exertion still present when getting up to use the restroom. Patient w/ O2 sats of 92% on 3.5 L O2 NC. No fevers or chills but still more fatigued than at his baseline. Pt not confident w/ going home again today, as he was re-admitted only a week after his last discharge and is concerned what he would do at home if his respiratory distress suddenly worsened (although he does have a call egn/alarm feature in home. Review of Systems Constitutional: + fatigue and + weakness; no fever and n o chills Respiratory: + cough, + chest congestion, + dyspnea, + dyspnea on exertion and + sputum production (light yellow phlegm); no hemoptysis and no pain with cough Cardiovascular: + chest pain (chest tightness at rest); no palpitations Gastrointestinal: no abdominal pain, no nausea and no vomiting Genitourinary: no dysuria or no urinary frequency Neurologic: + paresthesia (neuropathic pain in lower legs b/l pt ascribes to past chemo Tx) Physical Exam Constitutional: WD/WN, vitals as above Respiratory: + labored breathing, + cough and able to speak in complete sentences; does not use accessory muscles Auscultation: + wheezes (some wheezing on exam today b/l); no crackles Cardiovascular: RRR, no murmur, no edema Extremities: normal capillary refill; no calf tenderness and no pedal edema Gastrointestinal (Abdomen): normal bowel sounds, soft, nontender, no hepatosplenomegaly Psychiatric: A+Ox3, euthymic affect Speech: normal rate/rhythm/volume of speech Results & Data Results & Data Vital Signs (Past 12 Hours) Vital Signs Temp Pulse Pulse Resp BP BP Pulse Ox 02/20/24 11:29 02/20/24 11:27 36.9 C 70 19 114/68 90 02/20/24 10:58 71 18 91 02/20/24 10:13 02/20/24 07:50 36.9 C 54 L 18 130/76 92 02/20/24 07:36 61 16 93 02/20/24 07:16 65 02/20/24 06:00 02/20/24 03:42 36.5 C 64 18 131/58 L 94 Pulse Ox Pulse Ox Pulse Ox Pulse Ox Pulse Ox O2 Del Method O2 Del Method 02/20/24 11:29 91 91 87 L 87 L 02/20/24 11:27 Nasal Cannula 02/20/24 10:58 Nasal Cannula 02/20/24 10:13 Nasal Cannula 02/20/24 07:50 Nasal Cannula 02/20/24 07:36 Nasal Cannula 02/20/24 07:16 02/20/24 06:00 94 Nasal Cannula 02/20/24 03:42 Nasal Cannula O2 Flow Rate O2 Flow Rate O2 Flow Rate O2 Flow Rate O2 Flow Rate O2 Flow Rate 02/20/24 11:29 6 3 3 6 02/20/24 11:27 3 02/20/24 10:58 3 02/20/24 10:13 3 02/20/24 07:50 3 02/20/24 07:36 3 02/20/24 07:16 02/20/24 06:00 3 02/20/24 03:42 3
--- NOTE | 2024-02-20 16:40 | Billing Data ---
Date of Service February 20, 2024 Coding Level of Care Code 73150 SUB INP/OBS CARE
[2024-02-21 06:01] LABS: Hematocrit (blood only) 24.9 % (42.0-52.0); Hemoglobin 8.2 g/dl (14.0-18.0); Mean Corpuscular Hemoglobin 34.3 pg (25.0-34.0); Mean Corpuscular Hgb Conc 32.9 g/dL (32.0-36.0); Mean Corpuscular Volume 104.2 fL (80.0-100.0); Mean Platelet Volume 11.6 fL (9.4-12.4); Platelet Count 93 K/uL (130-400); RDW Coefficient of Variation 13.7 % (11.5-14.5); RDW Standard Deviation 51.6 fL (36.4-46.3); Red Blood Count 2.39 M/uL (4.70-6.10); White Blood Count 3.59 K/ul (4.8-10.8)
[2024-02-21 06:18] LABS: Calcium 8.1 mg/dl (8.6-10.3); Creatinine Clr Calc Pharmacy 70.3 ml/min
[2024-02-21] MEDS: OXYMETAZOLINE 0.05% 30 ML BTL NAE ONE (09:01)
--- NOTE | 2024-02-21 10:27 | Hospitalist Progress Note ---
Date of Service February 21, 2024 Assessment & Plan (1) Acute kidney injury superimposed on CKD: (2) Acute on chronic respiratory failure with hypoxia: (3) COVID-19: (4) Pancytopenia: (5) COPD exacerbation: Plan 79-year-old male with a past medical history including pancytopenia s/p chemotherapy for B-cell lymphoma, PAF, peripheral neuropathy, pulmonary hypertension, A-fib with RVR, chronic respiratory failure with hypoxia, COPD, cardiomyopathy, anemia, and GERD. Here due to COPD exacerbation Acute on chronic respiratory failure with hypoxia COPD exacerbation Multifactorial: Persistent COVID-19 infection in a immunocompromised patient (recent admission) secondary bacterial pneumonia Nasal cannula 3 L oxygen dependency Azithromycin, 500 mg, PO and dexamethasone [facility] Secondary bacterial pneumonia??? Secondary bacterial pneumonia associated with immunocompromised state s/p Zosyn and doxycycline during last hospital stay, was discharged on Augmentin/doxycycline, completed 7-day course MRSA swab, negative; procalcitonin, 0.14 upon admission Sputum Gram stain, many gram pos bacilli; sputum culture, 02/19, pending Blood Cx, negative after 48 hrs azithromycin would cover diphtheria, listeria, B. 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 Bangura Continue acyclovir prophylaxis Anemia - Hgb, 8.2 stable - CBC AM MARKO (resolved) on CKD baseline 1.16 s/p NSS at 80 mL/h x 1 L Paroxysmal atrial fibrillation Continue apixaban (VTE prophylaxis too), metoprolol succinate Plan Code status: Full code Disposition: PCU-Tele --> Med-Surg VTE Prophylaxis: Eliquis, 5 mg, PO, BID FENGI: Heart healthy Admission and Anticipated Discharge Date Admission Date: February 16, 2024 Supervising Physician Co-Signing Physician Notes I personally examined the patient and verified all grace points of history and exam, discussed case, and agree with decision making with Dr Salazar feeling worse, had nosebleed. Between Dr. Aba Dunlap and myself we saw the patient multiple times todaynosebleed finally resolved. Vitals noted, in general he is much more fatigued left nostril packed with tissues, may be mild respiratory distress the first time I saw him this morning, fading to no distress but fatigued later. Lungs initially with diffuse Rales right worse than left, on reexam quiet but clear. No accessory muscles. Epistaxisit seemed that a rather significant nosebleed was part of the insult that led to his COPD exacerbation leading to readmission to begin withgiven that it seems like a lot of the blood dripped down into his lungs creating an inflammatory response. Unfortunately this seems to be the same todayand I suspect a COPD exacerbation is suffered a bit of a setback. As far as the nosebleed itselfheld the Eliquis (fortunately he had not taken today's dose by the time I first saw him) started Afrin, and then finally nosebleed seems to have resolved with tissue soaked in Afrin. Continue to follow closely, hold Eliquis at least for 24 hours further. COPD exacerbation Does not appear to have been yet another pneumoniaand he has been off of "typical" coverage for dayswas improving until the nosebleed. I suspect, just like what I suspect was part of what led to admission, that the nosebleed dripped into his lungs on creating a significant inflammatory response. He has had a bit of a setbackcontinue oxygen, nebulizers, steroids, azithromycin, supportive care. PT/OT eval and treat. pancytopenia either re lated to antineoplastic chemotherapy or diffuse large B cell lymphoma itself - follow. anticoagulation on hold for now Subjective Seem this morning. Found awake in NAD. He report some bleeding from nose, secondary to NC and dryness. Report feeling ok. Cough with sputum. Eating ok. Still requiring oxygen. no conversational dyspnea Review of Systems Review of Systems: as per hpi Physical Exam Constitutional: WD/WN, vitals as above Respiratory: + labored breathing, + cough and able to speak in complete sentences; does not use accessory muscles Auscultation: + wheezes (some wheezing on exam today b/l); no crackles Cardiovascular: RRR, no murmur, no edema Extremities: normal capillary refill; no calf tenderness and no pedal edema Gastrointestinal (Abdomen): normal bowel sounds, soft, nontender, no hepatosplenomegaly Psychiatric: A+Ox3, euthymic affect Speech: normal rate/rhythm/volume of speech Results & Data Results & Data Vital Signs (Past 12 Hours) Vital Signs Temp Pulse Pulse Resp BP Pulse Ox O2 Del Method 02/21/24 07:47 63 02/21/24 07:47 36.4 C L 79 20 120/62 90 Nasal Cannula 02/21/24 07:15 68 18 90 Nasal Cannula 02/21/24 04:30 36.9 C 58 L 18 121/73 95 Nasal Cannula 02/20/24 22:46 36.6 C 75 17 107/63 97 Nasal Cannula O2 Flow Rate 02/21/24 07:47 02/21/24 07:47 3 02/21/24 07:15 3 02/21/24 04:30 3 02/20/24 22:46 3 Resident Activity Tracking Resident Involvement: Resident Care Provided Care Provided: Adult Hospital Medicine
[2024-02-21] MEDS: OXYMETAZOLINE 0.05% 30 ML BTL SCH (11:27)
--- NOTE | 2024-02-21 15:07 | Billing Data ---
Date of Service February 21, 2024 Coding Level of Care Code 15078 SUB INP/OBS CARE
--- NOTE | 2024-02-22 07:43 | Hospitalist Progress Note ---
Date of Service February 22, 2024 Assessment & Plan (1) Acute kidney injury superimposed on CKD: (2) Acute on chronic respiratory failure with hypoxia: (3) COVID-19: (4) Pancytopenia: (5) COPD exacerbation: Plan 79-year-old male with a past medical history including pancytopenia s/p chemotherapy for B-cell lymphoma, PAF, peripheral neuropathy, pulmonary hypertension, A-fib with RVR, chronic respiratory failure with hypoxia, COPD, cardiomyopathy, anemia, and GERD. Here due to COPD exacerbation Acute on chronic respiratory failure with hypoxia COPD exacerbation Multifactorial: Persistent COVID-19 infection in a immunocompromised patient (recent admission) secondary bacterial pneumonia Nasal cannula 3 L oxygen dependency Azithromycin, 500 mg, PO and dexamethasone Ordered DuoNebs, q4HWA, LAILA Hypersaline neb added today Secondary bacterial pneumonia Secondary bacterial pneumonia associated with immunocompromised state s/p Zosyn and doxycycline during last hospital stay, was discharged on Augmentin/doxycycline, completed 7-day course MRSA swab, negative; procalcitonin, 0.14 upon admission Sputum Gram stain, many gram pos bacilli; sputum culture, 02/19, pending Blood Cx, negative after 48 hrs azithromycin would cover diphtheria, listeria, B. 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 Bangura Continue acyclovir prophylaxis Anemia - Hgb, 8.7 stable - CBC AM MARKO (resolved) on CKD baseline 1.16 s/p NSS at 80 mL/h x 1 L Paroxysmal atrial fibrillation Continue apixaban (VTE prophylaxis too), metoprolol succinate Plan Code status: Full code Disposition: PCU-Tele --> Med-Surg VTE Prophylaxis: Eliquis, 5 mg, PO, BID FENGI: Heart healthy Admission and Anticipated Discharge Date Admission Date: February 16, 2024 Supervising Physician Co-Signing Physician Notes I personally examined the patient and verified all grace points of history and exam, discussed case, and agree with decision making with Dr Salazar Feels like he is back on track. Nosebleed has stopped. Breathing improving. Dyspnea on exertion improved. Son presentupdated to the best my ability and to his satisfaction, and answered all questions to the best my ability and to his satisfaction. Vitals noted, in general he is awake and alert pleasant no distress. HEENT normocephalic atraumatic mucous membranes moist. Breathing unlabored no accessory muscle use good effort. Lungs diminished throughout no rhonchi or wheezes faint mid right lung Ralesbetter than yesterday.Skin shows no rashes no pallor or icterus. Neuro without focal deficits. Epistaxis Resolved with Afrin and Afrin soaked tissues. No drop in hemoglobin. Safe to resume Eliquis tonight COPD exacerbation Does not appear to have been yet another pneumoniaand he has been off of "typical" coverage for dayswas improving until the nosebleed. I suspect, just like what I suspect was part of what led to admission, that the nosebleed dripped into his lungs on creating a significant inflammatory response. fortunately doing better again, continue current care. PT/OT eval and treat. pancytopenia either related to antineoplastic chemotherapy or diffuse large B cell lymphoma itself - follow. anticipate him being able to go home once he has enough improvement in his dyspnea on exertion to be able to take care of himselfhopefully this will be the case in the coming days. Subjective Seem this morning. Found awake in NAD. Epistaxis resolved. Feeling ok, no back to his baseline. Cough with sputum. No conversational dyspnea Review of Systems Review of Systems: as per hpi Physical Exam Constitutional: WD/WN, vitals as above Respiratory: + labored breathing, + cough and able to speak in complete sentences; does not use accessory muscles Auscultation: + wheezes (some wheezing on exam today b/l); no crackles Cardiovascular: RRR, no murmur, no edema Extremities: normal capillary refill; no calf tenderness and no pedal edema Gastrointestinal (Abdomen): normal bowel sounds, soft, nontender, no hepatosplenomegaly Psychiatric: A+Ox3, euthymic affect Speech: normal rate/rhythm/volume of speech Results & Data Results & Data Vital Signs (Past 12 Hours) Vital Signs Temp Pulse Pulse Resp BP BP Pulse Ox 02/22/24 07:18 78 18 92 02/22/24 07:08 63 02/22/24 03:05 36.9 C 62 22 124/69 88 L 02/21/24 22:54 75 02/21/24 22:16 36.9 C 71 16 107/70 91 02/21/24 20:17 O2 Del Method O2 Flow Rate 02/22/24 07:18 Oxymask 4 02/22/24 07:08 02/22/24 03:05 Oxymask 4 02/21/24 22:54 02/21/24 22:16 Oxymask 4.0 02/21/24 20:17 Oxymask 4 Resident Activity Tracking Resident Involvement: Resident Care Provided Care Provided: Adult Hospital Medicine
[2024-02-22 08:12] LABS: Hematocrit (blood only) 26.3 % (42.0-52.0); Hemoglobin 8.7 g/dl (14.0-18.0); Immature Granulocytes # (auto) 0.03 K/uL (0.01-0.20); Immature Granulocytes % (auto) 1.1 %; Lymphocytes # (auto) 0.42 K/uL (1.20-3.40); Lymphocytes % (auto) 14.9 %; Mean Corpuscular Hemoglobin 34.3 pg (25.0-34.0); Mean Corpuscular Hgb Conc 33.1 g/dL (32.0-36.0); Mean Corpuscular Volume 103.5 fL (80.0-100.0); Mean Platelet Volume 11.6 fL (9.4-12.4); Monocytes # (auto) 0.18 K/uL (0.11-0.59); Monocytes % (auto) 6.4 %; Neutrophils # (auto) 2.19 K/uL (1.40-6.50); Neutrophils % (auto) 77.6 %; Platelet Count 99 K/uL (130-400); RDW Coefficient of Variation 13.9 % (11.5-14.5); RDW Standard Deviation 52.8 fL (36.4-46.3); Red Blood Count 2.54 M/uL (4.70-6.10); White Blood Count 2.82 K/ul (4.8-10.8)
[2024-02-22 08:24] LABS: Albumin Globulin Ratio 1.1 (0.9-2); Albumin Level 2.9 gm/dl (3.4-5.0); BUN Creatinine Ratio 27.2 (10-20); Bilirubin,Total 0.7 mg/dl (0.2-1.0); Calcium 8.3 mg/dl (8.6-10.3); Creatinine Clr Calc Pharmacy 76.4 ml/min; Globulin 2.7 gm/dl (2.5-4.0); Total Protein 5.6 gm/dl (6.0-8.3)
[2024-02-22] MEDS: SODIUM CHLOR 7% 4 ML NEB NEB ONE (11:46)
--- NOTE | 2024-02-22 17:33 | Billing Data ---
Date of Service February 22, 2024 Coding Level of Care Code 88824 SUB INP/OBS CARE
[2024-02-22] MEDS: APIXABAN 5 MG TABLET PO SCH (19:34)
[2024-02-23 07:58] LABS: BUN Creatinine Ratio 27.4 (10-20); Calcium 8.1 mg/dl (8.6-10.3); Creatinine Clr Calc Pharmacy 73.6 ml/min; Potassium 3.9 mmol/L (3.5-5.1)
--- NOTE | 2024-02-23 08:01 | Hospitalist Progress Note ---
Date of Service February 23, 2024 Assessment & Plan (1) Acute kidney injury superimposed on CKD: (2) Acute on chronic respiratory failure with hypoxia: (3) COVID-19: (4) Pancytopenia: (5) COPD exacerbation: Plan 79-year-old male with a past medical history including pancytopenia s/p chemotherapy for B-cell lymphoma, PAF, peripheral neuropathy, pulmonary hypertension, A-fib with RVR, chronic respiratory failure with hypoxia, COPD, cardiomyopathy, anemia, and GERD. Here due to COPD exacerbation Acute on chronic respiratory failure with hypoxia COPD exacerbation Multifactorial: Recent admission for COVID-19 infection in a immunocompromised patient, secondary bacterial pneumonia Nasal cannula 3 L O2 at baseline - currently elevated requirement, continue supplemental O2 as needed to maintain SpO2 >88% - suspect decline secondary to deconditioning + mucous plugging, consider HRCT chest if failing to improve Spirometry report from March 2023 reviewed, notable for moderate obstructive pattern with FEV1 57% of predicted Continue Azithromycin and dexamethasone Continue LABA, LAMA, ICS Continue DuoNebs, q4HWA, [facility] Supportive care measures: hypertonic saline neb, incentive spirometry, OOB, guaifenesin/dextromethorphan Secondary bacterial pneumonia Secondary bacterial pneumonia associated with immunocompromised state s/p Zosyn and doxycycline during last hospital stay, was discharged on Augmentin/doxycycline, completed 7-day course MRSA swab, negative; procalcitonin, 0.14 upon admission Sputum cx + Corynebacterium Striatum - normal darleen though, per lit review, can be associated with pneumonia in immunocompromised patients - could consider treating if respiratory status fails to improve. 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 Bangura Continue acyclovir prophylaxis Anemia - Hgb, 8.0 stable - CBC AM MARKO (resolved) on CKD baseline 1.16 Paroxysmal atrial fibrillation Continue apixaban, metoprolol succinate Plan Code status: Full code Disposition: Med-Surg VTE Prophylaxis: Eliquis, 5 mg, PO, BID FENGI: Heart healthy Admission and Anticipated Discharge Date Admission Date: February 16, 2024 Supervising Physician Co-Signing Physician Notes Attending Physician Supervision Note: I independently interviewed and examined the patient and verified the grace history and physical, reviewed labs and image studies and agree with findings and care plan noted above. No chest pain. cough with thick phlegm initially. Feels tired. Breathing improving. Vitals noted, in general he is awake and alert pleasant no distress. HEENT normocephalic atraumatic mucous membranes moist. Breathing unlabored no accessory muscle use good effort. Lungs diminished throughout no rhonchi or wheezes faint mid right lung Rales.Skin shows no rashes no pallor or icterus. Neuro without focal deficits. Epistaxis Resolved with Afrin and Afrin soaked tissues. No drop in hemoglobin. Eliquis resumed. Acute on chronic resp failure - O2 needs higher. 3L at baseline. Now needing 7L. -no concern of acute infection -consider HR chest CT if no improvement. COPD exacerbation No concern of new pneumonia. Possibly - Nosebleed dripped into airway likely led to significant inflammatory response. Deconditioning also a contributor. -continue Incentive spirometry, OOB, flutter valve, saline nebs for thick phlegm. -d/c azithromycin -continue IV dexamethasone. Pancytopenia - ? from antineoplastic chemotherapy or diffuse large B cell lymphoma - counts stable. PT/OT eval and treat - home once O2 need improves Subjective Pt seen at bedside this AM, reports worsening shortness of breath even at rest, elevated O2 requirement of 5-7L compared to home baseline of 3L. Denies fevers/chills, night sweats. Also reports feeling of right-sided pressure in chest. Reports thick sputum with cough. Denies further epistaxis since Friday. Review of Systems Review of Systems: as per hpi Physical Exam Physical Exam: General: Alert and oriented. No acute distress Cardiac: Regular rate and rhythm, no murmurs appreciated Respiratory: Lungs sounds globally diminished, no wheezes, rales, rhonchi appreciated., + increased work of breathing. Extremities: No lower extremity edema, calves non-tender bilaterally Results & Data Results & Data Vital Signs (Past 12 Hours) Vital Signs Temp Pulse Pulse Resp BP Pulse Ox O2 Del Method 02/23/24 07:28 Nasal Cannula 02/23/24 07:01 68 18 92 Nasal Cannula 02/23/24 02:30 36.8 C 64 21 117/71 93 Nasal Cannula 02/22/24 22:46 76 02/22/24 22:31 36.9 C 72 21 101/58 L 92 Nasal Cannula 02/22/24 20:37 Nasal Cannula O2 Flow Rate 02/23/24 07:28 4 02/23/24 07:01 6 02/23/24 02:30 7 02/22/24 22:46 02/22/24 22:31 7 02/22/24 20:37 5 Resident Activity Tracking Resident Involvement: Resident Care Provided Care Provided: Adult Hospital Medicine
[2024-02-23 08:07] LABS: Hematocrit (blood only) 24.8 % (42.0-52.0); Immature Granulocytes # (auto) 0.03 K/uL (0.01-0.20); Immature Granulocytes % (auto) 1.4 %; Lymphocytes # (auto) 0.22 K/uL (1.20-3.40); Lymphocytes % (auto) 10.5 %; Mean Corpuscular Hemoglobin 33.5 pg (25.0-34.0); Mean Corpuscular Hgb Conc 32.3 g/dL (32.0-36.0); Mean Corpuscular Volume 103.8 fL (80.0-100.0); Mean Platelet Volume 11.6 fL (9.4-12.4); Monocytes # (auto) 0.11 K/uL (0.11-0.59); Monocytes % (auto) 5.3 %; Neutrophils # (auto) 1.73 K/uL (1.40-6.50); Neutrophils % (auto) 82.8 %; Platelet Count 93 K/uL (130-400); RDW Coefficient of Variation 13.8 % (11.5-14.5); RDW Standard Deviation 52.6 fL (36.4-46.3); Red Blood Count 2.39 M/uL (4.70-6.10); White Blood Count 2.09 K/ul (4.8-10.8)
[2024-02-23] MEDS: SODIUM CHLOR 7% 4 ML NEB NEB ONE (12:34)
[2024-02-24 06:45] LABS: Basophils # (auto) 0.01 K/uL (0.00-0.20); Basophils % (auto) 0.5 %; Hematocrit (blood only) 26.1 % (42.0-52.0); Hemoglobin 8.8 g/dl (14.0-18.0); Immature Granulocytes # (auto) 0.05 K/uL (0.01-0.20); Immature Granulocytes % (auto) 2.6 %; Lymphocytes # (auto) 0.12 K/uL (1.20-3.40); Lymphocytes % (auto) 6.3 %; Mean Corpuscular Hemoglobin 34.6 pg (25.0-34.0); Mean Corpuscular Hgb Conc 33.7 g/dL (32.0-36.0); Mean Corpuscular Volume 102.8 fL (80.0-100.0); Mean Platelet Volume 11.4 fL (9.4-12.4); Monocytes # (auto) 0.15 K/uL (0.11-0.59); Monocytes % (auto) 7.9 %; Neutrophils # (auto) 1.56 K/uL (1.40-6.50); Neutrophils % (auto) 82.7 %; Platelet Count 104 K/uL (130-400); RDW Coefficient of Variation 13.7 % (11.5-14.5); RDW Standard Deviation 51.7 fL (36.4-46.3); Red Blood Count 2.54 M/uL (4.70-6.10); White Blood Count 1.89 K/ul (4.8-10.8)
[2024-02-24 07:05] LABS: BUN Creatinine Ratio 29.5 (10-20); C Reactive Protein 8.11 mg/dl (0-0.5); Calcium 8.4 mg/dl (8.6-10.3); Creatinine Clr Calc Pharmacy 70.3 ml/min; Potassium 4.1 mmol/L (3.5-5.1)
--- NOTE | 2024-02-24 07:53 | Hospitalist Progress Note ---
Date of Service February 24, 2024 Assessment & Plan (1) Acute kidney injury superimposed on CKD: (2) Acute on chronic respiratory failure with hypoxia: (3) COVID-19: (4) Pancytopenia: (5) COPD exacerbation: Plan 79-year-old male with a past medical history including pancytopenia s/p chemotherapy for B-cell lymphoma, PAF, peripheral neuropathy, pulmonary hypertension, A-fib with RVR, chronic respiratory failure with hypoxia, COPD, cardiomyopathy, anemia, and GERD. Here due to COPD exacerbation Acute on chronic respiratory failure with hypoxia COPD exacerbation Multifactorial: Recent admission for COVID-19 infection in a immunocompromised patient, secondary bacterial pneumonia Nasal cannula 3 L O2 at baseline - currently elevated requirement, continue supplemental O2 as needed to maintain SpO2 >88% - suspect secondary to deconditioning +/- mucous plugging, will obtain HRCT chest - consider pulmonology consult pending read of CT Spirometry report from March 2023 reviewed, notable for moderate obstructive pattern with FEV1 57% of predicted Continue dexamethasone Continue LABA, LAMA, ICS Continue DuoNebs, q4HWA, LAILA Continue supportive care measures/pulmonary toilet: hypertonic saline nebs, incentive spirometry, flutter valve, OOB, guaifenesin/dextromethorphan Secondary bacterial pneumonia Secondary bacterial pneumonia during recent hospital stay - s/p Zosyn and doxycycline tx while inpatient, discharged on Augmentin/doxycycline, completed 7-day course MRSA swab, negative; procalcitonin, 0.14 upon admission Sputum cx + Corynebacterium Striatum - normal darleen though, per lit review, can be associated with pneumonia in immunocompromised patients - ?consider treating if respiratory status fails to improve. 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 Bangura Continue acyclovir prophylaxis Anemia - Hgb, 8.8 stable - CBC AM MARKO (resolved) on CKD baseline 1.16 Paroxysmal atrial fibrillation Continue apixaban, metoprolol succinate Plan Code status: Full code Disposition: Med-Surg VTE Prophylaxis: Eliquis, 5 mg, PO, BID FENGI: Heart healthy Admission and Anticipated Discharge Date Admission Date: February 16, 2024 Supervising Physician Co-Signing Physician Notes Attending Physician Supervision Note: I independently interviewed and examined the patient and verified the grace history and physical, reviewed labs and image studies and agree with findings and care plan noted above. Continuing to get easily winded and unable to ambulate even few steps. no chest pain. Vitals noted, in general he is awake and alert pleasant no distress. HEENT normocephalic atraumatic mucous membranes moist. Breathing unlabored no accessory muscle use good effort. Lungs diminished throughout.Skin shows no rashes no pallor or icterus. Neuro without focal deficits. Acute on chronic resp failure - O2 needs higher. 3L at baseline. Now needing 7L. COPD exacerbation (setting of recent COVID and bacterial pneumonia) -continue Incentive spirometry, OOB, flutter valve, saline nebs for thick phlegm. -Treated with azithromycin and zosyn -continue IV dexamethasone. -get HR chest CT. -results reviewed - will consult pulmonary. -procal negative on 02/20, no fever. Pancytopenia - ? from antineoplastic chemotherapy or diffuse large B cell lymphoma - follow counts. Epistaxis Resolved with Afrin and Afrin soaked tissues. No drop in hemoglobin. Eliquis resumed. PT/OT eval and treat - home once O2 need improves Subjective Pt seen at bedside this AM, no acute overnight events, supplemental oxygen requirement still above baseline. Sx largely unchanged, okay at rest but significant SOB with even small amount of movement. Denies fevers/chills, night sweats. Review of Systems Review of Systems: as per hpi Physical Exam Physical Exam: General: Alert and oriented. No acute distress Cardiac: Regular rate and rhythm, no murmurs appreciated Respiratory: Lungs sounds globally diminished, +mild, diffuse rhonchi, + increased work of breathing. Extremities: No lower extremity edema, calves non-tender bilaterally Results & Data Results & Data Vital Signs (Past 12 Hours) Vital Signs Temp Pulse Pulse Resp BP Pulse Ox O2 Del Method 02/24/24 07:09 36.8 C 68 18 125/57 L 96 Room Air 02/24/24 07:05 78 20 86 L Oxymask 02/24/24 04:03 91 Oxymask 02/24/24 03:10 Room Air 02/24/24 03:09 36.4 C L 78 20 118/75 91 Oxymask 02/23/24 23:39 74 16 92 Oxymask 02/23/24 23:06 74 02/23/24 22:43 36.6 C 75 22 106/66 92 Oxymask O2 Flow Rate 02/24/24 07:09 02/24/24 07:05 4 02/24/24 04:03 4 02/24/24 03:10 02/24/24 03:09 6 02/23/24 23:39 6 02/23/24 23:06 02/23/24 22:43 4 Resident Activity Tracking Resident Involvement: Resident Care Provided Care Provided: Adult Hospital Medicine
--- NOTE | 2024-02-24 11:42 | CT Scan Report ---
CT chest HighRes diag wo con CLINICAL HISTORY: persistent SOB, increased supp O2 demand TECHNIQUE: Multidetector row helical CT of the chest was performed. Coronal and sagittal reformations were obtained. Automated dose lowering techniques and/or adjustment according to patient size were u tilized for this exam. CT DOSE: 1115.34 mGy.cm Comparison: Comparison is made to CTA chest 02/16/2024 FINDINGS: Lungs and pleura: Prominent emphysema and scarring changes are noted. There is interval development o f consolidation in the right greater than left lung. Heart and pericardium: Cardiomegaly is seen with biatrial enlargement. Vessels: Severe atherosclerotic changes in the aorta and coronary arteries. Mediastinum and yong: Anterior mediastinal lesion is unchanged measuring approximately 26 mm. Mediast inal lymph nodes measure up to 11 mm. Chest wall and lower neck: A left port catheter is seen. Abdomen: A hiatal hernia is seen. Bones: Degenerative changes in the thoracic spine. IMPRESSION: 1. There is interval development of consolidation compatible with pneumonia superimposed upon promin ent emphysema and scarring. Reactive lymphadenopathy is seen. 2. 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 ACT 112: Negative or not required by law. Electronically signed by: Lorenzo Lee M.D. 02/24/2024 11:40 AM
--- NOTE | 2024-02-25 07:21 | Hospitalist Progress Note ---
Date of Service February 25, 2024 Assessment & Plan (1) Acute kidney injury superimposed on CKD: (2) Acute on chronic respiratory failure with hypoxia: (3) COVID-19: (4) Pancytopenia: (5) COPD exacerbation: Plan 79-year-old male with a past medical history including pancytopenia s/p chemotherapy for B-cell lymphoma, PAF, peripheral neuropathy, pulmonary hypertension, A-fib with RVR, chronic respiratory failure with hypoxia, COPD, cardiomyopathy, anemia, and GERD. Here due to COPD exacerbation Acute on chronic respiratory failure with hypoxia COPD exacerbation, Recurrent Pneumonia: Multifactorial: Recent admission for COVID-19 infection, immunocompromised status, secondary bacterial pneumonia Nasal cannula 3 L O2 at baseline - currently elevated requirement, continue supplemental O2 as needed to maintain SpO2 >88% HRCT chest demonstrated interval development of consolidation suspicious for pneumonia, Sputum cx + Corynebacterium Striatum - Due to escalated O2 requirement, lack of clinical improvement, and CT suggestive of new pneumonia, will empirically start broad spectrum tx with Vanc and Zosyn - Pulm consulted, appreciate recs: - Elevated suspicion for opportunistic infection: empiric tx started for PJP and Legionella/atypicals, relevant labs pending - Repeat nasal MRSA pending - if negative, will discontinue Vanc - ID consulted, appreciate recs: Spirometry report from March 2023 reviewed, notable for moderate obstructive pattern with FEV1 57% of predicted Continue dexamethasone Continue LABA, LAMA, ICS Continue DuoNebs, q4HWA, LAILA Continue supportive care measures/pulmonary toilet: hypertonic saline nebs, incentive spirometry, flutter valve, OOB, guaifenesin/dextromethorphan Recent COVID-19 Infection with secondary bacterial pneumonia: Patient was initially positive for COVID on 02/04/2024, residual positive noted on admission S/p dexamethasone x10 days and remdesivir x3 days during last hospital stay + Zosyn and doxycycline tx while inpatient, discharged on Augmentin/doxycycline, completed 7-day course ?whether SOB/increased O2 demand may be related to fibrotic changes secondary to Covid infection in addition to new infection Pancytopenia 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 Bangura Continue acyclovir prophylaxis Anemia - Hgb stable - CBC AM MARKO on CKD - MARKO resolved Paroxysmal atrial fibrillation Continue apixaban, metoprolol succinate Plan VTE Prophylaxis: Eliquis, 5 mg, PO, BID FENGI: Heart healthy Admission and Anticipated Discharge Date Admission Date: February 16, 2024 Supervising Physician Co-Signing Physician Notes Attending Physician Supervision Note: I independently interviewed and examined the patient and verified the grace history and physical, reviewed labs and image studies and agree with findings and care plan noted above. Continuing to get easily winded with any movement. no chest pain. no fever. Vitals noted, in general he is awake and alert pleasant no distress. HEENT normocephalic atraumatic mucous membranes moist. Exertional dyspnea. Lungs diminished throughout.Skin shows no rashes no pallor or icterus. Acute on chronic resp failure - O2 needs higher. 3L at baseline. Now needing 7L. COPD (moderate) exacerbation (setting of recent COVID and bacterial pneumonia - treated) Pneumonia - infiltrate on Chest CT 02/23 -continue Incentive spirometry, OOB, flutter valve, saline nebs for thick phlegm. -Umeclidinium inhaled (on spiriva at home), Albuterol nebs. -Treated with azithromycin and zosyn. Resumed zosyn, azithromycin, vancomycin -continue IV dexamethasone. -Pul and ID consult - agree with broad spectrum abx. Vanco will cover c ornybacterium (possibly infectious in immunocompromised setting) -also cover for PJP - bactrim added. -Beta-glucan, Galactoman Ag, cryptococcus Ag, PJP, LDH, CMV PCR, urine legionella testing ordered. -pending sputum culture - to d/c zosyn if no improvement. -BNP normal. Pancytopenia - ? from diffuse large B cell lymphoma - follow counts. DLBCL - port in place. off chemo Epistaxis Resolved. Eliquis resumed. Chronic HFrEF PAF - apixaban, metoprolol Per PT/OT eval and treat - home once O2 need improves Subjective Pt seen at bedside this AM, no acute overnight events, overnight O2 requirement 4L, escalated requirement this morning, 9-10L. Sx largely unchanged, okay at rest but significant SOB with even small amount of movement. Denies fevers/chills, night sweats. Minimally productive cough. Review of Systems Review of Systems: as per hpi Physical Exam Physical Exam: General: Alert and oriented. No acute distress Cardiac: Regular rate and rhythm, no murmurs appreciated Respiratory: Lungs sounds globally diminished, +mild, diffuse rhonchi, + increased work of breathing. Extremities: No lower extremity edema, calves non-tender bilaterally Results & Data Results & Data Vital Signs (Past 12 Hours) Vital Signs Temp Pulse Resp BP Pulse Ox O2 Del Method O2 Flow Rate 02/25/24 07:11 36.6 C 68 18 111/62 96 Oxymask 02/24/24 20:30 Oxymask 4 02/24/24 19:50 78 18 91 Oxymask 4 02/24/24 19:44 36.7 C 74 16 101/60 97 Oxymask 4 Resident Activity Tracking Resident Involvement: Resident Care Provided Care Provided: Adult Hospital Medicine
[2024-02-25 08:05] LABS: Hematocrit (blood only) 26.4 % (42.0-52.0); Hemoglobin 8.7 g/dl (14.0-18.0); Immature Granulocytes # (auto) 0.08 K/uL (0.01-0.20); Immature Granulocytes % (auto) 4.8 %; Lymphocytes # (auto) 0.21 K/uL (1.20-3.40); Lymphocytes % (auto) 12.7 %; Mean Corpuscular Hemoglobin 33.6 pg (25.0-34.0); Mean Corpuscular Volume 101.9 fL (80.0-100.0); Mean Platelet Volume 11.4 fL (9.4-12.4); Monocytes # (auto) 0.12 K/uL (0.11-0.59); Monocytes % (auto) 7.2 %; Neutrophils # (auto) 1.25 K/uL (1.40-6.50); Neutrophils % (auto) 75.3 %; Platelet Count 98 K/uL (130-400); RDW Coefficient of Variation 13.8 % (11.5-14.5); RDW Standard Deviation 50.6 fL (36.4-46.3); Red Blood Count 2.59 M/uL (4.70-6.10); White Blood Count 1.66 K/ul (4.8-10.8)
[2024-02-25 08:16] LABS: BUN Creatinine Ratio 34.7 (10-20); Calcium 8.3 mg/dl (8.6-10.3); Creatinine Clr Calc Pharmacy 82.5 ml/min; Potassium 4.3 mmol/L (3.5-5.1)
[2024-02-25] MEDS ORDERED: VANCOMYCIN CONSULT ACTIVE PRN (08:54)
[2024-02-25] MEDS: 4.5GM X1 IV STA (10:56)
[2024-02-25] MEDS: VANCOMYCIN HCL 1,750 MG in SODIUM CHLORIDE 0.9% 500 ML IV ONE (11:57)
--- NOTE | 2024-02-25 12:15 | Pulmonary Consultation ---
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 He has a baseline history of severe COPD and is oxygen dependent at baseline. His CT chest is suggestive of multifocal pneumonia overlying severe emphysema. The etiology of these infiltrates is unclear, but given his immunosuppressed state, opportunistic infections are certainly possible such as PJP, Aspergillus, nontuberculous Mycobacterium, nocardia and others. Inflammatory conditions are also possible such as pneumonitis related to chemotherapy and/or post fibrotic changes due to COVID. Patient is currently on dexamethasone 6 mg daily. Check BNP and diurese as appropriate depending on BNP level. Repeat MRSA screen. If negative, discontinue vancomycin. Start empiric PJP treatment with IV Bactrim. Check PJP sputum PCR. Start azithromycin to treat for potential atypical organisms and Legionella. Legionella urine antigen ordered. Beta glucan ordered along with Aspergillus galactomannan. Continue Zosyn for the time being. ID consult ordered. Thank you for the consult. Will continue to follow with you. History of Present Illness Reason for Consultation: COPD exacerbation Attending Physician: Melvi Arechiga MD History of Present Illness 79-year-old male known to Dr. Briscoe from the pulmonary clinic last seen by him in the office 08/20/2023 who presented to the hospital due to increasing shortness of breath. He also has a history of atrial fibrillation on Eliquis, GERD, hypertension, dyslipidemia and diffuse B-cell lymphoma which is relapsed. Patient with a [id number] smoking history and quit in 2021. His labs are significant for severe leukopenia, anemia and thrombocytopenia. Chemistry is largely unremarkable. CRP elevated to 8.11. Procalcitonin negative at 0.04. Patient tested positive for COVID-19 1120/24 and 02/16/2024. Chest CTA 02/16/2024 revealed multifocal peripheral subpleural groundglass opacities with fibrotic changes and traction bronchiectasis noted bilaterally. A 3.7 cm apical bulla on the left was noted as well. A well-defined homogenous lesion measuring 2.8 cm in the upper mediastinum was also seen. Subsequent HRCT 02/24/2024 revealed development of consolidation compatible with pneumonia superimposed on emphysema. Patient is currently on 6 mg dexamethasone daily, prophylactic acyclovir for 100 mg p.o. twice daily, Breo, Incruse, guaifenesin, vancomycin and Zosyn. MRSA screen was - 02/16/2024. Sputum culture 02/22/2024 revealed Cornye striatum. Patient notes that ever since getting COVID-19 his symptoms have gotten sign ificantly worse including more cough and shortness of breath. He notes that he had rust colored sputum a couple days ago, but that resolved as of yesterday. He denies any fevers or chills. He is dyspneic with minimal mobility. He passed the time by drawing. He notes that he started driving about 8 months ago and his skills have improved significantly. He had many different occupational exposures over the years including brake dust exposures, fumes and tobacco smoke. Allergies Allergy/AdvReac Type Severity Reaction Status Date / Time rituximab Allergy Severe Swelling Verified 11/03/23 15:44 of Lip/Tongue/Throat Home Medications Medication Instructions Recorded Confirmed Type acyclovir 200 mg capsule 400 mg PO BID 07/09/22 02/16/24 History apixaban 5 mg tablet (Eliquis) 5 mg PO BID 07/09/22 02/16/24 History atorvastatin 80 mg tablet 80 mg PO QPM 07/09/22 02/16/24 History cholecalciferol (vitamin D3) 50 50 mcg PO QAM 07/09/22 02/16/24 History mcg (2,000 unit) capsule folic acid 1 mg tablet 1 mg PO QAM 07/09/22 02/16/24 History mecobalamin (vitamin B12) 1,000 1,000 mcg PO QAM 07/09/22 02/16/24 History mcg chewable tablet metoprolol succinate 50 mg 50 mg PO QAM 07/09/22 02/16/24 History tablet,extended release 24 hr aspirin 81 mg capsule 81 mg PO QAM 08/29/22 02/16/24 History omeprazole 20 mg tablet,delayed 20 mg PO QAM 08/29/22 02/16/24 History release Flutter Valve #1 ea 03/20/23 02/16/24 Rx dextromethorphan-guaifenesin 10 10 ml PO Q6H PRN cough #237 mL 03/20/23 02/16/24 Rx mg-100 mg/5 mL oral liquid ketoconazole 2 % topical cream 1 applic topical BID PRN Skin 07/17/23 02/16/24 History Irritation pramipexole 0.25 mg tablet 0.25 mg PO HS 08/12/23 02/16/24 History albuterol sulfate 90 mcg/actuation 2 puff inhalation QID PRN 08/20/23 02/16/24 Rx aerosol inhaler shortness of breath or wheezing #8.5 grams fluticasone 500 mcg-salmeterol 50 1 inh inhalation BID #60 ea 08/20/23 02/16/24 Rx mcg/dose blistr powdr for inhalation (Advair Diskus) tiotropium bromide 2.5 2 inh inhalation QAM #4 grams 08/20/23 02/16/24 Rx mcg/actuation mist for inhalation (Spiriva Respimat) acetaminophen 500 mg tablet 1,000 mg PO QID PRN Pain 09/10/23 02/16/24 History (Tylenol Extra Strength) pregabalin 75 mg capsule (Lyrica) 75 mg PO BID #60 caps 10/10/23 02/16/24 Rx empagliflozin 10 mg tablet 10 mg PO QAM 02/04/24 02/16/24 History (Jardiance) dexamethasone 6 mg tablet 6 mg PO DAILY #6 tabs 02/07/24 02/16/24 Rx Patient History Medical History CKD (chronic kidney disease) stage 3, GFR 30-59 ml/min Claudication dx after AAA repair>causing back pain Arthritis GERD (gastroesophageal reflux disease) History of follicular lymphoma chemo/radiation tx 2017? Diffuse large B cell lymphoma current dx Hx of renal failure hospitalized 2021 ([place] in [place]) developed sepsis>had dialysis for 1 week while admitted>resolved issue Hx of sepsis Hypertension Hyperlipidemia History of atrial fibrillation 2021 On home oxygen therapy 3l cont. Chronic obstructive pulmonary disease Edema of both lower extremities Hx of chronic bronchitis Mitral valve regurgitation follow with Dr. Traore History of skin cancer nose area Restless leg syndrome Chronic back pain Stenosis of right carotid artery TIA (transient ischemic attack) x 2 (2021), on Eliquis, follows with [facility] Surgical History Port-A-Cath in place (08/21/23) p Insertion of Left Cephalic Access Port with Fluoroscopy(Left) - Chirag Palomino MD, FACS MRI port placed in the left cephalic vein throughout the procedure fluoroscopy was used to position the catheter and I personally reviewed all the images Hx of vasectomy History of tooth extraction History of cataract surgery right/left History of bronchoscopy History of Mohs micrographic surgery for skin cancer Hx of biopsy multiple lymph nodes/neck Hx of knee surgery multiple, both knees Hx of discectomy c5 History of endovascular stent graft for abdominal aortic aneurysm (AAA) 2019 Family History Father ALS (amyotrophic lateral sclerosis) Other No family history of adverse response to anesthesia Social History Smoking Status: Former smoker Tobacco Type: Cigarettes packs per day: ; Cigarettes Per Day: 2020; Second Hand Exposure: No; Do You Dip or Chew Tobacco: No; Tobacco Cessation Education Requested by Patient: No Hx Alcohol Use: Yes Alcohol type: beer Alcohol Intake Frequency Comment: 2-3 beers daily Hx Substance Use: No Preferred Language: Greenlandic Communication Ability: Effective Visual Impairment: Partially Limited Hearing Ability: Normal Tree Surgeon Helper Required: No Beliefs That Will Affect Care: None marital status: Current Living Situation: Alone Current Living Situation Comment: home alone current occupational status: retired 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 Patient is in no apparent distress. Eyes: Pupils are equal round and reactive to light. Conjunctivae are normal. Anicteric sclera. Ears nose, mouth and throat: No perioral cyanosis. Oxy mask in place. Neck: Trachea is midline. Visual inspection is normal. Respiratory: Diffuse coarse rhonchi. Mild tachypnea. No increased work of breathing. Cardiovascular: Regular rate and rhythm. No murmurs. No edema. Gastrointestinal: Normal bowel sounds, soft, nontender and nondistended. No hepatosplenomegaly noted. Musculoskeletal: No cyanosis. Patient is able to move all extremities. Strength is 5 out of 5 in the upper and lower extremities. Skin: No rashes, warm dry and intact. Neurologic: No obvious focal neurological deficits seen. Psychiatric: Alert and oriented x3 with a euthymic affect. Results & Data Results & Data Vital Signs (Past 12 Hours) Vital Signs Temp Pulse Resp BP Pulse Ox O2 Del Method O2 Flow Rate 02/25/24 11:22 70 17 97 Oxymask 9 02/25/24 07:25 71 20 86 L Oxymask 10 02/25/24 07:11 36.6 C 68 18 111/62 96 Oxymask PG Care Time/CCT Total # of Minutes Spent Total Time Spent with Patient: Total time spent is greater than 50% in coordination of care (as documented) at patient's floor/unit and/or counseling patient: Coding Level of Care Code 01859 INT INP/OBS CARE 3/75MIN Diagnoses Idiopathic interstitial pneumonia J84.111 COVID-19 U07.1 COPD exacerbation J44.1 Immunosuppressed due to chemotherapy D84.821; T45.1X5A; Z79.69 Acute hypoxemic respiratory failure J96.01 Anemia D64.9 Anemia type: unspecified type Systolic heart failure I50.20
[2024-02-25] MEDS ORDERED: AZITHROMYCIN 500 MG VIAL IV STA (12:17)
[2024-02-25] MEDS ORDERED: AZITHROMYCIN 250 MG TAB PO STA (12:30)
[2024-02-25] MEDS: TRIMETH IV ONE (13:42)
[2024-02-25] MEDS: SULFA IV ONE (13:42)
[2024-02-25] MEDS: DEXTROSE 5% IV ONE (13:42)
--- NOTE | 2024-02-25 14:18 | Infectious Disease Consult ---
Date of Consultation February 25, 2024 Assessment & Plan (1) Acute hypoxemic respiratory failure: (2) Diffuse large B cell lymphoma: (3) Acute kidney injury superimposed on CKD: (4) Pancytopenia: Plan 79yo M with h/o DLBCL now off chemo (last dose of chemo a few months ago, on ACV ppx), s/p chest port, cardiomyopathy, afib on Eliquis, GERD, COPD on 3L home O2, CKD III, recent admission 02/03-02/06 with COVID infection s/p RDV x 3d and also treated for ?bacterial PNA and dcd on doxy/augmentin x 7d course who presented on 02/14 with worsening SOB, chest congestion, productive cough and hypoxia. Here he has been afebrile, BP stable, initially on 4L NC. Initial labs with WBC 6.15, low Hb and platelets. Cr 1.41. Lactate 1.1. AST/ALT wnl. PCT 0.06>>0.04. UA 0-5 WBC. CRP 9.65>>2.62. MRSA screen neg. RPP pos for COVID. CTA chest with severe emphysematous and peripheral fibrotic changes with multifocal peripherally and subpleural GGO on both lobes could be due to COVID19 or other acute infection. He was started on zosyn and azithromycin. Course c/b worsening hypoxia up to 6- 7L. HRCT on 02/23 showed interval development of consolidation c/w pneumonia superimposed upon prominent emphysema and scarring, reactive LAD. Currently requiring 9L oxymask. CRP 8.11. DDx includes sequelae of COVID infection, also consider opportunistic infections given his DLBCL, fungal, superimposed bacterial, CMV. His PCT has remained quite low and he has been on antibiotics since 02/15 without much improvement. He did have worsening O2 today and CT with interval development of consolidation, so can continue on empiric abx for now. Sputum from 02/19 had Corynebacterium, which could be a contaminant vs a true cause of infection in an immunocompromised individual. Coverage of this would require vancomycin, which has already been started along with repeat SCx ordered. He has also been on azithromycin from 02/15-02/22, if it were severe legionella infection, he would need treatment for 7-10 days so continuation of this is ok until we get results from legionella testing. Regarding opportunistic infections, agree with starting PJP treatment given his severe hypoxia while waiting for studies. Fungal infection is also possible (ie invasive aspergillosis etc), but will wait for fungal markers (galactomannan, fungitell, cryptococcal Ag) and hold off on antifungals based on HRCT findings. If we cannot determine etiology, may need to discuss bronch though will defer this to pulmonary. # Acute hypoxic respiratory failure # Recent COVID infection # MARKO on CKD improved # DLBCL in remission port in place, off chemo - agree with workup that is ordered: fungitell, aspergillus Ag, urine legionella, MRSA screen (neg), sputum cx - Jeny also ordered serum cryptococcal Ag, LDH, CMV PCR - will continue vancomycin (cover Coryne if it is true infection) - agree with empiric Bactrim therapy while waiting for PJP w/u - continue azithromycin (stop if U legionella is negative) - continue zosyn f/u repeat sputum cx to adjust this regimen (hes had little improvement on this and favor changing/de-escalation soon if SCx is negative) - hold on starting antifungals for now ID will continue to follow. If questions or concerns, contact via Voicebase or Infectious Disease Call Center . Lindsey Mcghee MD [facility], Division of Infectious Diseases Consultation Information Consultation was provided via telemedicine using two-way real-time interactive telecommunication between the patient and the telemedicine provider. For the duration of the visit, the provider was performing the assessment from a different facility than the patient. This includesuse of bluetooth stethoscope forauscultationperformed by the telepresenter that the telemedicine provider can hear if described in the physical exam. Plugger contact information: Please call ID Connect Call Center . (Phone Number For Physician Use Only) After establishing a telemedicine visit, patient was: Patient was verified with two unique identifiers, Patient/authorized rep acknowledged consent and understanding and Gave permission to continue telehealth session Time Spent with Patient: Initial => 75 min History of Present Illness Reason for Consultation: fungal infection? Empiric tx? Attending Physician: Melvi Arechiga MD History of Present Illness 79yo M with h/o DLBCL now off chemo (last dose of chemo a few months ago, on ACV ppx), s/p chest port, cardiomyopathy, afib on Eliquis, GERD, COPD on 3L home O2, CKD III, recent admission 02/03-02/06 with COVID infection s/p RDV x 3d and also treated for ?bacterial PNA and dcd on doxy/augmentin x 7d course who presented on 02/14 with worsening SOB, chest congestion, productive cough and worsening O2. Here he has been afebrile, bp stable, initially on 4L NC. Initial labs with WBC 6.15, low Hb and platelets. Cr 1.41. Lactate 1.1. AST/ALT wnl. PCT 0.06>>0.04. UA 0-5 WBC. CRP 9.65>>2.62. MRSA screen neg. RPP pos for COVID. CTA chest with severe emphysematous and peripheral fibrotic changes with multifocal peripherally and subpleural GGO on both lobes could be due to COVID19 or other acute infection. He was started on zosyn and azithromycin. Course c/b worsening hypoxia up to 6-7L. HRCT on 02/23 showed interval development of consolidation c/w pneumonia superimposed upon prominent emphysema and scarring, reactive LAD. Currently requiring 9L oxymask. CRP 8.11. On evaluation, patient reports that he had felt better after his last discharge and then current symptoms started suddenly with O2 sats at 70% at home. He has some chest pressure that has been present since admission. No other pains or rashes. He denies any travel or sick contacts. Previously was part of the [place]. He says he got chemo in the past 2.5-3 months and is in remission. Port in place from within this past year. Allergies Allergy/AdvReac Type Severity Reaction Status Date / Time rituximab Allergy Severe Swelling Verified 11/03/23 15:44 of Lip/Tongue/Throat Home Medications Medication Instructions Recorded Confirmed Type acyclovir 200 mg capsule 400 mg PO BID 07/09/22 02/16/24 History apixaban 5 mg tablet (Eliquis) 5 mg PO BID 07/09/22 02/16/24 History atorvastatin 80 mg tablet 80 mg PO QPM 07/09/22 02/16/24 History cholecalciferol (vitamin D3) 50 50 mcg PO QAM 07/09/22 02/16/24 History mcg (2,000 unit) capsule folic acid 1 mg tablet 1 mg PO QAM 07/09/22 02/16/24 History mecobalamin (vitamin B12) 1,000 1,000 mcg PO QAM 07/09/22 02/16/24 History mcg chewable tablet metoprolol succinate 50 mg 50 mg PO QAM 07/09/22 02/16/24 History tablet,extended release 24 hr aspirin 81 mg capsule 81 mg PO QAM 08/29/22 02/16/24 History omeprazole 20 mg tablet,delayed 20 mg PO QAM 08/29/22 02/16/24 History release Flutter Valve #1 ea 03/20/23 02/16/24 Rx dextromethorphan-guaifenesin 10 10 ml PO Q6H PRN cough #237 mL 03/20/23 02/16/24 Rx mg-100 mg/5 mL oral liquid ketoconazole 2 % topical cream 1 applic topical BID PRN Skin 07/17/23 02/16/24 History Irritation pramipexole 0.25 mg tablet 0.25 mg PO HS 08/12/23 02/16/24 History albuterol sulfate 90 mcg/actuation 2 puff inhalation QID PRN 08/20/23 02/16/24 Rx aerosol inhaler shortness of breath or wheezing #8.5 grams fluticasone 500 mcg-salmeterol 50 1 inh inhalation BID #60 ea 08/20/23 02/16/24 Rx mcg/dose blistr powdr for inhalation (Advair Diskus) tiotropium bromide 2.5 2 inh inhalation QAM #4 grams 08/20/23 02/16/24 Rx mcg/actuation mist for inhalation (Spiriva Respimat) acetaminophen 500 mg tablet 1,000 mg PO QID PRN Pain 09/10/23 02/16/24 History (Tylenol Extra Strength) pregabalin 75 mg capsule (Lyrica) 75 mg PO BID #60 caps 10/10/23 02/16/24 Rx empagliflozin 10 mg tablet 10 mg PO QAM 02/04/24 02/16/24 History (Jardiance) dexamethasone 6 mg tablet 6 mg PO DAILY #6 tabs 02/07/24 02/16/24 Rx Patient History Medical History CKD (chronic kidney disease) stage 3, GFR 30-59 ml/min Claudication dx after AAA repair>causing back pain Arthritis GERD (gastroesophageal reflux disease) History of follicular lymphoma chemo/radiation tx 2017? Diffuse large B cell lymphoma current dx Hx of renal failure hospitalized 2021 ([place] in [place]) developed sepsis>had dialysis for 1 week while admitted>resolved issue Hx of sepsis Hypertension Hyperlipidemia History of atrial fibrillation 2021 On home oxygen therapy 3l cont. Chronic obstructive pulmonary disease Edema of both lower extremities Hx of chronic bronchitis Mitral valve regurgitation follow with Dr. Traore History of skin cancer nose area Restless leg syndrome Chronic back pain Stenosis of right carotid artery TIA (transient ischemic attack) x 2 (2021), on Eliquis, follows with [facility] Surgical History Port-A-Cath in place (08/21/23) p Insertion of Left Cephalic Access Port with Fluoroscopy(Left) - Chirag Palomino MD, FACS MRI port placed in the left cephalic vein throughout the procedure fluoroscopy was used to position the catheter and I personally reviewed all the images Hx of vasectomy History of tooth extraction History of cataract surgery right/left History of bronchoscopy History of Mohs micrographic surgery for skin cancer Hx of biopsy multiple lymph nodes/neck Hx of knee surgery multiple, both knees Hx of discectomy c5 History of endovascular stent graft for abdominal aortic aneurysm (AAA) 2019 Family History Father ALS (amyotrophic lateral sclerosis) Other No family history of adverse response to anesthesia Social History Smoking Status: Former smoker Tobacco Type: Cigarettes packs per day: ; Cigarettes Per Day: 2020; Second Hand Exposure: No; Do You Dip or Chew Tobacco: No; Tobacco Cessation Education Requested by Patient: No Hx Alcohol Use: Yes Alcohol type: beer Alcohol Intake Frequency Comment: 2-3 beers daily Hx Substance Use: No Preferred Language: Croatian Communication Ability: Effective Visual Impairment: Partially Limited Hearing Ability: Normal Manager Bilingual Required: No Beliefs That Will Affect Care: None marital status: Current Living Situation: Alone Current Living Situation Comment: home alone current occupational status: 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 Physical Exam Physical Exam: General: Awake, alert, no acute distress HEENT: NC/AT, EOMI, mmm Neck: supple Lungs: CTA bl Heart: nl S1/S2, no appreciable murmurs Chest: left sided port, c/d/i Abdomen: soft, NT/ND Ext: no LE edema Skin: no rash Neuro: moving all extremities Results & Data Vital Signs (Past 12 Hours) Vital Signs Temp Pulse Resp BP Pulse Ox O2 Del Method O2 Flow Rate 02/25/24 11:22 70 17 97 Oxymask 9 02/25/24 07:25 71 20 86 L Oxymask 10 02/25/24 07:11 36.6 C 68 18 111/62 96 Oxymask Laboratory Results Labs reviewed. Diagnostic Findings Imaging reviewed. (2) Diffuse large B cell lymphoma Lymphoma site: unspecified region Qualified Code(s): C83.30 - Diffuse large B-cell lymphoma, unspecified site
--- NOTE | 2024-02-25 14:27 | Pharmacy Report ---
Pharmacy PK ABX Note - Date of Service February 25, 2024 - Assessment and Plan Assessment * Mr Joe is a 79 year old M receiving antibiotics for treatment of multifocal pna, overlying severe emphysema. Pt is immunocompromised in the setting of B-cell lymphoma w/ chemotherapy. * Pertinent microbiologic data includes: MRSA Nasal Swab negative 02/15, repeat swab currently pending. Sputum cx from 02/19 growing Coryne striatum * Pulm saw pt today and started vanc (pending repeat MRSA swab), Zosyn, IV Bactrim for empiric PJP tx, azithromycin for atypicals/Legionella. * ID has been consulted. Plan Vancomycin * Loading dose: 1750 mg IV x 1 * Maintenance dose: 1000 mg IV every 12 hours * Regimen is predicted to achieve target AUC/OMAR of 400-600 mg/L.hr * Will evaluate a vanc level in the next 1-2 days if pt remains hospitalized and on vanc therapy Pharmacy will continue to follow and will adjust dose/frequency as necessary. Thank you. Pharmacy has transitioned to AUC monitoring for vancomycin. AUC/OMAR is the preferred PK/PD target and is associated with decreased risk of nephrotoxicity compared to traditional trough targets.
[2024-02-25] MEDS: AZITHROMYCIN 500 MG in SODIUM CHLORIDE 0.9% 250 ML IV ONE (15:04)
[2024-02-25] MEDS: PIPERACILLIN/TAZOBACTAM 4.5 GM/100 ML BAG IV SCH (15:42)
[2024-02-25] MEDS: VANCOMYCIN HCL 1,000 MG/270 ML BAG IV SCH (17:40)
[2024-02-26] MEDS: SULFA/TRIMETH 80/16MG/ML 320 MG in DEXTROSE 5% 500 ML IV SCH (01:49)
[2024-02-26 04:11] LABS: Hematocrit (blood only) 21.8 % (42.0-52.0); Hemoglobin 7.1 g/dl (14.0-18.0); Mean Corpuscular Hemoglobin 33.6 pg (25.0-34.0); Mean Corpuscular Hgb Conc 32.6 g/dL (32.0-36.0); Mean Corpuscular Volume 103.3 fL (80.0-100.0); Mean Platelet Volume 11.3 fL (9.4-12.4); Platelet Count 74 K/uL (130-400); RDW Coefficient of Variation 13.7 % (11.5-14.5); RDW Standard Deviation 51.6 fL (36.4-46.3); Red Blood Count 2.11 M/uL (4.70-6.10); White Blood Count 1.16 K/ul (4.8-10.8)
[2024-02-26 04:28] LABS: Albumin Level 2.4 gm/dl (3.4-5.0); Bilirubin,Total 0.3 mg/dl (0.2-1.0); Calcium 7.6 mg/dl (8.6-10.3); Magnesium 1.8 mg/dl (1.7-2.4)
[2024-02-26 04:34] LABS: Albumin Globulin Ratio 1.1 (0.9-2); BUN Creatinine Ratio 24.7 (10-20); Creatinine Clr Calc Pharmacy 63.8 ml/min; Globulin 2.2 gm/dl (2.5-4.0); Total Protein 4.6 gm/dl (6.0-8.3)
--- NOTE | 2024-02-26 08:14 | Hospitalist Progress Note ---
Date of Service February 26, 2024 Assessment & Plan (1) Acute kidney injury superimposed on CKD: (2) Acute on chronic respiratory failure with hypoxia: (3) COVID-19: (4) Pancytopenia: (5) COPD exacerbation: Plan 79-year-old male with a past medical history including pancytopenia s/p chemotherapy for B-cell lymphoma, PAF, peripheral neuropathy, pulmonary hypertension, A-fib with RVR, chronic respiratory failure with hypoxia, COPD, cardiomyopathy, anemia, and GERD. Here due to COPD exacerbation Acute on chronic respiratory failure with hypoxia COPD exacerbation, Recurrent Pneumonia: Multifactorial: Recent admission for COVID-19 infection, immunocompromised status, secondary bacterial pneumonia Nasal cannula 3 L O2 at baseline - currently elevated requirement, continue supplemental O2 as needed to maintain SpO2 >88% HRCT chest demonstrated interval development of consolidation suspicious for pneumonia, Sputum cx + Corynebacterium Striatum - Pulm consulted, appreciate recs: - Elevated suspicion for opportunistic infection: empiric tx started for PJP and Legionella/atypicals - ID consulted, appreciate recs: - Fungitell, aspergillus Ag, urine legionella, sputum cx, serum cryptococcal Ag, CMV PCR, urine histoplasma Ag pending - Continue Vanc for Corynebacterium coverage - continue empiric Bactrim therapy while waiting for PJP w/u - continue azithromycin (stop if U legionella is negative) - continue zosyn - will stop within next 1-2 days if not showing improvement - hold on antifungals Spirometry report from March 2023 reviewed, notable for moderate obstructive pattern with FEV1 57% of predicted Continue dexamethasone Continue LABA, LAMA, ICS Continue DuoNebs, q4HWA, LAILA Continue supportive care measures/pulmonary toilet: hypertonic saline nebs, incentive spirometry, flutter valve, OOB, guaifenesin/dextromethorphan Recent COVID-19 Infection with secondary bacterial pneumonia: Patient was initially positive for COVID on 02/04/2024, residual positive noted on admission S/p dexamethasone x10 days and remdesivir x3 days during last hospital stay + Zosyn and doxycycline tx while inpatient, discharged on Augmentin/doxycycline, completed 7-day course ?whether SOB/increased O2 demand may be related to fibrotic changes secondary to Covid infection in addition to new infection Pancytopenia 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 Willem Continue acyclovir prophylaxis AM ANC 910, afebrile Anemia - Hgb stable - Continue to monitor - AM CBC MARKO on CKD - MARKO resolved Paroxysmal atrial fibrillation Continue apixaban, metoprolol succinate Plan VTE Prophylaxis: Eliquis, 5 mg, PO, BID MOISESI: Heart healthy Admission and Anticipated Discharge Date Admission Date: February 16, 2024 Supervising Physician Co-Signing Physician Notes Attending Physician Supervision Note: I independently interviewed and examined the patient and verified the grace history and physical, reviewed labs and image studies and agree with findings and care plan noted above. Had a worse day today with cough and breathing. Phlegm some. No blood in sputum. Sitting upright in bed. mild resp distress. Bilateral whole lung field with crackles. Acute on chronic resp failure - O2 needs increasing. 3L at baseline. Needing to be on oxymask. Pneumonia - infiltrate on Chest CT 02/23 -Beta-glucan, Galactoman Ag, cryptococcus Ag, PJP, LDH, CMV PCR, urine legionella testing ordered. -Continue zosyn, azithromycin, vancomycin (Vanco will cover cornybacterium- possibly infectious in immunocompromised setting) -Sputum cx negative. consider d/c zosyn if no improvement. -continue IV dexamethasone. -bactrim added for PJP - now holding CXR today with increased patchy infiltrates overlying lung fibrosis. -diuresis as below -d/c bactrim. COPD (moderate) exacerbation (setting of recent COVID and bacterial pneumonia - treated) -continue IV dexamethasone. -Umeclidinium inhaled (on spiriva at home), Albuterol nebs. -continue Incentive spirometry, flutter valve, saline nebs for thick phlegm. Pancytopenia - ? from diffuse large B cell lymphoma -rechecked cbc - for concern of ?myelosuppresion from bactrim -Apixaban held this evening due to dropping count. -follow labs in am Probable Acute on Chronic HFmrEF - Echo 01/07 - EF 40-45%. -On jardiance at home. Held here. Not on daily diuretic, ARB. -continue metoprolol. -BNP normal 02/24. -with exam and CXR finding on 02/25 - likely from saline in IV abx. -lasix 20mgs given - repeat dose added. DLBCL - port in place. off chemo PAF - apixaban (on hold), metoprolol Per PT/OT eval and treat - home once O2 need improves Subjective No acute overnight events, overnight O2 requirement above baseline, 8-10L oxymask. Sx largely unchanged, okay at rest but significant SOB, fatigue with even small amount of movement. Denies fevers/chills, night sweats. Minimally productive cough. Review of Systems Review of Systems: as per hpi Physical Exam Physical Exam: General: Alert and oriented. No acute distress Cardiac: Regular rate and rhythm, no murmurs appreciated Respiratory: Lungs sounds globally diminished, +mild, diffuse wheezes, + increased work of breathing. Extremities: No lower extremity edema, calves non-tender bilaterally Results & Data Results & Data Vital Signs (Past 12 Hours) Vital Signs Temp Pulse Resp BP Pulse Ox O2 Del Method O2 Flow Rate 02/26/24 07:02 68 18 93 Oxymask 8 02/26/24 06:59 36.2 C L 72 18 122/68 93 Oxymask 8 02/25/24 20:18 66 17 91 Oxymask 7 Resident Activity Tracking Resident Involvement: Resident Care Provided Care Provided: Adult Hospital Medicine
[2024-02-26] MEDS ORDERED: AZITHROMYCIN 500 MG VIAL IV SCH (09:00)
[2024-02-26] MEDS ORDERED: AZITHROMYCIN 250 MG TAB PO SCH (09:00)
--- NOTE | 2024-02-26 09:19 | Infectious Disease Progress Nt ---
Date of Service February 26, 2024 Assessment & Plan (1) Acute hypoxemic respiratory failure: (2) Diffuse large B cell lymphoma: (3) Acute kidney injury superimposed on CKD: (4) Pancytopenia: Plan 79yo M with h/o DLBCL now off chemo (last dose of chemo a few months ago, on ACV ppx), s/p chest port, cardiomyopathy, afib on Eliquis, GERD, COPD on 3L home O2, CKD III, recent admission 02/03-02/06 with COVID infection s/p RDV x 3d and also treated for ?bacterial PNA and dcd on doxy/augmentin x 7d course who presented on 02/14 with worsening SOB, chest congestion, productive cough and hypoxia. Here he has been afebrile, BP stable, initially on 4L NC. Initial labs with WBC 6.15, low Hb and platelets. Cr 1.41. Lactate 1.1. AST/ALT wnl. PCT 0.06>>0.04. UA 0-5 WBC. CRP 9.65>>2.62. MRSA screen neg. RPP pos for COVID. CTA chest with severe emphysematous and peripheral fibrotic changes with multifocal peripherally and subpleural GGO on both lobes could be due to COVID19 or other acute infection. He was started on zosyn and azithromycin. Course c/b worsening hypoxia up to 6- 7L. HRCT on 02/23 showed interval development of consolidation c/w pneumonia superimposed upon prominent emphysema and scarring, reactive LAD. ID consulted 02/24. Awaiting further results from studies sent yesterday. Continue on current regimen for now. Will leave on vancomycin for Corynebacterium in sputum. # Acute hypoxic respiratory failure # Recent COVID infection # MARKO on CKD improved # DLBCL in remission port in place, off chemo - f/u fungitell, aspergillus Ag, urine legionella, sputum cx, serum cryptococcal Ag, LDH, CMV PCR, urine histoplasma Ag - continue vancomycin (will cover ?Coryne if it is true infection) - continue empiric Bactrim therapy while waiting for PJP w/u - continue azithromycin (stop if U legionella is negative) - continue zosyn f/u repeat sputum cx to adjust this regimen (hes had little improvement on this and favor changing/de-escalation soon if SCx is negative) - hold on starting antifungals for now - acyclovir ppx ID will continue to follow. If questions or concerns, contact via [employer] or Infectious Disease Call Center . Lindsey Mcghee MD [facility], Division of Infectious Diseases Admission and Anticipated Discharge Date Admission Date: February 16, 2024 Subjective Subsequent visit was provided via telemedicine using two-way real-time interactive telecommunication between the patient and the telemedicine provider. For the duration of the visit, the provider was performing the assessment from a different facility than the patient. This includesuse of bluetooth stethoscope forauscultationperformed by the telepresenter that the telemedicine provider can hear if described in the physical exam. Assistant Warehouse Manager contact information: Please call [facility] Center [phone]. (Phone Number For Physician Use Only) After establishing a telemedicine visit, patient was: Patient was verified with two unique identifiers, Patient/authorized rep acknowledged consent and understanding and Gave permission to continue telehealth session Time Spent with Patient: Subsequent => 35 min Patient reports feeling worse, feels tired, chest pressure still there. Has a cough. O2 8L today. Physical Exam Physical Exam: General: Awake, alert, no acute distress HEENT: NC/AT, EOMI, mmm Neck: supple Lungs: +wheezing Heart: nl S1/S2, no appreciable murmurs Chest: left sided port, c/d/i Abdomen: soft, NT/ND Ext: no LE edema Skin: no rash Neuro: moving all extremities Results & Data Vital Signs (Past 12 Hours) Vital Signs Temp Pulse Resp BP Pulse Ox O2 Del Method O2 Flow Rate 02/26/24 07:02 68 18 93 Oxymask 8 02/26/24 06:59 36.2 C L 72 18 122/68 93 Oxymask 8 Laboratory Results Labs reviewed. (2) Diffuse large B cell lymphoma Lymphoma site: unspecified region Qualified Code(s): C83.30 - Diffuse large B-cell lymphoma, unspecified site
[2024-02-26 10:32] LABS: Acanthocytes 1+; Macrocytosis Present; Polychromasia 1+
[2024-02-26 10:39] LABS: Basophils # (auto) 0.01 K/uL (0.00-0.20); Basophils % (auto) 0.9 %; Immature Granulocytes # (auto) 0.07 K/uL (0.01-0.20); Immature Granulocytes % (auto) 6.2 %; Lymphocytes # (auto) 0.06 K/uL (1.20-3.40); Lymphocytes % (auto) 5.3 %; Monocytes # (auto) 0.08 K/uL (0.11-0.59); Monocytes % (auto) 7.1 %; Neutrophils # (auto) 0.91 K/uL (1.40-6.50); Neutrophils % (auto) 80.5 %
[2024-02-26] MEDS: AZITHROMYCIN 250 MG in SODIUM CHLORIDE 0.9% 250 ML IV SCH (12:15)
[2024-02-26] MEDS: FUROSEMIDE INJ 20 MG/2 ML VIAL IV ONE ×2 (16:38→22:11)
--- NOTE | 2024-02-26 16:40 | Pulmonology Progress Note ---
Date of Service February 26, 2024 Assessment & Plan (1) Idiopathic interstitial pneumonia: (2) COVID-19: (3) COPD exacerbation: (4) Immunosuppressed due to chemotherapy: (5) Acute hypoxemic respiratory failure: (6) Anemia: Anemia type: unspecified type Qualified Code(s): D64.9 - Anemia, unspecified (7) Systolic heart failure: (8) Neutropenia: Plan This is a complex 79-year-old male with a history of severe COPD on chronic oxygen therapy, mild systolic heart failure with an EF of 40 to 45% on echo from 01/07/2024, diffuse large B-cell lymphoma previously on chemotherapy as of 2 weeks ago who first tested positive for COVID-19 02/04/2024 and who has had ongoing shortness of breath and cough since that period of time. He has a baseline history of severe COPD and is oxygen dependent at baseline. His CT chest is suggestive of multifocal pneumonia overlying severe emphysema. The etiology of these infiltrates is unclear, but given his immunosuppressed state, opportunistic infections are certainly possible such as PJP, Aspergillus, nontuberculous Mycobacterium, nocardia and others. Inflammatory conditions are also possible such as pneumonitis related to chemotherapy and/or post fibrotic changes due to COVID. Patient is currently on dexamethasone 6 mg daily. BNP was unremarkable, but patient with severe crackles on exam today, increased work of breathing and hypoxemia. Will give 20 mg of IV Lasix. Discussed with hospitalist service. Recommend giving additional dose depending on urine response. Patient with acute anemia and thrombocytopenia today. Hold Eliquis. Check stat CBC now. Possible myelosuppression from Bactrim. Will need to consider discontinuing depending on follow-up CBC. Continue vancomycin per ID. Continue empiric PJP treatment with IV Bactrim. Check PJP sputum PCR. Continue azithromycin to treat for potential atypical organisms and Legionella. Legionella urine antigen ordered. Beta glucan ordered along with Aspergillus galactomannan. Continue Zosyn for the time being. Appreciate ID input. Discussed extensively with hospitalist, Dr. Arechiga, at bedside. Appreciate hospitalist input during the case. Admission and Anticipated Discharge Date Admission Date: February 16, 2024 Subjective Patient seen this afternoon with worsening dyspnea and increased work of breathing. He is a 0.8 L positive since admission. Review of Systems Review of Systems: All systems reviewed & are unremarkable except as noted in HPI & below Physical Exam Physical Exam: Constitutional: Patient appears to be of their stated age. Patient is in no apparent distress. Eyes: Pupils are equal round and reactive to light. Conjunctivae are normal. Anicteric sclera. Ears nose, mouth and throat: No perioral cyanosis. Oxy mask in place. Neck: Trachea is midline. Visual inspection is normal. Respiratory: Diffuse crackles with increased tachypnea and work of breathing. Cardiovascular: Regular rate and rhythm. No murmurs. No edema. Gastrointestinal: Normal bowel sounds, soft, nontender and nondistended. No hepatosplenomegaly noted. Musculoskeletal: No cyanosis. Patient is able to move all extremities. Strength is 5 out of 5 in the upper and lower extremities. Skin: No rashes, warm dry and intact. Neurologic: No obvious focal neurological deficits seen. Psychiatric: Alert and oriented x3 with a euthymic affect. Results & Data Results & Data Vital Signs (Past 12 Hours) Vital Signs Temp Pulse Resp BP Pulse Ox O2 Del Method O2 Flow Rate 02/26/24 15:28 74 20 89 L Oxymask 13 02/26/24 14:11 36.6 C 74 20 106/62 94 Oxymask 9 02/26/24 11:02 74 20 98 Oxymask 02/26/24 07:02 68 18 93 Oxymask 8 02/26/24 06:59 36.2 C L 72 18 122/68 93 Oxymask 8 PG Care Time/CCT Total # of Minutes Spent Total Time Spent with Patient: Total time spent is greater than 50% in coordination of care (as documented) at patient's floor/unit and/or counseling patient: Coding Level of Care Code 57562 SUB INP/OBS CARE 3/50MIN Diagnoses Idiopathic interstitial pneumonia J84.111 COVID-19 U07.1 COPD exacerbation J44.1 Immunosuppressed due to chemotherapy D84.821; T45.1X5A; Z79.69 Acute hypoxemic respiratory failure J96.01 Anemia D64.9 Anemia type: unspecified type Systolic heart failure I50.20 Neutropenia D70.9
[2024-02-26 17:03] LABS: Hematocrit (blood only) 24.3 % (42.0-52.0); Hemoglobin 7.9 g/dl (14.0-18.0); Mean Corpuscular Hemoglobin 33.3 pg (25.0-34.0); Mean Corpuscular Hgb Conc 32.5 g/dL (32.0-36.0); Mean Corpuscular Volume 102.5 fL (80.0-100.0); Mean Platelet Volume 11.4 fL (9.4-12.4); Platelet Count 83 K/uL (130-400); RDW Coefficient of Variation 13.9 % (11.5-14.5); RDW Standard Deviation 51.6 fL (36.4-46.3); Red Blood Count 2.37 M/uL (4.70-6.10); White Blood Count 1.19 K/ul (4.8-10.8)
--- NOTE | 2024-02-26 17:13 | XRay Report ---
EXAM: Radiograph of the Chest 1 View INDICATION: Shortness of breath and labored breathing. TECHNIQUE: Frontal view of the chest. COMPARISON: 02/16/2024 FINDINGS: Lungs and pleural spaces: New patchy bilateral lower lung infiltrates superimposed on pulmonary fibrosis. No pleural effusion or pneumothorax. Heart: Shape and configuration within normal limits allowing for technique. Mediastinum: Normal contour. Bones/joints: No fracture, erosion or dislocation. Soft tissues: No abnormality noted. No radiopaque foreign body noted. Tubes, lines and devices: Left subclavian central venous port catheter terminates in the distal SVC. Upper abdomen: No abnormality noted. IMPRESSION: Bilateral basilar pneumonia right greater than left on fibrosis. ACT 112: Negative or not required by law. Electronically signed by Macy Warren 02-26-2024 4:52 PM
[2024-02-27] MEDS: HEPARIN 100 UNIT/ML 5ML FLUSH FLUSH PRN (03:28)
[2024-02-27 07:07] LABS: Hematocrit (blood only) 25.5 % (42.0-52.0); Hemoglobin 8.3 g/dl (14.0-18.0); Mean Corpuscular Hemoglobin 33.1 pg (25.0-34.0); Mean Corpuscular Hgb Conc 32.5 g/dL (32.0-36.0); Mean Corpuscular Volume 101.6 fL (80.0-100.0); Mean Platelet Volume 11.6 fL (9.4-12.4); Platelet Count 89 K/uL (130-400); RDW Coefficient of Variation 13.7 % (11.5-14.5); RDW Standard Deviation 50.6 fL (36.4-46.3); Red Blood Count 2.51 M/uL (4.70-6.10); White Blood Count 1.15 K/ul (4.8-10.8)
[2024-02-27 07:14] LABS: Albumin Level 2.7 gm/dl (3.4-5.0); Bilirubin,Total 0.5 mg/dl (0.2-1.0); Calcium 8.1 mg/dl (8.6-10.3); Creatinine Clr Calc Pharmacy 53.8 ml/min; Globulin 2.7 gm/dl (2.5-4.0); Magnesium 1.8 mg/dl (1.7-2.4); Potassium 4.3 mmol/L (3.5-5.1); Total Protein 5.4 gm/dl (6.0-8.3)
--- NOTE | 2024-02-27 07:59 | Hospitalist Progress Note ---
Date of Service February 27, 2024 Assessment & Plan (1) Acute kidney injury superimposed on CKD: (2) Acute on chronic respiratory failure with hypoxia: (3) COVID-19: (4) Pancytopenia: (5) COPD exacerbation: Plan 79-year-old male with a past medical history including pancytopenia s/p chemotherapy for B-cell lymphoma, PAF, peripheral neuropathy, pulmonary hypertension, A-fib with RVR, chronic respiratory failure with hypoxia, COPD, cardiomyopathy, anemia, and GERD, presented with acute on chronic respiratory failure. Acute on chronic respiratory failure with hypoxia COPD exacerbation, Recurrent Pneumonia: Multifactorial: Recent admission for COVID-19 infection, immunocompromised status, secondary bacterial pneumonia Nasal cannula 3 L O2 at baseline - elevated requirement, currently on high flow NC 40L/min - patient transferred to ICU 02/26 HRCT chest demonstrated interval development of consolidation suspicious for pneumonia, Sputum cx + Corynebacterium Striatum - Pulm/Critical care consulted, appreciate recs: - Elevated suspicion for opportunistic infection - ID consulted, appreciate recs: - Fungitell, aspergillus Ag, urine legionella, sputum cx, serum cryptococcal Ag, CMV PCR, urine histoplasma Ag pending - Continue Vanc for Corynebacterium coverage - Empiric Bactrim held d/t possible contribution to myelosuppression - Azithromycin discontinued - continue zosyn through 03/01 - Empirically started on Voriconazole - Continue Acyclovir ppx Spirometry report from March 2023 reviewed, notable for moderate obstructive pattern with FEV1 57% of predicted Begin weaning Dexamethasone starting 02/27 Continue LABA, LAMA, ICS Continue DuoNebs, q4HWA, LAILA Continue supportive care measures/pulmonary toilet: hypertonic saline nebs, incentive spirometry, flutter valve, OOB, guaifenesin/dextromethorphan Recent COVID-19 Infection with secondary bacterial pneumonia: Patient was initially positive for COVID on 02/04/2024, residual positive noted on admission S/p dexamethasone x10 days and remdesivir x3 days during last hospital stay + Zosyn and doxycycline tx while inpatient, discharged on Augmentin/doxycycline, completed 7-day course ?whether SOB/increased O2 demand may be related to fibrotic changes secondary to Covid infection in addition to new infection Pancytopenia 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 Willem Continue acyclovir prophylaxis Hold aspirin and Eliquis d/t thrombocytopenia Anemia - Hgb stable - Continue to monitor - AM CBC MARKO on CKD - MARKO resolved Paroxysmal atrial fibrillation Continue metoprolol succinate, hold Eliquis Plan VTE Prophylaxis: held secondary to thrombocytopenia MOISESI: Heart healthy Admission and Anticipated Discharge Date Admission Date: February 16, 2024 Supervising Physician Co-Signing Physician Notes Attending Physician Supervision Note: I independently interviewed and examined the patient and verified the grace history and physical, reviewed labs and image studies and agree with findings and care plan noted above. Increasing O2 needs this am. 15L oxymask and tiring out. Placed on High flow. Pulmonary contacted and patient Transferred to ICU after their discussion with [employer]. Acute on chronic resp failure - O2 needs increasing. 3L at baseline. Needing to be on oxymask. Interstitial Pneumonia - infiltrate on Chest CT 02/23. sputum cx negative -Beta-glucan, Galactoman Ag, cryptococcus Ag, PJP, LDH, CMV PCR, urine legionella test ordered. -Continue zosyn - to stop on 03/01, vancomycin start 02/25 (Vanco will cover cornybacterium-possibly infectious in immunocompromised setting) -continue IV dexamethasone. -continue bactrim for possible PJP (G6PD testing ordered) -Voriconazole added (02/26) for concern of fungal infection. -continue chronic acyclovir proph. COPD (moderate) exacerbation (setting of recent COVID and bacterial pneumonia - treated) -continue IV dexamethasone. -Umeclidinium inhaled (on spiriva at home), Albuterol nebs. -continue Incentive spirometry, flutter valve, saline nebs for thick phlegm. Pancytopenia - from diffuse large B cell lymphoma -Apixaban held due to dropping count. Aspirin as well. -follow labs in am Acute on Chronic HFmrEF - Echo 01/07 - EF 40-45%. -On jardiance at home. Held here. Not on daily diuretic, ARB. -continue metoprolol. -BNP normal 02/24. -exam and CXR finding on 02/25 with fluid overload - likely from saline in IV abx. -Received lasix 40mgs 02/25. -Bumex dose given this am. DLBCL - port in place. off chemo PAF - apixaban (on hold), metoprolol Subjective Patient reports feeling of regression overnight, significantly short of breath with even modest amount of movement, increasing supplemental O2 requirement. Minimally productive cough. Unsure if Lasix was helpful yesterday. Denies fevers, chills, nightsweats. Review of Systems Review of Systems: as per hpi Physical Exam Physical Exam: General: Alert and oriented. No acute distress Cardiac: Regular rate and rhythm, no murmurs appreciated Respiratory: Lungs sounds globally diminished, +mild, diffuse wheezes, rhonchi in lung bases, + increased work of breathing. Extremities: No lower extremity edema Psych: mood affect congruence Results & Data Results & Data Vital Signs (Past 12 Hours) Vital Signs Temp Pulse Resp BP BP Pulse Ox O2 Del Method 02/27/24 07:31 76 24 Oxymask 02/27/24 07:19 36.6 C 77 16 144/74 H 90 Oxymask 02/26/24 22:41 Oxymask 02/26/24 22:00 90 Oxymask 02/26/24 21:59 36.4 C L 80 22 131/67 96 Oxymask O2 Flow Rate 02/27/24 07:31 10 02/27/24 07:19 12 02/26/24 22:41 10 02/26/24 22:00 10 02/26/24 21:59 15 Resident Activity Tracking Resident Involvement: Resident Care Provided Care Provided: Adult Hospital Medicine
[2024-02-27] MEDS: FUROSEMIDE 40 MG/4 ML VIAL IV ONE (09:16)
--- NOTE | 2024-02-27 09:39 | Critical Care Consultation ---
Date of Consultation February 27, 2024 Assessment & Plan (1) Idiopathic interstitial pneumonia: Reason Critically Ill: Acute on chronic hypoxic respiratory failure, history large B-cell lymphoma PLAN: Resp: Acute on chronic hypoxic respiratory failure: Baseline 3 L oxygen by nasal cannula at home Idiopathic interstitial pneumonia Significant structural lung disease including fibrosis and emphysematous changes -Should patient require intubation mechanical ventilation I believe the patient is at extremely high risk for chronic/permanent ventilator dependency -Patient of advanced age and has significant comorbidities, he would not be a candidate for lung transplant given baseline conditions and B- cell lymphoma CV: Atrial fibrillation: Paroxysmal: Currently normal sinus rhythm History of cardiomyopathy: Reviewed 01/07/2024 echocardiogram Fluids/Renal: History MARKO and prior acute kidney failure requiring dialysis when patient was hospitalized in [place] at the [facility] ID: Discussed with infectious disease -Zithromax, treatment duration would be of adequate duration for Legionella, okay to discontinue -Voriconazole, starting and await galactomannan (if negative would consider discontinuation) -Zosyn: Continue for 14 days to again have adequate treatment duration for possible pulmonary infection -Considering Bactrim versus pentamadine, we are unable to obtain a pulmonary specimen given the high risk of decompensation and intubation and high risk to develop ventilatory dependent respiratory failure -Empiric treatment given limitations of lack of bronchoscopic specimen -Recent COVID-19 with presumptive secondary bacterial pneumonia: Treated with remdesivir for 3 days GI/Nutrition: Sarcopenia -Patient admits it is difficult to eat secondary to food not tasting well and lack of appetite -Discussed options to supplement nutrition including NG tube which she is not viable at this time given significant pulmonary support also discussed feeding tube, patient does not feel he would not want to undergo that at this time as he is still able to eat, I discussed I had not sure if he is able to take enough calories in and may benefit from nutritional supplementation Heme: Diffuse large B-cell lymphoma -Received last chemotherapy approximately 1 month ago -Overarching question is whether patient's bone marrow sup pression is related to neoplastic effects/medication effects/infectious complications versus combination of all components Pancytopenia -Received blood transfusion previously -Reviewed prior heme-onc consultation of October 02, 2023 which noted "given that the patient's clinical intuition is overall not great I will hold curative chemotherapy" DVT prophylaxis: Eliquis on hold secondary to pancytopenia Endocrine: ICU hyperglycemia protocol Long-term steroid use, has received high-dose steroids continuously while he has been inpatient and has gotten worse, probable continuation of steroids from the outpatient setting -Given high risk of fibrotic changes in the setting of ARDSnet versus chronic fibrosis and he is gotten worse I feel it is reasonable continue 6 mg a day however start a weekly taper for 6 weeks Vascular access: Peripheral IVs Code Status: Full code -Having ongoing discussion regarding goals of care. Patient's son to present to bedside to facilitate discussion. At this point I am getting the general impression that the patient would not want prolonged life-sustaining treatments if the patient has a severely poor prognosis. With regard to cardiac arrest I do believe this would lead to profound debilitation and given his present baseline I do believe that that would preclude him from ever recovering to a point that he can live independently. Patient admits he would not want to live in that situation however he desires his son to make that determination at that point and desires to undergo all life-sustaining and heroic treatments and the decision to discontinue would be made at that time Disposition: ICU (2) COVID-19: (3) COPD exacerbation: (4) Immunosuppressed due to chemotherapy: (5) Acute hypoxemic respiratory failure: (6) Anemia: (7) Systolic heart failure: (8) Neutropenia: Plan I have personally spent 90 minutes of critical care time in the direct management of this patient. This is a life/limb threatening event. This includes time spent evaluating patient, direct bedside care, chart review, placing orders, interpretation of diagnostic studies, discussion with consultants, patient, and/or family members regarding treatment decisions, as well as other required patient management activities. This time is exclusive of all separately billable procedures, and teaching time and separate from and in addition to any other critical care service time. History of Present Illness Attending Physician: Melvi Arechiga MD Allergies Allergy/AdvReac Type Severity Reaction Status Date / Time rituximab Allergy Severe Swelling Verified 11/03/23 15:44 of Lip/Tongue/Throat Home Medications Medication Instructions Recorded Confirmed Type acyclovir 200 mg capsule 400 mg PO BID 07/09/22 02/16/24 History apixaban 5 mg tablet (Eliquis) 5 mg PO BID 07/09/22 02/16/24 History atorvastatin 80 mg tablet 80 mg PO QPM 07/09/22 02/16/24 History cholecalciferol (vitamin D3) 50 50 mcg PO QAM 07/09/22 02/16/24 History mcg (2,000 unit) capsule folic acid 1 mg tablet 1 mg PO QAM 07/09/22 02/16/24 History mecobalamin (vitamin B12) 1,000 1,000 mcg PO QAM 07/09/22 02/16/24 History mcg chewable tablet metoprolol succinate 50 mg 50 mg PO QAM 07/09/22 02/16/24 History tablet,extended release 24 hr aspirin 81 mg capsule 81 mg PO QAM 08/29/22 02/16/24 History omeprazole 20 mg tablet,delayed 20 mg PO QAM 08/29/22 02/16/24 History release Flutter Valve #1 ea 03/20/23 02/16/24 Rx dextromethorphan-guaifenesin 10 10 ml PO Q6H PRN cough #237 mL 03/20/23 02/16/24 Rx mg-100 mg/5 mL oral liquid ketoconazole 2 % topical cream 1 applic topical BID PRN Skin 07/17/23 02/16/24 History Irritation pramipexole 0.25 mg tablet 0.25 mg PO HS 08/12/23 02/16/24 History albuterol sulfate 90 mcg/actuation 2 puff inhalation QID PRN 08/20/23 02/16/24 Rx aerosol inhaler shortness of breath or wheezing #8.5 grams fluticasone 500 mcg-salmeterol 50 1 inh inhalation BID #60 ea 08/20/23 02/16/24 Rx mcg/dose blistr powdr for inhalation (Advair Diskus) tiotropium bromide 2.5 2 inh inhalation QAM #4 grams 08/20/23 02/16/24 Rx mcg/actuation mist for inhalation (Spiriva Respimat) acetaminophen 500 mg tablet 1,000 mg PO QID PRN Pain 09/10/23 02/16/24 History (Tylenol Extra Strength) pregabalin 75 mg capsule (Lyrica) 75 mg PO BID #60 caps 10/10/23 02/16/24 Rx empagliflozin 10 mg tablet 10 mg PO QAM 02/04/24 02/16/24 History (Jardiance) dexamethasone 6 mg tablet 6 mg PO DAILY #6 tabs 02/07/24 02/16/24 Rx Patient History Medical History CKD (chronic kidney disease) stage 3, GFR 30-59 ml/min Claudication dx after AAA repair>causing back pain Arthritis GERD (gastroesophageal reflux disease) History of follicular lymphoma chemo/radiation tx 2017? Diffuse large B cell lymphoma current dx Hx of renal failure hospitalized 2021 ([place] in [place]) developed sepsis>had dialysis for 1 week while admitted>resolved issue Hx of sepsis Hypertension Hyperlipidemia History of atrial fibrillation 2021 On home oxygen therapy 3l cont. Chronic obstructive pulmonary disease Edema of both lower extremities Hx of chronic bronchitis Mitral valve regurgitation follow with Dr. Traore History of skin cancer nose area Restless leg syndrome Chronic back pain Stenosis of right carotid artery TIA (transient ischemic attack) x 2 (2021), on Eliquis, follows with [facility] Surgical History Port-A-Cath in place (08/21/23) p Insertion of Left Cephalic Access Port with Fluoroscopy(Left) - Chirag Palomino MD, FACS MRI port placed in the left cephalic vein throughout the procedure fluoroscopy was used to position the catheter and I personally reviewed all the images Hx of vasectomy History of tooth extraction History of cataract surgery right/left History of bronchoscopy History of Mohs micrographic surgery for skin cancer Hx of biopsy multiple lymph nodes/neck Hx of knee surgery multiple, both knees Hx of discectomy c5 History of endovascular stent graft for abdominal aortic aneurysm (AAA) 2019 Family History Father ALS (amyotrophic lateral sclerosis) Other No family history of adverse response to anesthesia Social History Smoking Status: Former smoker Tobacco Type: Cigarettes packs per day: ; Cigarettes Per Day: 2020; Second Hand Exposure: No; Do You Dip or Chew Tobacco: No; Tobacco Cessation Education Requested by Patient: No Hx Alcohol Use: Yes Alcohol type: beer Alcohol Intake Frequency Comment: 2-3 beers daily Hx Substance Use: No Preferred Language: Norwegian Communication Ability: Effective Visual Impairment: Partially Limited Hearing Ability: Normal Shower Attendant Required: No Beliefs That Will Affect Care: None marital status: Current Living Situation: Alone Current Living Situation Comment: home alone current occupational status: retired current occupation: [employer] @ [employer] Other Information That Helps Us Care for You: No Feels Safe at Home: Yes Safety Concerns: Feels Safe At This Time Diet: regular during the past year weight has: remained stable Assistive Devices: Oxygen - Continuous Results & Data Results & Data Vital Signs (Past 12 Hours) Vital Signs Temp Pulse Resp BP BP Pulse Ox O2 Del Method 02/27/24 07:50 Oxymask 02/27/24 07:31 76 24 Oxymask 02/27/24 07:19 36.6 C 77 16 144/74 H 90 Oxymask 02/26/24 22:41 Oxymask 02/26/24 22:00 90 Oxymask 02/26/24 21:59 36.4 C L 80 22 131/67 96 Oxymask O2 Flow Rate 02/27/24 07:50 10 02/27/24 07:31 10 02/27/24 07:19 12 02/26/24 22:41 10 02/26/24 22:00 10 02/26/24 21:59 15 Critical Care Results & Data Vital Signs (Past 12 Hours) Vital Signs Temp Pulse Resp BP BP Pulse Ox O2 Del Method 02/27/24 07:50 Oxymask 02/27/24 07:31 76 24 Oxymask 02/27/24 07:19 36.6 C 77 16 144/74 H 90 Oxymask 02/26/24 22:41 Oxymask 02/26/24 22:00 90 Oxymask 02/26/24 21:59 36.4 C L 80 22 131/67 96 Oxymask O2 Flow Rate 02/27/24 07:50 10 02/27/24 07:31 10 02/27/24 07:19 12 02/26/24 22:41 10 02/26/24 22:00 10 02/26/24 21:59 15 Lab & Micro Results (Past 24 Hours) RBC 2.51 M/uL (4.70-6.10) L 02/27/24 WBC 1.15 K/ul (4.8-10.8) L 02/27/24 Hgb 8.3 g/dl (14.0-18.0) L 02/27/24 Hct 25.5 % (42.0-52.0) L 02/27/24 MCV 101.6 fL (80.0-100.0) H 02/27/24 MCH 33.1 pg (25.0-34.0) 02/27/24 MCHC 32.5 g/dL (32.0-36.0) 02/27/24 RDW Standard Deviation 50.6 fL (36.4-46.3) H 02/27/24 RDW Coefficient of Variation 13.7 % (11.5-14.5) 02/27/24 Plt Count 89 K/uL (130-400) L 02/27/24 MPV 11.6 fL (9.4-12.4) 02/27/24 Na 138 mmol/L (136-145) 02/27/24 K 4.3 mmol/L (3.5-5.1) 02/27/24 Cl 107 mmol/L (98-107) 02/27/24 CO2 25 mmol/L (21-32) 02/27/24 Anion Gap 6 (3-11) 02/27/24 BUN 23 mg/dl (6-23) 02/27/24 Creatinine 1.15 mg/dl (0.6-1.4) 02/27/24 BUN/Creatinine Ratio 20.0 (10-20) 02/27/24 Glu 104 mg/dl (70-99(Fasting)) H 02/27/24 Ca 8.1 mg/dl (8.6-10.3) L 02/27/24 Total Bilirubin 0.5 mg/dl (0.2-1.0) 02/27/24 AST 27 U/L (13-39) 02/27/24 ALT 28 U/L (7-52) 02/27/24 Alkaline Phosphatase 77 U/L (34-104) 02/27/24 TP 5.4 gm/dl (6.0-8.3) L 02/27/24 Albumin 2.7 gm/dl (3.4-5.0) L 02/27/24 Globulin 2.7 gm/dl (2.5-4.0) 02/27/24 Albumin/Globulin Ratio 1.0 (0.9-2) 02/27/24 Mg 1.8 mg/dl (1.7-2.4) 02/27/24 06:47 Calcium Level 8.1 mg/dl (8.6-10.3) L 02/27/24 06:47 Microbiology 02/26/24 Unknown Gram Stain - Final Sputum, Expectorated Sputum Culture - Preliminary Moderate normal darleen present, final report to follow. Diagnostic Findings (Past 24 Hours) Chest X-Ray 02/26/24 16:19 EXAM: Radiograph of the Chest 1 View INDICATION: Shortness of breath and labored breathing. TECHNIQUE: Frontal view of the chest. COMPARISON: 02/16/2024 FINDINGS: Lungs and pleural spaces: New patchy bilateral lower lung infiltrates superimposed on pulmonary fibrosis. No pleural effusion or pneumothorax. Heart: Shape and configuration within normal limits allowing for technique. Mediastinum: Normal contour. Bones/joints: No fracture, erosion or dislocation. Soft tissues: No abnormality noted. No radiopaque foreign body noted. Tubes, lines and devices: Left subclavian central venous port catheter terminates in the distal SVC. Upper abdomen: No abnormality noted. IMPRESSION: Bilateral basilar pneumonia right greater than left on fibrosis. ACT 112: Negative or not required by law. Electronically signed by Macy Warren 02-26-2024 4:52 PM I & O Totals 24 Hours 02/26/24 02/27/24 02/28/24 06:59 06:59 06:59 Intake Total 2676.5625 / 2676.5625 1612.5 / 1612.5 Output Total 450 / 450 1025 / 1025 175 / 175 Balance 2226.5625 / 2226.5625 587.5 / 587.5 -175 / -175 Cumulative 02/15/24 23:11 thru 02/27/24 07:06 Intake Total 45322.0625 Output Total 1652 Balance 8812.0625 RT Ventilator Mngmt (Last Documented) Ventilator Ordered Settings Respiratory Rate 24 02/27/24 07:31 Fraction of Inspired Oxygen 3 02/19/24 11:32 Ventilator - PT Measurements Respiratory Rate 24 Coding Level of Care Code 98344 CRITICAL CARE 1ST 30-74M Additional Critical Care Time Additional 30min Critical Care Time: Yes - 61095 Diagnoses Idiopathic interstitial pneumonia J84.111 COVID-19 U07.1 COPD exacerbation J44.1 Immunosuppressed due to chemotherapy D84.821; T45.1X5A; Z79.69 Acute hypoxemic respiratory failure J96.01 Anemia D64.9 Anemia type: unspecified type Systolic heart failure I50.20 Neutropenia D70.9 Additional Codes Critical Care Time - Additional 30min Critical Care Time: Yes - [id number] ([id number]) (6) Anemia Anemia type: unspecified type Qualified Code(s): D64.9 - Anemia, unspecified
--- NOTE | 2024-02-27 10:04 | Pulmonology Progress Note ---
Date of Service February 27, 2024 Assessment & Plan (1) Idiopathic interstitial pneumonia: (2) COVID-19: (3) COPD exacerbation: (4) Immunosuppressed due to chemotherapy: (5) Acute hypoxemic respiratory failure: (6) Anemia: Anemia type: unspecified type Qualified Code(s): D64.9 - Anemia, unspecified (7) Systolic heart failure: (8) Neutropenia: Plan This is a complex 79-year-old male with a history of severe COPD on chronic oxygen therapy, mild systolic heart failure with an EF of 40 to 45% on echo from 01/07/2024, diffuse large B-cell lymphoma previously on chemotherapy as of 2 weeks ago who first tested positive for COVID-19 02/04/2024 and who has had ongoing shortness of breath and cough since that period of time. He has a baseline history of severe COPD and is oxygen dependent at baseline. His CT chest is suggestive of multifocal pneumonia overlying severe emphysema. The etiology of these infiltrates is unclear, but given his immunosuppressed state, opportunistic infections are certainly possible such as PJP, Aspergillus, nontuberculous Mycobacterium, nocardia and others. Inflammatory conditions are also possible such as pneumonitis related to chemotherapy and/or post fibrotic changes due to COVID. Patient is currently on dexamethasone 6 mg daily. BNP was unremarkable, but patient with severe crackles on exam today, increased work of breathing and hypoxemia. Will give 20 mg of IV Lasix. Discussed with hospitalist service. Recommend giving additional dose depending on urine response. Continue to hold Eliquis given acute anemia and thrombocytopenia. He does have appear to have an element of chronic anemia and thrombocytopenia likely related to chemotherapy and diffuse large B-cell lymphoma. Fortunately his counts have improved today. Will hold aspirin as well. Unclear whether Bactrim is playing a role in myelosuppression. Will defer additional Bactrim to ID. Continue vancomycin per ID. Continue empiric PJP treatment with IV Bactrim. Check PJP sputum PCR. Continue azithromycin to treat for potential atypical organisms and Legionella. Legionella urine antigen ordered. Beta glucan ordered along with Aspergillus galactomannan. Continue Zosyn for the time being. Appreciate ID input. I discussed this case with the on-call crew dispatcher given his increased oxygen requirements. He is going to be moved to the ICU. Differential for the increasing oxygen requirements is broad including worsening infection, diffuse alveolar hemorrhage, worsening pulmonary edema and acute interstitial pneumonia. Patient is too unstable for bronchoscopy at this time unless he is intubated and sedated. Prognosis unfortunately would likely be poor if he gets intubated and this was discussed with the patient. I have ordered for 1 mg of IV Bumex to help diurese the patient as he is still volume up. Admission and Anticipated Discharge Date Admission Date: February 16, 2024 Subjective Overnight and this morning he has increasing oxygen requirements and is on high flow oxygen at 100% FiO2. He is dyspneic with conversation. He notes that after receiving Lasix yesterday he had severe abdominal cramping and had trouble with urination. He denies any hemoptysis currently. We did have a discussion of CODE STATUS and for the time being he would like to remain a full code, but is going to continue to think about this. Review of Systems Review of Systems: All systems reviewed & are unremarkable except as noted in HPI & below Physical Exam Physical Exam: Constitutional: Patient appears to be of their stated age. Patient is in no apparent distress. Eyes: Pupils are equal round and reactive to light. Conjunctivae are normal. Anicteric sclera. Ears nose, mouth and throat: No perioral cyanosis. Oxy mask in place. Neck: Trachea is midline. Visual inspection is normal. Respiratory: Diffuse crackles with increased tachypnea and work of breathing. Cardiovascular: Regular rate and rhythm. No murmurs. No edema. Gastrointestinal: Normal bowel sounds, soft, nontender and nondistended. No hepatosplenomegaly noted. Musculoskeletal: No cyanosis. Patient is able to move all extremities. Strength is 5 out of 5 in the upper and lower extremities. Skin: No rashes, warm dry and intact. Neurologic: No obvious focal neurological deficits seen. Psychiatric: Alert and oriented x3 with a euthymic affect. Results & Data Results & Data Vital Signs (Past 12 Hours) Vital Signs Temp Pulse Resp BP Pulse Ox O2 Del Method O2 Flow Rate 02/27/24 07:50 Oxymask 10 02/27/24 07:31 76 24 Oxymask 10 02/27/24 07:19 36.6 C 77 16 144/74 H 90 Oxymask 12 02/26/24 22:41 Oxymask 10 PG Care Time/CCT Total # of Minutes Spent Total Time Spent with Patient: Total time spent is greater than 50% in coordination of care (as documented) at patient's floor/unit and/or counseling patient: Coding Level of Care Code 16874 SUB INP/OBS CARE MIN Diagnoses Idiopathic interstitial pneumonia J84.111 COVID-19 U07.1 COPD exacerbation J44.1 Immunosuppressed due to chemotherapy D84.821; T45.1X5A; Z79.69 Acute hypoxemic respiratory failure J96.01 Anemia D64.9 Anemia type: unspecified type Systolic heart failure I50.20 Neutropenia D70.9
[2024-02-27] MEDS: BUMETANIDE 1 MG in SYRINGE 0 ML IV ONE (10:59)
--- NOTE | 2024-02-27 11:25 | Pharmacy Report ---
Pharmacy PK ABX Note - Date of Service February 27, 2024 - Assessment and Plan Assessment 02/26 * Transferred to the ICU this morning, azithromycin has been discontinued by ID. Starting voriconazole, continuing vancomycin,zosyn at this time. Bactrim is currently on hold. 02/25 sputum with moderate normal darleen, blood cultured negative at 5 days. Random vancomcyin level this morning, drawn ~ 1 hour post infusion, 28.4 mcg/ml predicts slightly supratherapeutic levels. Patients SCR has been trending upward 0.75-> 0.97->1.15, urine output still appropriate- monitor. / Mr Diaz is a 79 year old M receiving antibiotics for treatment of multifocal pna, overlying severe emphysema. Pt is immunocompromised in the setting of B-cell lymphoma w/ chemotherapy. * Pertinent microbiologic data includes: MRSA Nasal Swab negative 02/15, repeat swab currently pending. Sputum cx from 02/19 growing Coryne striatum * Pulm saw pt today and started vanc (pending repeat MRSA swab), Zosyn, IV Bactrim for empiric PJP tx, azithromycin for atypicals/Legionella. * ID has been consulted. Plan Vancomycin * Loading dose: 1750 mg IV x 1 * Maintenance dose: 1000 mg IV every 12 hours * Random level 28.4 mcg/ml- Regimen is predicted to be slight above target AUC/OMAR of 400-600 mg/L.hr * Adjust dose to 750 mg IV every 12 hours- this predicts [id number] of 553 mg/L.hr Pharmacy will continue to follow and will adjust dose/frequency as necessary. Thank you. Pharmacy has transitioned to AUC monitoring for vancomycin. AUC/OMAR is the preferred PK/PD target and is associated with decreased risk of nephrotoxicity compared to traditional trough targets.
--- NOTE | 2024-02-27 11:34 | Infectious Disease Progress Nt ---
Date of Service February 27, 2024 Assessment & Plan (1) Acute hypoxemic respiratory failure: (2) Diffuse large B cell lymphoma: (3) Acute kidney injury superimposed on CKD: (4) Pancytopenia: Plan 79yo M with h/o DLBCL (last dose of chemo a few months ago, on ACV ppx), s/p miguelito st port, cardiomyopathy, afib on Eliquis, GERD, COPD on 3L home O2, CKD III, recent admission 02/03-02/06 with COVID infection s/p RDV x 3d and also treated for ?bacterial PNA and dcd on doxy/augmentin x 7d course who presented on 02/14 with worsening SOB, chest congestion, productive cough and hypoxia. Here he has been afebrile, BP stable, initially on 4L NC. Initial labs with WBC 6.15, low Hb and platelets. Cr 1.41. Lactate 1.1. AST/ALT wnl. PCT 0.06>>0.04. UA 0-5 WBC. CRP 9.65>>2.62. MRSA screen neg. RPP pos for COVID. CTA chest with severe emphysematous and peripheral fibrotic changes with multifocal peripherally and subpleural GGO on both lobes could be due to COVID19 or other acute infection. He was started on zosyn and azithromycin. Course c/b worsening hypoxia up to 6- 7L. HRCT on 02/23 showed interval development of consolidation c/w pneumonia superimposed upon prominent emphysema and scarring, reactive LAD. ID consulted 02/24. Patient was started on empiric Bactrim, vancomycin, along with zosyn/azithromycin. U legionella negative. Continued to have worsening O2, now on HFNC and transferred to ICU. SCx with moderate normal darleen, prior SCx with Coryne. Discussed case with ICU, no plans for bronch anytime soon given his instability. Given negative legionella and long course of azithromycin, will stop azithro. We will keep on zosyn to complete 14 days and then stop (sputum cx did not have any specific growth aside from Corynbacterium). Will keep on vancomycin for ?Corynebacterium related PNA based on cx from 02/19, though this didnt grow on 02/25 cx. Given worsening hypoxia, will start empiric voriconazole for possible invasive aspergillosis while waiting for fungal studies (note CT chest not entirely consistent with aspergillus, but he is still at risk given his comorbidities). Pharmacy to assist in determining best empiric option for possible PJP (elevated serum LDH, severe hypoxia, immunocompromise) given his pancytopenia (ie bactrim vs IV pentamidine). Would be unable to do clinda/primaquine since his G6PD status is unknown. # Acute hypoxic respiratory failure # Recent COVID infection # MARKO on CKD improved # DLBCL port in place - f/u fungitell, aspergillus Ag, serum cryptococcal Ag, CMV PCR, urine histoplasma Ag - Jeny started voriconazole empirically stop if aspergillus testing is negative - Jeny stopped azithromycin - continue vancomycin (covering possible Corynebacterium infection) started 02/24 - empiric therapy for PJP will discuss with pharmacy regarding best option in his case - continue zosyn through 03/01 and then stop (was started 02/15) - acyclovir ppx ID will continue to follow. Please note that there will be no ID notes over the weekend. If questions or concerns arise, please contact the Infectious Disease Call Center and ask to speak with the covering ID physician. Lindsey Mcghee MD [facility], Division of Infectious Diseases Admission and Anticipated Discharge Date Admission Date: February 16, 2024 Subjective Subsequent visit was provided via telemedicine using two-way real-time interactive telecommunication between the patient and the telemedicine provider. For the duration of the visit, the provider was performing the assessment from a different facility than the patient. This includesuse of bluetooth stethoscope forauscultationperformed by the telepresenter that the telemedicine provider can hear if described in the physical exam. [employer] contact information: Please call ID Connect Call Center . (Phone Number For Physician Use Only) After establishing a telemedicine visit, patient was: Patient was verified with two unique identifiers, Patient/authorized rep acknowledged consent and understanding and Gave permission to continue telehealth session Time Spent with Patient: Subsequent => 55 min Patient reports feeling worse today. Now on HFNC, SOB, chest pressure. Physical Exam Physical Exam: General: Awake, alert, no acute distress HEENT: NC/AT, EOMI, mmm Neck: supple Lungs: +wheezing, coarse breath sounds Heart: nl S1/S2, no appreciable murmurs Chest: left sided port, c/d/i Abdomen: soft, nontender Results & Data Vital Signs (Past 12 Hours) Vital Signs Temp Pulse Pulse Resp BP BP Pulse Ox 02/27/24 10:19 78 20 94 02/27/24 10:17 79 20 96 02/27/24 10:03 37.0 C 79 17 95 02/27/24 10:00 136/76 02/27/24 09:54 36.9 C 81 23 94 02/27/24 09:53 85 22 95 02/27/24 09:50 85 02/27/24 09:48 82 22 93 02/27/24 09:39 128/78 02/27/24 08:35 90 24 91 02/27/24 07:50 02/27/24 07:31 76 24 02/27/24 07:19 36.6 C 77 16 144/74 H 90 O2 Del Method O2 Flow Rate FiO2 02/27/24 10:19 High Flow Nasal Cannula 40 65 02/27/24 10:17 High Flow Nasal Cannula 40 70 02/27/24 10:03 High Flow Nasal Cannula 40 70 02/27/24 10:00 02/27/24 09:54 02/27/24 09:53 High Flow Nasal Cannula 40 70 02/27/24 09:50 02/27/24 09:48 02/27/24 09:39 02/27/24 08:35 High Flow Nasal Cannula 50 100 02/27/24 07:50 Oxymask 10 02/27/24 07:31 Oxymask 10 02/27/24 07:19 Oxymask 12 Laboratory Results Labs reviewed. Diagnostic Findings Imaging reviewed. (2) Diffuse large B cell lymphoma Lymphoma site: unspecified region Qualified Code(s): C83.30 - Diffuse large B-cell lymphoma, unspecified site
[2024-02-27] MEDS: VORICONAZOLE IV STA (11:56)
[2024-02-27] MEDS: SODIUM CHLORIDE 0.9% IV STA (11:56)
[2024-02-27] MEDS: ICU Protocol for HYPERglycemia SCH (12:08)
--- NOTE | 2024-02-27 13:41 | Communication Note ---
Date of Service: February 27, 2024 Had extensive discussion with patient's son and the patient at the bedside. Patient had previously completed a advanced directive in the [facility] when he was critically ill. I have asked them to supply a copy if they are able to find 1; however, in the meantime the patient wants his son: Zafar Diaz to be his healthcare surrogate in event he is unable to make decisions. We clarified that the patient would not want heroic measures undertaken in event of cardiac arrest, and have updated CODE STATUS accordingly. The patient would be comfortable with intubation as well as tracheostomy and long-term mechanical ventilation insofar as he would be able to be alert and interactive with family and friends. We also discussed location of vent facilities knowing that there would be increased distance for family to travel to see him. He is comfortable being intubated in event of respiratory insufficiency/failure. Discussed patient is very critically ill, however, he is able to speak in full sentences and does not desaturate at this time. He is tolerating high flow nasal cannula. Discussed the difficulties of determining exact underlying cause of continued hypoxia whether this reflects fibrosis, infection, malignancy, combination of any or all of the aforementioned. Updated them regarding the anti-infective treatment plan. I have personally spent 25 minutes of critical care time in the direct management of this patient. This is a life/limb threatening event. This includes time spent evaluating patient, direct bedside care, chart review, placing orders, interpretation of diagnostic studies, discussion with consultants, patient, and/or family members regarding treatment decisions, as well as other required patient management activities. This time is exclusive of all separately billable procedures, and teaching time and separate from and in addition to any other critical care service time. Coding Level of Care Code 51126 CRITICAL CARE EA ADD 30M
[2024-02-27] MEDS: VANCOMYCIN 750 MG in SODIUM CHLORIDE 0.9% 250 ML IV SCH (18:00)
[2024-02-27] MEDS ORDERED: CARBOHYDRATES FOR HYPOGLYCEMIA PO PRN (18:18)
[2024-02-27] MEDS ORDERED: GLUCOSE 40% GEL 15 GM TUBE PO PRN (18:18)
[2024-02-27] MEDS ORDERED: GLUCAGON FOR INJ 1 MG VIAL SQ PRN (18:18)
[2024-02-27] MEDS ORDERED: DEXTROSE 50% 50 ML SYRINGE IV PRN (18:18)
[2024-02-27] MEDS ORDERED: GLUCOSE 10 TAB/TUBE PO PRN (18:18)
[2024-02-27] MEDS: INSULIN ASPART PER UNIT CHARGE SC SCH (18:36)
[2024-02-27] MEDS: VORICONAZOLE IV ONE (23:15)
[2024-02-27] MEDS: SODIUM CHLORIDE 0.9% IV ONE (23:15)
[2024-02-28] MEDS: dexAMETHasone 5 MG in SYRINGE 0 ML IV SCH (06:21)
[2024-02-28 07:48] LABS: BUN Creatinine Ratio 24.6 (10-20); Creatinine Clr Calc Pharmacy 50.7 ml/min; Hematocrit (blood only) 24.6 % (42.0-52.0); Hemoglobin 8.2 g/dl (14.0-18.0); Magnesium 1.8 mg/dl (1.7-2.4); Mean Corpuscular Hemoglobin 33.9 pg (25.0-34.0); Mean Corpuscular Hgb Conc 33.3 g/dL (32.0-36.0); Mean Corpuscular Volume 101.7 fL (80.0-100.0); Mean Platelet Volume 12.2 fL (9.4-12.4); Phosphorus 2.3 mg/dl (2.5-4.9); Platelet Count 88 K/uL (130-400); Potassium 4.5 mmol/L (3.5-5.1); RDW Standard Deviation 51.4 fL (36.4-46.3); Red Blood Count 2.42 M/uL (4.70-6.10); White Blood Count 1.07 K/ul (4.8-10.8)
[2024-02-28 07:51] LABS: ALC (manual) 0.12 K/uL (1.2-3.4); ANC (manual) 0.87 K/uL (1.4-6.5); Acanthocytes 1+; Lymphocytes # (manual) 0.12 K/uL (1.2-3.4); Lymphocytes % (manual) 11 %; Monocytes # (manual) 0.09 K/uL (0.11-0.59); Monocytes % (manual) 8 %; Neutrophils # (manual) 0.87 K/uL (1.40-6.50); Neutrophils % (manual) 81 %; Polychromasia 1+
--- NOTE | 2024-02-28 07:58 | Hospitalist Progress Note ---
Date of Service February 28, 2024 Assessment & Plan (1) Acute kidney injury superimposed on CKD: (2) Acute on chronic respiratory failure with hypoxia: (3) COVID-19: (4) Pancytopenia: (5) COPD exacerbation: Plan 79-year-old male with a past medical history including pancytopenia s/p chemotherapy for B-cell lymphoma, PAF, peripheral neuropathy, pulmonary hypertension, A-fib with RVR, chronic respiratory failure with hypoxia, COPD, cardiomyopathy, anemia, and GERD, presented with acute on chronic respiratory failure. Acute on chronic respiratory failure with hypoxia COPD exacerbation, Recurrent Pneumonia: Multifactorial: Recent admission for COVID-19 infection, immunocompromised status, secondary bacterial pneumonia Nasal cannula 3 L O2 at baseline - elevated requirement relative to baseline, still on high flow NC but deemed stable for downgrade from ICU HRCT chest 02/23 demonstrated interval development of consolidation suspicious for pneumonia -> repeat CXR 02/27 with mild interval regression in subpleural and nodular opacities - Pulm/Critical care consulted, appreciate recs: - Elevated suspicion for opportunistic infection - ID consulted, appreciate recs: - Fungitell, aspergillus Ag, serum cryptococcal Ag, CMV PCR, urine histoplasma Ag pending - Urine legionella Ag negative - Repeat sputum cx 02/25 +fungi-rare - Continue Vanc for Corynebacterium coverage - Empiric Bactrim resumed for PJP ppx - continue zosyn through 03/01 - continue Voriconazole - consider discontinuing pending fungal Ag lab results - Continue Acyclovir ppx Spirometry report from March 2023 notable for moderate obstructive pattern with FEV1 57% of predicted Continue weaning Dexamethasone Continue LABA, LAMA, ICS Continue DuoNebs, q4HWA, LAILA Continue supportive care measures/pulmonary toilet: incentive spirometry, flu tter valve Recent COVID-19 Infection with secondary bacterial pneumonia: Patient was initially positive for COVID on 02/04/2024, residual positive noted on admission S/p dexamethasone x10 days and remdesivir x3 days during last hospital stay + Zosyn and doxycycline tx while inpatient, discharged on Augmentin/doxycycline, completed 7-day course Pancytopenia 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 Bangura Continue acyclovir prophylaxis Anemia - Hgb stable - Continue to monitor - AM CBC MARKO on CKD - MARKO resolved Paroxysmal atrial fibrillation Continue metoprolol succinate, continue to hold Eliquis today, resume 02/28 Plan VTE Prophylaxis: Eliquis held d/t thrombocytopenia - plan to resume 02/28 MOISESI: Heart healthy Admission and Anticipated Discharge Date Admission Date: February 16, 2024 Supervising Physician Co-Signing Physician Notes Attending Physician Supervision Note: I independently interviewed and examined the patient and verified the grace history and physical, reviewed labs and image studies and agree with findings and care plan noted above. [place] better this am. Still on high flow. cough + respiratory distress +, crackles mostly resolved. some rhonchi. Acute on chronic resp failure - continue High flow O2. 3L O2 at baseline. Interstitial Pneumonia - infiltrate on Chest CT 02/23. sputum cx negative -Beta-glucan, Galactoman Ag, cryptococcus Ag, PJP, CMV PCR pending. -Continue zosyn - to stop on 03/01, vancomycin start 02/25 (Vanco will cover cornybacterium-possibly infectious in immunocompromised setting) -continue IV dexamethasone - weaning dose. -continue bactrim for PJP coverage (G6PD testing ordered) -Voriconazole added (02/26) for concern of fungal infection. -continue chronic acyclovir proph. COPD (moderate) exacerbation (setting of recent COVID and bacterial pneumonia - treated) -continue IV dexamethasone - weaning. -Umeclidinium inhaled (on spiriva at home), Albuterol nebs. -continue Incentive spirometry, flutter valve. Pancytopenia - baseline from diffuse large B cell lymphoma worsened by acute process. -Apixaban held due to dropping count. Aspirin as well. -If platelet count stays stable - will consider resuming apixaban in am. Acute on Chronic HFmrEF - Echo 01/07 - EF 40-45%. d/t Na/fluids from IV abx. -On jardiance at home. Held here. Not on daily diuretic, ARB. -continue metoprolol. -resolved with diuresis. DLBCL - port in place. off chemo PAF - apixaban (on hold), metoprolol Sarcopenia - increased protein shakes by nutrition. Downgraded from ICU. Subjective Patient reports overnight improvement in respiratory status, though still gets significantly short of breath with even modest amount of movement, still on high flow. Minimally productive cough. Denies fevers, chills, nightsweats. Review of Systems Review of Systems: as per hpi Physical Exam Physical Exam: General: Alert and oriented. No acute distress Cardiac: Regular rate and rhythm, no murmurs appreciated Respiratory: Lungs sounds globally diminished, +mild, diffuse wheezes, +conversational dyspnea . Extremities: No lower extremity edema Psych: mood affect congruence Results & Data Results & Data Vital Signs (Past 12 Hours) Vital Signs Temp Pulse Pulse Resp BP Pulse Ox Pulse Ox 02/28/24 07:19 80 22 94 02/28/24 07:00 36.8 C 24 88 L 02/28/24 06:36 37.0 C 77 94 02/28/24 06:21 37.1 C 80 18 94 02/28/24 06:00 113/72 02/28/24 05:51 37.1 C 84 19 90 02/28/24 05:33 37.1 C 80 92 02/28/24 05:06 37.1 C 74 23 93 02/28/24 05:01 100/70 02/28/24 04:48 37.1 C 71 20 93 02/28/24 04:36 37.1 C 98 H 24 95 02/28/24 04:21 37.1 C 23 95 02/28/24 04:01 103/73 02/28/24 04:01 103/73 02/28/24 04:00 37.0 C 89 22 94 02/28/24 03:33 37.0 C 84 16 90 02/28/24 03:13 75 18 92 02/28/24 03:09 37.0 C 76 23 02/28/24 03:02 119/59 L 02/28/24 03:02 119/59 L 02/28/24 02:51 37.0 C 75 18 02/28/24 02:47 73 20 89 L 02/28/24 02:33 37.0 C 68 17 95 02/28/24 02:06 37.0 C 70 18 94 02/28/24 02:00 101/62 02/28/24 01:51 37.1 C 73 17 94 02/28/24 01:33 37.1 C 81 18 96 02/28/24 01:06 37.2 C 77 17 93 02/28/24 00:30 37.3 C 75 21 93 02/28/24 00:00 76 02/28/24 00:00 37.5 C 81 20 95 02/28/24 00:00 114/60 02/28/24 00:00 114/60 02/28/24 00:00 95 02/27/24 23:33 37.6 C H 78 17 95 02/27/24 23:15 37.6 C H 79 17 94 02/27/24 23:04 83 20 94 02/27/24 23:00 104/63 02/27/24 23:00 104/63 02/27/24 22:42 37.7 C H 82 20 94 02/27/24 22:36 37.7 C H 82 22 95 02/27/24 22:03 37.7 C H 86 20 94 02/27/24 22:00 115/58 L 02/27/24 22:00 115/58 L 02/27/24 21:51 37.7 C H 86 19 92 02/27/24 21:33 37.7 C H 88 21 93 02/27/24 21:06 37.8 C H 86 95 02/27/24 20:33 37.9 C H 90 23 96 02/27/24 20:00 123/61 02/27/24 20:00 123/61 02/27/24 20:00 123/61 02/27/24 20:00 37.6 C H 94 H 22 92 O2 Del Method O2 Del Method O2 Flow Rate O2 Flow Rate FiO2 02/28/24 07:19 High Flow Nasal Cannula 60 70 02/28/24 07:00 High Flow Nasal Cannula 02/28/24 06:36 02/28/24 06:21 02/28/24 06:00 02/28/24 05:51 02/28/24 05:33 02/28/24 05:06 02/28/24 05:01 02/28/24 04:48 02/28/24 04:36 02/28/24 04:21 02/28/24 04:01 02/28/24 04:01 02/28/24 04:00 02/28/24 03:33 02/28/24 03:13 High Flow Nasal Cannula 60 70 02/28/24 03:09 02/28/24 03:02 02/28/24 03:02 02/28/24 02:51 02/28/24 02:47 High Flow Nasal Cannula 50 70 02/28/24 02:33 02/28/24 02:06 02/28/24 02:00 02/28/24 01:51 02/28/24 01:33 02/28/24 01:06 02/28/24 00:30 02/28/24 00:00 02/28/24 00:00 02/28/24 00:00 02/28/24 00:00 02/28/24 00:00 High Flow Nasal Cannula 40 02/27/24 23:33 02/27/24 23:15 02/27/24 23:04 High Flow Nasal Cannula 40 65 02/27/24 23:00 02/27/24 23:00 02/27/24 22:42 02/27/24 22:36 02/27/24 22:03 02/27/24 22:00 02/27/24 22:00 02/27/24 21:51 02/27/24 21:33 02/27/24 21:06 02/27/24 20:33 02/27/24 20:00 02/27/24 20:00 02/27/24 20:00 02/27/24 20:00 Resident Activity Tracking Resident Involvement: Resident Care Provided Care Provided: Adult Hospital Medicine
--- NOTE | 2024-02-28 08:02 | XRay Report ---
EXAM: XR chest 1V portable CLINICAL HISTORY: RESP FAILURE KAB JMF. TECHNIQUE: An X-ray image of the chest is obtained in AP projection. COMPARISON: 02/26/24. FINDINGS: Pulmonary Parenchyma: Bilateral hypertransradiant/hyperinflated lung krishnan with flattened diaphragms suggestive of chronic obstructive airway disease [COPD]. Bilateral ill-defined Subpleural confluent and nodular opacities scattered in both lung krishnan mainly in the mid and lower zones with bilateral prominent/thickened interstitial markings. No evidence of pleural effusion or pleural thickening. Heart and Mediastinum: Mild cardiomegaly. No mediastinal widening or masses. No hilar or mediastinal lymphadenopathy. Bony Thorax: Bony thorax appears intact without fractures or deformities. Soft Tissues: Soft tissues overlying the chest wall are unremarkable. IMPRESSION: 1. Bilateral hypertransradiant/hyperinflated lung krishnan. Chronic obstructive airway disease. 2. Bilateral subpleural ill-defined confluent and central nodular opacities mid and lower zones. Postinflammatory, suggest clinical and lab correlation. 3. Mild cardiomegaly. 4. Comparing the previous x-ray dated 02/26/20 there is mild interval regression in the subpleural and nodular opacities, especially in the right lung. Electronically signed by Michelle Self 02-28-2024 08:01 AM
[2024-02-28] MEDS: VORICONAZOLE IV SCH (10:32)
[2024-02-28] MEDS: SODIUM CHLORIDE 0.9% IV SCH (10:32)
--- NOTE | 2024-02-28 11:27 | Critical Care Progress Note ---
Date of Service February 28, 2024 Assessment & Plan (1) Idiopathic interstitial pneumonia: Plan: Reason Critically Ill: Acute on chronic hypoxic respiratory failure, history large B-cell lymphoma PLAN: Resp: Acute on chronic hypoxic respiratory failure: Baseline 3 L oxygen by nasal cannula at home Idiopathic interstitial pneumonia Significant structural lung disease including fibrosis and emphysematous changes -Should patient require intubation mechanical ventilation I believe the patient is at extremely high risk for chronic/permanent ventilator dependency -Patient of advanced age and has significant comorbidities, he would not be a candidate for lung transplant given baseline conditions and B- cell lymphoma -After discussion with family should patient require intubation he would be agreeable to tracheostomy and chronic vent dependence if he is unable to liberate CV: Atrial fibrillation: Paroxysmal: Currently normal sinus rhythm History of cardiomyopathy: Reviewed 01/07/2024 echocardiogram Fluids/Renal: History MARKO and prior acute kidney failure requiring dialysis when patient was hospitalized in [place] at the [facility] -Continued observation, on Bactrim and other medications that may affect renal function ID: Discussed with infectious disease -Zithromax, treatment duration would be of adequate duration for Legionella, this has been discontinued -Voriconazole, day 2, await galactomannan, Aspergillus antigen,(if negative would consider discontinuation) -Zosyn: Continue for 14 days to again have adequate treatment duration for possible pulmonary infection, stop date entered -Considering Bactrim versus pentamadine, multidisciplinary discussion felt Bactrim was lower risk profile then pentamadine -Empiric treatment given limitations of lack of bronchoscopic specimen -Recent COVID-19 with presumptive secondary bacterial pneumonia: Treated with remdesivir for 3 days -Infectious diseases following -Acyclovir 400 mg twice daily prophylaxis -serum cryptococcal antigen, CMV PCR, urine histoplasma antigen pending GI/Nutrition: Sarcopenia -Patient admits it is difficult to eat secondary to food not tasting well and lack of appetite -Encourage high-protein intake -Discussed options to supplement nutrition including NG tube: not viable at this time given significant pulmonary support also discussed feeding tube, patient does not feel he would not want to undergo that at this time as he is still able to eat, I discussed I had not sure if he is able to take enough calories in and may benefit from nutritional supplementation Heme: Diffuse large B-cell lymphoma -Received last chemotherapy approximately 1 month ago -Overarching question is whether patient's bone marrow suppression is related to neoplastic effects/medication effects/infectious complications versus combination of all components Pancytopenia -Received blood transfusion previously -Reviewed prior heme-onc consultation of October 02, 2023 which noted "given that the patient's clinical intuition is overall not great I will hold curative chemotherapy" DVT prophylaxis: Restart Pierre, no obvious source of bleeding -Consented for blood products if needed Endocrine: ICU hyperglycemia protocol Long-term steroid use, has received high-dose steroids continuously while he has been inpatient and has gotten worse, probable continuation of steroids from the outpatient setting -5 mg Decadron daily for 1 week then decrease by 1 mg weekly Vascular access: Peripheral IVs Code Status: DNR DNI in event of cardiac arrest Disposition: Stable for downgrade out of ICU given patient is able to sing without significant desaturation continue to wean oxygen requirements (2) COVID-19: (3) COPD exacerbation: (4) Immunosuppressed due to chemotherapy: (5) Acute hypoxemic respiratory failure: (6) Anemia: (7) Systolic heart failure: (8) Neutropenia: Admission and Anticipated Discharge Date Admission Date: February 16, 2024 Subjective Patient generally feels better than yesterday. Listening to music and drawing which has been a significant past time for him. Of note patient was able to slightly sitting without the oxygen desaturation so we have attempted to decrease his oxygen requirements. Physical Exam Physical Exam: General: Alert. nontoxic. Skin: Warm, dry, Head: Atraumatic Ears, nose, mouth and throat: airway patent Cardiovascular: Normal peripheral perfusion Respiratory: no respiratory distress, positive tachypnea, high flow nasal cannula in place Gastrointestinal: Non distended Musculoskeletal: No deformity Results & Data Results & Data Vital Signs (Past 12 Hours) Vital Signs Temp Pulse Pulse Resp BP Pulse Ox Pulse Ox 02/28/24 10:28 75 22 89 L 02/28/24 09:39 37.2 C 72 16 97 02/28/24 09:03 37.4 C 76 17 97 02/28/24 09:00 97/59 L 02/28/24 09:00 97/59 L 02/28/24 09:00 97/59 L 02/28/24 08:54 37.3 C 76 18 96 02/28/24 08:39 37.3 C 84 19 90 02/28/24 08:09 37.2 C 95 H 19 90 02/28/24 08:00 117/60 02/28/24 08:00 117/60 02/28/24 08:00 77 02/28/24 08:00 02/28/24 07:39 37.1 C 83 21 90 02/28/24 07:30 37.1 C 86 21 91 02/28/24 07:19 80 22 94 02/28/24 07:09 37.1 C 76 19 95 02/28/24 07:00 110/65 02/28/24 07:00 110/65 02/28/24 07:00 110/65 02/28/24 07:00 36.8 C 24 88 L 02/28/24 06:57 37.1 C 76 22 92 02/28/24 06:36 37.0 C 77 94 02/28/24 06:21 37.1 C 80 18 94 02/28/24 06:00 113/72 02/28/24 05:51 37.1 C 84 19 90 02/28/24 05:33 37.1 C 80 92 02/28/24 05:06 37.1 C 74 23 93 02/28/24 05:01 100/70 02/28/24 04:48 37.1 C 71 20 93 02/28/24 04:36 37.1 C 98 H 24 95 02/28/24 04:21 37.1 C 23 95 02/28/24 04:01 103/73 02/28/24 04:01 103/73 02/28/24 04:00 37.0 C 89 22 94 02/28/24 03:33 37.0 C 84 16 90 02/28/24 03:13 75 18 92 02/28/24 03:09 37.0 C 76 23 02/28/24 03:02 119/59 L 02/28/24 03:02 119/59 L 02/28/24 02:51 37.0 C 75 18 02/28/24 02:47 73 20 89 L 02/28/24 02:33 37.0 C 68 17 95 02/28/24 02:06 37.0 C 70 18 94 02/28/24 02:00 101/62 02/28/24 01:51 37.1 C 73 17 94 02/28/24 01:33 37.1 C 81 18 96 02/28/24 01:06 37.2 C 77 17 93 02/28/24 00:30 37.3 C 75 21 93 02/28/24 00:00 76 02/28/24 00:00 37.5 C 81 20 95 02/28/24 00:00 114/60 02/28/24 00:00 114/60 02/28/24 00:00 95 02/27/24 23:33 37.6 C H 78 17 95 O2 Del Method O2 Del Method O2 Flow Rate O2 Flow Rate FiO2 02/28/24 10:28 High Flow Nasal Cannula 60 65 02/28/24 09:39 02/28/24 09:03 02/28/24 09:00 02/28/24 09:00 02/28/24 09:00 02/28/24 08:54 02/28/24 08:39 02/28/24 08:09 02/28/24 08:00 02/28/24 08:00 02/28/24 08:00 02/28/24 08:00 High Flow Nasal Cannula 50 70 02/28/24 07:39 02/28/24 07:30 02/28/24 07:19 High Flow Nasal Cannula 60 70 02/28/24 07:09 02/28/24 07:00 02/28/24 07:00 02/28/24 07:00 02/28/24 07:00 High Flow Nasal Cannula 02/28/24 06:57 02/28/24 06:36 02/28/24 06:21 02/28/24 06:00 02/28/24 05:51 02/28/24 05:33 02/28/24 05:06 02/28/24 05:01 02/28/24 04:48 02/28/24 04:36 02/28/24 04:21 02/28/24 04:01 02/28/24 04:01 02/28/24 04:00 02/28/24 03:33 02/28/24 03:13 High Flow Nasal Cannula 60 70 02/28/24 03:09 02/28/24 03:02 02/28/24 03:02 02/28/24 02:51 02/28/24 02:47 High Flow Nasal Cannula 50 70 02/28/24 02:33 02/28/24 02:06 02/28/24 02:00 02/28/24 01:51 02/28/24 01:33 02/28/24 01:06 02/28/24 00:30 02/28/24 00:00 02/28/24 00:00 02/28/24 00:00 02/28/24 00:00 02/28/24 00:00 High Flow Nasal Cannula 40 02/27/24 23:33 Critical Care Results & Data Vital Signs (Past 12 Hours) Vital Signs Temp Pulse Pulse Resp BP Pulse Ox Pulse Ox 02/28/24 10:28 75 22 89 L 02/28/24 09:39 37.2 C 72 16 97 02/28/24 09:03 37.4 C 76 17 97 02/28/24 09:00 97/59 L 02/28/24 09:00 97/59 L 02/28/24 09:00 97/59 L 02/28/24 08:54 37.3 C 76 18 96 02/28/24 08:39 37.3 C 84 19 90 02/28/24 08:09 37.2 C 95 H 19 90 02/28/24 08:00 117/60 02/28/24 08:00 117/60 02/28/24 08:00 77 02/28/24 08:00 02/28/24 07:39 37.1 C 83 21 90 02/28/24 07:30 37.1 C 86 21 91 02/28/24 07:19 80 22 94 02/28/24 07:09 37.1 C 76 19 95 02/28/24 07:00 110/65 02/28/24 07:00 110/65 02/28/24 07:00 110/65 02/28/24 07:00 36.8 C 24 88 L 02/28/24 06:57 37.1 C 76 22 92 02/28/24 06:36 37.0 C 77 94 02/28/24 06:21 37.1 C 80 18 94 02/28/24 06:00 113/72 02/28/24 05:51 37.1 C 84 19 90 02/28/24 05:33 37.1 C 80 92 02/28/24 05:06 37.1 C 74 23 93 02/28/24 05:01 100/70 02/28/24 04:48 37.1 C 71 20 93 02/28/24 04:36 37.1 C 98 H 24 95 02/28/24 04:21 37.1 C 23 95 02/28/24 04:01 103/73 02/28/24 04:01 103/73 02/28/24 04:00 37.0 C 89 22 94 02/28/24 03:33 37.0 C 84 16 90 02/28/24 03:13 75 18 92 02/28/24 03:09 37.0 C 76 23 02/28/24 03:02 119/59 L 02/28/24 03:02 119/59 L 02/28/24 02:51 37.0 C 75 18 02/28/24 02:47 73 20 89 L 02/28/24 02:33 37.0 C 68 17 95 02/28/24 02:06 37.0 C 70 18 94 02/28/24 02:00 101/62 02/28/24 01:51 37.1 C 73 17 94 02/28/24 01:33 37.1 C 81 18 96 02/28/24 01:06 37.2 C 77 17 93 02/28/24 00:30 37.3 C 75 21 93 02/28/24 00:00 76 02/28/24 00:00 37.5 C 81 20 95 02/28/24 00:00 114/60 02/28/24 00:00 114/60 02/28/24 00:00 95 02/27/24 23:33 37.6 C H 78 17 95 O2 Del Method O2 Del Method O2 Flow Rate O2 Flow Rate FiO2 02/28/24 10:28 High Flow Nasal Cannula 60 65 02/28/24 09:39 02/28/24 09:03 02/28/24 09:00 02/28/24 09:00 02/28/24 09:00 02/28/24 08:54 02/28/24 08:39 02/28/24 08:09 02/28/24 08:00 02/28/24 08:00 02/28/24 08:00 02/28/24 08:00 High Flow Nasal Cannula 50 70 02/28/24 07:39 02/28/24 07:30 02/28/24 07:19 High Flow Nasal Cannula 60 70 02/28/24 07:09 02/28/24 07:00 02/28/24 07:00 02/28/24 07:00 02/28/24 07:00 High Flow Nasal Cannula 02/28/24 06:57 02/28/24 06:36 02/28/24 06:21 02/28/24 06:00 02/28/24 05:51 02/28/24 05:33 02/28/24 05:06 02/28/24 05:01 02/28/24 04:48 02/28/24 04:36 02/28/24 04:21 02/28/24 04:01 02/28/24 04:01 02/28/24 04:00 02/28/24 03:33 02/28/24 03:13 High Flow Nasal Cannula 60 70 02/28/24 03:09 02/28/24 03:02 02/28/24 03:02 02/28/24 02:51 02/28/24 02:47 High Flow Nasal Cannula 50 70 02/28/24 02:33 02/28/24 02:06 02/28/24 02:00 02/28/24 01:51 02/28/24 01:33 02/28/24 01:06 02/28/24 00:30 02/28/24 00:00 02/28/24 00:00 02/28/24 00:00 02/28/24 00:00 02/28/24 00:00 High Flow Nasal Cannula 40 02/27/24 23:33 Lab & Micro Results (Past 24 Hours) RBC 2.42 M/uL (4.70-6.10) L 02/28/24 WBC 1.07 K/ul (4.8-10.8) L 02/28/24 Hgb 8.2 g/dl (14.0-18.0) L 02/28/24 Hct 24.6 % (42.0-52.0) L 02/28/24 MCV 101.7 fL (80.0-100.0) H 02/28/24 MCH 33.9 pg (25.0-34.0) 02/28/24 MCHC 33.3 g/dL (32.0-36.0) 02/28/24 RDW Standard Deviation 51.4 fL (36.4-46.3) H 02/28/24 RDW Coefficient of Variation 14.0 % (11.5-14.5) 02/28/24 Plt Count 88 K/uL (130-400) L 02/28/24 MPV 12.2 fL (9.4-12.4) 02/28/24 ANC 0.87 K/uL (1.4-6.5) L* 02/28/24 ALC 0.12 K/uL (1.2-3.4) L 02/28/24 Neutrophils % (Manual) 81 % 02/28/24 Lymphocytes % (Manual) 11 % 02/28/24 Monocytes % (Manual) 8 % 02/28/24 Neutrophils # (Manual) 0.87 K/uL (1.40-6.50) L 02/28/24 Lymphocytes # (Manual) 0.12 K/uL (1.2-3.4) L 02/28/24 Monocytes # (Manual) 0.09 K/uL (0.11-0.59) L 02/28/24 Polychromasia 1+ 02/28/24 Acanthocytes 1+ 02/28/24 Na 137 mmol/L (136-145) 02/28/24 K 4.5 mmol/L (3.5-5.1) 02/28/24 Cl 105 mmol/L (98-107) 02/28/24 CO2 26 mmol/L (21-32) 02/28/24 Anion Gap 6 (3-11) 02/28/24 BUN 30 mg/dl (6-23) H 02/28/24 Creatinine 1.22 mg/dl (0.6-1.4) 02/28/24 BUN/Creatinine Ratio 24.6 (10-20) H 02/28/24 Glu 116 mg/dl (70-99(Fasting)) H 02/28/24 Ca 8.0 mg/dl (8.6-10.3) L 02/28/24 Phosphorus Level 2.3 mg/dl (2.5-4.9) L 02/28/24 Mg 1.8 mg/dl (1.7-2.4) 02/28/24 06:33 Calcium Level 8.0 mg/dl (8.6-10.3) L 02/28/24 06:33 Microbiology 02/26/24 Unknown Gram Stain - Final Sputum, Expectorated Sputum Culture - Preliminary Fungus- ident.to follow Diagnostic Findings (Past 24 Hours) Chest X-Ray 02/28/24 07:00 EXAM: XR chest 1V portable CLINICAL HISTORY: RESP FAILURE KAB JMF. TECHNIQUE: An X-ray image of the chest is obtained in AP projection. COMPARISON: 02/26/24. FINDINGS: Pulmonary Parenchyma: Bilateral hypertransradiant/hyperinflated lung krishnan with flattened diaphragms suggestive of chronic obstructive airway disease [COPD]. Bilateral ill-defined Subpleural confluent and nodular opacities scattered in both lung krishnan mainly in the mid and lower zones with bilateral prominent/thickened interstitial markings. No evidence of pleural effusion or pleural thickening. Heart and Mediastinum: Mild cardiomegaly. No mediastinal widening or masses. No hilar or mediastinal lymphadenopathy. Bony Thorax: Bony thorax appears intact without fractures or deformities. Soft Tissues: Soft tissues overlying the chest wall are unremarkable. IMPRESSION: 1. Bilateral hypertransradiant/hyperinflated lung krishnan. Chronic obstructive airway disease. 2. Bilateral subpleural ill-defined confluent and central nodular opacities mid and lower zones. Postinflammatory, suggest clinical and lab correlation. 3. Mild cardiomegaly. 4. Comparing the previous x-ray dated 02/26/20 there is mild interval regression in the subpleural and nodular opacities, especially in the right lung. Electronically signed by Michelle Self 02-28-2024 08:01 AM I & O Totals 24 Hours 02/27/24 02/28/24 02/29/24 06:59 06:59 06:59 Intake Total 1612.5 / 1612.5 2720 / 2720 970 / 970 Output Total 1025 / 1025 3625 / 3625 150 / 150 Balance 587.5 / 587.5 -905 / -905 820 / 820 Cumulative 02/15/24 23:11 thru 02/28/24 10:40 Intake Total 20650.0625 Output Total 5252 Balance 8902.0625 RT Ventilator Mngmt (Last Documented) Ventilator Ordered Settings Respiratory Rate 22 02/28/24 10:28 Fraction of Inspired Oxygen 65 02/28/24 1 0:28 Ventilator - PT Measurements Respiratory Rate 22 Coding Level of Care Code 40677 SUB INP/OBS CARE 3/50MIN Diagnoses Idiopathic interstitial pneumonia J84.111 COVID-19 U07.1 COPD exacerbation J44.1 Immunosuppressed due to chemotherapy D84.821; T45.1X5A; Z79.69 Acute hypoxemic respiratory failure J96.01 Anemia D64.9 Anemia type: unspecified type Systolic heart failure I50.20 Neutropenia D70.9 (6) Anemia Anemia type: unspecified type Qualified Code(s): D64.9 - Anemia, unspecified
--- NOTE | 2024-02-28 13:07 | Pulmonology Progress Note ---
Date of Service February 28, 2024 Assessment & Plan (1) Idiopathic interstitial pneumonia: (2) COVID-19: (3) COPD exacerbation: (4) Immunosuppressed due to chemotherapy: (5) Acute hypoxemic respiratory failure: (6) Anemia: Anemia type: unspecified type Qualified Code(s): D64.9 - Anemia, unspecified (7) Systolic heart failure: (8) Neutropenia: Plan This is a complex 79-year-old male with a history of severe COPD on chronic oxygen therapy, mild systolic heart failure with an EF of 40 to 45% on echo from 01/07/2024, diffuse large B-cell lymphoma previously on chemotherapy as of 2 weeks ago who first tested positive for COVID-19 02/04/2024 and who has had ongoing shortness of breath and cough since that period of time. He has a baseline history of severe COPD and is oxygen dependent at baseline. His CT chest is suggestive of multifocal pneumonia overlying severe emphysema. The etiology of these infiltrates is unclear, but given his immunosuppressed state, opportunistic infections are certainly possible such as PJP, Aspergillus, nontuberculous Mycobacterium, nocardia and others. Inflammatory conditions are also possible such as pneumonitis related to chemotherapy, aspiration pneumonitis, and/or post fibrotic changes due to COVID. BNP was unremarkable, but patient with severe crackles on exam today, increased work of breathing and hypoxemia. Will give 20 mg of IV Lasix. Discussed with hospitalist service. Recommend giving additional dose depending on urine response. Continue to hold Eliquis and aspirin given acute anemia and thrombocytopenia. He does have appear to have an element of chronic anemia and thrombocytopenia likely related to chemotherapy and diffuse large B-cell lymphoma. Fortunately his counts seem to have stabilized. Consider restarting anticoagulation tomorrow at least for DVT prophylaxis as he is at very high risk for venous thromboembolism. Antibiotics per ID. Patient currently on voriconazole, vancomycin, Bactrim and Zosyn. Patient unstable for bronchoscopy. We did discuss his CODE STATUS today and he reiterates that he would like to be a DNR, but is uncertain about his intubation status. He notes that if he has a sudden cardiopulmonary arrest, he would not want to be resuscitated, but if he has gradual worsening of his respiratory failure, then he may want intubation. Fungal and CMV serologies pending. Urine Legionella negative. Azithromycin discontinued. Appreciate ID and critical care input. Currently on dexamethasone wean. Unclear role for additional steroids at this time. He remains 8 L positive, but has a rising creatinine and BUN. Will hold on additional diuresis today as he likely has significant insensible losses from increased minute ventilation due to severe respiratory illness. Patient is still is very ill with rather poor prognosis given underlying diffuse large B-cell lymphoma and severe COPD at baseline requiring 3 L of oxygen and now on high flow. 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 Admission and Anticipated Discharge Date Admission Date: February 16, 2024 Subjective Patient seen and examined today. Remains on high flow. He is being transferred out of the ICU to the PCU. He has better spirits today and is listening to [employer]ide[employer] and drawing. He does have shortness of breath with minimal exertion, but feels like he can take a deeper breath today. Review of Systems Review of Systems: All systems reviewed & are unremarkable except as noted in HPI & below Physical Exam Physical Exam: Constitutional: Patient appears to be of their stated age. Patient is in no apparent distress. High flow nasal cannula in place. Frail appearing. Eyes: Pupils are equal round and reactive to light. Conjunctivae are normal. Anicteric sclera. Ears nose, mouth and throat: No perioral cyanosis. Neck: Trachea is midline. Visual inspection is normal. Respiratory: Mild tachypnea. Mild rhonchi particularly at the bases, right greater than left. Cardiovascular: Regular rate and rhythm. No murmurs. No edema. Gastrointestinal: Normal bowel sounds, soft, nontender and nondistended. No hepatosplenomegaly noted. Musculoskeletal: No cyanosis. Patient is able to move all extremities. Strength is 5 out of 5 in the upper and lower extremities. Skin: No rashes, warm dry and intact. Neurologic: No obvious focal neurological deficits seen. Psychiatric: Alert and oriented x3 with a euthymic affect. Results & Data Results & Data Vital Signs (Past 12 Hours) Vital Signs Temp Pulse Pulse Resp BP Pulse Ox O2 Del Method 02/28/24 12:27 73 20 94 High Flow Nasal Cannula 02/28/24 10:28 75 22 89 L High Flow Nasal Cannula 02/28/24 09:39 37.2 C 72 16 97 02/28/24 09:03 37.4 C 76 17 97 02/28/24 09:00 97/59 L 02/28/24 09:00 97/59 L 02/28/24 09:00 97/59 L 02/28/24 08:54 37.3 C 76 18 96 02/28/24 08:39 37.3 C 84 19 90 02/28/24 08:09 37.2 C 95 H 19 90 02/28/24 08:00 117/60 02/28/24 08:00 117/60 02/28/24 08:00 77 02/28/24 08:00 High Flow Nasal Cannula 02/28/24 07:39 37.1 C 83 21 90 02/28/24 07:30 37.1 C 86 21 91 02/28/24 07:19 80 22 94 High Flow Nasal Cannula 02/28/24 07:09 37.1 C 76 19 95 02/28/24 07:00 110/65 02/28/24 07:00 110/65 02/28/24 07:00 110/65 02/28/24 07:00 36.8 C 24 88 L High Flow Nasal Cannula 02/28/24 06:57 37.1 C 76 22 92 02/28/24 06:36 37.0 C 77 94 02/28/24 06:21 37.1 C 80 18 94 02/28/24 06:00 113/72 02/28/24 05:51 37.1 C 84 19 90 02/28/24 05:33 37.1 C 80 92 02/28/24 05:06 37.1 C 74 23 93 02/28/24 05:01 100/70 02/28/24 04:48 37.1 C 71 20 93 02/28/24 04:36 37.1 C 98 H 24 95 02/28/24 04:21 37.1 C 23 95 02/28/24 04:01 103/73 02/28/24 04:01 103/73 02/28/24 04:00 37.0 C 89 22 94 02/28/24 03:33 37.0 C 84 16 90 02/28/24 03:13 75 18 92 High Flow Nasal Cannula 02/28/24 03:09 37.0 C 76 23 02/28/24 03:02 119/59 L 02/28/24 03:02 119/59 L 02/28/24 02:51 37.0 C 75 18 02/28/24 02:47 73 20 89 L High Flow Nasal Cannula 02/28/24 02:33 37.0 C 68 17 95 02/28/24 02:06 37.0 C 70 18 94 02/28/24 02:00 101/62 02/28/24 01:51 37.1 C 73 17 94 02/28/24 01:33 37.1 C 81 18 96 02/28/24 01:06 37.2 C 77 17 93 O2 Flow Rate FiO2 02/28/24 12:27 60 65 02/28/24 10:28 60 65 02/28/24 09:39 02/28/24 09:03 02/28/24 09:00 02/28/24 09:00 02/28/24 09:00 02/28/24 08:54 02/28/24 08:39 02/28/24 08:09 02/28/24 08:00 02/28/24 08:00 02/28/24 08:00 02/28/24 08:00 50 70 02/28/24 07:39 02/28/24 07:30 02/28/24 07:19 60 70 02/28/24 07:09 02/28/24 07:00 02/28/24 07:00 02/28/24 07:00 02/28/24 07:00 02/28/24 06:57 02/28/24 06:36 02/28/24 06:21 02/28/24 06:00 02/28/24 05:51 02/28/24 05:33 02/28/24 05:06 02/28/24 05:01 02/28/24 04:48 02/28/24 04:36 02/28/24 04:21 02/28/24 04:01 02/28/24 04:01 02/28/24 04:00 02/28/24 03:33 02/28/24 03:13 60 70 02/28/24 03:09 02/28/24 03:02 02/28/24 03:02 02/28/24 02:51 02/28/24 02:47 50 70 02/28/24 02:33 02/28/24 02:06 02/28/24 02:00 02/28/24 01:51 02/28/24 01:33 02/28/24 01:06 PG Care Time/CCT Total # of Minutes Spent Total Time Spent with Patient: Total time spent is greater than 50% in coordination of care (as documented) at patient's floor/unit and/or counseling patient: Coding Level of Care Code 20940 SUB INP/OBS CARE 350MIN Diagnoses Idiopathic interstitial pneumonia J84.111 COVID-19 U07.1 COPD exacerbation J44.1 Immunosuppressed due to chemotherapy D84.821; T45.1X5A; Z79.69 Acute hypoxemic respiratory failure J96.01 Anemia D64.9 Anemia type: unspecified type Systolic heart failure I50.20 Neutropenia D70.9
--- NOTE | 2024-02-28 13:26 | Pharmacy Report ---
Pharmacy PK ABX Note - Date of Service February 28, 2024 - Assessment and Plan Assessment 02/27 * Vanco level obtained yesterday may not have had adequate time to distribute post-infusion. SCr very slightly worsening today as well therefore wanted to double check dosing w new level * Random level today of 19.1 mcg/mL associated with a therapeutic AUC - no change to vancomycin * Fungus now growing from sputum. Voriconazole order active. 02/26 * Transferred to the ICU this morning, azithromycin has been discontinued by ID. Starting voriconazole, continuing vancomycin,zosyn at this time. Bactrim is currently on hold (but was resumed later on 02/26). 02/25 sputum with moderate normal darleen, blood cultured negative at 5 days. Random vancomcyin level this morning, drawn ~ 1 hour post infusion, 28.4 mcg/ml predicts slightly supratherapeutic levels. Patients SCR has been trending upward 0.75-> 0.97- >1.15, urine output still appropriate- monitor. 02/24 * Mr Joe is a 79 year old M receiving antibiotics for treatment of multifocal pna, overlying severe emphysema. Pt is immunocompromised in the setting of B-cell lymphoma w/ chemotherapy. * Pertinent microbiologic data includes: MRSA Nasal Swab negative 02/15, repeat swab currently pending. Sputum cx from 02/19 growing Coryne striatum * Pulm saw pt today and started vanc (pending repeat MRSA swab), Zosyn, IV Bactrim for empiric PJP tx, azithromycin for atypicals/Legionella. * ID has been consulted. Plan Vancomycin * Current maintenance dose: 750 mg IV every 12 hours * Target AUC/OMAR of 400-600 mg/L.hr * Random level 19.1 mcg/ml- estimated AUC 510 * Continue vancomycin dose and repeat random level 12/16 AM, or sooner if condition changes significantly Pharmacy will continue to follow and will adjust dose/frequency as necessary. Thank you. Pharmacy has transitioned to AUC monitoring for vancomycin. AUC/OMAR is the preferred PK/PD target and is associated with decreased risk of nephrotoxicity compared to traditional trough targets.
[2024-02-28] MEDS: FOLIC ACID 1 MG TAB PO SCH (13:45)
[2024-02-28] MEDS: MULTIVITAMIN TAB PO SCH (13:47)
[2024-02-28 18:11] LABS: CMV DNA Qnt Real Time PCR Not Detected; CMV DNA Quant PCR Not Detected log IU/mL
[2024-02-29 04:30] LABS: Allen Test Pos (Pos); Base Excess ABG -0.5 mEq/L (-9-1.8); HCO3 ABG 23 mmol/L (19-24); Oxygen Saturation ABG 95.8 % (90-95); PCO2 ABG 34 mmHg (35-46); PO2 ABG 69 mmHg (80-95); pH ABG 7.44 (7.35-7.45)
[2024-02-29 06:29] LABS: BUN Creatinine Ratio 25.8 (10-20); Calcium 8.1 mg/dl (8.6-10.3); Creatinine Clr Calc Pharmacy 51.6 ml/min; Magnesium 1.9 mg/dl (1.7-2.4); Phosphorus 2.6 mg/dl (2.5-4.9); Potassium 4.6 mmol/L (3.5-5.1)
[2024-02-29 06:48] LABS: Hematocrit (blood only) 23.3 % (42.0-52.0); Hemoglobin 7.8 g/dl (14.0-18.0); Mean Corpuscular Hemoglobin 33.3 pg (25.0-34.0); Mean Corpuscular Hgb Conc 33.5 g/dL (32.0-36.0); Mean Corpuscular Volume 99.6 fL (80.0-100.0); Mean Platelet Volume 12.2 fL (9.4-12.4); Platelet Count 88 K/uL (130-400); RDW Coefficient of Variation 13.8 % (11.5-14.5); Red Blood Count 2.34 M/uL (4.70-6.10)
[2024-02-29 06:49] LABS: White Blood Count 0.74 K/ul (4.8-10.8)
[2024-02-29 06:58] LABS: ALC (manual) 0.08 K/uL (1.2-3.4); Acanthocytes 1+; Hypersegmented Neutrophils 1+; Lymphocytes # (manual) 0.08 K/uL (1.2-3.4); Lymphocytes % (manual) 11 %; Monocytes # (manual) 0.16 K/uL (0.11-0.59); Monocytes % (manual) 21 %; Neutrophils % (manual) 68 %; Polychromasia 1+
--- NOTE | 2024-02-29 07:24 | Hospitalist Progress Note ---
Date of Service February 29, 2024 Assessment & Plan (1) Acute kidney injury superimposed on CKD: (2) Acute on chronic respiratory failure with hypoxia: (3) COVID-19: (4) Pancytopenia: (5) COPD exacerbation: Plan 79-year-old male with a past medical history including pancytopenia s/p chemotherapy for B-cell lymphoma, PAF, peripheral neuropathy, pulmonary hypertension, A-fib with RVR, chronic respiratory failure with hypoxia, COPD, cardiomyopathy, anemia, and GERD, presented with acute on chronic respiratory failure. Acute on chronic respiratory failure with hypoxia COPD exacerbation, Recurrent Pneumonia: Multifactorial: Recent admission for COVID-19 infection, immunocompromised status, secondary bacterial pneumonia Nasal cannula 3 L O2 at baseline - elevated requirement relative to baseline, still on high flow NC 60L HRCT chest 02/23 demonstrated interval development of consolidation suspicious for pneumonia -> repeat CXR 02/27 with mild interval regression in subpleural and nodular opacities - Pulm/Critical care consulted, appreciate recs: - Elevated suspicion for opportunistic infection - ID consulted, appreciate recs: - Fungitell, aspergillus Ag, serum cryptococcal Ag, urine histoplasma Ag pending - Urine legionella Ag negative, CMV serology negative - Repeat sputum cx 02/25 +Aspergillus - Continue Vanc and Zosyn for time being, may consider discontinuing if low suspicion for polymicrobial infection/if polymicrobial infection can be ruled out. - Empiric Bactrim resumed for PJP ppx - continue Voriconazole for Aspergillus coverage - Continue Acyclovir ppx Spirometry report from March 2023 notable for moderate obstructive pattern with FEV1 57% of predicted Continue weaning Dexamethasone Continue LABA, LAMA, ICS Continue DuoNebs, q4HWA, LAILA Continue supportive care measures/pulmonary toilet: incentive spirometry, flutter valve Recent COVID-19 Infection with secondary bacterial pneumonia: Patient was initially positive for COVID on 02/04/2024, residual positive noted on admission S/p dexamethasone x10 days and remdesivir x3 days during last hospital stay + Zosyn and doxycycline tx while inpatient, discharged on Augmentin/doxycycline, completed 7-day course Pancytopenia 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 Bangura Continue acyclovir prophylaxis AM labs consistent with severe neutropenia (ANC 500), fortunately afebrile - given one dose of Neupogen due to neutropenia and multiple risk factors for febrile neutropenia Monitor cell counts daily, will continue to evaluate risks/benefits of VTE ppx Anemia - Hgb stable - Continue to monitor - AM CBC MARKO on CKD - MARKO resolved Paroxysmal atrial fibrillation Continue metoprolol succinate, Eliquis resumed Plan VTE Prophylaxis: Pierre VIERA: Heart healthy Admission and Anticipated Discharge Date Admission Date: February 16, 2024 Supervising Physician Co-Signing Physician Notes Attending Physician Supervision Note: I independently interviewed and examined the patient and verified the grace history and physical, reviewed labs and image studies and agree with findings and care plan noted above. Seeing things around that don't exist. Still on high flow. cough + respiratory distress +, crackles right base. some rhonchi. Acute on chronic resp failure - continue High flow O2. 3L O2 at baseline. Interstitial Pneumonia - infiltrate on Chest CT 02/23. -Beta-glucan, Galactoman Ag, cryptococcus Ag, PJP, CMV PCR pending. -Sputum cx (02/19 + Cornye) (02/25 + Aspergillosis) -Antimicrobial per ID -zosyn to be stopped on 03/01, -vancomycin - start 02/25 (Vanco will cover cornybacterium-possibly infectious in immunocompromised setting) -continue bactrim for PJP coverage (G6PD testing ordered) -Voriconazole added (02/26) for concern of fungal infection. -continue chronic acyclovir proph. -Per pulmonology- Not stable for Bronchoscopy. COPD (moderate) exacerbation (setting of recent COVID and bacterial pneumonia - treated) -continue IV dexamethasone - weaning. -Umeclidinium inhaled (on spiriva at home), Albuterol nebs. -continue Incentive spirometry, flutter valve. Pancytopenia - baseline from diffuse large B cell lymphoma worsened by acute process. -Neupogen today. Consider repeat if counts still low. -Resumed apixaban. ASA still on hold. Acute on Chronic HFmrEF - Echo 01/07 - EF 40-45%. d/t Na/fluids from IV abx. -On jardiance at home. Held here. Not on daily diuretic, ARB. -continue metoprolol. -Right base crackles - Lasix 20mgs IV given today. BUN/Creat 31/1.2 Hospital delirium - frequent reorientation. DLBCL - port in place. off chemo PAF - apixaban, metoprolol Sarcopenia - increased protein shakes by nutrition. Subjective Patient feels as though he has regressed slightly since yesterday, is experiencing more fatigue/SOB. Overnight, felt as though he was having hypnagogic hallucinations - night team ordered an ABG, largely unremarkable. Minimally productive cough ongoing. Denies fevers, chills, nightsweats. Review of Systems Review of Systems: as per hpi Physical Exam Physical Exam: General: Alert and oriented. No acute distress Cardiac: Regular rate and rhythm, no murmurs appreciated Respiratory: Lungs sounds globally diminished, +mild, diffuse wheezes, +conversational dyspnea . Extremities: No lower extremity edema Psych: mood affect congruence Results & Data Results & Data Vital Signs (Past 12 Hours) Vital Signs Temp Pulse Pulse Resp BP BP Pulse Ox 02/29/24 05:52 78 18 89 L 02/29/24 05:42 76 18 91 02/29/24 03:59 72 21 94 02/29/24 03:44 36.6 C 76 20 110/64 88 L 02/28/24 23:40 75 18 96 02/28/24 22:51 36.5 C 81 20 114/66 91 02/28/24 21:44 80 02/28/24 21:44 93 H 02/28/24 21:30 02/28/24 20:37 81 02/28/24 19:33 36.8 C 84 20 126/56 L 92 O2 Del Method O2 Flow Rate FiO2 02/29/24 05:52 High Flow Nasal Cannula 60 80 02/29/24 05:42 High Flow Nasal Cannula 60 70 02/29/24 03:59 High Flow Nasal Cannula 55 60 02/29/24 03:44 High Flow Nasal Cannula 02/28/24 23:40 High Flow Nasal Cannula 55 60 02/28/24 22:51 High Flow Nasal Cannula 02/28/24 21:44 02/28/24 21:44 02/28/24 21:30 High Flow Nasal Cannula 55 60 02/28/24 20:37 02/28/24 19:33 High Flow Nasal Cannula Resident Activity Tracking Resident Involvement: Resident Care Provided Care Provided: Adult Hospital Medicine
[2024-02-29] MEDS: FILGRASTIM 480 MCG/1.6 ML VIAL SC ONE (12:15)
--- NOTE | 2024-02-29 14:44 | Pulmonology Progress Note ---
Date of Service February 29, 2024 Assessment & Plan (1) Idiopathic interstitial pneumonia: (2) COVID-19: (3) COPD exacerbation: (4) Immunosuppressed due to chemotherapy: (5) Acute hypoxemic respiratory failure: (6) Anemia: Anemia type: unspecified type Qualified Code(s): D64.9 - Anemia, unspecified (7) Systolic heart failure: (8) Neutropenia: Plan This is a complex 79-year-old male with a history of severe COPD on chronic oxygen therapy, mild systolic heart failure with an EF of 40 to 45% on echo from 01/07/2024, diffuse large B-cell lymphoma previously on chemotherapy as of 2 weeks ago who first tested positive for COVID-19 02/04/2024 and who has had ongoing shortness of breath and cough since that period of time. He has a baseline history of severe COPD and is oxygen dependent at baseline. His CT chest is suggestive of multifocal pneumonia overlying severe emphysema. The etiology of these infiltrates is unclear, but given his immunosuppressed state, opportunistic infections are certainly possible such as PJP, Aspergillus, nontuberculous Mycobacterium, nocardia and others. Inflammatory conditions are also possible such as pneumonitis related to chemotherapy, aspiration pneumonitis, and/or post fibrotic changes due to COVID. Continue as needed Lasix depending on exam findings, oxygen requirements, creatinine, BNP and respiratory symptoms. Will give a dose of 20 mg IV Lasix today. Continue to hold Eliquis and aspirin given acute anemia and thrombocytopenia. He does have appear to have an element of chronic anemia and thrombocytopenia l ikely related to chemotherapy and diffuse large B-cell lymphoma. Fortunately his counts seem to have stabilized. Consider restarting anticoagulation at least for DVT prophylaxis as he is at very high risk for venous thromboembolism. Antibiotics per ID. Patient currently on voriconazole, vancomycin, Bactrim and Zosyn. Patient unstable for bronchoscopy. We did discuss his CODE STATUS today and he reiterates that he would like to be a DNR, but is uncertain about his intubation status. He notes that if he has a sudden cardiopulmonary arrest, he would not want to be resuscitated, but if he has gradual worsening of his respiratory failure, then he may want intubation. Fungal and CMV serologies pending. Urine Legionella negative. Azithromycin discontinued. Appreciate ID and critical care input. Currently on dexamethasone wean. Unclear role for additional steroids at this time. Continue current inhalers and nebulizers for history of obstructive lung disease and ongoing wheezes. Patient is still is very ill with rather poor prognosis given underlying diffuse large B-cell lymphoma and severe COPD at baseline requiring 3 L of oxygen and now on high flow. Consider palliative care input on Friday. Admission and Anticipated Discharge Date Admission Date: February 16, 2024 Subjective Patient with continued hypoxemia and severe shortness of breath with minimal exertion. He remains on high flow nasal cannula. He continues to do what he ca n to keep his mind off his current situation by drawing and listening to music. He denies any chest pain. He does have a dry cough. Review of Systems Review of Systems: All systems reviewed & are unremarkable except as noted in HPI & below Physical Exam Physical Exam: Constitutional: Patient appears to be of their stated age. Patient is in no apparent distress. High flow nasal cannula in place. Frail appearing. Eyes: Pupils are equal round and reactive to light. Conjunctivae are normal. Anicteric sclera. Ears nose, mouth and throat: No perioral cyanosis. Neck: Trachea is midline. Visual inspection is normal. Respiratory: Mild tachypnea. Diffuse wheezes and rhonchi bilaterally. Dyspneic with conversation. Cardiovascular: Regular rate and rhythm. No murmurs. No edema. Gastrointestinal: Normal bowel sounds, soft, nontender and nondistended. No hepatosplenomegaly noted. Musculoskeletal: No cyanosis. Patient is able to move all extremities. Strength is 5 out of 5 in the upper and lower extremities. Skin: No rashes, warm dry and intact. Neurologic: No obvious focal neurological deficits seen. Psychiatric: Alert and oriented x3 with a euthymic affect. Results & Data Results & Data Vital Signs (Past 12 Hours) Vital Signs Temp Pulse Pulse Resp BP BP Pulse Ox 02/29/24 14:02 68 22 91 02/29/24 12:06 36.9 C 76 24 111/61 97 02/29/24 10:56 78 18 100 02/29/24 07:45 79 02/29/24 07:45 02/29/24 07:25 36.5 C 77 24 116/67 91 02/29/24 05:52 78 18 89 L 02/29/24 05:42 76 18 91 02/29/24 03:59 72 21 94 02/29/24 03:44 36.6 C 76 20 110/64 88 L O2 Del Method O2 Flow Rate FiO2 02/29/24 14:02 High Flow Nasal Cannula 60 70 02/29/24 12:06 High Flow Nasal Cannula 60 71 02/29/24 10:56 High Flow Nasal Cannula 60 75 02/29/24 07:45 02/29/24 07:45 High Flow Nasal Cannula 50 70 02/29/24 07:25 High Flow Nasal Cannula 60 75 02/29/24 05:52 High Flow Nasal Cannula 60 80 02/29/24 05:42 High Flow Nasal Cannula 60 70 02/29/24 03:59 High Flow Nasal Cannula 55 60 02/29/24 03:44 High Flow Nasal Cannula PG Care Time/CCT Total # of Minutes Spent Total Time Spent with Patient: Total time spent is greater than 50% in coordination of care (as documented) at patient's floor/unit and/or counseling patient: Coding Level of Care Code 65253 SUB INP/OBS CARE 3/50MIN Diagnoses Idiopathic interstitial pneumonia J84.111 COVID-19 U07.1 COPD exacerbation J44.1 Immunosuppressed due to chemotherapy D84.821; T45.1X5A; Z79.69 Acute hypoxemic respiratory failure J96.01 Anemia D64.9 Anemia type: unspecified type Systolic heart failure I50.20 Neutropenia D70.9
[2024-02-29] MEDS: FUROSEMIDE INJ 20 MG/2 ML VIAL IV ONE (15:00)
[2024-03-01 01:52] LABS: Cryptococcal Antigen Not Detected (Not Detected); Source Serum
[2024-03-01 06:11] LABS: Hematocrit (blood only) 24.7 % (42.0-52.0); Mean Corpuscular Hemoglobin 32.4 pg (25.0-34.0); Mean Corpuscular Hgb Conc 32.4 g/dL (32.0-36.0); Mean Platelet Volume 12.3 fL (9.4-12.4); Platelet Count 86 K/uL (130-400); RDW Coefficient of Variation 13.8 % (11.5-14.5); RDW Standard Deviation 50.1 fL (36.4-46.3); Red Blood Count 2.47 M/uL (4.70-6.10); White Blood Count 1.26 K/ul (4.8-10.8)
[2024-03-01] MEDS: VANCOMYCIN LEVEL ONE (06:16)
[2024-03-01 06:31] LABS: Calcium 8.3 mg/dl (8.6-10.3); Creatinine Clr Calc Pharmacy 48.7 ml/min; Magnesium 1.8 mg/dl (1.7-2.4); Potassium 4.8 mmol/L (3.5-5.1)
[2024-03-01 06:32] LABS: ALC (manual) 0.08 K/uL (1.2-3.4); Acanthocytes 1+; Echinocytes 1+; Lymphocytes # (manual) 0.08 K/uL (1.2-3.4); Lymphocytes % (manual) 6 %; Metamyelocytes # (manual) 0.04 K/uL (0-0); Metamyelocytes % (manual) 3 %; Monocytes # (manual) 0.15 K/uL (0.11-0.59); Monocytes % (manual) 12 %; Neutrophils % (manual) 79 %; Polychromasia 2+
[2024-03-01 07:12] LABS: Hypersegmented Neutrophils 1+
--- NOTE | 2024-03-01 08:49 | Infectious Disease Progress Nt ---
Date of Service March 01, 2024 Assessment & Plan (1) Acute hypoxemic respiratory failure: (2) Diffuse large B cell lymphoma: (3) Acute kidney injury superimposed on CKD: (4) Pancytopenia: Plan 79yo M with h/o DLBCL (last dose of chemo 1 month ago, on ACV ppx), s/p chest po rt, cardiomyopathy, afib on Eliquis, GERD, COPD on 3L home O2, CKD III, recent admission 02/03-02/06 with COVID infection s/p RDV x 3d and also treated for ?bacterial PNA and dcd on doxy/augmentin x 7d course who presented on 02/14 with worsening SOB, chest congestion, productive cough and hypoxia. Here he has been afebrile, BP stable, initially on 4L NC. Initial labs with WBC 6.15, low Hb and platelets. Cr 1.41. Lactate 1.1. AST/ALT wnl. PCT 0.06>>0.04. UA 0-5 WBC. CRP 9.65>>2.62. MRSA screen neg. RPP pos for COVID. CTA chest with severe emphysematous and peripheral fibrotic changes with multifocal peripherally and subpleural GGO on both lobes could be due to COVID19 or other acute infection. He was started on zosyn and azithromycin. Course c/b worsening hypoxia up to 6- 7L. HRCT on 02/23 showed interval development of consolidation c/w pneumonia superimposed upon prominent emphysema and scarring, reactive LAD. ID consulted 02/24. Patient was started on empiric Bactrim, vancomycin, along with zosyn/azithromycin. U legionella negative. Continued to have worsening O2, now on HFNC and transferred to ICU. SCx from 02/19 with Coryne striatum. SCx from 02/25 with rare Aspergillus fumigatus. Unable to get bronchoscopy due to clinical instability. Aspergillus in SCx, patient already on voriconazole. Serum galactomannan and beta-d glucan are in process. Note that beta-d glucan can also be positive in aspergillus infections and ruling out PJP would be more helpful if we had a respiratory specimen. I spoke to micro lab and they are unable to run PJP stain on current sputum. Favor obtaining an induced sputum for staining and PCR since bronch not able to be done. Per discussion with ICU on Friday, they would like to complete 2 week course of zosyn, which he will complete today. Im going to stop vancomycin since Corynebacterium hasnt grown again in SCx from 02/25 and unlikely that this could have been the infectious pathogen. # Acute hypoxic respiratory failure # C/f pulmonary aspergillosis # Recent COVID infection # MARKO on CKD improved # DLBCL in remission port in place, off chemo - obtain induced sputum for PJP stain and also send for PCR if unable to get bronch - micro unable to run PJP stain on sputum from 02/25 - f/u fungitell, aspergillus Ag, urine histoplasma Ag - continue voriconazole - Jeny stopped vancomycin - empirically on Bactrim for possible PJP (awaiting workup) - continue zosyn through today and then stop (was started 02/15) - acyclovir ppx ID will continue to follow. If questions or concerns, contact via [employer] or Infectious Disease Call Center . Lindsey Mcghee MD [facility], Division of Infectious Diseases Admission and Anticipated Discharge Date Admission Date: February 16, 2024 Subjective Subsequent visit was provided via telemedicine using two-way real-time interactive telecommunication between the patient and the telemedicine provider. For the duration of the visit, the provider was performing the assessment from a different facility than the patient. This includesuse of bluetooth steth oscope forauscultationperformed by the telepresenter that the telemedicine provider can hear if described in the physical exam. [employer] contact information: Please call [facility] Call Center . (Phone Number For Physician Use Only) After establishing a telemedicine visit, patient was: Patient was verified with two unique identifiers, Patient/authorized rep acknowledged consent and understanding and Gave permission to continue telehealth session Time Spent with Patient: Subsequent => 55 min Patient reports feeling unchanged. Ongoing chest pressure. Has constipation. Physical Exam Physical Exam: General: Awake, alert, no acute distress HEENT: NC/AT, EOMI, mmm Neck: supple Lungs: +coarse breath sounds/crackles on right Heart: nl S1/S2, no appreciable murmurs Chest: left sided port, c/d/i Abdomen: soft, nontender Results & Data Vital Signs (Past 12 Hours) Vital Signs Temp Pulse Pulse Pulse Resp BP BP 03/01/24 07:17 77 26 H 03/01/24 07:10 36.4 C L 74 20 117/72 03/01/24 07:07 71 03/01/24 03:35 67 23 03/01/24 03:23 36.3 C L 69 22 122/70 02/29/24 23:13 71 22 02/29/24 22:32 36.3 C L 86 24 116/66 02/29/24 22:07 73 02/29/24 21:30 Pulse Ox O2 Del Method O2 Flow Rate FiO2 03/01/24 07:17 88 L High Flow Nasal Cannula 60 80 03/01/24 07:10 87 L Room Air, Free Flow/Blow-by 60 70 03/01/24 07:07 03/01/24 03:35 96 High Flow Nasal Cannula 60 80 03/01/24 03:23 93 High Flow Nasal Cannula 02/29/24 23:13 92 High Flow Nasal Cannula 60 100 02/29/24 22:32 88 L High Flow Nasal Cannula 02/29/24 22:07 02/29/24 21:30 High Flow Nasal Cannula 60 100 Laboratory Results Labs reviewed. (2) Diffuse large B cell lymphoma Lymphoma site: unspecified region Qualified Code(s): C83.30 - Diffuse large B-cell lymphoma, unspecified site
[2024-03-01] MEDS: POLYETHYLENE (MIRALAX) 17 GM PACK PO SCH (08:55)
[2024-03-01] MEDS: ALBUT/IPRATROP 3MG/0.5MG NEB 3 ML VIAL NEB SCH (09:49)
--- NOTE | 2024-03-01 10:15 | Pharmacy Report ---
Pharmacy PK ABX Note - Date of Service March 01, 2024 - Assessment and Plan Assessment 03/01 * Continues on vancomycin, IV Bactrim, IV voriconazole, and Zosyn. Day # 6 vancomycin. * ID following. SCr slightly elevated from baseline- monitoring. 02/27 * Vanco level obtained yesterday may not have had adequate time to distribute post-infusion. SCr very slightly worsening today as well therefore wanted to double check dosing w new level * Random level today of 19.1 mcg/mL associated with a therapeutic AUC - no change to vancomycin * Fungus now growing from sputum. Voriconazole order active. 02/26 * Transferred to the ICU this morning, azithromycin has been discontinued by ID. Starting voriconazole, continuing vancomycin,zosyn at this time. Bactrim is currently on hold (but was resumed later on 02/26). 02/25 sputum with moderate normal darleen, blood cultured negative at 5 days. Random vancomcyin level this morning, drawn ~ 1 hour post infusion, 28.4 mcg/ml predicts slightly supratherapeutic levels. Patients SCR has been trending upward 0.75-> 0.97- >1.15, urine output still appropriate- monitor. 02/24 * Mr Joe is a 79 year old M receiving antibiotics for treatment of multifocal pna, overlying severe emphysema. Pt is immunocompromised in the setting of B-cell lymphoma w/ chemotherapy. * Pertinent microbiologic data includes: MRSA Nasal Swab negative 02/15, repeat swab currently pending. Sputum cx from 02/19 growing Coryne striatum * Pulm saw pt today and started vanc (pending repeat MRSA swab), Zosyn, IV Bactrim for empiric PJP tx, azithromycin for atypicals/Legionella. * ID has been consulted. Plan Vancomycin * Current maintenance dose: 750 mg IV every 12 hours * Random vancomycin level this AM (~ 12h level), 17mcg/mL. Predicted to achieve ssAUC 519mg/L.hr - therapeutic. * Continue vancomycin dose and repeat level in ~ 48h or sooner if condition changes significantly Pharmacy will continue to follow and will adjust dose/frequency as necessary. Thank you. Pharmacy has transitioned to AUC monitoring for vancomycin. AUC/OMAR is the preferred PK/PD target and is associated with decreased risk of nephrotoxicity compared to traditional trough targets.
--- NOTE | 2024-03-01 11:24 | Pulmonology Progress Note ---
Date of Service March 01, 2024 Assessment & Plan (1) Idiopathic interstitial pneumonia: (2) COVID-19: (3) COPD exacerbation: (4) Immunosuppressed due to chemotherapy: (5) Acute hypoxemic respiratory failure: (6) Anemia: Anemia type: unspecified type Qualified Code(s): D64.9 - Anemia, unspecified Plan IMPRESSION: 79-year-old male with a significant past medical history of diffuse large B-cell lymphoma post chemotherapy, COPD, A-fib anticoagulated on Eliquis, and remote COVID-19 infection who remains admitted in the setting of acute hypoxic respiratory failure requiring high flow nasal cannula. RECOMMENDATIONS: 1. Pneumonia - Multifocal infiltrative changes appreciated on chest CT as well as HRCT. CT findings also with significant emphysematous changes to the lungs and large bullae noted to the LEFT upper lung field. Patient has been managed on multiple antibiotics at the recommendation of infectious disease. Currently on PJP prophylaxis while testing is pending. Legionella was negative. Continues on a dexamethasone taper at this time. As tolerated Lasix. In review of the patient's chest CT and supplemental oxygen requirements, this paints a concerning picture in this patient. Agree with running the patient on the concrete bucket hooker side if creatinine tolerates. Antibiotics as directed by infectious disease. Continue with pulmonary toileting as tolerated. Previous conversations were reviewed on documentation with the patient is agreeable to intubation, mechanical ventilation, and tracheostomy tube placement. I am uncertain if this makes the most sense given his underlying structural lung changes, current infiltrative process, and significant oxygen requirement. This may need to be approached with the patient again. 2. COPD - Remains on Breo and Incruse at this time. Exam findings were consistent with diffuse rales rather than wheezing. Consideration for changing to nebulized based therapies to see if this provides symptomatic improvement. 3. Acute on chronic hypoxic respiratory failure - In the setting of #1 and 2. Continue with incentive spirometry toileting as tolerated. Baseline supplemental oxygen requirement 3 L nasal cannula. Prior echocardiogram demonstrates an EF of 40 to 45% without elevated PASP. Consideration for repeat echocardiogram with bubble study to assess for shunting. Unfortunately, the patient does appear moderately symptomatic with any exertion which may actually more consistent with CT findings of structural lung changes. 4. Immunosuppressed state - Unfortunately this does broaden the differential complex patient. Again, appreciate infectious disease input. Thank you for allowing us to participate in the care of this pleasant patient. Pulmonary medicine will continue to follow along. Admission and Anticipated Discharge Date Admission Date: February 16, 2024 Supervising Physician Co-Signing Physician Notes Patient seen and examined. EMR reviewed. Images were independently reviewed. Discussed with off going client relations associate as well as with YOEL. Agree with assessment plan as noted with exceptions as noted below. The patient has multifactorial pulmonary issues including COPD with emphysema as well as some interstitial fibrosis and bronchiectasis. There appears to be progression of bronchocentric airspace opacities concerning for potential recurrence of his lymphoma. In addition he is pancytopenic. Discussed with hematology oncology. The patient did receive Rituxan last month however the degree of cytopenia is out of the proportion of what 1 would expect in hematology and I are both in agreement that the patient should undergo bone marrow biopsy as he is not a candidate for a lung biopsy. Discussed with interventional radiology. N.p.o. after midnight for planned bone marrow biopsy in a.m.. Had a long discussion with the patient at bedside. Advised him that this may not be reversible. We discussed options moving forward and he is taken it under consideration. If this does prove to be lymphoma, unclear what options might be available for him moving forward. Will defer additional antimicrobial therapy to infectious disease. He is continuing to receive a steroid taper which may be beneficial in treating inflammatory etiologies. Advised the patient that I do not see an indication for pursuing intubation mechanical ventilation and tracheostomy as it is unlikely that his pulmonary issues will resolve. May benefit from hematology oncology evaluation depending on bone marrow results Subjective Patient seen and evaluated at bedside. He reports that he had a rough morning, but feels much better at this time. He reports shortness of breath with any exertion. No chest pain or other concerns. He is requiring 60 L 80% FiO2 at this time. No significant overnight events noted. Review of Systems Review of Systems: As per HPI Physical Exam Physical Exam: VITAL SIGNS Vital signs and nursing notes were reviewed. GENERAL 79-year-old male appearing his stated age who is in no acute distress. Communicates well with provider and answers questions appropriately. SKIN Without rashes or lesions. NOSE Midline and without cyanosis. MOUTH/OROPHARYNX Without perioral cyanosis. NECK Neck with FROM. LUNGS Chest wall evaluation demonstrates normal chest wall A:P diameter. Auscultation reveals diffuse crackles. CARDIAC RRR with S1/S2. No murmur, rubs, or gallops appreciated. ABDOMEN Abdominal inspection demonstrates a flat abdomen. BS normoactive all four quadrants. No tenderness, palpable masses, or ascites noted. EXTREMITIES Nail clubbing not present. No peripheral cyanosis. No pretibial edema present. +3/5 radial palpated throughout. PSYCH A&Ox3 and cooperates fully with examiner. Pt is very pleasant and interacts well with examiner. Results & Data Results & Data Vital Signs (Past 12 Hours) Vital Signs Temp Pulse Pulse Pulse Resp BP BP 03/01/24 09:49 74 16 03/01/24 07:30 03/01/24 07:17 77 26 H 03/01/24 07:10 36.4 C L 74 20 117/72 03/01/24 07:07 71 03/01/24 03:35 67 23 03/01/24 03:23 36.3 C L 69 22 122/70 Pulse Ox O2 Del Method O2 Flow Rate FiO2 03/01/24 09:49 97 High Flow Nasal Cannula 60 70 03/01/24 07:30 Free Flow/Blow-by 03/01/24 07:17 88 L High Flow Nasal Cannula 60 80 03/01/24 07:10 87 L Room Air, Free Flow/Blow-by 60 70 03/01/24 07:07 03/01/24 03:35 96 High Flow Nasal Cannula 60 80 03/01/24 03:23 93 High Flow Nasal Cannula PG Care Time/CCT Total # of Minutes Spent Total Time Spent with Patient: Total time spent is greater than 50% in coordination of care (as documented) at patient's floor/unit and/or counseling patient: Coding Level of Care Code 14686 SUB INP/OBS CARE 3/50MIN Diagnoses Idiopathic interstitial pneumonia J84.111 COVID-19 U07.1 COPD exacerbation J44.1 Immunosuppressed due to chemotherapy D84.821; T45.1X5A; Z79.69 Acute hypoxemic respiratory failure J96.01 Anemia D64.9 Anemia type: unspecified type
--- NOTE | 2024-03-01 12:05 | Hospitalist Progress Note ---
Date of Service March 01, 2024 Assessment & Plan (1) Acute kidney injury superimposed on CKD: (2) Acute on chronic respiratory failure with hypoxia: (3) COVID-19: (4) Pancytopenia: (5) COPD exacerbation: Plan 79-year-old male with a past medical history including pancytopenia s/p chemotherapy for B-cell lymphoma, PAF, peripheral neuropathy, pulmonary hypertension, A-fib with RVR, chronic respiratory failure with hypoxia, COPD, cardiomyopathy, anemia, and GERD, presented with acute on chronic respiratory failure. Acute on chronic respiratory failure with hypoxia COPD exacerbation, Recurrent Pneumonia: Multifactorial: Recent admission for COVID-19 infection, immunocompromised status, secondary bacterial pneumonia Nasal cannula 3 L O2 at baseline - elevated requirement relative to baseline, still on HFNC 60L HRCT chest 02/23 demonstrated interval development of consolidation suspicious for pneumonia -> repeat CXR 02/27 with mild interval regression in subpleural and nodular opacities - Pulm/Critical care consulted, appreciate recs: - Elevated suspicion for opportunistic infection; also concern for recurrence of lymphoma; Discussed with Heme/Onc and placed NPO after midnight and possible bone marrow biopsy tomorrow - ID consulted, appreciate recs: - Fungitell, aspergillus Ag, serum cryptococcal Ag, urine histoplasma Ag pending - Urine legionella Ag negative, CMV serology negative - Repeat sputum cx 02/25 +Aspergillus - Dc Zosyn and Vancomycin today; Continue Bactrim until PJP can be ruled out (repeat sputum culture; expectorated sample given patient is not stable for bronchoscopy) - Continue Voriconazole for Aspergillus coverage - Continue Acyclovir ppx Spirometry report from March 2023 notable for moderate obstructive pattern with FEV1 57% of predicted Continue weaning Dexamethasone Continue LABA, LAMA, ICS Continuous neb therapy Continue supportive care measures/pulmonary toilet: incentive spirometry, flutter valve Recent COVID-19 Infection with secondary bacterial pneumonia: Patient was initially positive for COVID on 02/04/2024, residual positive noted on admission S/p dexamethasone x10 days and remdesivir x3 days during last hospital stay + Zosyn and doxycycline tx while inpatient, discharged on Augmentin/doxycycline, completed 7-day course Pancytopenia 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 Bangura Continue acyclovir prophylaxis AM lab w/ improved WBC count to 1.26 (ANC of 1.0) after Neupogen dose yesterday Pulm concerned patient's sxs could be related to recurrence of lymphoma. Patient NPO after midnight and possible bone marrow biopsy tomorrow Monitor cell counts daily, will continue to evaluate risks/benefits of VTE ppx Anemia - Hgb stable - Continue to monitor - AM CBC MAKRO on CKD - MARKO resolved Paroxysmal atrial fibrillation Continue metoprolol succinate, Pierre resumed Plan VTE Prophylaxis: Anushavita MAXIMILIANO: Heart healthy Admission and Anticipated Discharge Date Admission Date: February 16, 2024 Supervising Physician Co-Signing Physician Notes I personally examined the patient and verified all grace points of history and exam, discussed case, and agree with decision making with Dr Gallagher very easily dyspnic. vitals noted fatigued, easy trigger for conversational d yspnea despite high flow NC O2, although does appear to recover relatively quickly. hypoxia/dyspnea/acute on chronic respiratory failure - opportunistic vs lymphoma - clearly worse since around 02/23-. continue antifungals. for bone marrow biopsy. continue steroids, nebs, supportive care otherwise as above Subjective Patient evaluated at bedside and found to be AAOx3, and in NAD. He states his sxs are worse compared to yesterday and feels more SOB this am. Feels like his symptoms are changing from better to worse to better faster than before. Believes this could have been related to limited mobility. Review of Systems Review of Systems: as per hpi Physical Exam Physical Exam: General: Alert and oriented. No acute distress Cardiac: Regular rate and rhythm, no murmurs appreciated Respiratory: Lungs sounds globally diminished, +mild, diffuse wheezes R>L, +conversational dyspnea . Extremities: No lower extremity edema Psych: AAOx3, mood affect congruence Results & Data Results & Data Vital Signs (Past 12 Hours) Vital Signs Temp Pulse Pulse Pulse Resp BP BP 03/01/24 11:45 36.4 C L 79 24 102/57 L 03/01/24 11:33 109 H 20 03/01/24 09:49 74 16 03/01/24 07:30 03/01/24 07:17 77 26 H 03/01/24 07:10 36.4 C L 74 20 117/72 03/01/24 07:07 71 03/01/24 03:35 67 23 03/01/24 03:23 36.3 C L 69 22 122/70 Pulse Ox O2 Del Method O2 Flow Rate FiO2 03/01/24 11:45 92 High Flow Nasal Cannula 60 70 03/01/24 11:33 90 High Flow Nasal Cannula 60 70 03/01/24 09:49 97 High Flow Nasal Cannula 60 70 03/01/24 07:30 Free Flow/Blow-by 03/01/24 07:17 88 L High Flow Nasal Cannula 60 80 03/01/24 07:10 87 L Room Air, Free Flow/Blow-by 60 70 03/01/24 07:07 03/01/24 03:35 96 High Flow Nasal Cannula 60 80 03/01/24 03:23 93 High Flow Nasal Cannula Resident Activity Tracking Resident Involvement: Resident Care Provided Care Provided: Adult Hospital Medicine
--- NOTE | 2024-03-01 16:31 | Billing Data ---
Date of Service March 01, 2024 Coding Level of Care Code 74468 SUB INP/OBS CARE MIN
[2024-03-01] MEDS: BUDESONIDE 0.5 MG/2 ML VIAL (PULMICORT) INH SCH (19:39)
[2024-03-01] MEDS: FORMOTEROL 20 MCG/2 ML VIAL INH SCH (19:39)
[2024-03-01 19:47] LABS: Aspergillus Ag Index 0.45 (<0.50); Aspergillus Antigen, Serum Not Detected (Not Detected); Fungitell (1-3)-B-D-Glucan >500 pg/mL
[2024-03-01] MEDS: MELATONIN 3 MG TAB PO PRN (20:51)
[2024-03-02 06:28] LABS: Creatinine Clr Calc Pharmacy 51.1 ml/min
[2024-03-02] MEDS ORDERED: SULFA/TRIMETH 80/16MG/ML 320 MG in DEXTROSE 5% 500 ML IV SCH (08:15)
[2024-03-02] MEDS: SULFA/TRIMETH 80/16MG/ML 160 MG in DEXTROSE 5% 250 ML IV SCH ×2 (09:23→10:53)
--- NOTE | 2024-03-02 10:03 | Hospitalist Progress Note ---
Date of Service March 02, 2024 Assessment & Plan (1) Acute kidney injury superimposed on CKD: (2) Acute on chronic respiratory failure with hypoxia: (3) COVID-19: (4) Pancytopenia: (5) COPD exacerbation: Plan 79-year-old male with a past medical history including pancytopenia s/p chemotherapy for B-cell lymphoma, PAF, peripheral neuropathy, pulmonary hypertension, A-fib with RVR, chronic respiratory failure with hypoxia, COPD, cardiomyopathy, anemia, and GERD, presented with acute on chronic respiratory failure. Acute on chronic respiratory failure with hypoxia COPD exacerbation, Recurrent Pneumonia: Multifactorial: Recent admission for COVID-19 infection, immunocompromised status, secondary bacterial pneumonia Nasal cannula 3 L O2 at baseline - elevated requirement relative to baseline, still on HFNC 60L HRCT chest 02/23 demonstrated interval development of consolidation suspicious for pneumonia -> repeat CXR 02/27 with mild interval regression in subpleural and nodular opacities - Pulm/Critical care consulted, appreciate recs: - Elevated suspicion for opportunistic infection; also concern for recurrence of lymphoma and was scheduled for bone marrow biopsy today (see below) - ID consulted, appreciate recs: - Aspergillus Ag, serum cryptococcal Ag negative - Urine histoplasma Ag pending - Urine legionella Ag negative, CMV serology negative - Beta-(1,3)-D-glucan positive, which could be positive for both PJP and Aspergillus, so doesn't necessarily r/o PJP since sputum culture did grow Aspergillus; pending PJP PCR as mentioned below. - Repeat sputum cx 02/25 +Aspergillus - Continue Bactrim until PJP can be ruled out (sputum PCR ordered and pending); if PCR negative, can dc Bactrim - Continue Voriconazole for Aspergillus coverage - Continue Acyclovir ppx Spirometry report from March 2023 notable for moderate obstructive pattern with FEV1 57% of predicted Continue weaning Dexamethasone Continue LABA, LAMA, ICS Continuous neb therapy but not much improvement. Continue supportive care measures/pulmonary toilet: incentive spirometry, flutter valve Recent COVID-19 Infection with secondary bacterial pneumonia: Patient was initially positive for COVID on 02/04/2024, residual positive noted on admission S/p dexamethasone x10 days and remdesivir x3 days during last hospital stay + Zosyn and doxycycline tx while inpatient, discharged on Augmentin/doxycycline, completed 7-day course Pancytopenia 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 Bangura Continue acyclovir prophylaxis Originally scheduled for bone marrow biopsy today to evaluate for possible recurrence of lymphoma, however, given significant dyspnea and desaturation to low 80s - high 70s with minor movements such as reaching down the bed, will hold off from doing biopsy today. May consider re-scheduling this if patient's respiratory status improves. Monitor cell counts daily, will continue to evaluate risks/benefits of VTE ppx Anemia - Hgb stable - Continue to monitor - AM CBC MARKO on CKD - MARKO resolved Paroxysmal atrial fibrillation Continue metoprolol succinate, Eliquis resumed Plan VTE Prophylaxis: Pierre VIERA: Heart healthy Admission and Anticipated Discharge Date Admission Date: February 16, 2024 Supervising Physician Co-Signing Physician Notes I personally examined the patient and verified all grace points of history and exam, discussed case, and agree with decision making with Dr Gallagher very easily dyspneic. worse than yesterday. Desaturates even with slight exertion (for example in discussion with respiratory therapy he desaturates even raising his arms). vitals noted fatigued, easy trigger for conversational dyspnea despite high flow NC O2 as well as oxygen mask on top of it, looks more pale and [place] than yesterday. hypoxia/dyspnea/acute on chronic respiratory failure - opportunistic vs lymphoma - clearly worse since around 02/23-. Discussed concerning prognosis and goals of care quite frankly with patient and son. He is aware of the severity of his illness, definitely would not want intubation/ventilation; at the same time he does wonder if time in the current therapy may help him turn the cornerbut understands that he also appears to be fatiguing and he may have respiratory failure due to fatigue. He/son/myself all agree that at this point the bone marrow biopsy would likely not be helpful because even if it was lymphomatosis, he would not be well enough to tolerate any treatmentand at least as far as how easy he fatigues and becomes dyspneic with even minimal exertion today (again something as simple as raising his arm) we all agree that the simple act of movement to have the biopsy done could create any irreparable setback. For now he would like to continue with current care, is aware that he may fail anyway, and we discussed what a palliative/comfort focused approach would entail. Offered empathy and support, answered all questions to the best my ability. otherwise as above Subjective Patient evaluated at bedside and found to be AAOx3, and in NAD. He states his sxs are worse compared to yesterday and feels more SOB this am. Does feel SOB with minimal exertion such as sitting up for physical exam or leaning to reach something on the bottom of the bed. Also feeling fatigued and tired. No fevers, chills, chest pain, or other sxs. Review of Systems Review of Systems: as per hpi Physical Exam Physical Exam: General: Alert and oriented. No acute distress Cardiac: Regular rate and rhythm, no murmurs appreciated Respiratory: Lungs sounds globally diminished, +conversational dyspnea . Extremities: No lower extremity edema Psych: AAOx3, mood affect congruence Results & Data Results & Data Vital Signs (Past 12 Hours) Vital Signs Temp Pulse Pulse Pulse Resp BP BP 03/02/24 07:48 36.7 C 66 23 97/60 L 03/02/24 07:21 65 22 03/02/24 04:15 62 18 03/02/24 03:56 36.5 C 73 20 95/57 L 03/02/24 00:30 95 H 20 03/01/24 23:54 36.3 C L 71 24 100/62 03/01/24 22:56 65 Pulse Ox O2 Del Method O2 Flow Rate FiO2 03/02/24 07:48 90 High Flow Nasal Cannula 60 100 03/02/24 07:21 94 High Flow Nasal Cannula 60 100 03/02/24 04:15 95 High Flow Nasal Cannula 60 100 03/02/24 03:56 94 High Flow Nasal Cannula 03/02/24 00:30 93 High Flow Nasal Cannula 60 100 03/01/24 23:54 89 L High Flow Nasal Cannula 03/01/24 22:56 Resident Activity Tracking Resident Involvement: Resident Care Provided Care Provided: Adult Hospital Medicine
--- NOTE | 2024-03-02 10:33 | Infectious Disease Progress Nt ---
Date of Service March 02, 2024 Assessment & Plan (1) Acute hypoxemic respiratory failure: (2) Diffuse large B cell lymphoma: (3) Acute kidney injury superimposed on CKD: (4) Pancytopenia: Plan 79yo M with h/o DLBCL (last dose of chemo 1 month ago, on ACV ppx), s/p chest po rt, cardiomyopathy, afib on Eliquis, GERD, COPD on 3L home O2, CKD III, recent admission 02/03-02/06 with COVID infection s/p RDV x 3d and also treated for ?bacterial PNA and dcd on doxy/augmentin x 7d course who presented on 02/14 with worsening SOB, chest congestion, productive cough and hypoxia. Here he has been afebrile, BP stable, initially on 4L NC. Initial labs with WBC 6.15, low Hb and platelets. Cr 1.41. Lactate 1.1. AST/ALT wnl. PCT 0.06>>0.04. UA 0-5 WBC. CRP 9.65>>2.62. MRSA screen neg. RPP pos for COVID. CTA chest with severe emphysematous and peripheral fibrotic changes with multifocal peripherally and subpleural GGO on both lobes could be due to COVID19 or other acute infection. He was started on zosyn and azithromycin. Course c/b worsening hypoxia up to 6- 7L. HRCT on 02/23 showed interval development of consolidation c/w pneumonia superimposed upon prominent emphysema and scarring, reactive LAD. ID consulted 02/24. Patient was started on empiric Bactrim, vancomycin, along with zosyn/azithromycin. U legionella negative. Continued to have worsening O2, now on HFNC and transferred to ICU. SCx from 02/19 with Coryne striatum. SCx from 02/25 with rare Aspergillus fumigatus. Unable to get bronchoscopy due to clinical instability. Serum GM neg, fungitell > 500. Given very high BDG, I do think he should be continued on Bactrim for PJP treatment. He is on decadron as well. Would also continue voriconazole for Aspergillus infection given positive sputum cultures. I did add order for PJP stain/PCR on induced sputum. Also discussed with pharmacy regarding Bactrim dosing with aim for 15mg/kg for PJP. Adjustments being made based on dose and availability of IVF. Noted pancytopenia, which was also discussed with pharmacy and [facility] ID pharmacist, unfortunately, Bactrim is the best option in this setting despite its myelosuppressive side effects and needs close monitoring. # Acute hypoxic respiratory failure # C/f pulmonary aspergillosis # C/f PJP pneumonia # Recent COVID infection # MARKO on CKD improved # DLBCL in remission port in place, off chemo - Jeny ordered PJP stain/PCR on induced sputum - f/u urine histoplasma Ag - continue voriconazole 340mg q12h (4mg/kg, 83kg) will require prolonged course, can change to PO when theres some clinical improvement - continue Bactrim 15mg/kg/day IV plan for full treatment course (pharmacy assisting with dosing), change to PO when theres clinical improvement - on decadron - acyclovir ppx ID will continue to follow. If questions or concerns, contact via [employer] or Infectious Disease Call Center . Lindsey Mcghee MD [facility], Division of Infectious Diseases Admission and Anticipated Discharge Date Admission Date: February 16, 2024 Subjective This patient recommendation is based on a telemedicine consult request which was completed asynchronously through chart review and information provided by the primary physician. The patient was not seen or examined today. The evaluation is consultative in nature and all patient care and treatment decisions can either be accepted or rejected by the patient's primary hospital-based treating physician using their own independent medical judgment for their patient. Time Spent Reviewing Chart: 31+ minutes Patient with ongoing high O2 requirement. BDG resulted, > 500 Results & Data Vital Signs (Past 12 Hours) Vital Signs Temp Pulse Pulse Pulse Resp BP BP 03/02/24 08:00 72 03/02/24 07:48 36.7 C 66 23 97/60 L 03/02/24 07:21 65 22 03/02/24 04:15 62 18 03/02/24 03:56 36.5 C 73 20 95/57 L 03/02/24 00:30 95 H 20 03/01/24 23:54 36.3 C L 71 24 100/62 03/01/24 22:56 65 Pulse Ox O2 Del Method O2 Flow Rate FiO2 03/02/24 08:00 03/02/24 07:48 90 High Flow Nasal Cannula 60 100 03/02/24 07:21 94 High Flow Nasal Cannula 60 100 03/02/24 04:15 95 High Flow Nasal Cannula 60 100 03/02/24 03:56 94 High Flow Nasal Cannula 03/02/24 00:30 93 High Flow Nasal Cannula 60 100 03/01/24 23:54 89 L High Flow Nasal Cannula 03/01/24 22:56 Laboratory Results Labs reviewed. Diagnostic Findings Imaging reviewed. (2) Diffuse large B cell lymphoma Lymphoma site: unspecified region Qualified Code(s): C83.30 - Diffuse large B-cell lymphoma, unspecified site
[2024-03-02 10:39] LABS: BUN Creatinine Ratio 30.6 (10-20); Potassium 5.1 mmol/L (3.5-5.1)
--- NOTE | 2024-03-02 11:34 | Pulmonology Progress Note ---
Date of Service March 02, 2024 Assessment & Plan (1) Idiopathic interstitial pneumonia: (2) COVID-19: (3) COPD exacerbation: (4) Immunosuppressed due to chemotherapy: (5) Acute hypoxemic respiratory failure: (6) Anemia: Anemia type: unspecified type Qualified Code(s): D64.9 - Anemia, unspecified Plan IMPRESSION: 79-year-old male with a significant past medical history of diffuse large B-cell lymphoma post chemotherapy, COPD, A-fib anticoagulated on Eliquis, and remote COVID-19 infection who remains admitted in the setting of acute hypoxic respiratory failure requiring high flow nasal cannula. Has had progression of the parenchymal infiltrates which appear to be bronchocentric. This is superimposed on emphysematous changes and some fibrotic changes as well. Clinical pattern concerning for recurrence of lymphoma especially given lack of response to reversible causes. RECOMMENDATIONS: 1. Pneumonia - Multifocal infiltrative changes appreciated on chest CT as well as HRCT. CT findings also with significant emphysematous changes to the lungs and large bullae noted to the LEFT upper lung field. Patient has been managed on multiple antibiotics at the recommendation of infectious disease. Currently on PJP therapy while testing is pending. Legionella was negative. Defer antibiotics to infectious disease however my suspicion is this may not be an infectious process. 2. COPD - Remains on Breo and Incruse at this time. Do not think he is bronchospastic and that additional inhalers would be effective in alleviating any of his symptoms. 3. Acute on chronic hypoxic respiratory failure - In the setting of #1 and 2. Unfortunately the patient has not improved. I would be reluctant to recommend intubation as I am not sure that this is a reversible process at this point in time. Will await results of the patient's bone marrow biopsy. 4. Immunosuppressed state - Unfortunately this does broaden the differential complex patient. Again, appreciate infectious disease input. The patient appears to be failing treatment on multiple fronts for reversible etiologies. He is too ill to consider invasive approaches such as bronchoscopy or BAL or lung biopsy at this point in time and its uncertain whether or not any of those would alter management. Would be highly appropriate to engage palliative care to better define goals of therapy as the patient's expressed goals of therapy may not be medically realistic. Admission and Anticipated Discharge Date Admission Date: February 16, 2024 Subjective Patient seen and examined. EMR reviewed. This morning the patient is experiencing increasing work of breathing and has had an increase in his oxygen requirement. Discussed with respiratory therapy and added a nonrebreather to his high flow nasal cannula. The patient does look more fatigued today. Review of Systems 2 Review of Systems: Please refer to hospitalist note Physical Exam 2 Constitutional: + acute distress, + ill appearing and + frail appearing Neck: trachea midline, no thyromegaly Respiratory: + respiratory distress, + labored breath ing and + tachypneic; no cough Auscultation: + rhonchi; no crackles and no wheezes Cardiovascular: RRR, no murmur, no edema Gastrointestinal (Abdomen): normal bowel sounds, soft, nontender, no hepatosplenomegaly Musculoskeletal: Extremities: extremities normal to inspection Skin: no rashes, warm and dry Neurologic: Nonfocal exam Lymphatic: no cervical lymphadenopathy Results & Data Results & Data Vital Signs (Past 12 Hours) Vital Signs Temp Pulse Pulse Pulse Resp BP BP 03/02/24 11:24 63 18 03/02/24 09:00 03/02/24 08:00 72 03/02/24 07:48 36.7 C 66 23 97/60 L 03/02/24 07:21 65 22 03/02/24 04:15 62 18 03/02/24 03:56 36.5 C 73 20 95/57 L 03/02/24 00:30 95 H 20 03/01/24 23:54 36.3 C L 71 24 100/62 Pulse Ox O2 Del Method O2 Flow Rate FiO2 03/02/24 11:24 97 High Flow Nasal Cannula 60 100 03/02/24 09:00 High Flow Nasal Cannula, Non-rebreather 60 100 03/02/24 08:00 03/02/24 07:48 90 High Flow Nasal Cannula 60 100 03/02/24 07:21 94 High Flow Nasal Cannula 60 100 03/02/24 04:15 95 High Flow Nasal Cannula 60 100 03/02/24 03:56 94 High Flow Nasal Cannula 03/02/24 00:30 93 High Flow Nasal Cannula 60 100 03/01/24 23:54 89 L High Flow Nasal Cannula Laboratory Results 03/02/24 05:22 Diagnostic Findings No new imaging PG Care Time/CCT Total # of Minutes Spent Total Time Spent with Patient: Total time spent is greater than 50% in coordination of care (as documented) at patient's floor/unit and/or counseling patient: Coding Level of Care Code 95096 SUB INP/OBS CARE MIN Diagnoses Idiopathic interstitial pneumonia J84.111 COVID-19 U07.1 COPD exacerbation J44.1 Immunosuppressed due to chemotherapy D84.821; T45.1X5A; Z79.69 Acute hypoxemic respiratory failure J96.01 Anemia D64.9 Anemia type: unspecified type
[2024-03-02 11:38] LABS: Hematocrit (blood only) 23.5 % (42.0-52.0); Hemoglobin 7.9 g/dl (14.0-18.0); Mean Corpuscular Hemoglobin 33.3 pg (25.0-34.0); Mean Corpuscular Hgb Conc 33.6 g/dL (32.0-36.0); Mean Corpuscular Volume 99.2 fL (80.0-100.0); Mean Platelet Volume 13.1 fL (9.4-12.4); Platelet Count 77 K/uL (130-400); RDW Standard Deviation 51.1 fL (36.4-46.3); Red Blood Count 2.37 M/uL (4.70-6.10); White Blood Count 1.04 K/ul (4.8-10.8)
[2024-03-02 11:46] LABS: Basophils # (auto) 0.01 K/uL (0.00-0.20); Dohle Bodies 1+; Echinocytes 1+; Immature Granulocytes # (auto) 0.02 K/uL (0.01-0.20); Immature Granulocytes % (auto) 1.9 %; Lymphocytes # (auto) 0.11 K/uL (1.20-3.40); Lymphocytes % (auto) 10.6 %; Monocytes # (auto) 0.13 K/uL (0.11-0.59); Monocytes % (auto) 12.5 %; Neutrophils # (auto) 0.77 K/uL (1.40-6.50); Toxic Granulation 1+; Toxic Vacuolation 1+
[2024-03-02] MEDS: fentaNYL citrate PF 100 MCG/2 ML VIAL ONE (12:59)
[2024-03-02] MEDS: ACETAMINOPHEN 1000 MG/100 ML IV IV ONE (12:59)
--- NOTE | 2024-03-02 13:09 | Billing Data ---
Date of Service March 02, 2024 Coding Level of Care Code 55653 SUB INP/OBS CARE MIN
[2024-03-02] MEDS: SULFA IV SCH (16:59)
[2024-03-02] MEDS: TRIMETH IV SCH (16:59)
[2024-03-02] MEDS: DEXTROSE 5% IV SCH (16:59)
[2024-03-03 06:31] LABS: Calcium 7.7 mg/dl (8.6-10.3); Creatinine Clr Calc Pharmacy 43.6 ml/min; Hematocrit (blood only) 22.5 % (42.0-52.0); Hemoglobin 7.5 g/dl (14.0-18.0); Mean Corpuscular Hemoglobin 32.8 pg (25.0-34.0); Mean Corpuscular Hgb Conc 33.3 g/dL (32.0-36.0); Mean Corpuscular Volume 98.3 fL (80.0-100.0); Mean Platelet Volume 12.9 fL (9.4-12.4); Platelet Count 76 K/uL (130-400); RDW Coefficient of Variation 13.9 % (11.5-14.5); RDW Standard Deviation 49.4 fL (36.4-46.3); Red Blood Count 2.29 M/uL (4.70-6.10); White Blood Count 0.93 K/ul (4.8-10.8)
--- NOTE | 2024-03-03 07:56 | Hospitalist Progress Note ---
Date of Service March 03, 2024 Assessment & Plan (1) Acute kidney injury superimposed on CKD: (2) Acute on chronic respiratory failure with hypoxia: (3) COVID-19: (4) Pancytopenia: (5) COPD exacerbation: Plan 79-year-old male with a past medical history including pancytopenia s/p chemotherapy for B-cell lymphoma, PAF, peripheral neuropathy, pulmonary hypertension, A-fib with RVR, chronic respiratory failure with hypoxia, COPD, cardiomyopathy, anemia, and GERD, presented with acute on chronic respiratory failure. Acute on chronic respiratory failure with hypoxia COPD exacerbation, Recurrent Pneumonia: Elevated requirement relative to baseline, still on HFNC and nonrebreather and saturations still in 80s - Pulm/Critical care consulted, appreciate recs: - Elevated suspicion for opportunistic infection; also concern for recurrence of lymphoma - ID consulted, appreciate recs: - Aspergillus Ag, serum cryptococcal Ag negative - Urine histoplasma Ag pending - Urine legionella Ag negative, CMV serology negative - Beta-(1,3)-D-glucan positive; pending PJP PCR as mentioned below. - Repeat sputum cx 02/25 +Aspergillus - Continue Bactrim until PJP can be ruled out (sputum PCR ordered and pending); if PCR negative, can dc Bactrim - Continue Voriconazole for Aspergillus coverage - Continue Acyclovir ppx Spirometry report from March 2023 notable for moderate obstructive pattern with FEV1 57% of predicted Continue weaning Dexamethasone Continue inhalers Continue supportive care measures/pulmonary toilet: incentive spirometry, flutter valve Recent COVID-19 Infection with secondary bacterial pneumonia: Patient was initially positive for COVID on 02/04/2024, residual positive noted on admission S/p dexamethasone x10 days and remdesivir x3 days during last hospital stay + Zosyn and doxycycline tx while inpatient, discharged on Augmentin/doxycycline, completed 7-day course Pancytopenia 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 Bangura Continue acyclovir prophylaxis Anemia - Hgb stable - Continue to monitor - AM CBC MARKO on CKD - Creatinine increasing again - Possible this is due to Bactrim and Voriconazole +/- dehydration Paroxysmal atrial fibrillation Continue metoprolol succinate, and Eliquis Plan VTE Prophylaxis: Pierre VIERA: Heart healthy Admission and Anticipated Discharge Date Admission Date: February 16, 2024 Supervising Physician Co-Signing Physician Notes I personally examined the patient and verified all grace points of history and exam, discussed case, and agree with decision making with Dr Gallagher very easily dyspneic. worse than yesterday. Desaturates even with slight exertion (for example in discussion with respiratory therapy he desaturates even raising his arms). vitals noted fatigued, easy trigger for conversational dyspnea despite high flow NC O2 as well as oxygen mask on top of it, looks more pale and [place] than yesterday. hypoxia/dyspnea/acute on chronic respiratory failure - opportunistic vs lymphoma - continues to slowly worsen. Ongoing discussions with patient. Family present. He expresses a good understanding that he is not likely to come through this, but because he is not suffering or struggling right now he also was not quite at a place where he feels comfortable with the idea of withdrawing care. He understands that no escalation would be of rational benefit, but does not necessarily want to stop what were doing or moved to a comfort measures only motive care yet. He and family are quite aware of the severity of his illness and the overall very poor prognosis, though. otherwise as above Subjective Patient seen at bedside and found AAOx3, afebrile, dyspneic, and in NAD. States he feels worse than yesterday and that overnight he reached to the bottom of his bed to get something from his bag and "felt like he was not going to make it through the night" due to SOB/dyspnea. Refers he has chest pain/discomfort when he is especially SOB. No fevers, chills, or other symptoms. Review of Systems Review of Systems: As per HPI. Physical Exam Physical Exam: General: Alert and oriented. No acute distress Cardiac: Regular rate and rhythm, no murmurs appreciated Respiratory: Rhonchi, no wheezing, conversational dyspnea, tachypnea Extremities: No lower extremity edema Results & Data Results & Data Vital Signs (Past 12 Hours) Vital Signs Temp Pulse Pulse Resp BP BP Pulse Ox 03/03/24 07:36 36.5 C 64 20 106/61 88 L 03/03/24 07:30 70 03/03/24 07:12 62 20 96 03/03/24 03:28 68 24 98 03/03/24 02:30 36.4 C L 68 21 118/51 L 95 03/02/24 23:44 36.4 C L 78 22 99/60 L 92 03/02/24 23:23 70 24 92 03/02/24 22:54 63 03/02/24 20:05 36.5 C 71 28 H 97/43 L 93 03/02/24 20:00 O2 Del Method O2 Flow Rate FiO2 03/03/24 07:36 High Flow Nasal Cannula 03/03/24 07:30 03/03/24 07:12 High Flow Nasal Cannula 60 100 03/03/24 03:28 High Flow Nasal Cannula 60 100 03/03/24 02:30 High Flow Nasal Cannula, Non-rebreather 100 03/02/24 23:44 High Flow Nasal Cannula, Non-rebreather 100 03/02/24 23:23 High Flow Nasal Cannula 60 100 03/02/24 22:54 03/02/24 20:05 High Flow Nasal Cannula, Non-rebreather 100 03/02/24 20:00 High Flow Nasal Cannula, Non-rebreather 60 100 Resident Activity Tracking Resident Involvement: Resident Care Provided Care Provided: Adult Hospital Medicine
--- NOTE | 2024-03-03 11:51 | Pulmonology Progress Note ---
Date of Service March 03, 2024 Assessment & Plan (1) Idiopathic interstitial pneumonia: (2) COVID-19: (3) COPD exacerbation: (4) Immunosuppressed due to chemotherapy: (5) Acute hypoxemic respiratory failure: (6) Anemia: Anemia type: unspecified type Qualified Code(s): D64.9 - Anemia, unspecified Plan IMPRESSION: 79-year-old male with a significant past medical history of diffuse large B-cell lymphoma post chemotherapy, COPD, A-fib anticoagulated on Eliquis, and remote COVID-19 infection who remains admitted in the setting of acute hypoxic respiratory failure requiring high flow nasal cannula. Has had progression of the parenchymal infiltrates which appear to be bronchocentric. This is superimposed on emphysematous changes and some fibrotic changes as well. Clinical pattern concerning for recurrence of lymphoma especially given lack of response to reversible causes. RECOMMENDATIONS: 1. Multifocal patchy parenchymal consolidation of unclear etiology. The patient has been treated with diuretics, steroids, and antibiotics as well as bronchodilators and has clinically declined with significant escalation in his oxygen requirement. Concern for nonresponsive processes, especially lymphoma given his pancytopenia. Patient is not a candidate for any systemic therapies. He has failed management and is declining. Would recommend transition to comfort based care with focus on symptoms. The patient understands this and states he is can start calling family members to say his goodbyes. Advised him that I do not think he will survive this hospitalization and if oxygen is weaned and medications for dyspnea are initiated, would expect his life expectancy to be relatively short. This was communicated to the primary service. 2. COPD - Remains on Breo and Incruse at this time. Do not think he is bronchospastic and that additional inhalers would be effective in alleviating any of his symptoms. Unfortunately, nothing else to offer at this point in time. Pulmonary will sign off. Feel free to contact us with questions or concerns Admission and Anticipated Discharge Date Admission Date: February 16, 2024 Subjective Patient seen and examined. EMR reviewed. The patient was scheduled for bone marrow biopsy however this was canceled by the primary team. He is now on nonrebreather and max high flow with oxygen saturations in the mid 80s. He is visibly tachypneic and dyspneic. Review of Systems Review of Systems: All systems reviewed & are unremarkable except as noted in Subjective Physical Exam Constitutional: + acute distress, + ill appearing and + frail appearing Neck: trachea midline, no thyromegaly Respiratory: + respiratory distress, + labored breath ing and + tachypneic; no cough Auscultation: + rhonchi; no crackles and no wheezes Cardiovascular: RRR, no murmur, no edema Gastrointestinal (Abdomen): normal bowel sounds, soft, nontender, no hepatosplenomegaly Musculoskeletal: Extremities: extremities normal to inspection Skin: no rashes, warm and dry Lymphatic: no cervical lymphadenopathy Results & Data Results & Data Vital Signs (Past 12 Hours) Vital Signs Temp Pulse Pulse Resp BP BP Pulse Ox 03/03/24 11:08 36.6 C 77 18 100/51 L 88 L 03/03/24 10:58 86 28 H 03/03/24 09:54 03/03/24 07:36 36.5 C 64 20 106/61 88 L 03/03/24 07:30 70 03/03/24 07:12 62 20 96 03/03/24 03:28 68 24 98 03/03/24 02:30 36.4 C L 68 21 118/51 L 95 O2 Del Method O2 Flow Rate FiO2 03/03/24 11:08 High Flow Nasal Cannula 03/03/24 10:58 High Flow Nasal Cannula 60 100 03/03/24 09:54 High Flow Nasal Cannula, Non-rebreather 60 03/03/24 07:36 High Flow Nasal Cannula 03/03/24 07:30 03/03/24 07:12 High Flow Nasal Cannula 60 100 03/03/24 03:28 High Flow Nasal Cannula 60 100 03/03/24 02:30 High Flow Nasal Cannula, Non-rebreather 100 Critical Care Results & Data Vital Signs (Past 12 Hours) Vital Signs Temp Pulse Pulse Resp BP BP Pulse Ox 03/03/24 11:08 36.6 C 77 18 100/51 L 88 L 03/03/24 10:58 86 28 H 03/03/24 09:54 03/03/24 07:36 36.5 C 64 20 106/61 88 L 03/03/24 07:30 70 03/03/24 07:12 62 20 96 03/03/24 03:28 68 24 98 03/03/24 02:30 36.4 C L 68 21 118/51 L 95 O2 Del Method O2 Flow Rate FiO2 03/03/24 11:08 High Flow Nasal Cannula 03/03/24 10:58 High Flow Nasal Cannula 60 100 03/03/24 09:54 High Flow Nasal Cannula, Non-rebreather 60 03/03/24 07:36 High Flow Nasal Cannula 03/03/24 07:30 03/03/24 07:12 High Flow Nasal Cannula 60 100 03/03/24 03:28 High Flow Nasal Cannula 60 100 03/03/24 02:30 High Flow Nasal Cannula, Non-rebreather 100 Lab & Micro Results (Past 24 Hours) RBC 2.29 M/uL (4.70-6.10) L 03/03/24 WBC 0.93 K/ul (4.8-10.8) L* 03/03/24 Hgb 7.5 g/dl (14.0-18.0) L 03/03/24 Hct 22.5 % (42.0-52.0) L 03/03/24 MCV 98.3 fL (80.0-100.0) 03/03/24 MCH 32.8 pg (25.0-34.0) 03/03/24 MCHC 33.3 g/dL (32.0-36.0) 03/03/24 RDW Standard Deviation 49.4 fL (36.4-46.3) H 03/03/24 RDW Coefficient of Variation 13.9 % (11.5-14.5) 03/03/24 Plt Count 76 K/uL (130-400) L 03/03/24 MPV 12.9 fL (9.4-12.4) H 03/03/24 Na 132 mmol/L (136-145) L 03/03/24 K 5.0 mmol/L (3.5-5.1) 03/03/24 Cl 100 mmol/L (98-107) 03/03/24 CO2 25 mmol/L (21-32) 03/03/24 Anion Gap 7 (3-11) 03/03/24 BUN 44 mg/dl (6-23) H 03/03/24 Creatinine 1.42 mg/dl (0.6-1.4) H 03/03/24 BUN/Creatinine Ratio 31.0 (10-20) H 03/03/24 Glu 130 mg/dl (70-99(Fasting)) H 03/03/24 Ca 7.7 mg/dl (8.6-10.3) L 03/03/24 Calcium Level 7.7 mg/dl (8.6-10.3) L 03/03/24 05:56 Microbiology 02/26/24 Unknown Gram Stain - Final Sputum, Expectorated Sputum Culture - Preliminary Aspergillus fumigatus I & O Totals 24 Hours 03/02/24 03/03/24 03/04/24 06:59 06:59 06:59 Intake Total 3245 / 3245 1602 / 1602 100 / 100 Output Total 2725 / 2725 650 / 650 Balance 520 / 520 952 / 952 100 / 100 Cumulative 02/15/24 23:11 thru 03/03/24 11:09 Intake Total 10716.8125 Output Total 43895 Balance 51683.8125 RT Ventilator Mngmt (Last Documented) Ventilator Ordered Settings Respiratory Rate 18 03/03/24 11:08 Fraction of Inspired Oxygen 100 03/03/24 10:58 Ventilator - PT Measurements Respiratory Rate 18 PG Care Time/CCT Total # of Minutes Spent Total Time Spent with Patient: Total time spent is greater than 50% in coordination of care (as documented) at patient's floor/unit and/or counseling patient: Coding Level of Care Code 03505 SUB INP/OBS CARE 2/35MIN Diagnoses Idiopathic interstitial pneumonia J84.111 COVID-19 U07.1 COPD exacerbation J44.1 Immunosuppressed due to chemotherapy D84.821; T45.1X5A; Z79.69 Acute hypoxemic respiratory failure J96.01 Anemia D64.9 Anemia type: unspecified type
--- NOTE | 2024-03-03 17:02 | Billing Data ---
Date of Service March 03, 2024 Coding Level of Care Code 34201 SUB INP/OBS CARE
[2024-03-03] MEDS: CHLORASEPTIC (PHENOL) 1.4% SOLN 180 ML BTL MT PRN (17:58)
[2024-03-03] MEDS: guaiFENesin/CODEINE 100MG/10MG 5ML UDC PO PRN (17:58)
--- NOTE | 2024-03-04 09:01 | Infectious Disease Progress Nt ---
Date of Service March 04, 2024 Assessment & Plan (1) Acute hypoxemic respiratory failure: (2) Aspergillus pneumonia: (3) Pneumocystis jiroveci pneumonia: (4) Diffuse large B cell lymphoma: (5) Acute kidney injury superimposed on CKD: (6) Pancytopenia: Plan 79yo M with h/o DLBCL (last dose of chemo 1 month ago, on ACV ppx), s/p chest port, cardiomyopathy, afib on Eliquis, GERD, COPD on 3L home O2, CKD III, recent admission 02/03-02/06 with COVID infection s/p RDV x 3d and also treated for ?bacterial PNA and dcd on doxy/augmentin x 7d course who presented on 02/14 with worsening SOB, chest congestion, productive cough and hypoxia. Here he has been afebrile, BP stable, initially on 4L NC. Initial labs with WBC 6.15, low Hb and platelets. Cr 1.41. Lactate 1.1. AST/ALT wnl. PCT 0.06>>0.04. UA 0-5 WBC. CRP 9.65>>2.62. MRSA screen neg. RPP pos for COVID. CTA chest with severe emphysematous and peripheral fibrotic changes with multifocal peripherally and subpleural GGO on both lobes could be due to COVID19 or other acute infection. He was started on zosyn and azithromycin. Course c/b worsening hypoxia up to 6- 7L. HRCT on 02/23 showed interval development of consolidation c/w pneumonia superimposed upon prominent emphysema and scarring, reactive LAD. ID consulted 02/24. Patient was started on empiric Bactrim, vancomycin, along with zosyn/azithromycin. U legionella negative. Continued to have worsening O2, now on HFNC and transferred to ICU. SCx from 02/19 with Coryne striatum. SCx from 02/25 with rare Aspergillus fumigatus. Unable to get bronchoscopy due to clinical instability. Serum GM neg, fungitell > 500. Given very high BDG, I do think he should be continued on Bactrim for PJP treatment. He is on decadron as well. Would also continue voriconazole for Aspergillus infection given positive sputum cultures. PJP stain/PCR on induced sputum was sent earlier this week, PCR was negative on 02/24 but unclear if this was induced sputum. Given labs, will decrease Bactrim dose to q8h. # Acute hypoxic respiratory failure # C/f pulmonary aspergillosis # C/f PJP pneumonia # Recent COVID infection # MARKO on CKD improved # DLBCL in remission port in place, off chemo - f/u PJP stain/PCR on induced sputum from 03/02 - f/u voriconazole level sent on 03/03 - continue voriconazole 340mg q12h (4mg/kg, 83kg) - Bactrim reduced to q8h today - on decadron - acyclovir ppx ID will continue to follow. If questions or concerns, contact via [employer] or Infectious Disease Call Center . Lindsey Mcghee MD [facility], Division of Infectious Diseases Admission and Anticipated Discharge Date Admission Date: February 16, 2024 Subjective Subsequent visit was provided via telemedicine using two-way real-time interactive telecommunication between the patient and the telemedicine provider. For the duration of the visit, the provider was performing the assessment from a different facility than the patient. This includesuse of bluetooth stethoscope forauscultationperformed by the telepresenter that the telemedicine provider can hear if described in the physical exam. Director Broadcast contact information: Please call [facility] [phone]. (Phone Number For Physician Use Only) After establishing a telemedicine visit, patient was: Patient was verified with two unique identifiers, Patient/authorized rep acknowledged consent and understanding and Gave permission to continue telehealth session Time Spent with Patient: Subsequent => 55 min Patient on NRB, reports chest pressure. No BMs x 3 days. Physical Exam Physical Exam: General: Awake, alert HEENT: mmm Neck: supple Lungs: +coarse breath sounds/crackles Heart: nl S1/S2, no appreciable murmurs Chest: left sided port Abdomen: soft, nontender Results & Data Vital Signs (Past 12 Hours) Vital Signs Temp Pulse Pulse Resp BP Pulse Ox O2 Del Method 03/04/24 07:45 36.0 C L 72 20 145/71 H 90 High Flow Nasal Cannula 03/04/24 07:05 75 28 H 91 High Flow Nasal Cannula 03/04/24 03:14 36.7 C 62 20 140/61 90 High Flow Nasal Cannula 03/04/24 02:16 60 18 95 High Flow Nasal Cannula, Non-rebreather 03/04/24 00:16 37.0 C 68 20 115/78 97 High Flow Nasal Cannula 03/03/24 23:14 65 03/03/24 22:11 63 18 94 High Flow Nasal Cannula, Non-rebreather O2 Flow Rate FiO2 03/04/24 07:45 60 100 03/04/24 07:05 60 100 03/04/24 03:14 5.0 03/04/24 02:16 60 100 03/04/24 00:16 5.0 03/03/24 23:14 03/03/24 22:11 60 100 Laboratory Results Labs reviewed. Diagnostic Findings Imaging reviewed. (4) Diffuse large B cell lymphoma Lymphoma site: unspecified region Qualified Code(s): C83.30 - Diffuse large B-cell lymphoma, unspecified site
[2024-03-04 09:06] LABS: Hematocrit (blood only) 26.1 % (42.0-52.0); Hemoglobin 8.6 g/dl (14.0-18.0); Mean Corpuscular Hemoglobin 32.8 pg (25.0-34.0); Mean Corpuscular Volume 99.6 fL (80.0-100.0); Mean Platelet Volume 13.1 fL (9.4-12.4); Platelet Count 99 K/uL (130-400); RDW Coefficient of Variation 13.9 % (11.5-14.5); RDW Standard Deviation 50.1 fL (36.4-46.3); Red Blood Count 2.62 M/uL (4.70-6.10)
[2024-03-04 09:16] LABS: Albumin Level 2.9 gm/dl (3.4-5.0); BUN Creatinine Ratio 33.8 (10-20); Bilirubin Direct 0.1 mg/dl (0-0.2); Bilirubin,Total 0.3 mg/dl (0.2-1.0); Calcium 8.3 mg/dl (8.6-10.3); Creatinine Clr Calc Pharmacy 38.7 ml/min; Potassium 5.8 mmol/L (3.5-5.1); Total Protein 5.6 gm/dl (6.0-8.3)
[2024-03-04 09:27] LABS: Basophils # (auto) 0.01 K/uL (0.00-0.20); Basophils % (auto) 1.1 %; Immature Granulocytes # (auto) 0.05 K/uL (0.01-0.20); Immature Granulocytes % (auto) 5.6 %; Lymphocytes # (auto) 0.12 K/uL (1.20-3.40); Lymphocytes % (auto) 13.5 %; Monocytes # (auto) 0.22 K/uL (0.11-0.59); Monocytes % (auto) 24.7 %; Neutrophils # (auto) 0.49 K/uL (1.40-6.50); Neutrophils % (auto) 55.1 %; Nucleated RBC # (auto) 0.03 K/uL (0.00-0.12); Nucleated RBC % (auto) 3.4 %; White Blood Count 0.89 K/ul (4.8-10.8)
[2024-03-04 09:28] LABS: Acanthocytes 1+; Giant Platelets 1+; Hypersegmented Neutrophils 1+; Polychromasia 1+
[2024-03-04] MEDS ORDERED: ALTEPLASE, RECOMBINANT 1 MG/ML 2ML VIAL INSTIL ONE (09:30)
--- NOTE | 2024-03-04 10:06 | Hospitalist Progress Note ---
Date of Service March 04, 2024 Assessment & Plan (1) Acute kidney injury superimposed on CKD: (2) Acute on chronic respiratory failure with hypoxia: (3) COVID-19: (4) Pancytopenia: (5) COPD exacerbation: Plan 79-year-old male with a past medical history including pancytopenia s/p chemotherapy for B-cell lymphoma, PAF, peripheral neuropathy, pulmonary hypertension, A-fib with RVR, chronic respiratory failure with hypoxia, COPD, cardiomyopathy, anemia, and GERD, presented with acute on chronic respiratory failure. Acute on chronic respiratory failure with hypoxia COPD exacerbation, Recurrent Pneumonia: Elevated requirement relative to baseline, still on HFNC and nonrebreather and saturations still in 80s - Pulm/Critical care consulted, appreciate recs: - Elevated suspicion for opportunistic infection; also concern for recurrence of lymphoma - ID consulted, appreciate recs: - Aspergillus Ag, serum cryptococcal Ag negative - Urine histoplasma Ag pending - Urine legionella Ag negative, CMV serology negative - Beta-(1,3)-D-glucan positive; pending PJP PCR as mentioned below. - Repeat sputum cx 02/25 +Aspergillus - Continue Bactrim until PJP can be ruled out (sputum PCR ordered and pending); if PCR negative, can dc Bactrim - Continue Voriconazole for Aspergillus coverage - Continue Acyclovir ppx Spirometry report from March 2023 notable for moderate obstructive pattern with FEV1 57% of predicted Continue weaning Dexamethasone Continue inhalers Continue supportive care measures/pulmonary toilet: incentive spirometry, flutter valve Discussed with patient re: poor prognosis, especially given that respiratory status is worsening despite interventions taken up until now. MARKO on CKD Hyperkalemia - Creatinine increasing again - Possible this is due to Bactrim and Voriconazole +/- dehydration - Hold off on fluids for now 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 Bangura Continue acyclovir prophylaxis Recent COVID-19 Infection with secondary bacterial pneumonia: Patient was initially positive for COVID on 02/04/2024, residual positive noted on admission S/p dexamethasone x10 days and remdesivir x3 days during last hospital stay + Zosyn and doxycycline tx while inpatient, discharged on Augmentin/doxycycline, completed 7-day course Anemia - Hgb stable - Continue to monitor - AM CBC Paroxysmal atrial fibrillation Continue metoprolol succinate, and Eliquis Plan VTE Prophylaxis: Pierre VIERA: Heart healthy Admission and Anticipated Discharge Date Admission Date: February 16, 2024 Supervising Physician Co-Signing Physician Notes I personally examined the patient and verified all grace points of history and exam, discussed case, and agree with decision making with Dr Gallagher very easily dyspneic. but maybe a little better than yesterday. family present. vitals noted fatigued, easy trigger for conversational dyspnea despite high flow NC O2 as well as oxygen mask on top of it, breathing unlabored but desatur ates easily. hypoxia/dyspnea/acute on chronic respiratory failure - opportunistic vs lymphoma - continues to slowly worsen. Ongoing discussions with patient. Family present. Continue current care for now. Patient and family quite aware that he will not likely survive this hospital stay, and yet at the same time because he is not suffering and is still having quality time with his family, understandably he does not want a change of course at this point. otherwise as above Subjective Still feeling SOB, maybe worse than yesterday. Overnight was more difficult. Has not had bm in 3 days. Review of Systems Review of Systems: As per HPI. Physical Exam Physical Exam: General: Alert and oriented. No acute distress Cardiac: Regular rate and rhythm, no murmurs appreciated Respiratory: Rhonchi, wheezing in b/l bases, conversational dyspnea, tachypnea, on HFNC and nonrebreather Extremities: No lower extremity edema Results & Data Results & Data Vital Signs (Past 12 Hours) Vital Signs Temp Pulse Pulse Resp BP Pulse Ox O2 Del Method 03/04/24 08:00 High Flow Nasal Cannula 03/04/24 07:45 36.0 C L 72 20 145/71 H 90 High Flow Nasal Cannula 03/04/24 07:05 75 28 H 91 High Flow Nasal Cannula 03/04/24 03:14 36.7 C 62 20 140/61 90 High Flow Nasal Cannula 03/04/24 02:16 60 18 95 High Flow Nasal Cannula, Non-rebreather 03/04/24 00:16 37.0 C 68 20 115/78 97 High Flow Nasal Cannula 03/03/24 23:14 65 03/03/24 22:11 63 18 94 High Flow Nasal Cannula, Non-rebreather O2 Flow Rate FiO2 03/04/24 08:00 60 100 03/04/24 07:45 60 100 03/04/24 07:05 60 100 03/04/24 03:14 5.0 03/04/24 02:16 60 100 03/04/24 00:16 5.0 03/03/24 23:14 03/03/24 22:11 60 100 Resident Activity Tracking Resident Involvement: Resident Care Provided Care Provided: Adult Hospital Medicine
[2024-03-04] MEDS: OXYMETAZOLINE 0.05% 30 ML BTL ONE (10:26)
[2024-03-04] MEDS ORDERED: SODIUM ZIRCONIUM CYCLOSILICATE 10 GM PACKET PO SCH (11:00)
[2024-03-04] MEDS: ALBUT/IPRATROP 3MG/0.5MG NEB 3 ML VIAL NEB PRN (11:01)
[2024-03-04] MEDS: POLYETHYLENE (MIRALAX) 17 GM PACK PO SCH (13:02)
[2024-03-04] MEDS: SODIUM ZIRCONIUM CYCLOSILICATE 10 GM PACKET PO SCH (13:03)
[2024-03-04] MEDS: ALTEPLASE, RECOMBINANT 1 MG/ML 2ML VIAL INSTIL ONE (14:45)
--- NOTE | 2024-03-04 18:30 | Billing Data ---
Date of Service March 04, 2024 Coding Level of Care Code 31863 SUB INP/OBS CARE
[2024-03-04] MEDS: FILGRASTIM 300 MCG/ML VIAL SQ ONE (20:23)
[2024-03-04] MEDS: SULFA IV SCH (21:23)
[2024-03-04] MEDS: TRIMETH IV SCH (21:23)
[2024-03-04] MEDS: DEXTROSE 5% IV SCH (21:23)
[2024-03-05 07:33] LABS: Hematocrit (blood only) 23.8 % (42.0-52.0); Hemoglobin 8.1 g/dl (14.0-18.0); Mean Platelet Volume 12.8 fL (9.4-12.4); Nucleated RBC # (auto) 0.08 K/uL (0.00-0.12); Nucleated RBC % (auto) 5.8 %; Platelet Count 80 K/uL (130-400); RDW Coefficient of Variation 13.9 % (11.5-14.5); RDW Standard Deviation 49.6 fL (36.4-46.3); Red Blood Count 2.38 M/uL (4.70-6.10); White Blood Count 1.38 K/ul (4.8-10.8)
[2024-03-05 07:46] LABS: BUN Creatinine Ratio 35.4 (10-20); Calcium 8.2 mg/dl (8.6-10.3); Creatinine Clr Calc Pharmacy 38.4 ml/min; Potassium 5.5 mmol/L (3.5-5.1)
[2024-03-05 08:13] LABS: ALC (manual) 0.11 K/uL (1.2-3.4); ANC (manual) 1.12 K/uL (1.4-6.5); Acanthocytes 2+; Basophilic Stippling 1+; Dohle Bodies 1+; Giant Platelets 1+; Lymphocytes # (manual) 0.11 K/uL (1.2-3.4); Lymphocytes % (manual) 8 %; Monocytes # (manual) 0.15 K/uL (0.11-0.59); Monocytes % (manual) 11 %; Neutrophils # (manual) 1.12 K/uL (1.40-6.50); Neutrophils % (manual) 81 %; Platelet Estimate Decreased (Normal); Polychromasia 2+; Toxic Granulation 1+
[2024-03-05 08:33] VITALS: BP 121/74; TEMP 97.7
--- NOTE | 2024-03-05 10:08 | Hospitalist Progress Note ---
Date of Service March 05, 2024 Assessment & Plan (1) Acute kidney injury superimposed on CKD: (2) Acute on chronic respiratory failure with hypoxia: (3) COVID-19: (4) Pancytopenia: (5) COPD exacerbation: Plan 79-year-old male with a past medical history including pancytopenia s/p chemotherapy for B-cell lymphoma, PAF, peripheral neuropathy, pulmonary hypertension, A-fib with RVR, chronic respiratory failure with hypoxia, COPD, cardiomyopathy, anemia, and GERD, presented with acute on chronic respiratory failure. Discussed with patient and his family who was present in the room: poor prognosis given clinical worsening despite multiple interventions such as inhale rs, nebulizers, steroids, antibiotics/antiviral/antifungal therapy, and oxygen supplementation. Ultimately decision was made to move to comfort measures only. Will add Morphine 1 mg IV q30 min for dyspnea and pain. Will stop Acyclovir, Voriconazole and Bactrim. Continue steroids, inhalers, and oxygen supplementation to keep breathing as comfortable as it can be considering patient's presentation. Acute on chronic respiratory failure with hypoxia COPD exacerbation, Recurrent Pneumonia: Elevated requirement relative to baseline, still on HFNC and nonrebreather and saturations still in 80s - Pulm/Critical care consulted -- opportunistic infection versus lymphoma recurrence - ID consulted -- Dc Acyclovir, Voriconazole, and Bactrim as detailed above. 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 Bangura WBC improved with Filgastrim x1 dose Recent COVID-19 Infection with secondary bacterial pneumonia: Patient was initially positive for COVID on 02/04/2024, residual positive noted on admission Anemia Hgb stable Paroxysmal atrial fibrillation Continue metoprolol succinate, and Eliquis Plan VTE Prophylaxis: Pierre VIERA: Heart healthy Admission and Anticipated Discharge Date Admission Date: February 16, 2024 Supervising Physician Co-Signing Physician Notes I personally examined the patient and verified all grace points of history and exam, discussed case, and agree with decision making with Dr Gallagher Continues to worsen. Now starting to feel some chest tightness and shortness of breath. Because of worsening and starting to feel some degree of suffering/struggling he notes he would like to change to comfort goals. family present. vitals noted fatigued, easy trigger for conversational dyspnea despite high flow NC O2 as well as oxygen mask on top of it, breathing unlabored but desaturates easily. hypoxia/dyspnea/acute on chronic respiratory failure - opportunistic vs lymphoma - continuing to worsen. Now that he is starting to feel discomfort/distress he prefers to be comfort measures only. We discussed what all this entails, discussed comfort driven treatment/reactive treatment. He expressed good understanding. Patient and family expressed appreciation for care. In follow- up later, was more comfortable and starting to be able to rest. Continue to follow and adjust dosing as needed to meet his comfort needs. otherwise as above Subjective Still feeling SOB, worse than yesterday. Overnight was more difficult and has greater frequency/persistence of hallucinations, nursing states he was speaking with his Son earlier in the morning and he was not there at the time. Still no bm. Review of Systems Review of Systems: As per HPI. Physical Exam Physical Exam: General: Alert and oriented. No acute distress Cardiac: Regular rate and rhythm, no murmurs appreciated Respiratory: Rhonchi, wheezing in b/l bases, conversational dyspnea, tachypnea, on HFNC and nonrebreather Extremities: No lower extremity edema Results & Data Results & Data Vital Signs (Past 12 Hours) Vital Signs Temp Pulse Pulse Resp BP BP Pulse Ox 03/05/24 08:00 83 03/05/24 08:00 03/05/24 07:48 36.5 C 80 30 H 121/74 82 L 03/05/24 07:12 79 24 85 L 03/05/24 05:05 63 33 H 84 L 03/05/24 03:38 67 22 90 03/05/24 00:00 03/04/24 23:34 74 28 H 95 03/04/24 22:59 36.4 C L 72 22 128/69 92 03/04/24 22:14 70 Pulse Ox O2 Del Method O2 Del Method O2 Flow Rate O2 Flow Rate FiO2 03/05/24 08:00 03/05/24 08:00 High Flow Nasal Cannula 60 100 03/05/24 07:48 High Flow Nasal Cannula 60 100 03/05/24 07:12 High Flow Nasal Cannula 15 100 03/05/24 05:05 High Flow Nasal Cannula 60 100 03/05/24 03:38 High Flow Nasal Cannula 60 100 03/05/24 00:00 96 High Flow Nasal Cannula, Non-rebreather 60 03/04/24 23:34 High Flow Nasal Cannula 60 100 03/04/24 22:59 High Flow Nasal Cannula, Non-rebreather 60 100 03/04/24 22:14 Resident Activity Tracking Resident Involvement: Resident Care Provided Care Provided: Adult Hospital Medicine
[2024-03-05] MEDS: MoRPHine SULFATE 2 MG/ML CARP IV PRN ×4 (12:16→23:53)
--- NOTE | 2024-03-05 13:14 | Infectious Disease Progress Nt ---
Date of Service March 05, 2024 Assessment & Plan (1) Acute hypoxemic respiratory failure: (2) Aspergillus pneumonia: (3) Pneumocystis jiroveci pneumonia: (4) Diffuse large B cell lymphoma: (5) Acute kidney injury superimposed on CKD: (6) Pancytopenia: Plan 79yo M with h/o DLBCL (last dose of chemo 1 month ago, on ACV ppx), s/p chest port, cardiomyopathy, afib on Eliquis, GERD, COPD on 3L home O2, CKD III, recent admission 02/03-02/06 with COVID infection s/p RDV x 3d and also treated for ?bacterial PNA and dcd on doxy/augmentin x 7d course who presented on 02/14 with worsening SOB, chest congestion, productive cough and hypoxia. Found with worsening respiratory failure, SCx with Aspergillus, and elevated fungitell. Was being treated for aspergillus and PJP PNA. Chart reviewed, patient moved to comfort care only, antimicrobials have been discontinued. ID will discontinue active follow up at this time. Please do not hesitate to reconsult the Infectious Diseases service as needed. Lindsey Mcghee MD [facility], Division of Infectious Diseases [employer]Connect: [phone] Admission and Anticipated Discharge Date Admission Date: February 16, 2024 Subjective This patient recommendation is based on a telemedicine consult request which was completed asynchronously through chart review and information provided by the primary physician. The patient was not seen or examined today. The evaluation is consultative in nature and all patient care and treatment decisions can either be accepted or rejected by the patient's primary hospital-based treating physician using their own independent medical judgment for their patient. Time Spent Reviewing Chart: 11 - 20 minutes Results & Data Vital Signs (Past 12 Hours) Vital Signs Temp Pulse Pulse Resp BP Pulse Ox O2 Del Method 03/05/24 08:00 83 03/05/24 08:00 High Flow Nasal Cannula 03/05/24 07:48 36.5 C 80 30 H 121/74 82 L High Flow Nasal Cannula 03/05/24 07:12 79 24 85 L High Flow Nasal Cannula 03/05/24 05:05 63 33 H 84 L High Flow Nasal Cannula 03/05/24 03:38 67 22 90 High Flow Nasal Cannula O2 Flow Rate FiO2 03/05/24 08:00 03/05/24 08:00 60 100 03/05/24 07:48 60 100 03/05/24 07:12 15 100 03/05/24 05:05 60 100 03/05/24 03:38 60 100 (4) Diffuse large B cell lymphoma Lymphoma site: unspecified region Qualified Code(s): C83.30 - Diffuse large B-cell lymphoma, unspecified site
--- NOTE | 2024-03-05 18:19 | Billing Data ---
Date of Service March 05, 2024 Coding Level of Care Code 74620 SUB INP/OBS CARE MIN
--- NOTE | 2024-03-05 18:19 | Billing Data ---
Date of Service March 05, 2024 Coding Level of Care Code 43441 SUB INP/OBS CARE MIN
[2024-03-05] MEDS ORDERED: ONDANSETRON INJ 2 MG/ML 2 ML VIAL IV PRN (19:39)
[2024-03-05] MEDS ORDERED: POLYETHYLENE (MIRALAX) 17 GM PACK PO PRN (19:44)
[2024-03-05] MEDS: LORazepam 2 MG/1 ML VIAL IV PRN (20:14)
[2024-03-06] MEDS: dexAMETHasone 4 MG in SYRINGE 0 ML IV SCH (05:56)
--- NOTE | 2024-03-06 08:35 | Hospitalist Progress Note ---
Date of Service March 06, 2024 Assessment & Plan (1) Acute kidney injury superimposed on CKD: (2) Acute on chronic respiratory failure with hypoxia: (3) COVID-19: (4) Pancytopenia: (5) COPD exacerbation: Plan 79-year-old male with a past medical history including pancytopenia s/p chemotherapy for B-cell lymphoma, PAF, peripheral neuropathy, pulmonary hypertension, A-fib with RVR, chronic respiratory failure with hypoxia, COPD, cardiomyopathy, anemia, and GERD, presented with acute on chronic respiratory failure. Acute on chronic respiratory failure with hypoxia COPD exacerbation, Recurrent Pneumonia: Elevated requirement relative to baseline, still on HFNC and nonrebreather and saturations still in 80s - Pulm/Critical care consulted -- opportunistic infection versus lymphoma recurrence - ID consulted -- Dc Acyclovir, Voriconazole, and Bactrim. 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 Bangura Recent COVID-19 Infection with secondary bacterial pneumonia: Patient was initially positive for COVID on 02/04/2024, residual positive noted on admission Anemia Hgb stable Paroxysmal atrial fibrillation Continue metoprolol succinate, and Eliquis Admission and Anticipated Discharge Date Admission Date: February 16, 2024 Supervising Physician Co-Signing Physician Notes I personally examined the patient and verified all grace points of history and exam, discussed case, and agree with decision making with Dr Gallagher no HPI or ROS obtainable. much more somnolent and when awake restless - meds have been escalated, fortunately alleviating dyspnea/restlessness adequately when given. son updated. empathy given. pt sleeping, appearing more ashen, but comfortable. no distress. no appearance of pain or discomfort. hypoxia/dyspnea/acute on chronic respiratory failure - opportunistic vs lymphoma - continuing to worsen. [employer]; appearing comfortable. continue to adjust regimen to meet his needs. otherwise as above Subjective Patient becoming more lethargic overnight. Ativan was added overnight for increasing restlessness and morphine increased due to worsening dyspnea and pain with breathing. No other events. Review of Systems Review of Systems: As per HPI. Results & Data Results & Data Vital Signs (Past 12 Hours) Vital Signs Pulse Pulse Resp Pulse Ox Pulse Ox O2 Del Method O2 Del Method 03/06/24 07:25 70 14 87 L High Flow Nasal Cannula, Non-rebreather 03/06/24 03:48 69 17 90 High Flow Nasal Cannula 03/06/24 00:00 68 03/06/24 00:00 88 L High Flow Nasal Cannula, Non-rebreather 03/05/24 22:49 68 18 88 L High Flow Nasal Cannula O2 Flow Rate O2 Flow Rate FiO2 03/06/24 07:25 60 100 03/06/24 03:48 60 100 03/06/24 00:00 03/06/24 00:00 60 03/05/24 22:49 60 15 Resident Activity Tracking Resident Involvement: Resident Care Provided Care Provided: Adult Hospital Medicine
--- NOTE | 2024-03-06 14:32 | Billing Data ---
Date of Service March 06, 2024 Coding Level of Care Code 41532 SUB INP/OBS CARE
[2024-03-06] MEDS: GLYCOPYRROLATE 0.2 MG/ML VIAL IV PRN (14:36)
[2024-03-06 16:17] LABS: Pneumocystis jirovecii PCRQual NOT DETECTED; Pneumocystis jirovecii Source SPUTUM
[2024-03-07 07:18] VITALS: PULSE 99; RESP 16; O2SAT 86
--- NOTE | 2024-03-07 09:24 | Hospitalist Progress Note ---
Date of Service March 07, 2024 Assessment & Plan (1) Acute kidney injury superimposed on CKD: (2) Acute on chronic respiratory failure with hypoxia: (3) COVID-19: (4) Pancytopenia: (5) COPD exacerbation: Plan 79-year-old male with a past medical history including pancytopenia s/p chemotherapy for B-cell lymphoma, PAF, peripheral neuropathy, pulmonary hypertension, A-fib with RVR, chronic respiratory failure with hypoxia, COPD, cardiomyopathy, anemia, and GERD, presented with acute on chronic respiratory failure. Acute on chronic respiratory failure with hypoxia COPD exacerbation, Recurrent Pneumonia: Elevated requirement relative to baseline, still on HFNC and nonrebreather and saturations still in 80s or lower - Pulm/Critical care consulted -- opportunistic infection versus lymphoma recurrence - ID consulted -- Dc Acyclovir, Voriconazole, and Bactrim. Morphine currently on 2.5 mg IV q3h for increasing dyspnea and pain with respirations Ativan 0.5 mg IV q4h prn also ordered for anxiety and restlessness Glycopyrrolate 0.2 mg q4H IV added to manage secretions Patient comfortable. Adjust regimen as needed for continued comfort. 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 Results & Data Results & Data Vital Signs (Past 12 Hours) Vital Signs Pulse Pulse Resp Pulse Ox Pulse Ox O2 Del Method O2 Del Method 03/07/24 07:55 High Flow Nasal Cannula, Non-rebreather 03/07/24 07:16 99 H 16 86 L High Flow Nasal Cannula, Non-rebreather 03/07/24 00:00 91 H 03/07/24 00:00 83 L High Flow Nasal Cannula, Non-rebreather 03/06/24 23:24 88 15 84 L High Flow Nasal Cannula, Non-rebreather O2 Flow Rate O2 Flow Rate FiO2 03/07/24 07:55 60 100 03/07/24 07:16 60 100 03/07/24 00:00 03/07/24 00:00 60 03/06/24 23:24 60 100 Resident Activity Tracking Resident Involvement: Resident Care Provided Care Provided: Adult Hospital Medicine
[2024-03-07] MEDS: MoRPHine SULFATE 4 MG/ML 1 ML CARP\\VIAL IV PRN (10:04)
--- NOTE | 2024-03-07 12:17 | Discharge Summary ---
Date of Service March 07, 2024 Admission HPI Per Admitting Provider The patient is a 79-year-old male with a past medical history including pancytopenia s/p chemotherapy for B-cell lymphoma, PAF, peripheral neuropathy, pulmonary hypertension, A-fib with RVR, chronic respiratory failure with hypoxia, COPD, cardiomyopathy, anemia, and GERD. He was most recently admitted from 02/03-02/07/2024 for acute on chronic respiratory failure associated with COVID infection. He was treated with IV dexamethasone and remdesivir, was discharged on 10 days ago oral dexamethasone, which he reports he has been taking as directed. He reports over the past 24 hours he had a more acute worsening of his breathing, with increased chest congestion, cough productive of discolored mucus, and worsening oxygen saturation. Admission Exam Per Admitting Provider The patient is awake, somewhat somnolent but responsive, well developed and well nourished, normocephalic and atraumatic, lying in bed and in no acute distress. HEENT--PERRL, EOMI, mucous membranes and oropharynx mildly dry. Neck--supple. No JVD. No bruits. Thyroid normal, trachea midline, no adenopathy. Heart--normal S1 and S2. No murmurs, rubs or gallops. Lungs--coarse breath sounds bilaterally. No respiratory distress, no accessory muscle use. Abdomen--normal bowel sounds and soft. Nontender. Nondistended Extremities-- No edema. Dermatologic--skin is mildly dry Neurologic--cranial nerves II through XII grossly intact. Rheumatologic--normal range of motion. Psychiatric--somewhat somnolent but does respond to questions slowly Principal Diagnosis Acute on chronic respiratory failure, Lymphoma, COPD Discharge Data Allergies Allergy/AdvReac Type Severity Reaction Status Date / Time rituximab Allergy Severe Swelling Verified 11/03/23 15:44 of Lip/Tongue/Throat Consultations 02/16/24 03:42 ED Decision to Admit Stat 02/24/24 19:13 Consult Pulmonology Routine 02/25/24 12:19 Consult Infectious Diseases Routine Ordered Studies 02/16/24 01:10 CT angio chest PE protocol Stat 02/24/24 09:25 CT chest HighRes diag wo con Routine Hospital Course (1) Acute kidney injury superimposed on CKD: (2) Acute on chronic respiratory failure with hypoxia: (3) COVID-19: (4) Pancytopenia: (5) COPD exacerbation: Plan 79-year-old male with a past medical history including pancytopenia s/p chemotherapy for B-cell lymphoma, PAF, peripheral neuropathy, pulmonary hypertension, A-fib with RVR, chronic respiratory failure with hypoxia, COPD, cardiomyopathy, anemia, and GERD, presented with acute on chronic respiratory failure. Patient was placed on comfort measures only on 03/05/24 per his wishes due to worsening clinical status that did not respond to any intervention, and eventual progression to air hunger and more significant sxs/suffering not refractory to clinical interventions. Patient kept comfortable with Morphine, Ativan, oxygen administration, and glycopyrrolate. Today, patient went into asystole and pulses not found on exam. No heart sounds or breath sounds heard on auscultation. 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 Time of was called at 12:00. Patient's son and [id number] were both at bedside and given time with patient. For clinical management that was being conducted prior to patient change to SERVICE STATION ATTENDANT status, please see below. Acute on chronic respiratory failure with hypoxia COPD exacerbation, Recurrent Pneumonia: Elevated requirement relative to baseline, still on HFNC and nonrebreather and saturations still in 80s with occasional decrease to 70s, particularly with any minor movement (e.g. leaning forward some) - Pulm/Critical care consulted -- opportunistic infection versus lymphoma recurrence. No bone marrow biopsy done due to to significant dyspnea and desaturations with movement, making it unlikely that patient would be able to tolerate procedure, plus did not believe it would ultimately change outcome - ID consulted -- Empiric Acyclovir, Voriconazole, and Bactrim. 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 Bangura Recent COVID-19 Infection with secondary bacterial pneumonia: Patient was initially positive for COVID on 02/04/2024, residual positive noted on admission Anemia Hgb stable Paroxysmal atrial fibrillation Continue metoprolol succinate, and Eliquis Total Time Total Time Spent Total Time Spent (In Minutes): . Discharge Plan Discharge Items Patient Disposition: Other Date/Time: 03/07/24 12:00 Supervising Physician Co-Signing Physician Notes I personally examined the patient and verified all grace points of history and exam, discussed case, and agree with decision making with Dr Gallagher no HPI or ROS obtainable. d/w nursing at bedside - has been easy to keep comfortable with meds as ordered; no new needs. initially when assessed appeared that passing was likely imminent - shallow intermittent breaths. passed 12p see above. hypoxia/dyspnea/acute on chronic respiratory failure - opportunistic vs lymphoma - continued to worsen. pt opted to change to SERVICE STATION ATTENDANT - was able to have quality time with family and say goodbyes, then yesterday started to appear more c/w actively dying, passed today. otherwise as above Resident Activity Tracking Resident Involvement: Resident Care Provided Care Provided: Adult Hospital Medicine
--- NOTE | 2024-03-07 12:37 | Billing Data ---
Date of Service March 07, 2024 Coding Level of Care Code 66774 IN/OBS DISCH 30 MIN/LESS
[2024-03-13] MEDS ORDERED: dexAMETHasone 3 MG in SYRINGE 0 ML IV SCH (06:00)
--- NOTE | 2024-03-16 15:50 | Coding Query ---
CODING QUERY To promote full compliance with coding requirements relating to patient care, provider participation is requested in all cases of insurance rater uncertainty. Please assist us with the question(s) below: Clinical Indicators: ED Note: * Patient became more concerned because he has become increasingly lightheaded over the past 24 hours. * On presentation today, the patient was hypoxic. * COVID testing was positive. * Chief Complaint: Shortness of Breath/Dyspnea * Stated Complaint: SOB History and Physical: * Nasal cannula 3 L oxygen dependency * Presently on 4 L to get a pulse ox 92% * COVID infection * Give dexamethasone 10 mg IV now, and 6 mg IV every morning * Lungs--coarse breath sounds bilaterally. No respiratory distress, no accessory muscle use. Progress Note 02/16/2024: * Acute on chronic respiratory failure with hypoxia-COPD exacerbation * Azithromycin, 500 mg, PO and dexamethasone Progress Note 02/19/2024: * COPD exacerbationnow off of "typical" coverage for several days and while he is having some degree of up and down fluctuation, he is overall improvingmaking it clear that with hindsight this was not a pneumonia, and was a COPD exacerbation along. Coding Question(s): Based on the above clinical indicators, are you able to further specify the presenting problem responsible for the hypoxia as: ( ) COVID infection ( ) COPD with acute exacerbation (x ) Other (please specify): Over the course of his 2 admissionshe initially appeared to have COVID followed by a secondary bacterial overgrowth as his initial admission. 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 ( ) Unable to determine. Thank you Mckenzie Christopher Principal Diagnosis: "that condition established after study, to be chiefly responsible for occasioning the admission of the patient to the hospital for care." Co-Existing Principal Diagnosis: "when two or more diagnoses equally meet the criteria for principal diagnosis as determined by the circumstances of admission, diagnostic work up, and/or therapy provided, and the Alphabetic Index, Tabular List, or another coding guideline does not provide sequencing direction, any one of the diagnoses may be sequenced first." "When the physician has documented what appears to be a current diagnosis in the body of the record, but has not included the diagnosis in the final diagnostic statement, the physician should be asked whether the diagnosis should be added." (Source Coding [facility] 2 QTR90. p3-4) [facility]
[2024-03-20] MEDS ORDERED: dexAMETHasone 2 MG in SYRINGE 0 ML IV SCH (06:00)
[2024-03-27] MEDS ORDERED: dexAMETHasone 1 MG in SYRINGE 0 ML IV SCH (06:00)
== END 2024-03-07 14:44 | disposition expired | DRG 190 ==
LOC: ED 23:18 → SUATTDRO 02-16 04:58 → 2S 02-16 04:58 → 3E 02-24 03:04 → 1E 02-27 08:47 → 2E 02-28 18:27